=== PATIENT | male | born 1955 | race Caucasian/White ===

== ENCOUNTER 2019-11-26 10:24 | Emergency (ER) | payer MEDICARE, OTHER ==
[2019-11-26 10:35] VITALS: TEMP 97.6
--- NOTE | 2019-11-26 11:05 | ED ---
General Adult HPI - General Chief complaint: Abdominal Pain Stated complaint: abdominal/back pain Time Seen by Provider: 11/26/19 10:41 Source: patient Mode of arrival: wheelchair Limitations: no limitations - History of Present Illness Initial comments: Patient is 64-year-old male presenting to emergency Department with a chief complaint of abdominal pain. Patient states he developed sudden onset of epigastric abdominal pain 2 days ago that is radiating straight to the back. Patient states he has been unable to find a comfortable position. States the pain is constant and cramping nature that also radiates to the suprapubic region. Patient has not seen a physician in many years. Denies history of hypertension or hypercholesterolemia. Does report some shortness of breath but states that is his baseline for the most part because of his smoking. She also reports chronic back pain. Denies any nausea vomiting diarrhea or constipation. Denies hematuria, hematochezia or melena. Denies any urinary symptoms. Denies night sweats or chills. Denies any chest pain, headache, blurry vision, one sided weakness or paresthesias. Denies focal neural deficits. - Related Data Allergies Allergy/AdvReac Type Severity Reaction Status Date / Time No Known Allergies Allergy Verified 11/26/19 10:31 Review of Systems ROS Statement: Those systems with pertinent positive or pertinent negative responses have been documented in the HPI. ROS Other: All systems not noted in ROS Statement are negative. Past Medical History Past Medical History: Hypertension Additional Past Medical History / Comment(s): occasional memory loss History of Any Multi-Drug Resistant Organisms: None Reported Past Surgical History: Heart Catheterization With Stent Past Psychological History: No Psychological Hx Reported Smoking Status: Current every day smoker Past Alcohol Use History: None Reported Past Drug Use History: None Reported General Exam Limitations: no limitations General appearance: alert, in no apparent distress Head exam: Present: atraumatic, normal inspection. Absent: normocephalic Eye exam: Present: normal appearance Pupils: Present: normal accommodation ENT exam: Present: normal exam, normal oropharynx, mucous membranes moist, TM's normal bilaterally, normal external ear exam Neck exam: Present: normal inspection, full ROM Respiratory exam: Present: normal lung sounds bilaterally. Absent: wheezes Cardiovascular Exam: Present: regular rate, normal rhythm, normal heart sounds GI/Abdominal exam: Present: soft, tenderness (Epigastric tenderness). Absent: distended, guarding, rebound, rigid, pulsatile mass (No obvious pulsatile mass appreciated on the abdomen.) Extremities exam: Present: normal inspection, full ROM, normal capillary refill, other (+2 ulnar and radial pulses bilaterally. +2 dorsalis pedis and posterior tibialis bilaterally.) Back exam: Present: normal inspection, full ROM, tenderness, paraspinal tenderness (Tenderness in bilateral lumbosacral region without radiation to the legs.). Absent: CVA tenderness (R), CVA tenderness (L) Neurological exam: Present: alert, oriented X3. Absent: motor sensory deficit Psychiatric exam: Present: normal affect, normal mood Skin exam: Present: warm, dry, intact, normal color Course Vital Signs 11/26/19 10:32 Temperature 97.6 F Pulse Rate 74 Respiratory 18 Rate Blood Pressure 196/96 O2 Sat by Pulse 98 Oximetry EKG Findings - EKG Comments: EKG Findings:: Sinus bradycardia, no ST changes. Ventricular rate 59, ME 1:30, QRS duration 108, QTC 461 Medical Decision Making - Medical Decision Making Patient is 64-year-old male presenting to the emergency department with a chief complaint of abdominal pain radiating to the back. Patient does have history of chronic back pain and emphysema secondary to smoking. On exam patient has had epigastric abdominal pain and bilateral paraspinal vertebral tenderness which is present at baseline. Patient did have severe pain on initial evaluation with an elevated blood pressure. Patient is a smoker. Considering all the symptoms and that he has not seen a physician in many years, possible AAA rupture was considered patient was sent for aortic angiogram Immediately. Results show a dilation of 4 cm and the aortic root. Emphysematous changes noted most likely secondary smoking. Constipation noted. Bilateral gynecomastia and degenerative disc changes. No signs of aortic aneurysm. EKG shows sinus sinus bradycardia. Initial troponin is negative. CBC unremarkable. CMP does show elevated BUN suspected secondary to dehydration. Patient given Bentyl, Toradol, Zofran. Reevaluation patient reports improvement of symptoms. I counseled the patient for smoking cessation for greater than 3 minutes Patient advised to reestablish a relationship with a primary care physician. Patient advised to drink let's of fluids, especially Gatorade and Pedialyte. Patient will be discharged with Bentyl and advised to alternate between Tylenol Motrin for pain control. Strict return parameters were thoroughly discussed with patient was understanding and agreeable. Case discussed with physician. - Lab Data Result diagrams: 11/26/19 11:34 11/26/19 11:34 Lab Results 11/26/19 11/26/19 11/26/19 Range/Units 11:34 11:34 11:34 WBC 6.7 (3.8-10.6) k/uL RBC 5.25 (4.30-5.90) m/uL Hgb 16.6 (13.0-17.5) gm/dL Hct 49.5 (39.0-53.0) % MCV 94.2 (80.0-100.0) fL MCH 31.6 (25.0-35.0) pg MCHC 33.6 (31.0-37.0) g/dL RDW 12.9 (11.5-15.5) % Plt Count 259 (150-450) k/uL Neutrophils % 64 % Lymphocytes % 19 % Monocytes % 8 % Eosinophils % 6 % Basophils % 2 % Neutrophils # 4.3 (1.3-7.7) k/uL Lymphocytes # 1.2 (1.0-4.8) k/uL Monocytes # 0.6 (0-1.0) k/uL Eosinophils # 0.4 (0-0.7) k/uL Basophils # 0.1 (0-0.2) k/uL PT 10.0 (9.0-12.0) sec INR 1.0 (<1.2) APTT 27.0 (22.0-30.0) sec Sodium 134 L (137-145) mmol/L Potassium 4.6 (3.5-5.1) mmol/L Chloride 104 (98-107) mmol/L Carbon Dioxide 24 (22-30) mmol/L Anion Gap 6 mmol/L BUN 24 H (9-20) mg/dL Creatinine 0.68 (0.66-1.25) mg/dL Est GFR (CKD-EPI)AfAm >90 (>60 ml/min/1.73 sqM) Est GFR (CKD-EPI)NonAf >90 (>60 ml/min/1.73 sqM) Glucose 95 (74-99) mg/dL Calcium 9.2 (8.4-10.2) mg/dL Magnesium 2.1 (1.6-2.3) mg/dL Total Bilirubin 0.6 (0.2-1.3) mg/dL AST 26 (17-59) U/L ALT 13 (4-49) U/L Alkaline Phosphatase 141 H (38-126) U/L Troponin I (0.000-0.034) ng/mL Total Protein 6.8 (6.3-8.2) g/dL Albumin 4.1 (3.5-5.0) g/dL Amylase 57 (30-110) U/L Lipase 115 (23-300) U/L 11/26/19 Range/Units 11:34 WBC (3.8-10.6) k/uL RBC (4.30-5.90) m/uL Hgb (13.0-17.5) gm/dL Hct (39.0-53.0) % MCV (80.0-100.0) fL MCH (25.0-35.0) pg MCHC (31.0-37.0) g/dL RDW (11.5-15.5) % Plt Count (150-450) k/uL Neutrophils % % Lymphocytes % % Monocytes % % Eosinophils % % Basophils % % Neutrophils # (1.3-7.7) k/uL Lymphocytes # (1.0-4.8) k/uL Monocytes # (0-1.0) k/uL Eosinophils # (0-0.7) k/uL Basophils # (0-0.2) k/uL PT (9.0-12.0) sec INR (<1.2) APTT (22.0-30.0) sec Sodium (137-145) mmol/L Potassium (3.5-5.1) mmol/L Chloride (98-107) mmol/L Carbon Dioxide (22-30) mmol/L Anion Gap mmol/L BUN (9-20) mg/dL Creatinine (0.66-1.25) mg/dL Est GFR (CKD-EPI)AfAm (>60 ml/min/1.73 sqM) Est GFR (CKD-EPI)NonAf (>60 ml/min/1.73 sqM) Glucose (74-99) mg/dL Calcium (8.4-10.2) mg/dL Magnesium (1.6-2.3) mg/dL Total Bilirubin (0.2-1.3) mg/dL AST (17-59) U/L ALT (4-49) U/L Alkaline Phosphatase (38-126) U/L Troponin I <0.012 (0.000-0.034) ng/mL Total Protein (6.3-8.2) g/dL Albumin (3.5-5.0) g/dL Amylase (30-110) U/L Lipase (23-300) U/L Disposition Clinical Impression: Abdominal cramping, Back pain Disposition: HOME SELF-CARE Condition: Stable Instructions (If sedation given, give patient instructions): Acute Abdominal Pain (ED) Additional Instructions: Follow-up with a primary care doctor. Take prescribed medication as directed. Return to emergency department if symptoms worsen. Is patient prescribed a controlled substance at d/c from ED?: No Referrals: Deonte Devi MD [Primary Care Provider] - 1-2 days Time of Disposition: 13:34
[2019-11-26 12:00] LABS: Basophils # (A) 0.1 k/uL (0-0.2); Basophils % (A) 2 %; Eosinophils # (A) 0.4 k/uL (0-0.7); Eosinophils % (A) 6 %; HCT 49.5 % (39.0-53.0); HGB 16.6 gm/dL (13.0-17.5); Lymphocytes # (A) 1.2 k/uL (1.0-4.8); Lymphocytes % (A) 19 %; MCH 31.6 pg (25.0-35.0); MCHC 33.6 g/dL (31.0-37.0); MCV 94.2 fL (80.0-100.0); Mean Platelet Volume 7.6; Monocytes # (A) 0.6 k/uL (0-1.0); Monocytes % (A) 8 %; Neutrophils # (A) 4.3 k/uL (1.3-7.7); Neutrophils % (A) 64 %; Platelet Count 259 k/uL (150-450); RBC 5.25 m/uL (4.30-5.90); RDW 12.9 % (11.5-15.5); WBC 6.7 k/uL (3.8-10.6)
--- NOTE | 2019-11-26 12:03 | CT ---
EXAMINATION TYPE: CT angio thor/abd pel aorta DATE OF EXAM: 11/26/2019 COMPARISON: None. HISTORY: Abdominal/back pain CT DLP: 1171.2 mGycm. Automated Exposure Control for Dose Reduction was Utilized. CONTRAST: CT scan of the thorax, abdomen and pelvis is performed without and with IV Contrast, patient injected with 100 ml mL of Isovue 370. FINDINGS: There are emphysematous changes throughout the lungs. The lungs are otherwise clear. There is no significant axillary, mediastinal or hilar adenopathy. There is no pleural or pericardial fluid. The heart is not enlarged. There is bilateral gynecomastia. Within the abdomen, the gallbladder is contracted. The liver and spleen appear normal. Both adrenal glands are normal. Both kidneys demonstrate function and appear morphologically normal. The pancreas is unremarkable. There is no significant retroperitoneal, iliac or inguinal adenopathy. The prostate gland is enlarged. The bladder is unremarkable. There is a moderate amount of fecal material within the colon. A well-defined calcification adjacent to the cecum May represent a phlebolith or a fecalith. Small bowel loops are normal. The appendix is not visualized. There is no evidence of pulmonary embolus. The aortic root is dilated measuring 4 cm. The remainder the aorta is normal. There is no evidence of dissection. The SMA, celiac and LANE vessels are patent. Both renal arteries are patent. There is degenerative change within the spine with a loss of disc space height at L5-S1 and a vacuum phenomena at this level. IMPRESSION: 1. MILD DILATATION OF THE AORTIC ROOT. 2. EMPHYSEMATOUS CHANGES THROUGHOUT THE LUNGS. 3. BILATERAL GYNECOMASTIA. 4. CONSTIPATION. 5. DEGENERATIVE CHANGES WITHIN THE SPINE.
[2019-11-26 12:13] LABS: ALT 13 U/L (4-49); AST 26 U/L (17-59); African American GFR (CKD) >90 (>60 ml/min/1.73 sqM); Albumin 4.1 g/dL (3.5-5.0); Alkaline Phosphatase 141 U/L (38-126); Amylase 57 U/L (30-110); Anion Gap 6 mmol/L; Blood Urea Nitrogen 24 mg/dL (9-20); Calcium 9.2 mg/dL (8.4-10.2); Carbon Dioxide 24 mmol/L (22-30); Chloride 104 mmol/L (98-107); Glucose 95 mg/dL (74-99); Magnesium 2.1 mg/dL (1.6-2.3); Non-African American GFR(CKD) >90 (>60 ml/min/1.73 sqM); Potassium 4.6 mmol/L (3.5-5.1); Sodium 134 mmol/L (137-145); Total Bilirubin 0.6 mg/dL (0.2-1.3); Total Protein 6.8 g/dL (6.3-8.2)
[2019-11-26] MEDS ORDERED: KETOROLAC 30 MG/ML 1 ML VIAL IVP STA (12:25)
[2019-11-26] MEDS ORDERED: DICYCLOMINE 10 MG/ML 2 ML AMP IM STA (12:25)
[2019-11-26] MEDS ORDERED: LIDOCAINE 5% PATCH TOPICAL STA (12:26)
[2019-11-26] MEDS ORDERED: ONDANSETRON 4 MG/2 ML VIAL IVP STA (12:26)
[2019-11-26 13:42] VITALS: RESP 20
[2019-11-26 13:45] VITALS: BP 165/75; PULSE 70
== END 2019-11-26 13:52 | disposition home or self-care (01) ==
LOC: EC 10:24
DX: R10.13 Epigastric pain (principal); M54.9 Dorsalgia, unspecified; R06.02 Shortness of breath; K59.00 Constipation, unspecified; N62 Hypertrophy of breast; R00.1 Bradycardia, unspecified; E86.0 Dehydration; I10 Essential (primary) hypertension; F17.200 Nicotine dependence, unspecified, uncomplicated; Z71.6 Tobacco abuse counseling; Z95.5 Presence of coronary angioplasty implant and graft
CPT/HCPCS: 36415; 93005; 80053; 82150; 83690; 83735; 84484; 85025; 85610; 85730; 71275; 74174; 99284; 96372; J0500; Q9967

== ENCOUNTER 2023-02-12 11:13 | Inpatient (IN) | payer MEDICARE, OTHER ==
[2023-02-12] MEDS ORDERED: ASPIRIN 81 MG PO STA (11:43)
[2023-02-12] MEDS ORDERED: NITROGLYCERIN OINT 1 INCH/GM PACKET TOPICAL STA (11:43)
[2023-02-12 12:19] LABS: Basophils # (A) 0.1 k/uL (0-0.2); Basophils % (A) 1 %; Eosinophils # (A) 0.3 k/uL (0-0.7); Eosinophils % (A) 4 %; HCT 50.9 % (39.0-53.0); Lymphocytes # (A) 1.2 k/uL (1.0-4.8); Lymphocytes % (A) 20 %; MCH 32.1 pg (25.0-35.0); MCHC 33.3 g/dL (31.0-37.0); MCV 96.3 fL (80.0-100.0); Mean Platelet Volume 7.1; Monocytes # (A) 0.5 k/uL (0-1.0); Monocytes % (A) 8 %; Neutrophils % (A) 65 %; Platelet Count 287 k/uL (150-450); RBC 5.29 m/uL (4.30-5.90); RDW 12.5 % (11.5-15.5); WBC 6.2 k/uL (3.8-10.6)
[2023-02-12 12:20] LABS: INR 0.9 (<1.2); Partial Thromboplastin Time 22.6 sec (22.0-30.0); Prothrombin Time 10.1 sec (9.0-12.0)
--- NOTE | 2023-02-12 12:20 | XR ---
EXAMINATION TYPE: XR chest 2V DATE OF EXAM: 02/12/2023 COMPARISON: CT 11/26/2019 HISTORY: Intermittent shortness of breath and chest pain TECHNIQUE: Frontal and lateral views of the chest are obtained. FINDINGS: The heart size is normal. The cardiac mediastinal silhouette and pulmonary vasculature are within normal limits. There is no focal consolidation, significant pleural effusion, or pneumothorax . There are increased lung volumes, compatible with emphysema. IMPRESSION: No acute cardiopulmonary process.
--- NOTE | 2023-02-12 12:22 | CT ---
EXAMINATION TYPE: CT brain wo con DATE OF EXAM: 02/12/2023 HISTORY: Acute headache and HTN CT DLP: 1158.9 mGycm. Automated Exposure Control for Dose Reduction was Utilized. TECHNIQUE: CT scan of the head is performed without contrast. COMPARISON: None. FINDINGS: There is no acute intracranial hemorrhage. 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 Asymmetric left ventricular dilatation versus the opposite right side wit h subtle right-sided midline shift. Gong-white matter differentiation is fairly well-preserved. The c alvarium is intact. Globes are intact bilaterally. The paranasal sinuses are clear. IMPRESSION: No acute intracranial hemorrhage. 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 There is asymmetric moderate to severe left ventricular dilatation. Some midline shift is seen. Correlation with old outside CT and/or MRI is advised to determine if left ventricular dilatati on is acute or chronic. Latter is suspected.
[2023-02-12 12:29] LABS: ALT 19 U/L (4-49); AST 24 U/L (17-59); African American GFR (CKD) >90 (>60 ml/min/1.73 sqM); Albumin 4.2 g/dL (3.5-5.0); Alkaline Phosphatase 94 U/L (38-126); Anion Gap 7 mmol/L; Blood Urea Nitrogen 19 mg/dL (9-20); Calcium 9.3 mg/dL (8.4-10.2); Carbon Dioxide 27 mmol/L (22-30); Chloride 103 mmol/L (98-107); Glucose 108 mg/dL (74-99); Magnesium 2.3 mg/dL (1.6-2.3); Non-African American GFR(CKD) >90 (>60 ml/min/1.73 sqM); Potassium 4.4 mmol/L (3.5-5.1); Sodium 137 mmol/L (137-145); Total Bilirubin 0.6 mg/dL (0.2-1.3); Total Protein 6.8 g/dL (6.3-8.2)
--- NOTE | 2023-02-12 13:02 | ED ---
General Adult HPI - General Chief complaint: Chest Pain Stated complaint: Chest Pain,HTN Time Seen by Provider: 02/12/23 11:20 Source: patient, RN notes reviewed, old records reviewed Mode of arrival: wheelchair Limitations: no limitations - History of Present Illness Initial comments: This is a 67-year-old male presents emergency department because his blood pressure was elevated he was having a headache and chest pain. Patient has not seen a physician in many years. Patient states the pain comes in his chest that last between 15 and 20 minutes. Patient states his been ongoing for a week and he also has shortness of breath with the chest pain. Patient states he also has had quite a bit of a headache over the last few weeks and it is been dizzy with that as well. Patient denies any near syncopal episode. Patient denies any numbness or weakness. Patient denies any recent fever chills or cough per patient denies abdominal pain patient denies nausea vomiting diarrhea. Patient saw the primary medical care doctor and they wanted him to come to the hospital he admitted and he also had high blood pressure in the office. - Related Data Home Medications Medication Instructions Recorded Confirmed No Known Home Medications 02/12/23 02/12/23 Allergies Allergy/AdvReac Type Severity Reaction Status Date / Time No Known Allergies Allergy Verified 02/12/23 12:45 Review of Systems ROS Statement: Those systems with pertinent positive or pertinent negative responses have been documented in the HPI. ROS Other: All systems not noted in ROS Statement are negative. Past Medical History Past Medical History: Coronary Artery Disease (CAD), Hypertension Additional Past Medical History / Comment(s): occasional memory loss History of Any Multi-Drug Resistant Organisms: None Reported Past Surgical History: Heart Catheterization With Stent Past Psychological History: No Psychological Hx Reported Smoking Status: Current every day smoker Past Alcohol Use History: None Reported Past Drug Use History: None Reported General Exam - General Exam Comments Initial Comments: GENERAL: Patient is well-developed and well-nourished. Patient is nontoxic and well- hydrated and is in mild distress. ENT: Neck is soft and supple. No significant lymphadenopathy is noted. Oropharynx is clear. Moist mucous membranes. Neck has full range of motion without eliciting any pain. EYES: The sclera were anicteric and conjunctiva were pink and moist. Extraocular movements were intact and pupils were equal round and reactive to light. Eyelids were unremarkable. PULMONARY: Unlabored respirations. Good breath sounds bilaterally. No audible rales rhonchi or wheezing was noted. CARDIOVASCULAR: There is a regular rate and rhythm without any murmurs gallops or rubs. ABDOMEN: Soft and nontender with normal bowel sounds. SKIN: Skin is clear with no lesions or rashes and otherwise unremarkable. NEUROLOGIC: Patient is alert and oriented x3. Cranial nerves II through XII are grossly intact. Motor and sensory are also intact. Normal speech, volume and content. Symmetrical smile. MUSCULOSKELETAL: Normal extremities with adequate strength and full range of motion. LYMPHATICS: No significant lymphadenopathy is noted PSYCHIATRIC: Normal psychiatric evaluation. Limitations: no limitations Course Vital Signs 02/12/23 02/12/23 11:15 11:18 Temperature 97.6 F Pulse Rate 62 78 Respiratory 20 16 Rate Blood Pressure 162/85 146/81 O2 Sat by Pulse 98 98 Oximetry Medical Decision Making - Medical Decision Making EKG is interpreted by myself shows a sinus bradycardia 55 bpm CO interval is on a 27 QRSs 111 QT intervals 474 QTC is 464. Patient's EKG shows no ST segment elevation or depression. Was pt. sent in by a medical professional or institution (, PA, DIRECTOR [employer], urgent care, hospital, or penitentiary...) When possible be specific @ -No Did you speak to anyone other than the patient for history (EMS, parent, family, police, friend...)? What history was obtained from this source @ -Friend that came with the patient gave some of the history Did you review nursing and triage notes (agree or disagree)? Why? @ -I reviewed and agree with nursing and triage notes Were old charts reviewed (outside hosp., previous admission, EMS record, old EKG, old radiological studies, urgent care reports/EKG's, penitentiary records)? Report findings @ -No old charts were reviewed Differential Diagnosis (chest pain, altered mental status, abdominal pain women, abdominal pain men, vaginal bleeding, weakness, fever, dyspnea, syncope, headache, dizziness, GI bleed, back pain, seizure, CVA, palpatations, mental health, musculoskeletal)? @ -Differential Chest Pain: Stable Angina, Unstable Angina, STEMI, NSTEMI Aortic Dissection, Pneumothorax, Musculoskeletal, Esophageal Spasm GERD, Cholecystitis, Pancreatitis, Zoster, this is not meant to be an all-inclusive list. EKG interpreted by me (3pts min.). @ -As above X-rays interpreted by me (1pt min.). @ -Chest x-ray was interpreted by myself. It showed no acute abnormality. CT interpreted by me (1pt min.). @ -CT of the brain was interpreted by myself did show an enlarged ventricle so I looked at the radiological report and he stated that this was there but also thought it was most likely chronic. U/S interpreted by me (1pt. min.). @ -None done What testing was considered but not performed or refused? (CT, X-rays, U/S, labs)? Why? @ -None What meds were considered but not given or refused? Why? @ -None Did you discuss the management of the patient with other professionals (professionals i.e. , PA, [employer], lab, RT, psych nurse, social insurance analyst, drapery sewer hand, teacher, chief diversity officer, immigration case manager)? Give summary @ -I spoke with Dr. smyth he agreed to admit the patient admitted the patient and they will be consulting cardiology for the chest pain and neural for the headaches Was smoking cessation discussed for >3mins.? @ -No Was critical care preformed (if so, how long)? @ -No Were there social determinants of health that impacted care today? How? (Homelessness, low income, unemployed, alcoholism, drug addiction, transportation, low edu. Level, literacy, decrease access to med. care, shelter, rehab)? @ -No Was there de-escalation of care discussed even if they declined (Discuss DNR or withdrawal of care, Hospice)? DNR status @ -No What co-morbidities impacted this encounter? (DM, HTN, Smoking, COPD, CAD, Cancer, CVA, ARF, Chemo, Hep., AIDS, mental health diagnosis, sleep apnea, morbid obesity)? @ -None Was patient admitted / discharged? Hospital course, mention meds given and route, prescriptions, significant lab abnormalities, going to OR and other pertinent info. @ -Patient's blood pressure was mildly elevated I gave the patient a little hydralazine while in the emergency department. Patient's chest pain was minimal and troponin was normal. CAT scan did show probable chronic changes with enlarged ventricle. Cardiology will be consulted for the chest pain and neurology be consulted for the headaches Undiagnosed new problem with uncertain prognosis? @ -No Drug Therapy requiring intensive monitoring for toxicity (Heparin, Nitro, Insulin, Cardizem)? @ -No Were any procedures done? @ -No Diagnosis/symptom? @ -Chest pain Acute, or Chronic, or Acute on Chronic? @ -Acute Uncomplicated (without systemic symptoms) or Complicated (systemic symptoms)? @ -Complicated Side effects of treatment? @ -No Exacerbation, Progression, or Severe Exacerbation? @ -No Poses a threat to life or bodily function? How? (Chest pain, [place], [place], pneumonia, PE, COPD, DKA, ARF, appy, cholecystitis, CVA, Diverticulitis, Homicidal, Suicidal, threat to staff... and all critical care pts) @ -Yes this could lead to end organ dysfunction from poor perfusion Diagnosis/symptom? @ -Hypertension Acute, or Chronic, or Acute on Chronic? @ -Acute Uncomplicated (without systemic symptoms) or Complicated (systemic symptoms)? @ -Complicated Side effects of treatment? @ -none Exacerbation, Progression, or Severe Exacerbation] @ -no Poses a threat to life or bodily function? @ -no Diagnosis/symptom? @ -Headache Acute, or Chronic, or Acute on Chronic? @ -Acute Uncomplicated (without systemic symptoms) or Complicated (systemic symptoms)? @ -Uncomplicated Side effects of treatment? @ -none Exacerbation, Progression, or Severe Exacerbation] @ -no Poses a threat to life or bodily function? @ -no - Lab Data Result diagrams: 02/12/23 11:52 02/12/23 11:52 Lab Results 02/12/23 02/12/23 02/12/23 Range/Units 11:52 11:52 11:52 WBC 6.2 (3.8-10.6) k/uL RBC 5.29 (4.30-5.90) m/uL Hgb 17.0 (13.0-17.5) gm/dL Hct 50.9 (39.0-53.0) % MCV 96.3 (80.0-100.0) fL MCH 32.1 (25.0-35.0) pg MCHC 33.3 (31.0-37.0) g/dL RDW 12.5 (11.5-15.5) % Plt Count 287 (150-450) k/uL MPV 7.1 Neutrophils % 65 % Lymphocytes % 20 % Monocytes % 8 % Eosinophils % 4 % Basophils % 1 % Neutrophils # 4.0 (1.3-7.7) k/uL Lymphocytes # 1.2 (1.0-4.8) k/uL Monocytes # 0.5 (0-1.0) k/uL Eosinophils # 0.3 (0-0.7) k/uL Basophils # 0.1 (0-0.2) k/uL PT 10.1 (9.0-12.0) sec INR 0.9 (<1.2) APTT 22.6 (22.0-30.0) sec Sodium 137 (137-145) mmol/L Potassium 4.4 (3.5-5.1) mmol/L Chloride 103 (98-107) mmol/L Carbon Dioxide 27 (22-30) mmol/L Anion Gap 7 mmol/L BUN 19 (9-20) mg/dL Creatinine 0.68 (0.66-1.25) mg/dL Est GFR (CKD-EPI)AfAm >90 (>60 ml/min/1.73 sqM) Est GFR (CKD-EPI)NonAf >90 (>60 ml/min/1.73 sqM) Glucose 108 H (74-99) mg/dL Calcium 9.3 (8.4-10.2) mg/dL Magnesium 2.3 (1.6-2.3) mg/dL Total Bilirubin 0.6 (0.2-1.3) mg/dL AST 24 (17-59) U/L ALT 19 (4-49) U/L Alkaline Phosphatase 94 (38-126) U/L Troponin I (0.000-0.034) ng/mL Total Protein 6.8 (6.3-8.2) g/dL Albumin 4.2 (3.5-5.0) g/dL 02/12/23 Range/Units 11:52 WBC (3.8-10.6) k/uL RBC (4.30-5.90) m/uL Hgb (13.0-17.5) gm/dL Hct (39.0-53.0) % MCV (80.0-100.0) fL MCH (25.0-35.0) pg MCHC (31.0-37.0) g/dL RDW (11.5-15.5) % Plt Count (150-450) k/uL MPV Neutrophils % % Lymphocytes % % Monocytes % % Eosinophils % % Basophils % % Neutrophils # (1.3-7.7) k/uL Lymphocytes # (1.0-4.8) k/uL Monocytes # (0-1.0) k/uL Eosinophils # (0-0.7) k/uL Basophils # (0-0.2) k/uL PT (9.0-12.0) sec INR (<1.2) APTT (22.0-30.0) sec Sodium (137-145) mmol/L Potassium (3.5-5.1) mmol/L Chloride (98-107) mmol/L Carbon Dioxide (22-30) mmol/L Anion Gap mmol/L BUN (9-20) mg/dL Creatinine (0.66-1.25) mg/dL Est GFR (CKD-EPI)AfAm (>60 ml/min/1.73 sqM) Est GFR (CKD-EPI)NonAf (>60 ml/min/1.73 sqM) Glucose (74-99) mg/dL Calcium (8.4-10.2) mg/dL Magnesium (1.6-2.3) mg/dL Total Bilirubin (0.2-1.3) mg/dL AST (17-59) U/L ALT (4-49) U/L Alkaline Phosphatase (38-126) U/L Troponin I <0.012 (0.000-0.034) ng/mL Total Protein (6.3-8.2) g/dL Albumin (3.5-5.0) g/dL Disposition Clinical Impression: Chest pain, Headache Disposition: ADMITTED IP TO THIS HOSP Referrals: Lillie Richards MD [Primary Care Provider] - 1-2 days Time of Disposition: 13:26
[2023-02-12] MEDS ORDERED: NITROGLYCERIN SL TABS 0.4 MG TAB SUBLINGUAL PRN (13:26)
[2023-02-12] MEDS ORDERED: SODIUM CHLORIDE 0.9% 1,000 ML IV STA (13:55)
[2023-02-12] MEDS ORDERED: NICOTINE 21MG/24HR PATCH TRANSDERM STA (13:57)
[2023-02-12] MEDS ORDERED: IPRATROPIUM-ALBUTEROL 3 ML NEB INHALATION STA (13:59)
[2023-02-12] MEDS ORDERED: IPRATROPIUM-ALBUTEROL 3 ML NEB INHALATION PRN (14:00)
[2023-02-12] MEDS ORDERED: ACETAMINOPHEN TAB 325 MG TAB PO PRN (14:02)
--- NOTE | 2023-02-12 14:03 | P.HPIM ---
History of Present Illness this is a pleasant 67 years old male with remote history of hypertension. Currently he does not follow up with primary care doctor for more than 10-20 years. Patient presents because of chest pain , patient was not sure for how long he has it but he thinks roughly for 2 days, ascending the left upper chest, nonradiating, felt like sharp increase with coughing and deep breathing. Patient has dry cough. Also has been complaining of from exertional dyspnea also he wasn't sure but probably for about a week estimated by the patient. He is a smoker and smokes about 1-1.5 pack per day. No alcohol or illicit drugs. He denies change in his urine or bowel habits or urinary or GI symptoms. Currently he has mild headache however he has chronic episodes of headache that last between 0.5-2 days on the left side radiating to the right side, severe at times felt like migrainous headache. But patient does not follow up for his medical problems Also he is complaining of from low back pain which is chronic as well. Patient vitals are stable and he is saturating 98% on room air. Slightly bradycardic at around 59, blood pressure 166/96. Afebrile Has unremarkable CBC, INR, BMP and liver enzymes. Troponin 1 is negative less than 0.012. EKG showing sinus bradycardia at 55 with incomplete right bundle branch block with no significant ST-T changes. Chest x-ray: No acute process. C2 of the brain: No acute intracranial hemorrhage. 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 There is a symmetrical moderate to severe left ventricular dilatation. Some midline shift. Review of Systems Review of systems CONSTITUTIONAL: No fever, no malaise, no fatigue. HEENT: No recent visual problems or hearing problems. Denied any sore throat. CARDIOVASCULAR: No orthopnea, PND, no palpitations, no syncope. PULMONARY: No chest wall tenderness, no hemoptysis. GASTROINTESTINAL: No diarrhea, no nausea, no vomiting, no abdominal pain. Normoactive bowel sounds. NEUROLOGICAL: No headaches, no weakness, no numbness. HEMATOLOGICAL: Denies any bleeding or petechiae. GENITOURINARY: Denies any burning micturition, frequency, or urgency. MUSCULOSKELETAL/RHEUMATOLOGICAL: Denies any joint pain, swelling, or any muscle pain. ENDOCRINE: Denies any polyuria or polydipsia. Past Medical History Past Medical History: Coronary Artery Disease (CAD), Hypertension Additional Past Medical History / Comment(s): occasional memory loss History of Any Multi-Drug Resistant Organisms: None Reported Past Surgical History: Heart Catheterization With Stent Past Psychological History: No Psychological Hx Reported Smoking Status: Current every day smoker Past Alcohol Use History: None Reported Past Drug Use History: None Reported Medications and Allergies Home Medications Medication Instructions Recorded Confirmed Type No Known Home Medications 02/12/23 02/12/23 History Allergies Allergy/AdvReac Type Severity Reaction Status Date / Time No Known Allergies Allergy Verified 02/12/23 12:45 Physical Exam Vitals: Vital Signs Temp Pulse Pulse Resp BP Pulse Ox 02/12/23 13:18 59 L 16 166/96 99 02/12/23 12:18 57 L 16 142/92 98 02/12/23 12:00 60 02/12/23 11:18 78 16 146/81 98 02/12/23 11:15 97.6 F 62 20 162/85 98 Intake and Output 02/11/23 02/12/23 02/12/23 22:59 06:59 14:59 Other: Weight 65.771 kg GENERAL: The patient is alert and oriented x3, not in any acute distress. Well developed, well nourished. -HEENT: Pupils are round and equally reacting to light. EOMI. No scleral icterus. No conjunctival pallor. Normocephalic, atraumatic. No pharyngeal erythema. No thyromegaly. Skull deformity with more marked on the left side with scoliosis (congenital since per patient) CARDIOVASCULAR: S1 and S2 present. No murmurs, rubs, or gallops. -PULMONARY: Chest is clear to auscultation, no wheezing or crackles. Mild limitation of air entry. No chest wall tenderness. Bilateral chest ABDOMEN: Soft, nontender, nondistended, normoactive bowel sounds. No palpable organomegaly. MUSCULOSKELETAL: No joint swelling or deformity. EXTREMITIES: No cyanosis, clubbing, or pedal edema. NEUROLOGICAL: Gross neurological examination did not reveal any focal deficits. SKIN: No rashes. no petechiae. Results CBC & Chem 7: 02/12/23 11:52 02/12/23 11:52 Labs: Abnormal Lab Results - Last 24 Hours (Table) 02/12/23 Range/Units 11:52 Glucose 108 H (74-99) mg/dL Assessment and Plan Assessment: Chest pain, rule out cardiac causes, Rule out pulmonary causes mild headache withAsymmetric moderate to severe intra-cranial left ventricular dilatation with some midline shift Hypertension possible mild degree of COPD exacerbation, patient will require pulmonary funct ion test as an outpatient Plan: Continue with aspirin Check echocardiogram Continue with nitroglycerin We ordered d-dimer to rule out PE, came back positive for going to check CTA of the chest to rule out PE, risks of the test including ALLERGIC reaction and/or nephrotoxicity which could be permanent damage are explained for the patient in detail and he verbalized understanding and acceptance to do the test revealed going to need it. Cardiology and neurology consult I suspect also mild degree of COPD therefore going to start the patient on a breathing treatment and inhaled steroids Patient is counseled to quit smoking and he agrees. Also agrees to the nicotine patch start Norvasc for blood pressure control Start normal saline 75 mL/h (especially if he is going to get CTA of the chest ) Labs and medication were reviewed.. Continue same treatment. Continue with symptomatic treatment. Resume home medication. Monitor labs and vitals. DVT and GI prophylaxis. Further recommendations as per clinical course of the patient DVT prophylaxis: Subcutaneous heparin GI Prophylaxis: Pepcid Prognosis is guarded
[2023-02-12] MEDS: amLODIPine 5 MG TAB PO SCH (15:01)
--- NOTE | 2023-02-12 15:27 | CT ---
EXAMINATION TYPE: CT chest angio for PE DATE OF EXAM: 02/12/2023 COMPARISON: CTA aorta November 26, 2019 HISTORY: sob and chest pain. elevated d-dimer CT DLP: 245.6 mGycm. Automated Exposure Control for Dose Reduction was Utilized. CONTRAST: CTA scan of the thorax is performed with IV Contrast, patient injected with 67 mL of Isovue 370, pulm onary embolism protocol. MIP Images are created on CT scanner and reviewed. 3D reconstructed images are created on an independent workstation and reviewed. FINDINGS: LUNGS: Fairly moderate underlying emphysematous changes are redemonstrated. Persistent central mild to moderate peribronchial wall thickening. Small area of new focal consolidation in the anterior righ t middle lobe axial image 86 for reference..Mild linear scarring and/or atelectasis in both bases. Th ere is no pleural effusion or pneumothorax seen. The tracheobronchial tree is patent. MEDIASTINUM: There is satisfactory enhancement of the pulmonary artery and its branches, there is no CT evidence for pulmonary embolism. Stable enlarged right hilar lymph node axial image 82 measuring 2 .5 x 1.7 cm. No cardiomegaly or pericardial effusion is seen. Ascending aorta measures up to 3.6 cm unchanged in size from prior study. Aortic root measures 3.8 cm in diameter coronal image 56 OTHER: Asymmetric right greater than left bilateral gynecomastia is redemonstrated. IMPRESSION: No CT evidence for acute pulmonary embolism. Moderate emphysematous change with central p eribronchial wall thickening raising concern for a acute bronchiolitis. Correlate clinically. Small d egree of focal consolidation in the periphery of the right middle lobe noted anteriorly.
[2023-02-12] MEDS: SYMBICORT 160-4.5 MCG INHALER INHALATION SCH ×2 (16:04→18:24)
--- NOTE | 2023-02-12 18:19 | US ---
EXAMINATION TYPE: US venous doppler duplex LE BI DATE OF EXAM: 02/12/2023 4:32 PM COMPARISON: NONE CLINICAL INDICATION: Male, 67 years old with history of leg swelling; leg swelling SIDE PERFORMED: Bilateral TECHNIQUE: The lower extremity deep venous system is examined utilizing real time linear array sonog kevin with graded compression, doppler sonography and color-flow sonography. VESSELS IMAGED: Common Femoral Vein Deep Femoral Vein Greater Saphenous Vein * Femoral Vein Popliteal Vein Small Saphenous Vein * Proximal Calf Veins (* superficial vessels) Right Leg: Negative for DVT Left Leg: Negative for DVT IMPRESSION: No evidence for DVT.
[2023-02-12] MEDS: AZITHROMYCIN 500 MG TAB PO SCH (18:49)
[2023-02-12] MEDS: BUTALB/APAP/CAFF 50-325-40MG TAB PO PRN (18:49)
[2023-02-12] MEDS: NITROGLYCERIN OINT 1 INCH/GM PACKET TOPICAL SCH ×2 (18:49→23:09)
[2023-02-12] MEDS: FAMOTIDINE 20 MG TAB PO SCH (20:08)
[2023-02-12] MEDS: HEPARIN SODIUM,PORCINE/PF 5,000 UNIT/0.5 ML SYRINGE SQ SCH (20:08)
[2023-02-12] MEDS ORDERED: FAMOTIDINE 20 MG/2 ML VIAL IV SCH (21:00)
[2023-02-12] MEDS ORDERED: METOPROLOL TARTRATE 25 MG TAB PO SCH (21:00)
[2023-02-13] MEDS: BUTALB/APAP/CAFF 50-325-40MG TAB PO PRN ×2 (03:07→08:56)
[2023-02-13] MEDS: NITROGLYCERIN OINT 1 INCH/GM PACKET TOPICAL SCH (05:15)
--- NOTE | 2023-02-13 08:32 | P.CNNES ---
History of Present Illness Consult date: 02/12/23 Requesting physician: Edinson Mccormick Reason for Consult: Headache History of Present Illness: Patient is a 67-year-old male came to the hospital today at 11:30 AM for chest pain. Patient has mentioned about headaches, therefore neurology consultation was initiated. Patient states that he has been having headaches that comes and goes, for the last few months. The headaches are occurring about once a week lasting for 1-2 days. It involves back of the head pointing to the left occipital region, rates 4/10, without any nausea, vomiting, light or noise sensitivity. He describes it as a pressure headache with some pounding features. He denies any sinus congestion, although sometimes he has a runny nose once in a while. Patient states that at present his headache is 4/10. Vital signs on arrival blood pressure 162/85, pulse rate 62 temperature 97.6. Blood test shows normal CBC, PT/PTT, normal CMP and troponin. CT head revealed no acute intracranial hemorrhage. 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 There is asymmetric moderate to severe left ventricular dilation. Some midline shift is seen. Correlation with old outside CT and/or MRIs is advised to determine if left-ventricular dilation is acute or chronic. Later he suspected. I personally reviewed CT head and agree with the findings. Visualized paranasal sinuses are clear. Chest x-ray showed no acute cardiac or related process. EKG showed sinus bradycardia. CTA of the chest showed no evidence for acute pulmonary embolism. Moderate emphysematous changes with central peribronchial wall thickening raising concern for acute bronchitis. Correlate clinically. Small degree of focal consolidation in the periphery of the right middle lobe noted anteriorly. Patient does not take any medications at home. Patient states that he lives by himself he has no family although he does have some brother and sisters. Patient has slightly asymmetric skull, with very prominent bulge on the left half of the skull. He states that he was born like this and denies any changes in his head contour. Patient has smoked on the average three-quarter pack per day since age 20.(He used to smoke between 1/2 to 1-1/2 pack per day). Patient states that on the average he drinks 5 cups of coffee per day, although sometimes he may drink up to 10 cups a day. He states caffeine calms him down. Denies any history of head injury. He states that he used to drink, but he has quit long time ago. Denies any alcohol or marijuana use. Patient states that he has been using cane for the last 6 months Review of Systems Constitutional: Denies chills, Denies fever Eyes: denies blurred vision, denies pain Ears: left: decreased hearing, deny: earache Ears, nose, mouth and throat: Reports headache, Denies sore throat Cardiovascular: Reports chest pain, Reports shortness of breath Respiratory: Denies cough, Denies excessive sputum Gastrointestinal: Denies abdominal pain, Denies diarrhea, Denies nausea, Denies vomiting Genitourinary: Reports incontinence Musculoskeletal: Denies frequent falls, Denies low back pain, Denies myalgias, Denies neck pain Integumentary: Denies pruritus, Denies rash Neurological: Reports as per HPI Psychiatric: Denies anxiety, Denies depression Endocrine: Reports fatigue, Denies weight change Hematologic/Lymphatic: Reports easy bleeding (Urinary urgency and difficulty holding urine), Reports easy bruising Past Medical History Past Medical History: Coronary Artery Disease (CAD), Hypertension Additional Past Medical History / Comment(s): occasional memory loss History of Any Multi-Drug Resistant Organisms: None Reported Past Surgical History: Heart Catheterization With Stent, Orthopedic Surgery Additional Past Surgical History / Comment(s): finger surgeries from work related accidents. Past Anesthesia/Blood Transfusion Reactions: No Reported Reaction Date of Last Stent Placement:: unknown Past Psychological History: No Psychological Hx Reported Smoking Status: Current every day smoker Past Alcohol Use History: None Reported Past Drug Use History: None Reported Medications and Allergies Home Medications Medication Instructions Recorded Confirmed Type No Known Home Medications 02/12/23 02/12/23 History Allergies Allergy/AdvReac Type Severity Reaction Status Date / Time No Known Allergies Allergy Verified 02/12/23 12:45 Physical Examination - Vital Signs Vital Signs: Vital Signs Temp Pulse Pulse Pulse Resp BP BP 02/12/23 16:17 57 L 16 02/12/23 15:43 97.7 F 57 L 16 174/87 02/12/23 14:58 65 16 151/81 02/12/23 14:57 65 16 151/61 02/12/23 13:18 59 L 16 166/96 02/12/23 12:18 57 L 16 142/92 02/12/23 12:00 60 04/21/23 11:18 78 16 146/81 02/12/23 11:15 97.6 F 62 20 162/85 Pulse Ox 02/12/23 16:17 02/12/23 15:43 98 02/12/23 14:58 98 02/12/23 14:57 98 02/12/23 13:18 99 02/12/23 12:18 98 02/12/23 12:00 02/12/23 11:18 98 02/12/23 11:15 98 Intake and Output 02/12/23 02/12/23 02/12/23 06:59 14:59 22:59 Other: Voiding Method Toilet Weight 65.771 kg 65.771 kg Patient is an elderly male, in no acute distress. Patient has a asymmetric skull, with prominent bulge involving the left half of the skull, and somewhat flattening of the right half of the skull. Patient states that he was borderline at this and denies any changes in the skull contour. Patient is alert awake oriented to time place and person. He knows it is January 2023 and that he is in [facility] in [facility]. Speech and language functions are normal. Patient can name and repeat very well. No aphasia or dysarthria. Attention, concentration and fund of knowledge is adequate. Detail cognitive function testing deferred. On cranial nerve examination, pupils are equal, round and reacting to light, visual hidal[place] are full on confrontation, with no neglect on double simultaneous stimulation. Extraocular muscles are intact with no nystagmus. Face is symmetric, tongue protrudes to the midline. Palatal elevation and sensation normal, hearing and shoulder shrug normal, facial sensation normal. No percussion tenderness over the occipital notch on the left. On muscle strength testing, there is no pronator drift and the strength is normal in arms and legs distally and proximally. Deep tendon reflexes are symmetric 1 at the biceps, 1 brachioradialis, 2 at the knees, 2 ankles and plantars are probably upgoing bilaterally. Sensory to touch is equal with no neglect on double simultaneous stimulation. Cerebellar function showed mild ataxia for [id number] testing. Questionable slight ataxia for [id number] testing on the right. Tone and bulk of muscles normal. Gait deferred.. On general examination, there is no carotid bruit or murmur, S1-S2 audible. Chest is clear on consultation. Abdomen is soft nontender. No organomegaly, bowel sounds present. Peripheral pulses are present. No edema. Results - Laboratory Findings CBC and BMP: 02/12/23 11:52 02/12/23 11:52 Abnormal Lab Findings: Abnormal Labs 02/12/23 02/12/23 11:52 11:52 D-Dimer 15.06 H Glucose 108 H Assessment and Plan Assessment: * Intermittent headache involving the left occipital region, unclear etiology. Occurring almost weekly, lasting for 1-2 days. Frequency is suggestive of migraine, but he does not have any vascular features. Denies any paresthesias in the occipital region, but occipital neuralgia is a possibility. Patient consumes excessive amount of caffeine, which may be contributing to these headaches. Also patient is having elevated blood pressure, which may be contributing to the occipital headache. * Abnormal CT head and skull contour, with prominence on the left side and flattening on the right side. 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 * Hypertension * Coronary artery disease Plan: * Recommend optimize control of blood pressure. At present is running around 173/85. Consider beta solitario, which may help with the headaches. * Try Fioricet as needed. * Suggest limited amount of caffeine intake. Patient drinks 5-6 cups of coffee daily. * Patient's computed tomography scan abnormality appears chronic in nature. With his headache, we will check MRI of the brain with and without contrast. * Patient may benefit from neurosurgical consultation as an outpatient(does not appear necessary as an inpatient here). * Check ESR, CRP to rule out temporal arteritis. Also check TSH and B12. * Neurology will follow. Thank you for the consult.
[2023-02-13] MEDS: SYMBICORT 160-4.5 MCG INHALER INHALATION SCH ×2 (08:37→20:39)
[2023-02-13] MEDS: AZITHROMYCIN 500 MG TAB PO SCH (08:56)
[2023-02-13] MEDS: HEPARIN SODIUM,PORCINE/PF 5,000 UNIT/0.5 ML SYRINGE SQ SCH ×2 (08:56→19:59)
[2023-02-13] MEDS: amLODIPine 5 MG TAB PO SCH (08:56)
[2023-02-13] MEDS: FAMOTIDINE 20 MG TAB PO SCH ×2 (08:56→19:59)
[2023-02-13] MEDS ORDERED: ASPIRIN 325 MG TAB PO SCH (09:00)
[2023-02-13 09:35] LABS: Basophils # (A) 0.07 X 10*3/uL (0.00-0.10); Eosinophils # (A) 0.33 X 10*3/uL (0.04-0.35); Eosinophils % (A) 4.7 %; HCT 46.4 % (39.6-50.0); HGB 15.1 g/dL (13.0-17.0); Immature Grans, Automated 0.3 %; Lymphocytes # (A) 1.73 X 10*3/uL (0.90-5.00); Lymphocytes % (A) 24.5 %; MCH 31.9 pg (27.0-32.0); MCHC 32.5 g/dL (32.0-37.0); MCV 98.1 fL (80.0-97.0); Mean Platelet Volume 9.4 fL (9.5-12.2); Monocytes # (A) 0.87 X 10*3/uL (0.20-1.00); Monocytes % (A) 12.3 %; NRBC Per 100 WBC 0 /100 WBCS (0.0-0.0); Neutrophils # (A) 4.03 X 10*3/uL (1.80-7.70); Neutrophils % (A) 57.2 %; Platelet Count 270 X 10*3/uL (140-440); RBC 4.73 X 10*6/uL (4.40-5.60); RDW 12.3 % (11.5-14.5); WBC 7.05 X 10*3/uL (4.50-10.00)
[2023-02-13 09:43] LABS: African American GFR (CKD) 108.6 (60.0-200.0); BUN/Creat Ratio 18.38 Ratio (12.00-20.00); Blood Urea Nitrogen 14.7 mg/dL (9.0-27.0); Calcium 9.3 mg/dL (8.7-10.3); Carbon Dioxide 27.7 mmol/L (20.0-27.5); Chloride 106 mmol/L (96-109); Chol/HDL Ratio 2.37 Ratio; Glucose 85 mg/dL (70-110); Non-African American GFR(CKD) 93.7 (60.0-200.0); Potassium 4.9 mmol/L (3.5-5.5); Sodium 142 mmol/L (135-145); VLDL Calculation 14.36 mg/dL (5.00-40.00)
--- NOTE | 2023-02-13 11:12 | MR ---
EXAMINATION TYPE: MR brain wo con DATE OF EXAM: 02/13/2023 10:54 AM COMPARISON: Recent CT brain 02/12/2023 HISTORY: Cephalgia, abnormal CT of head FINDINGS: There is severe enlargement of the lateral ventricles left greater than right with severe dilatation of the left trigone and occipital horns. There is thinning of the corpus callosum particularly at its posterior body could reflect dysgenesis. There is severe dilatation of the third ventricle with the fourth ventricle being of normal caliber. There appears to be narrowing of the aqueduct. No obvious m ass. There is evidence of moderate punctate and confluent periventricular white matter ischemic demyelinat ion. Remote deep white matter insults are also noted. No acute edema is seen on diffusion weighted imaging. There is no evidence for midline shift or mass effect. Acute intracranial hemorrhage or extra-axial collection is not evident. The paranasal sinuses and mastoid air cells are well-aerated. IMPRESSION: 1. Severe enlargement of the lateral ventricles and third ventricle with left greater than right asym metry. The aqueduct appears to be narrowed and the findings could be on the basis of aqueduct stenosi s. There is also thinning of the corpus callosum with the dysgenesis difficult to exclude. 2. Moderate punctate and confluent white matter changes are nonspecific and could reflect remote deep white matter insults. Demyelination not excluded.
--- NOTE | 2023-02-13 12:58 | P.CNPUL ---
History of Present Illness Consult date: 02/13/23 Reason for consult: COPD History of present illness: This is a 67-year-old male patient, who does not seek any form of medical attention an outpatient basis, is a chronic smoker who presented with a few days onset of chest pain which is epigastric and anterior chest in location. The patient is constant with varying severity, not related to breathing. No significant cough or sputum production. He has a chronic exertional dyspnea. He is a chronic cough. He smokes around one pack of cigarettes a daily basis. Is currently on 1 L of oxygen by nasal cannula with a pulse ox of 98%. No hemoptysis. Chest x-ray was essentially nonrevealing. D-dimer was elevated at 15.06. Based on that, Doppler of the lower 70s was done and showed no evidence of any DVT. The patient was also given a CT angiogram of the chest showed bilateral emphysematous changes. No evidence of any pulmonary embolism. There was moderate degree of emphysematous changes throughout the lung hidalgo bilaterally. Some bronchial thickening consistent of an underlying bronchitis. Small area of focal consolidation involving the right middle lobe. The patient's WBC count at 7.05. Hemoglobin is 15 and a platelet count of 270. Electrodes are all within normal limits. The patient's troponins were negative 3. Liver function within normal limits. He was also having some headaches and the patient was seen by neurology and MRI of the brain was done that showed severe enlargement of the lateral ventricles and third ventricle with left more than right. There is also evidence of remote white matter disease consult. Review of Systems CONSTITUTIONAL: No fever, no malaise, no fatigue. HEENT: No recent visual problems or hearing problems. Denied any sore throat. CARDIOVASCULAR: No orthopnea, PND, no palpitations, no syncope. PULMONARY: No chest wall tenderness, no hemoptysis. GASTROINTESTINAL: No diarrhea, no nausea, no vomiting, no abdominal pain. Normoactive bowel sounds. NEUROLOGICAL: No headaches, no weakness, no numbness. HEMATOLOGICAL: Denies any bleeding or petechiae. GENITOURINARY: Denies any burning micturition, frequency, or urgency. MUSCULOSKELETAL/RHEUMATOLOGICAL: Denies any joint pain, swelling, or any muscle pain. ENDOCRINE: Denies any polyuria or polydipsia. Past Medical History Past Medical History: Coronary Artery Disease (CAD), Hypertension Additional Past Medical History / Comment(s): occasional memory loss History of Any Multi-Drug Resistant Organisms: None Reported Past Surgical History: Heart Catheterization With Stent, Orthopedic Surgery Additional Past Surgical History / Comment(s): finger surgeries from work related accidents. Past Anesthesia/Blood Transfusion Reactions: No Reported Reaction Date of Last Stent Placement:: unknown Past Psychological History: No Psychological Hx Reported Smoking Status: Current every day smoker Past Alcohol Use History: None Reported Past Drug Use History: None Reported Medications and Allergies Home Medications Medication Instructions Recorded Confirmed Type No Known Home Medications 02/12/23 02/12/23 History Allergies Allergy/AdvReac Type Severity Reaction Status Date / Time No Known Allergies Allergy Verified 02/12/23 12:45 Physical Exam Vitals: Vital Signs Temp Pulse Pulse Resp BP BP BP 02/13/23 08:38 02/13/23 07:00 97.7 F 46 L 17 177/81 02/13/23 02:20 98.3 F 52 L 17 173/85 02/13/23 01:36 17 02/12/23 20:00 17 02/12/23 19:00 97.9 F 67 17 184/71 02/12/23 16:17 57 L 16 02/12/23 15:43 97.7 F 57 L 16 174/87 02/12/23 14:58 65 16 151/81 02/12/23 14:57 65 16 151/61 02/12/23 13:18 59 L 16 166/96 Pulse Ox 02/13/23 08:38 98 02/13/23 07:00 98 02/13/23 02:20 94 L 02/13/23 01:36 02/12/23 20:00 02/12/23 19:00 99 02/12/23 16:17 02/12/23 15:43 98 02/12/23 14:58 98 02/12/23 14:57 98 02/12/23 13:18 99 Intake and Output 02/12/23 02/13/23 02/13/23 22:59 06:59 14:59 Other: Voiding Method Toilet Toilet # Voids 1 2 Weight 65.771 kg GENERAL: The patient is alert and oriented x3, not in any acute distress. Well developed, well nourished. The patient is currently in 1 L of oxygen by nasal cannula with a pulse ox of 98%. Breathing is nonlabored. Head exam was generally normal. There was no scleral icterus or corneal arcus. Mucous membranes were moist. -HEENT: Pupils are round and equally reacting to light. EOMI. No scleral icterus. No conjunctival pallor. Normocephalic, atraumatic. No pharyngeal erythema. No thyromegaly. Skull deformity with more marked on the left side with scoliosis (congenital since per patient) CARDIOVASCULAR: S1 and S2 present. No murmurs, rubs, or gallops. -PULMONARY: Diminished breath sounds bilaterally and the patient has scattered expiratory wheezes in total the lung hidalgo Mild limitation of air entry. No chest wall tenderness. Bilateral chest ABDOMEN: Soft, nontender, nondistended, normoactive bowel sounds. No palpable organomegaly. MUSCULOSKELETAL: No joint swelling or deformity. EXTREMITIES: No cyanosis, clubbing, or pedal edema. NEUROLOGICAL: Gross neurological examination did not reveal any focal deficits. SKIN: No rashes. no petechiae. Results - Laboratory Findings CBC and BMP: 02/13/23 05:35 02/13/23 05:35 PT/INR, D-dimer PT 10.1 sec (9.0-12.0) 02/12/23 11:52 INR 0.9 (<1.2) 02/12/23 11:52 D-Dimer 15.06 mg/L FEU (<0.60) H 02/12/23 11:52 Abnormal lab findings: Abnormal Labs 02/12/23 02/12/23 02/13/23 11:52 11:52 05:35 MCV 98.1 H MPV 9.4 L D-Dimer 15.06 H Carbon Dioxide Anion Gap Glucose 108 H HDL Cholesterol 02/13/23 05:35 MCV MPV D-Dimer Carbon Dioxide 27.7 H Anion Gap 8.30 L Glucose HDL Cholesterol 61.60 H - Diagnostic Findings Chest x-ray: image reviewed CT scan - chest: image reviewed Assessment and Plan Plan: Chest pain, currently under investigation, not related to the pulmonary etiology. COPD with a component of an exacerbation as the patient is actively bronchospastic and wheezy. Based on pulmonary process is not known. He does have chronic exertional dyspnea. Is a chronic smoker and a CAT scan of the chest showed moderate degree of emphysematous changes bilaterally. Suspected limited right middle lobe pulmonary infiltrate/pneumonia Chronic smoker Coronary artery disease Elevated d-dimer, nonspecific and there is no evidence of any venous thromboembolic disease with a negative Doppler of the lower extremity and nega tive CT angiogram of the chest Hypertension Plan Start the patient on DuoNeb nebulizer treatments 4 times a day Continue Symbicort IV Solu-Medrol We'll need a baseline echocardiogram Cardiology consultation Echocardiogram We'll follow
[2023-02-13] MEDS: methylPREDNISolone SOD SUCCI 125 MG/2 ML VIAL IV SCH ×2 (13:21→18:05)
[2023-02-13] MEDS: hydroCHLOROthiazide 25 MG TAB PO SCH (13:22)
[2023-02-13] MEDS: lisinopriL 5 MG TAB PO SCH (13:22)
--- NOTE | 2023-02-13 14:11 | P.CRDCN ---
History of Present Illness Consult date: 02/13/23 Reason for Consult (text): chest pain, difficulty breathing Chief complaint: chest pain History of present illness: A pleasant 67-year-old gentleman who is a poor historian. He gives a history of poor short-term memory release and he's had "my whole life ". Denies any history of hypertension, hyperlipidemia, diabetes or CAD. States he had testing done at [facility] years ago to rule out heart attack according to the patient was negative. He presented to the emergency department with complaints of chest discomfort that started 2 days ago and has been quite constant as well as low back pain. Also apparently complained of a headache although has no current complaints of headache and currently denies any complaints of headache.. He does have a history of smoking up to 2 packs per day. Blood pressure has been elevated. Chest pain has been constant with no relieving or aggravating factors. EKG shows no signs of ischemia. Cardiac enzymes have been unremarkable. CT of the chest show no evidence of pulmonary embolism with evidence of moderate emphysematous change with central peribronchial wall t hickening raising concern for an acute bronchiolitis and small degree of focal consolidation in the periphery of the right middle lobe anteriorly. Venous duplex was negative for DVT. 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 Neurology has been consulted and MRI of the brain has been ordered. Renal function is normal he's been started on amlodipine 5 mg daily for blood pressure. Blood pressure remains elevated. Upon examination patient is resting comfortably bed. Continues complain of constant chest discomfort for at least 2 days. Complains of some mild dyspnea on exertion at times. Denies any edema, orthopnea or PND. Denies any palpitations, dizziness or lightheadedness. He's had no syncope. Past Medical History Past Medical History: Coronary Artery Disease (CAD), Hypertension Additional Past Medical History / Comment(s): occasional memory loss History of Any Multi-Drug Resistant Organisms: None Reported Past Surgical History: Heart Catheterization With Stent, Orthopedic Surgery Additional Past Surgical History / Comment(s): finger surgeries from work related accidents. Past Anesthesia/Blood Transfusion Reactions: No Reported Reaction Date of Last Stent Placement:: unknown Past Psychological History: No Psychological Hx Reported Smoking Status: Current every day smoker Past Alcohol Use History: None Reported Past Drug Use History: None Reported Medications and Allergies Home Medications Medication Instructions Recorded Confirmed Type No Known Home Medications 02/12/23 02/12/23 History Allergies Allergy/AdvReac Type Severity Reaction Status Date / Time No Known Allergies Allergy Verified 02/12/23 12:45 Physical Exam Vitals: Vital Signs Temp Pulse Pulse Pulse Resp BP BP 02/13/23 08:38 02/13/23 07:00 97.7 F 46 L 17 02/13/23 02:20 98.3 F 52 L 17 173/85 02/13/23 01:36 17 02/12/23 20:00 17 02/12/23 19:00 97.9 F 67 17 184/71 02/12/23 16:17 57 L 16 02/12/23 15:43 97.7 F 57 L 16 174/87 02/12/23 14:58 65 16 151/81 02/12/23 14:57 65 16 151/61 02/12/23 13:18 59 L 16 166/96 02/12/23 12:18 57 L 16 142/92 02/12/23 12:00 60 02/12/23 11:18 78 16 146/81 02/12/23 11:15 97.6 F 62 20 162/85 BP Pulse Ox 02/13/23 08:38 98 02/13/23 07:00 177/81 98 02/13/23 02:20 94 L 02/13/23 01:36 02/12/23 20:00 02/12/23 19:00 99 02/12/23 16:17 02/12/23 15:43 98 02/12/23 14:58 98 02/12/23 14:57 98 02/12/23 13:18 99 02/12/23 12:18 98 02/12/23 12:00 02/12/23 11:18 98 02/12/23 11:15 98 Intake and Output 02/12/23 02/13/23 02/13/23 22:59 06:59 14:59 Other: Voiding Method Toilet Toilet # Voids 1 2 Weight 65.771 kg PHYSICAL EXAMINATION: This is a 67-year-old gentleman in no apparent distress at the time of my examination. HEENT: Head is asymmetric prominent left-sided bulge the skull. Pupils are equal, round. Sclerae anicteric. Conjunctivae are clear. Mucous membranes of the mouth are moist. Neck is supple. There is no elevated jugular venous pressure. No carotid bruit is heard. CHEST EXAMINATION: Lungs reveal diminished air entry bilaterally. No wheezes rales or rhonchi. Respirations even and nonlabored. HEART EXAMINATION: Heart regular, positive S1 and S2. No S3. No S4. No clicks, rubs or murmurs. ABDOMEN: Soft, nontender. Bowel sounds are heard. No organomegaly noted. EXTREMITIES: 2+ peripheral pulses with no evidence of peripheral edema and no calf tenderness noted. NEUROLOGIC EXAMINATION: Patient is awake, alert and oriented x3. Poor short- term memory noted Results 02/13/23 05:35 02/13/23 05:35 Cardiac Enzymes 02/12/23 02/12/23 02/12/23 Range/Units 11:52 11:52 16:24 AST 24 (17-59) U/L Troponin I <0.012 <0.012 (0.000-0.034) ng/mL 02/12/23 Range/Units 19:19 AST (17-59) U/L Troponin I <0.012 (0.000-0.034) ng/mL Coagulation 02/12/23 Range/Units 11:52 PT 10.1 (9.0-12.0) sec APTT 22.6 (22.0-30.0) sec Lipids 02/13/23 Range/Units 05:35 Triglycerides 71.80 (0.00-149.00) mg/dL Cholesterol 146.00 (0.00-200.00) mg/dL HDL Cholesterol 61.60 H (40.00-60.00) mg/dL Cholesterol/HDL Ratio 2.37 Ratio CBC 02/12/23 02/13/23 Range/Units 11:52 05:35 WBC 6.2 7.05 (3.8-10.6) k/uL RBC 5.29 4.73 (4.30-5.90) m/uL Hgb 17.0 15.1 (13.0-17.5) gm/dL Hct 50.9 46.4 (39.0-53.0) % Plt Count 287 270 (150-450) k/uL Comprehensive Metabolic Panel 02/12/23 02/13/23 Range/Units 11:52 05:35 Sodium 137 142 (137-145) mmol/L Potassium 4.4 4.9 (3.5-5.1) mmol/L Chloride 103 106 (98-107) mmol/L Carbon Dioxide 27 27.7 H (22-30) mmol/L BUN 19 14.7 (9-20) mg/dL Creatinine 0.68 0.8 (0.66-1.25) mg/dL Glucose 108 H 85 (74-99) mg/dL Calcium 9.3 9.3 (8.4-10.2) mg/dL AST 24 (17-59) U/L ALT 19 (4-49) U/L Alkaline Phosphatase 94 (38-126) U/L Total Protein 6.8 (6.3-8.2) g/dL Albumin 4.2 (3.5-5.0) g/dL Current Medications Generic Name Dose Route Start Last Admin Trade Name Freq PRN Reason Stop Dose Admin Acetaminophen 325 mg 02/12/23 14:02 Acetaminophen Tab 325 Mg Tab PO Q6HR PRN Pain Acetaminophen/Butalbital/Caffeine 1 each 02/12/23 18:26 02/13/23 08:56 Butalb/Apap/Caff 50-325-40mg Tab PO 1 each Q4HR PRN Administration Headache Albuterol/Ipratropium 3 ml 02/12/23 14:00 Ipratropium-Albuterol 3 Ml Neb INHALATION QID PRN Shortness Of Breath Or Wheezing Amlodipine Besylate 5 mg 02/12/23 14:00 02/13/23 08:56 Amlodipine 5 Mg Tab PO 5 mg DAILY FRANTZ Administration Aspirin 325 mg 02/13/23 09:00 02/13/23 08:56 Aspirin 325 Mg Tab PO 325 mg DAILY FRANTZ Administration Azithromycin 500 mg 02/12/23 16:45 02/13/23 08:56 Azithromycin 500 Mg Tab PO 02/17/23 16:46 500 mg DAILY FRANTZ Administration Protocol Budesonide/Formoterol Fumarate 2 puff 02/12/23 14:00 02/13/23 08:37 Symbicort 160-4.5 Mcg Inhaler INHALATION 2 puff RT-BID FRANTZ Administration Famotidine 20 mg 02/12/23 21:00 02/13/23 08:56 Famotidine 20 Mg Tab PO 20 mg BID FRANTZ Administration Heparin Sodium (Porcine) 5,000 unit 02/12/23 21:00 02/13/23 08:56 Heparin Sodium,Porcine/Pf 5,000 Unit/0.5 Ml Syringe SQ 5,000 unit Q12HR FRANTZ Administration Lisinopril 5 mg 02/13/23 11:15 Lisinopril 5 Mg Tab PO DAILY FRANTZ Nitroglycerin 0.4 mg 02/12/23 13:26 Nitroglycerin Sl Tabs 0.4 Mg Tab SUBLINGUAL Q5M PRN Chest Pain Nitroglycerin 1 inch 02/12/23 18:00 02/13/23 05:15 Nitroglycerin Oint 1 Inch/Gm Packet TOPICAL 1 inch Q6HR FRANTZ Administration Intake and Output 02/12/23 02/13/23 02/13/23 22:59 06:59 14:59 Other: Voiding Method Toilet Toilet # Voids 1 2 Weight 65.771 kg 02/13/23 05:35 02/13/23 05:35 Assessment and Plan Assessment: #1 chest pain, acute coronary event has been ruled out, EKG shows no evidence of ischemia and troponins have been negative 3 #2 hypertension #[address] of the head and skull, being followed by neurology Plan: From cardiology perspective we obtain a 2-D echo with Doppler study to assess cardiac structure and function. We will add DALE inhibitor for blood pressure control. We will continue to follow the patient and further recommendations accordingly. [employer] SAL[employer] ACCOUNT EXECUTIVE note has been reviewed, I agree with a documented findings and plan of care. Patient was seen and examined.
--- NOTE | 2023-02-13 15:49 | CA ---
Transthoracic Echo Report Name: Vignesh Preston Age: 67 Gender: M : 1955 Exam Date: 02/13/2023 07:17 Exam Location: [facility] Ht (in): 65 Wt (lb): 145 Ordering Physician: Zain Callahan MD Attending/Referring Phys: [employer] Middleware Architect Tiffany Trimble RDCS Procedure CPT: Indications: Rule out heart disease Cardiac Hx: Technical Quality: Good Contrast 1: Total Dose (mL): Contrast 2: Total Dose (mL): MEASUREMENTS (Male / Female) Normal Values 2D ECHO LV Diastolic Diameter PLAX 4.5 cm 4.2 - 5.9 / 3.9 - 5.3 cm LV Systolic Diameter PLAX 3.5 cm IVS Diastolic Thickness 1.0 cm 0.6 - 1.0 / 0.6 - 0.9 cm LVPW Diastolic Thickness 1.2 cm 0.6 - 1.0 / 0.6 - 0.9 cm LV Relative Wall Thickness 0.5 RV Internal Dim ED PLAX 2.8 cm LA Systolic Diameter LX 3.0 cm 3.0 - 4.0 / 2.7 - 3.8 cm LA Volume 53.3 cm??? 18 - 58 / 22 - 52 cm??? M-MODE Aortic Root Diameter MM 2.9 cm MV E Point Septal Separation 1.1 cm AV Cusp Separation MM 2.0 cm DOPPLER AV Peak Velocity 122.6 cm/s AV Peak Gradient 6.0 mmHg MV Area PHT 1.3 cm??? Mitral E Point Velocity 50.9 cm/s Mitral A Point Velocity 87.9 cm/s Mitral E to A Ratio 0.6 MV Deceleration Time 584.2 ms MV E' Velocity 3.5 cm/s Mitral E to MV E' Ratio 14.6 FINDINGS Left Ventricle Left ventricular ejection fraction is estimated at 50-55 %. Left ventricular cavity size normal. Mild left ventricular hypertrophy. Borderline global left ventricular systolic function. Right Ventricle Normal right ventricular size and function. No TR unable to estimate the right ventricular systolic pressure. Right Atrium Normal right atrial size. Left Atrium Normal left atrial size. Mitral Valve Mitral valve thickened. No mitral stenosis, or prolapse. Mitral annular calcification.trace to mild mitral regurgitation. Aortic Valve Trileaflet aortic valve. No aortic valve stenosis or regurgitation. Tricuspid Valve Structurally normal tricuspid valve. Mild tricuspid regurgitation. Pulmonic Valve Structurally normal pulmonic valve. No pulmonic regurgitation. Pericardium Normal pericardium. No pericardial effusion. Aorta Normal size aortic root and proximal ascending aorta. CONCLUSIONS 1. Left ventricle systolic function borderline normal 2. Mild tricuspid with trace to mild mitral regurgitation Previewed by: Dr. Zay Roy MD (Electronically Signed) Final Date: 13 February 2023 15:48
--- NOTE | 2023-02-13 20:40 | P.PN ---
Subjective this is a pleasant 67 years old male with remote history of hypertension. Currently he does not follow up with primary care doctor for more than 10-20 years. Patient presents because of chest pain , patient was not sure for how long he has it but he thinks roughly for 2 days, ascending the left upper chest, nonradiating, felt like sharp increase with coughing and deep breathing. Patient has dry cough. Also has been complaining of from exertional dyspnea also he wasn't sure but probably for about a week estimated by the patient. He is a smoker and smokes about 1-1.5 pack per day. No alcohol or illicit drugs. He denies change in his urine or bowel habits or urinary or GI symptoms. Currently he has mild headache however he has chronic episodes of headache that last between 0.5-2 days on the left side radiating to the right side, severe at times felt like migrainous headache. But patient does not follow up for his medical problems Also he is complaining of from low back pain which is chronic as well. Patient vitals are stable and he is saturating 98% on room air. Slightly bradycardic at around 59, blood pressure 166/96. Afebrile Has unremarkable CBC, INR, BMP and liver enzymes. Troponin 1 is negative less than 0.012. EKG showing sinus bradycardia at 55 with incomplete right bundle branch block with no significant ST-T changes. Chest x-ray: No acute process. C2 of the brain: No acute intracranial hemorrhage. 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 There is a symmetrical moderate to sev ere left ventricular dilatation. Some midline shift. 02/13/2023 Patient is doing well no chest pain or dyspnea while sitting of the bed. No headache. No neurological deficit he shows clinical improvement. 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 per staff the neurologist has cleared the patient for discharge with recommendation to follow up with the neurosurgeon as an outpatient Objective - Vital Signs Vital signs: Vital Signs Temp 98.1 F 02/13/23 14:11 Pulse 50 L 02/13/23 14:11 Resp 16 02/13/23 14:11 BP 167/76 02/13/23 14:11 Pulse Ox 97 02/13/23 14:11 FiO2 Intake & Output 02/12/23 02/13/23 02/13/23 18:59 06:59 18:59 Intake Total 118 Balance 118 Weight 65.771 kg Intake: Oral 118 Other: Voiding Method Toilet Toilet # Voids 2 2 - Exam GENERAL: The patient is alert and oriented x3, not in any acute distress. Well developed, well nourished. HEENT: Pupils are round and equally reacting to light. EOMI. No scleral icterus. No conjunctival pallor. Normocephalic, atraumatic. No pharyngeal erythema. No thyromegaly. CARDIOVASCULAR: S1 and S2 present. No murmurs, rubs, or gallops. -PULMONARY: Chest is clear to auscultation, scattered wheezing. no crackles. ABDOMEN: Soft, nontender, nondistended, normoactive bowel sounds. No palpable o rganomegaly. MUSCULOSKELETAL: No joint swelling or deformity. EXTREMITIES: No cyanosis, clubbing, or pedal edema. NEUROLOGICAL: Gross neurological examination did not reveal any focal deficits. SKIN: No rashes. no petechiae. - Labs CBC & Chem 7: 02/13/23 05:35 02/13/23 05:35 Labs: Abnormal Lab Results - Last 24 Hours (Table) 02/12/23 02/13/23 02/13/23 Range/Units 11:52 05:35 05:35 MCV 98.1 H (80.0-97.0) fL MPV 9.4 L (9.5-12.2) fL D-Dimer 15.06 H (<0.60) mg/L FEU Carbon Dioxide 27.7 H (20.0-27.5) mmol/L Anion Gap 8.30 L (10.00-18.00) mmol/L HDL Cholesterol 61.60 H (40.00-60.00) mg/dL Assessment and Plan Assessment: Chest pain, rule out cardiac causes, Rule out pulmonary causes mild headache withAsymmetric moderate to severe intra-cranial left ventricular dilatation with some midline shift Hypertension possible mild degree of COPD exacerbation, patient will require pulmonary function test as an outpatient Plan: Continue with aspirin Unknown dose to 81 mg Continue with hydrochlorothiazide and lisinopril Continue with steroids, IV Solu-Medrol Pulmonary and cardiology consult neurology team after the patient for discharge with recommendation for outpatient follow-up Labs and medication were reviewed.. Continue same treatment. Continue with symptomatic treatment. Resume home medication. Monitor labs and vitals. DVT and GI prophylaxis. Further recommendations as per clinical course of the patient DVT prophylaxis: Subcutaneous heparin GI Prophylaxis: Pepcid Prognosis is guarded Possible discharge in 24-48 hours
[2023-02-14] MEDS: methylPREDNISolone SOD SUCCI 125 MG/2 ML VIAL IV SCH ×4 (00:31→17:56)
[2023-02-14 04:32] LABS: African American GFR (CKD) >90 (>60 ml/min/1.73 sqM); Anion Gap 9 mmol/L; Blood Urea Nitrogen 26 mg/dL (9-20); Calcium 9.6 mg/dL (8.4-10.2); Carbon Dioxide 27 mmol/L (22-30); Chloride 98 mmol/L (98-107); Glucose 158 mg/dL (74-99); Non-African American GFR(CKD) >90 (>60 ml/min/1.73 sqM); Potassium 4.6 mmol/L (3.5-5.1); Sodium 134 mmol/L (137-145)
[2023-02-14] MEDS: AZITHROMYCIN 500 MG TAB PO SCH (08:06)
[2023-02-14] MEDS: amLODIPine 5 MG TAB PO SCH (08:06)
[2023-02-14] MEDS: FAMOTIDINE 20 MG TAB PO SCH ×2 (08:06→19:53)
[2023-02-14] MEDS: lisinopriL 5 MG TAB PO SCH (08:06)
[2023-02-14] MEDS: ASPIRIN 81 MG PO SCH (08:06)
[2023-02-14] MEDS: hydroCHLOROthiazide 25 MG TAB PO SCH (08:06)
[2023-02-14] MEDS: HEPARIN SODIUM,PORCINE/PF 5,000 UNIT/0.5 ML SYRINGE SQ SCH ×2 (08:06→19:53)
[2023-02-14 08:14] VITALS: RESP 16
--- NOTE | 2023-02-14 08:21 | P.PN ---
Subjective Progress Note Date: 02/13/23 This is a telemedicine neurology follow-up performed today on 02/13/2023. Patient was seen for a follow-up. Patient states that he does not have any headache. He is feeling well. Objective - Vital Signs Vital signs: Vital Signs Temp 97.7 F 02/13/23 07:00 Pulse 46 L 02/13/23 07:00 Resp 17 02/13/23 07:00 BP 177/81 02/13/23 07:00 Pulse Ox 98 02/13/23 08:38 FiO2 Intake & Output 02/12/23 02/13/23 02/13/23 18:59 06:59 18:59 Weight 65.771 kg Other: Voiding Method Toilet Toilet # Voids 2 - Exam Examination is unchanged. - Labs CBC & Chem 7: 02/13/23 05:35 02/14/23 03:35 Labs: Abnormal Lab Results - Last 24 Hours (Table) 02/12/23 02/12/23 02/13/23 Range/Units 11:52 11:52 05:35 MCV 98.1 H (80.0-97.0) fL MPV 9.4 L (9.5-12.2) fL D-Dimer 15.06 H (<0.60) mg/L FEU Carbon Dioxide (20.0-27.5) mmol/L Anion Gap (10.00-18.00) mmol/L Glucose 108 H (74-99) mg/dL HDL Cholesterol (40.00-60.00) mg/dL 02/13/23 Range/Units 05:35 MCV (80.0-97.0) fL MPV (9.5-12.2) fL D-Dimer (<0.60) mg/L FEU Carbon Dioxide 27.7 H (20.0-27.5) mmol/L Anion Gap 8.30 L (10.00-18.00) mmol/L Glucose (74-99) mg/dL HDL Cholesterol 61.60 H (40.00-60.00) mg/dL Assessment and Plan Assessment: * Intermittent headache involving the left occipital region, unclear etiology. Occurring almost weekly, lasting for 1-2 days. Frequency is suggestive of migraine, but he does not have any vascular features. Denies any paresthesias in the occipital region, but occipital neuralgia is a possibility. Patient consumes excessive amount of caffeine, which may be contributing to these headaches. Also patient is having elevated blood pressure, which may be contributing to the occipital headache. * Abnormal CT head and skull contour, with prominence on the left side and flattening on the right side. 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 * Hypertension * Coronary artery disease Plan: * Recommend optimize control of blood pressure. Most recent blood pressure 167/76. Consider beta solitario, which may help with the headaches. * Try Fioricet as needed. At present the headache has resolved. * Suggest limited amount of caffeine intake. Patient drinks 5-6 cups of coffee daily. * MRI of the brain with and without contrast revealed severe enlargement of the lateral ventricles and third ventricles with the left greater than right asymmetry. The aqueduct appears to be narrowed and the findings could be on the basis of aqueduct stenosis. There is also thickening of the corpus callosum with the distance is difficult to exclude. Moderate punctate and confluent white matter changes are nonspecific and could reflect remote deep white matter insults. Demyelination not excluded. I personally reviewed MRI, agree with the findings. * Recommend outpatient neurosurgical consultation, as long as patient is neurologically stable. * ESR, CRP to rule out temporal arteritis. Also check TSH and B12. Results still pending. * Neurologically, okay to discharge on prescription of Fioricet as needed. Dr. Jason Delgado will start Neurology service from Wednesday. Addendum 02/17/2023: Patient's blood test results showed ESR 2, CRP <0.30 both normal. B12 is very low <150 TSH 1.88 I spoke to patient's caregiver Nicole Anguloontz [phone]. Discussed with her about above test results. 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 They found the patient 15 years ago and he had no one to take care of him and since then they became involved with his care. They got him the Social Security in place to live. Nicole has been appointed as Social Security payee on his behalf, as he cannot take care of it. Patient depends on her for management of finances. 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 Patient does have a brother and sister, but they do not get involved with his care/concerns, unless they need something from him. Informed Nicole to check with the patient about frequency of headaches. They will be following up with neurologist locally. If neurologist feels, may be referred to neurosurgeon as well. Also informed about results of B12 that it was very low. He should be getting vitamin B12 1000 subcu or IM weekly for a month and then once or twice a month. Nicole will make an appointment with patient's primary physician for B12 injection, also recommended to have folic acid level checked.
[2023-02-14] MEDS: SYMBICORT 160-4.5 MCG INHALER INHALATION SCH ×2 (08:54→19:51)
--- NOTE | 2023-02-14 10:26 | P.PN ---
Subjective Progress Note Date: 02/14/23 This is A pleasant 67-year-old gentleman who is a poor historian. He gives a history of poor short-term memory release and he's had "my whole life ". Denies any history of hypertension, hyperlipidemia, diabetes or CAD. States he had testing done at [facility] years ago to rule out heart attack according to the patient was negative. He presented to the emergency department with complaints of chest discomfort that started 2 days ago and has been quite constant as well as low back pain. Also apparently complained of a headache although has no current complaints of headache and currently denies any complaints of headache.. He does have a history of smoking up to 2 packs per day. Blood pressure has been elevated. Chest pain has been constant with no relieving or aggravating factors. EKG shows no signs of ischemia. Cardiac enzymes have been unremarkable. CT of the chest show no evidence of pulmonary embolism with evidence of moderate emphysematous change with central peribronchial wall thickening raising concern for an acute bronchiolitis and small degree of focal consolidation in the periphery of the right middle lobe anteriorly. Venous duplex was negative for DVT. 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 Neurology has been consulted and MRI of the brain has been ordered. Renal function is normal he's been started on amlodipine 5 mg blair ly for blood pressure. Blood pressure remains elevated. Upon examination patient is resting comfortably bed. Continues complain of constant chest discomfort for at least 2 days. Complains of some mild dyspnea on exertion at times. Denies any edema, orthopnea or PND. Denies any palpitations, dizziness or lightheadedness. He's had no syncope. 02/14/2023 The patient was seen and examined resting comfortably in bed. He is overall feeling better. Denies any current complaints of chest discomfort. He feels his back is better. Continues to complain of mild headache but improved. MRI of the brain was done which showed severe enlargement of the lateral ventricles and third ventricle with left greater than right asymmetry, aqueduct appears to be narrowed and the findings could be on the basis of aqueduct stenosis, there is also thinning of the corpus callosum with dysgenesis difficult to exclude as well as moderate punctate confluent white matter changes that are nonspecific and could reflect remote deep point matter consults but demyelination is not excluded. Neurology is following. Echocardiogram with Doppler study showed an ejection fraction of 50-55% with mild TR and trace to mild MR. Objective - Vital Signs Vital signs: Vital Signs Temp 97.7 F 02/14/23 07:00 Pulse 66 02/14/23 07:00 Resp 16 02/14/23 08:06 BP 183/91 02/14/23 07:00 Pulse Ox 96 02/14/23 02:10 FiO2 Intake & Output 02/13/23 02/14/23 02/14/23 18:59 06:59 18:59 Intake Total 118 236 Balance 118 236 Intake: Oral 118 236 Other: Voiding Method Toilet Toilet # Voids 2 1 - Exam PHYSICAL EXAMINATION: This is a 67-year-old gentleman in no apparent distress at the time of my examination. HEENT: Head is asymmetric prominent left-sided bulge the skull. Pupils are equal, round. Sclerae anicteric. Conjunctivae are clear. Mucous membranes of the mouth are moist. Neck is supple. There is no elevated jugular venous pressure. No carotid bruit is heard. CHEST EXAMINATION: Lungs reveal diminished air entry bilaterally. No wheezes rales or rhonchi. Respirations even and nonlabored. HEART EXAMINATION: Heart regular, positive S1 and S2. No S3. No S4. No clicks, rubs or murmurs. ABDOMEN: Soft, nontender. Bowel sounds are heard. No organomegaly noted. EXTREMITIES: 2+ peripheral pulses with no evidence of peripheral edema and no c tuyet tenderness noted. NEUROLOGIC EXAMINATION: Patient is awake, alert and oriented x3. Poor short- term memory noted - Labs CBC & Chem 7: 02/13/23 05:35 02/14/23 03:35 Labs: Abnormal Lab Results - Last 24 Hours (Table) 02/13/23 02/14/23 Range/Units 05:35 03:35 Sodium 134 L (137-145) mmol/L Carbon Dioxide 27.7 H (20.0-27.5) mmol/L Anion Gap 8.30 L (10.00-18.00) mmol/L BUN 26 H (9-20) mg/dL Glucose 158 H (74-99) mg/dL HDL Cholesterol 61.60 H (40.00-60.00) mg/dL Assessment and Plan Assessment: #1 chest pain, acute coronary event has been ruled out, EKG shows no evidence of ischemia and troponins have been negative 3 #2 hypertension #[address] of the head and skull, being followed by neurology Plan: From cardiology perspective we increase DALE inhibitor for blood pressure control. Once blood pressure is optimized may consider stress testing as an outpatient. OVERNIGHT CASHIER note has been reviewed, I agree with a documented findings and plan of care. Patient was seen and examined.
[2023-02-14] MEDS ORDERED: lisinopriL 5 MG TAB PO ONE (10:30)
--- NOTE | 2023-02-14 13:09 | P.PN ---
Subjective Progress Note Date: 02/14/23 This is a 67-year-old male patient, who does not seek any form of medical attention an outpatient basis, is a chronic smoker who presented with a few days onset of chest pain which is epigastric and anterior chest in location. The patient is constant with varying severity, not related to breathing. No significant cough or sputum production. He has a chronic exertional dyspnea. He is a chronic cough. He smokes around one pack of cigarettes a daily basis. Is currently on 1 L of oxygen by nasal cannula with a pulse ox of 98%. No hemoptysis. Chest x-ray was essentially nonrevealing. D-dimer was elevated at 15.06. Based on that, Doppler of the lower 70s was done and showed no evidence of any DVT. The patient was also given a CT angiogram of the chest showed bilateral emphysematous changes. No evidence of any pulmonary embolism. There was moderate degree of emphysematous changes throughout the lung hidalgo bilaterally. Some bronchial thickening consistent of an underlying bronchitis. Small area of focal consolidation involving the right middle lobe. The patient's WBC count at 7.05. Hemoglobin is 15 and a platelet count of 270. Electrodes are all within normal limits. The patient's troponins were negative 3. Liver function within normal limits. He was also having some headaches and the patient was seen by neurology and MRI of the brain was done that showed severe enlargement of the lateral ventricles and third ventricle with left more than right. There is also evidence of remote white matter disease consult. 02/13/2023, the patient continues to show some signs of improvement while being on bronchodilators and steroids. No further chest pain. His calm and comf ortable at this point in time. Labs are all within normal limits. BUN is 26 with a creatinine of 0.7 and a sodium level is at 134. Remains on DuoNeb neb blotchiness on the clock. He remains on IV Solu-Medrol. Objective - Vital Signs Vital signs: Vital Signs Temp 97.7 F 02/14/23 07:00 Pulse 66 02/14/23 07:00 Resp 16 02/14/23 08:06 BP 183/91 02/14/23 07:00 Pulse Ox 96 02/14/23 02:10 FiO2 Intake & Output 02/13/23 02/14/23 02/14/23 18:59 06:59 18:59 Intake Total 118 236 Balance 118 236 Intake: Oral 118 236 Other: Voiding Method Toilet Toilet # Voids 2 1 - Exam GENERAL: The patient is alert and oriented x3, not in any acute distress. Well developed, well nourished. The patient is currently in 1 L of oxygen by nasal c annula with a pulse ox of 98%. Breathing is nonlabored. Head exam was generally normal. There was no scleral icterus or corneal arcus. Mucous membranes were moist. -HEENT: Pupils are round and equally reacting to light. EOMI. No scleral icterus. No conjunctival pallor. Normocephalic, atraumatic. No pharyngeal erythema. No thyromegaly. Skull deformity with more marked on the left side with scoliosis (congenital since per patient) CARDIOVASCULAR: S1 and S2 present. No murmurs, rubs, or gallops. -PULMONARY: Diminished breath sounds bilaterally and the patient has scattered expiratory wheezes in total the lung hidalgo Mild limitation of air entry. No chest wall tenderness. Bilateral chest ABDOMEN: Soft, nontender, nondistended, normoactive bowel sounds. No palpable organomegaly. MUSCULOSKELETAL: No joint swelling or deformity. EXTREMITIES: No cyanosis, clubbing, or pedal edema. NEUROLOGICAL: Gross neurological examination did not reveal any focal deficits. SKIN: No rashes. no petechiae. - Labs CBC & Chem 7: 02/13/23 05:35 02/14/23 03:35 Labs: Abnormal Lab Results - Last 24 Hours (Table) 02/14/23 Range/Units 03:35 Sodium 134 L (137-145) mmol/L BUN 26 H (9-20) mg/dL Glucose 158 H (74-99) mg/dL Assessment and Plan Plan: Chest pain, currently under investigation, subsided and currently patient's fa bogdan chest pain Acute COPD exacerbation COPD with a component of an exacerbation as the patient is actively bronchospastic and wheezy. Based on pulmonary process is not known. He does have chronic exertional dyspnea. Is a chronic smoker and a CAT scan of the chest showed moderate degree of emphysematous changes bilaterally. Suspected limited right middle lobe pulmonary infiltrate/pneumonia Chronic smoker Coronary artery disease Elevated d-dimer, nonspecific and there is no evidence of any venous thromboembolic disease with a negative Doppler of the lower extremity and negative CT angiogram of the chest Hypertension Plan Chest pain is subsided Continue DuoNeb nebulizer treatments 4 times a day Continue Symbicort IV Solu-Medrol Echo cardiac exam showed a normal LV function no significant abnormalities Cardiology consultation appreciated Echocardiogram noted We'll follow
--- NOTE | 2023-02-14 22:05 | P.PN ---
Subjective this is a pleasant 67 years old male with remote history of hypertension. Currently he does not follow up with primary care doctor for more than 10-20 years. Patient presents because of chest pain , patient was not sure for how long he has it but he thinks roughly for 2 days, ascending the left upper chest, nonradiating, felt like sharp increase with coughing and deep breathing. Patient has dry cough. Also has been complaining of from exertional dyspnea also he wasn't sure but probably for about a week estimated by the patient. He is a smoker and smokes about 1-1.5 pack per day. No alcohol or illicit drugs. He denies change in his urine or bowel habits or urinary or GI symptoms. Currently he has mild headache however he has chronic episodes of headache that last between 0.5-2 days on the left side radiating to the right side, severe at times felt like migrainous headache. But patient does not follow up for his medical problems Also he is complaining of from low back pain which is chronic as well. Patient vitals are stable and he is saturating 98% on room air. Slightly bradycardic at around 59, blood pressure 166/96. Afebrile Has unremarkable CBC, INR, BMP and liver enzymes. Troponin 1 is negative less than 0.012. EKG showing sinus bradycardia at 55 with incomplete right bundle branch block with no significant ST-T changes. Chest x-ray: No acute process. C2 of the brain: No acute intracranial hemorrhage. 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 There is a symmetrical moderate to sev ere left ventricular dilatation. Some midline shift. 02/13/2023 Patient is doing well no chest pain or dyspnea while sitting of the bed. No headache. No neurological deficit he shows clinical improvement. 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 per staff the neurologist has cleared the patient for discharge with recommendation to follow up with the neurosurgeon as an outpatient 02/14/2023 Patient dyspnea is improving slowly and gradually, currently close to normal continued on IV Solu-Medrol Chest pain resolved No more headache or neurological symptoms Echocardiogram showed ejection fraction 50-55% Blood pressure is uncontrolled with systolic 180 this morning, lisinopril dose increased to 10 mg daily, blood pressure improved with systolic 140-150. Filter Press Supervisor recommended outpatient stress test, patient informed and he agrees. Neurologist recommended outpatient follow-up with the neurosurgeon, informed, he says that he will follow-up also with his neurologist Dr. Recinos as an outpatient. Workup ordered by neurologist still pending including ESR, B12, TSH, C-reactive protein. Objective - Vital Signs Vital signs: Vital Signs Temp 97.7 F 02/14/23 07:00 Pulse 66 02/14/23 07:00 Resp 16 02/14/23 08:06 BP 183/91 02/14/23 07:00 Pulse Ox 96 02/14/23 02:10 FiO2 Intake & Output 02/13/23 02/14/23 02/14/23 18:59 06:59 18:59 Intake Total 118 236 Balance 118 236 Intake: Oral 118 236 Other: Voiding Method Toilet Toilet # Voids 2 1 - Exam GENERAL: The patient is alert and oriented x3, not in any acute distress. Well developed, well nourished. HEENT: Pupils are round and equally reacting to light. EOMI. No scleral icterus. No conjunctival pallor. Normocephalic, atraumatic. No pharyngeal erythema. No thyromegaly. CARDIOVASCULAR: S1 and S2 present. No murmurs, rubs, or gallops. -PULMONARY: Chest is clear to auscultation, scattered wheezing. no crackles. ABDOMEN: Soft, nontender, nondistended, normoactive bowel sounds. No palpable o rganomegaly. MUSCULOSKELETAL: No joint swelling or deformity. EXTREMITIES: No cyanosis, clubbing, or pedal edema. NEUROLOGICAL: Gross neurological examination did not reveal any focal deficits. SKIN: No rashes. no petechiae. - Labs CBC & Chem 7: 02/13/23 05:35 02/14/23 03:35 Labs: Abnormal Lab Results - Last 24 Hours (Table) 02/14/23 Range/Units 03:35 Sodium 134 L (137-145) mmol/L BUN 26 H (9-20) mg/dL Glucose 158 H (74-99) mg/dL Assessment and Plan Assessment: Chest pain, rule out cardiac causes, Rule out pulmonary causes mild headache withAsymmetric moderate to severe intra-cranial left ventricular dilatation with some midline shift Hypertension possible mild degree of COPD exacerbation, patient will require pulmonary function test as an outpatient Plan: Continue with aspirin 81 mg Continue with hydrochlorothiazide and lisinopril Continue with steroids, IV Solu-Medrol Pulmonary and cardiology consult neurology team after the patient for discharge with recommendation for outpatient follow-up including neurologist follow-up in the neurosurgery follow- up, patient informed and he agrees Labs and medication were reviewed.. Continue same treatment. Continue with symptomatic treatment. Resume home medication. Monitor labs and vitals. DVT and GI prophylaxis. Further recommendations as per clinical course of the patient DVT prophylaxis: Subcutaneous heparin GI Prophylaxis: Pepcid Prognosis is guarded Possible discharge in 24-48 hours
[2023-02-15] MEDS: methylPREDNISolone SOD SUCCI 125 MG/2 ML VIAL IV SCH ×2 (00:19→06:29)
--- NOTE | 2023-02-15 08:36 | P.PN ---
Subjective Progress Note Date: 02/15/23 HISTORY OF PRESENT ILLNESS: This is A pleasant 67-year-old gentleman who is a poor historian. He gives a history of poor short-term memory release and he's had "my whole life ". Denies any history of hypertension, hyperlipidemia, diabetes or CAD. States he had testing done at [facility] years ago to rule out heart attack according to the patient was negative. He presented to the emergency department with complaints of chest discomfort that started 2 days ago and has been quite constant as well as low back pain. Also apparently complained of a headache although has no current complaints of headache and currently denies any complaints of headache.. He does have a history of smoking up to 2 packs per day. Blood pressure has been elevated. Chest pain has been constant with no relieving or aggravating factors. EKG shows no signs of ischemia. Cardiac enzymes have been unremarkable. CT of the chest show no evidence of pulmonary embolism with evidence of moderate emphysematous change with central peribronchial wall thickening raising concern for an acute bronchiolitis and small degree of focal consolidation in the periphery of the right middle lobe anteriorly. Venous duplex was negative for DVT. 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 Neurology has been consulted and MRI of the brain has been ordered. Renal function is normal he's been started on amlodipine 5 mg daily for blood pressure. Blood pressure remains elevated. Upon examination patient is resting comfortably bed. Continues complain of constant chest discomfort for at least 2 days. Complains of some mild dyspnea on exertion at times. Denies any edema, orthopnea or PND. Denies any palpitations, dizziness or lightheadedness. He's had no syncope. 02/14/2023 The patient was seen and examined resting comfortably in bed. He is overall feeling better. Denies any current complaints of chest discomfort. He feels his back is better. Continues to complain of mild headache but improved. MRI of the brain was done which showed severe enlargement of the lateral ventricles and third ventricle with left greater than right asymmetry, aqueduct appears to be narrowed and the findings could be on the basis of aqueduct stenosis, there is also thinning of the corpus callosum with dysgenesis difficult to exclude as well as moderate punctate confluent white matter changes that are nonspecific and could reflect remote deep point matter consults but demyelination is not excluded. Neurology is following. Echocardiogram with Doppler study showed an ejection fraction of 50-55% with mild TR and trace to mild MR. 02/15/2023 Patient examined this morning at the bedside. Patient denies chest pain or pressure. He denies shortness of breath. He reports weakness and he is up walking to the bathroom. Blood pressure is well controlled this morning. PHYSICAL EXAM: VITAL SIGNS: Reviewed. GENERAL: Well-developed in no acute distress. NECK: Supple. No JVD or thyromegaly LUNGS: Respirations even and unlabored. Lungs essentially clear to auscultation bilaterally. HEART: Regular rate and rhythm. S1 and S2 heard. EXTREMITIES: Normal range of motion. No clubbing or cyanosis. Peripheral pulses intact. No lower extremity edema ASSESSMENT: #1 chest pain, acute coronary event has been ruled out, EKG shows no evidence of ischemia and troponins have been negative 3 #2 hypertension #[address] of the head and skull, being followed by neurology PLAN: Continue current cardiac medications Continue to monitor blood pressure Patient is stable for discharge home today from a cardiac standpoint We will sign off. Please reconsult if needed Patient to follow up post discharge with Dr. Roy Nurse practitioner note has been reviewed by physician. Signing provider agrees with the documented findings, assessment, and plan of care. Objective - Vital Signs Vital signs: Vital Signs Temp 98.1 F 02/15/23 07:25 Pulse 51 L 02/15/23 07:25 Resp 16 02/15/23 07:25 BP 131/77 02/15/23 07:25 Pulse Ox 96 02/15/23 07:25 FiO2 Intake & Output 02/14/23 02/15/23 02/15/23 18:59 06:59 18:59 Intake Total 474 Balance 474 Intake: Oral 474 Other: Voiding Method Toilet Toilet # Voids 2 - Labs CBC & Chem 7: 02/13/23 05:35 02/14/23 03:35
[2023-02-15 08:40] LABS: C Reactive Protein <0.30 mg/dL (0.00-0.80); Vitamin B12 <150.0 pg/mL (200.0-944.0)
[2023-02-15] MEDS: SYMBICORT 160-4.5 MCG INHALER INHALATION SCH (08:41)
[2023-02-15] MEDS ORDERED: lisinopriL 10 MG TAB PO SCH (09:00)
[2023-02-15] MEDS: HEPARIN SODIUM,PORCINE/PF 5,000 UNIT/0.5 ML SYRINGE SQ SCH (09:32)
[2023-02-15] MEDS: FAMOTIDINE 20 MG TAB PO SCH (09:32)
[2023-02-15] MEDS: AZITHROMYCIN 500 MG TAB PO SCH (09:32)
[2023-02-15] MEDS: amLODIPine 5 MG TAB PO SCH (09:32)
[2023-02-15] MEDS: ASPIRIN 81 MG PO SCH (09:32)
[2023-02-15] MEDS: hydroCHLOROthiazide 25 MG TAB PO SCH (09:32)
--- NOTE | 2023-02-15 11:53 | P.PN ---
Subjective Progress Note Date: 02/15/23 The patient is seen today 02/15/2023 in follow-up on the regular medical floor. He is currently sitting up in bed. Awake and alert in no acute distress. He's been afebrile. Hemodynamically stable. He is maintaining O2 saturations in the 90s on room air. He is being treated for COPD exacerbation. Remains on bronchodilators, IV Solu-Medrol, empiric antibiotics. Heparin for DVT prophylaxis. Acute coronary syndrome ruled out. Echocardiogram revealed preserved left ventricular systolic function. No significant valvular heart disease. No new labs today. Objective - Vital Signs Vital signs: Vital Signs Temp 98.1 F 02/15/23 07:25 Pulse 51 L 02/15/23 07:25 Resp 16 02/15/23 07:25 BP 131/77 02/15/23 07:25 Pulse Ox 99 02/15/23 08:42 FiO2 Intake & Output 02/14/23 02/15/23 02/15/23 18:59 06:59 18:59 Intake Total 474 Balance 474 Intake: Oral 474 Other: Voiding Method Toilet Toilet # Voids 2 - Exam GENERAL EXAM: Alert, 67-year-old male patient, on room air, comfortable in no apparent distress. HEAD: Normocephalic. EYES: Normal reaction of pupils, equal size. NOSE: Clear with pink turbinates. THROAT: No erythema or exudates. NECK: No masses, no JVD. CHEST: No chest wall deformity. LUNGS: Equal air entry with faint end expiratory wheeze, diminished. CVS: S1 and S2 normal with no audible murmur, regular rhythm. ABDOMEN: No hepatosplenomegaly, normal bowel sounds, no guarding or rigidity. SPINE: No scoliosis or deformity SKIN: No rashes CENTRAL NERVOUS SYSTEM: No focal deficits, tone is normal in all 4 extremities. EXTREMITIES: There is no peripheral edema. No clubbing, no cyanosis. Peripheral pulses are intact. - Labs CBC & Chem 7: 02/13/23 05:35 02/14/23 03:35 Labs: Abnormal Lab Results - Last 24 Hours (Table) 02/13/23 Range/Units 05:35 Vitamin B12 <150.0 L (200.0-944.0) pg/mL Assessment and Plan Assessment: Chest pain, currently under investigation, acute coronary syndrome ruled out Acute COPD exacerbation COPD with a component of an exacerbation. Baseline pulmonary status is not known. He does have chronic exertional dyspnea. He is a chronic smoker and a CAT scan of the chest showed moderate degree of emphysematous changes bilaterally. Suspected limited right middle lobe pulmonary infiltrate/pneumonia Chronic smoker Coronary artery disease Elevated d-dimer, nonspecific and there is no evidence of any venous thromboembolic disease with a negative Doppler of the lower extremity and negative CT angiogram of the chest Hypertension Plan The patient was seen and evaluated Cleared for discharge from the pulmonary standpoint Educated regarding the importance of complete smoking cessation Continue Symbicort, albuterol HFA Complete a prednisone taper starting at 40 mg daily 4 days Follow-up in our office for full pulmonary function testing and further r ecommendations I have personally seen and examined the patient, performed the documentation and the assessment and plan as written. Number of minutes spent on the visit: 10.
[2023-02-15 15:09] VITALS: BP 132/78; PULSE 58; TEMP 97.9
[2023-02-16] MEDS ORDERED: predniSONE 20 MG TAB PO SCH (09:00)
--- NOTE | 2023-02-17 06:48 | P.DS ---
Providers Date of admission: 02/14/23 06:36 Expected date of discharge: 02/15/23 Attending physician: Zain Callahan MD Consults: 02/12/23 13:26 Consult Physician Urgent Consulting Provider: Keven Ley Consult Reason/Comments: Headache Do you want consulting provider notified?: Yes 02/13/23 06:55 Consult Physician Routine Consulting Provider: Weston Matthews Consult Reason/Comments: copd, right hilar LAP Do you want consulting provider notified?: Yes Primary care physician: Lillie Richards Hospital Course: Final diagnosis Chest pain, ruled out ACS Shortness of breath, acute COPD exacerbation Continued ongoing nicotine abuse Headache History 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 Patient will follow-up with Dr. Milton Plasencia to establish in the outpatient setting upon discharge. Patient is to follow-up with cardiology, pulmonary, neurology outpatient as scheduled. Total time taken is greater than 35 minutes. Hospital course This is a 67-year-old male who was recently admitted with chest pain and shortness of breath and evaluated by cardiology and pulmonary. Patient also with acute COPD exacerbation and continues to smoke. Patient was maintained on IV steroids along with breathing treatments and we'll transition to oral prednisone and inhalers and will require close outpatient follow-up with pulmonary and cardiology with further PFT testing. Patient has been cleared by consultations for discharge. Please refer to other consultation notes for further HPI. Currently no reports of chest pain, shortness of breath, or palpitations. Patient is afebrile. No reports of nausea or vomiting and patient is tolerating diet. Patient will be discharged home today. Guarded prognosis and high risk for readmission this patient has multiple comorbidities and poor compliance to health care followed with the primary care provider in 10-20 years. Physical exam: Gen: This is a 67-year-old male who is awake, alert and oriented 3, thin built, elderly appearing HEENT: Head is atraumatic, normocephalic. Pupils equal, round. Sclerae is anicteric. NECK: Supple. No JVD. No lymphadenopathy. No thyromegaly. LUNGS: Diminished breath sounds bilaterally with some scattered rhonchi noted.. No intercostal retractions. HEART: Regular rate and rhythm. No murmur. ABDOMEN: Soft. Bowel sounds are present. No masses. No tenderness. EXTREMITIES: No pedal edema. No calf tenderness. NEUROLOGICAL: Patient is awake, alert and oriented x3. Cranial nerves 2 through 12 are grossly intact. Please refer to medication reconciliation sheet for a list of medications. The impression and plan of care has been dictated by Laine Daniels, Nurse Practitioner as directed. Dr. Honey MD I have performed a history and examination and MDM of this patient, discussed the same with the dictator, and agree with the dictator's assessment and plan as written ,documented as a scribe. Based on total visit time, I have performed more than 50% of the visit. Patient Condition at Discharge: Fair Plan - Discharge Summary Discharge Rx Participant: No New Discharge Prescriptions: New Nitroglycerin Sl Tabs [Nitrostat] 0.4 mg SUBLINGUAL Q5M PRN #30 tab PRN Reason: Chest Pain predniSONE 10 mg PO DIRECTED #30 tab Budesonide-Formot 160-4.5 Mcg [Symbicort 160-4.5 Mcg Inhaler] 2 puff INHALATION RT-BID 30 Days #1 each Azithromycin [Zithromax] 500 mg PO DAILY #3 tab Aspirin 81 mg PO DAILY #30 tab hydroCHLOROthiazide [Hydrodiuril] 25 mg PO DAILY #30 tab amLODIPine [Norvasc] 5 mg PO DAILY #30 tab Famotidine [Pepcid] 20 mg PO BID #60 tab Acetaminophen Tab [Tylenol] 325 mg PO Q6HR PRN tab PRN Reason: Pain lisinopriL [Zestril] 10 mg PO DAILY #30 tab Discharge Medication List Acetaminophen Tab [Tylenol] 325 mg PO Q6HR PRN tab 02/15/23 [Rx] Aspirin 81 mg PO DAILY #30 tab 02/15/23 [Rx] Azithromycin [Zithromax] 500 mg PO DAILY #3 tab 02/15/23 [Rx] Budesonide-Formot 160-4.5 Mcg [Symbicort 160-4.5 Mcg Inhaler] 2 puff INHALATION RT-BID 30 Days #1 each 02/15/23 [Rx] Famotidine [Pepcid] 20 mg PO BID #60 tab 02/15/23 [Rx] Nitroglycerin Sl Tabs [Nitrostat] 0.4 mg SUBLINGUAL Q5M PRN #30 tab 04/24/23 [Rx] amLODIPine [Norvasc] 5 mg PO DAILY #30 tab 02/15/23 [Rx] hydroCHLOROthiazide [Hydrodiuril] 25 mg PO DAILY #30 tab 02/15/23 [Rx] lisinopriL [Zestril] 10 mg PO DAILY #30 tab 02/15/23 [Rx] predniSONE 10 mg PO DIRECTED #30 tab 02/15/23 [Rx] Follow up Appointment(s)/Referral(s): Zay Roy MD [STAFF PHYSICIAN] - 2 Weeks (We recommend citrus test as an outpatient. Dr. Toro's office stated they will call the patient with time and date for the 2 week follow up appointment) Lillie Richards MD [Primary Care Provider] - 1-2 days Amaris Recinos MD [Medical Doctor] - 2 Weeks Activity/Diet/Wound Care/Special Instructions: Activity Limited until follow-up Follow-up with primary care provider to establish Follow-up with cardiology outpatient Follow up with neurology outpatient Continue taking medications as prescribed Discharge Disposition: HOME SELF-CARE
== END 2023-02-15 16:23 | disposition home or self-care (01) | DRG 313 ==
LOC: EC 11:13 → 6NMEDSUR 13:26 → OBSVTOIN 13:27 → INTOOBSV 13:27 → OBSVTOIN 02-14 06:36
PROVIDERS: ADMIT Internal Medicine; ATTEND Internal Medicine
DX: R07.89 Other chest pain (principal); G93.5 Compression of brain; Q04.0 Congenital malformations of corpus callosum; J44.1 Chronic obstructive pulmonary disease with (acute) exacerbation; K57.92 Diverticulitis of intestine, part unspecified, without perforation or abscess without bleeding; I10 Essential (primary) hypertension; I25.10 Atherosclerotic heart disease of native coronary artery without angina pectoris; R00.1 Bradycardia, unspecified; F17.210 Nicotine dependence, cigarettes, uncomplicated; G89.29 Other chronic pain; R93.0 Abnormal findings on diagnostic imaging of skull and head, not elsewhere classified; I08.1 Rheumatic disorders of both mitral and tricuspid valves; I45.10 Unspecified right bundle-branch block
CPT/HCPCS: 36415; 70450; 70551; 71046; 71275; 80048; 80053; 80061; 82607; 83735; 84443; 84484; 85025; 85379; 85610; 85652; 85730; 86140; 93005; 93306; 93970; 94640; 94760; 96360; 99285

== ENCOUNTER 2023-04-07 09:58 | Inpatient (IN) | payer MEDICARE, OTHER ==
[2023-04-07 11:01] LABS: Basophils % (A) 0 %; Eosinophils # (A) 0.1 k/uL (0-0.7); Eosinophils % (A) 2 %; HCT 43.8 % (39.0-53.0); HGB 14.9 gm/dL (13.0-17.5); Lymphocytes # (A) 1.2 k/uL (1.0-4.8); Lymphocytes % (A) 15 %; MCH 31.9 pg (25.0-35.0); MCHC 34.1 g/dL (31.0-37.0); MCV 93.6 fL (80.0-100.0); Mean Platelet Volume 7.2; Monocytes # (A) 0.5 k/uL (0-1.0); Monocytes % (A) 6 %; Neutrophils # (A) 6.2 k/uL (1.3-7.7); Neutrophils % (A) 75 %; Platelet Count 293 k/uL (150-450); RBC 4.68 m/uL (4.30-5.90); RDW 13.2 % (11.5-15.5); WBC 8.2 k/uL (3.8-10.6)
[2023-04-07 11:21] LABS: African American GFR (CKD) >90 (>60 ml/min/1.73 sqM); Anion Gap 6 mmol/L; Blood Urea Nitrogen 29 mg/dL (9-20); Calcium 9.6 mg/dL (8.4-10.2); Carbon Dioxide 29 mmol/L (22-30); Chloride 99 mmol/L (98-107); Glucose 127 mg/dL (74-99); Non-African American GFR(CKD) >90 (>60 ml/min/1.73 sqM); Potassium 3.6 mmol/L (3.5-5.1); Sodium 134 mmol/L (137-145)
--- NOTE | 2023-04-07 11:41 | ED ---
General Adult HPI - General Chief complaint: Psychiatric Symptoms Stated complaint: Mental Health Suicidal Time Seen by Provider: 04/07/23 10:17 Source: patient, RN notes reviewed, old records reviewed Mode of arrival: ambulatory Limitations: no limitations - History of Present Illness Initial comments: Patient is a 67-year-old male with no significant past medical history per patient presents emergency Department complaining of suicidal ideations. States he was in an argument with his landlord and states that afterwards he is having feelings of wine tenderness life. Has had multiple plans, including overdosing. States he has multiple other options. States he did not attempt. Decided to come here for evaluation. States he is more stressed out now. No history of suicide attempts. Denies any homicidal ideations, attempts, plans. Denies any visual or auditory hallucinations. His no other acute complaints at this time. Presents for further evaluation at this time. - Related Data Previous Rx's Medication Instructions Recorded Acetaminophen Tab [Tylenol] 325 mg PO Q6HR PRN tab 02/15/23 Aspirin 81 mg PO DAILY #30 tab 02/15/23 Budesonide-Formot 160-4.5 Mcg 2 puff INHALATION RT-BID 30 Days 02/15/23 [Symbicort 160-4.5 Mcg Inhaler] #1 each Famotidine [Pepcid] 20 mg PO BID #60 tab 02/15/23 Nitroglycerin Sl Tabs [Nitrostat] 0.4 mg SUBLINGUAL Q5M PRN #30 tab 02/15/23 amLODIPine [Norvasc] 5 mg PO DAILY #30 tab 02/15/23 hydroCHLOROthiazide [Hydrodiuril] 25 mg PO DAILY #30 tab 02/15/23 lisinopriL [Zestril] 10 mg PO DAILY #30 tab 02/15/23 Allergies Allergy/AdvReac Type Severity Reaction Status Date / Time No Known Allergies Allergy Verified 04/07/23 13:09 Review of Systems ROS Statement: Those systems with pertinent positive or pertinent negative responses have been documented in the HPI. ROS Other: All systems not noted in ROS Statement are negative. Past Medical History Past Medical History: Coronary Artery Disease (CAD), Hypertension Additional Past Medical History / Comment(s): occasional memory loss History of Any Multi-Drug Resistant Organisms: None Reported Past Surgical History: Heart Catheterization With Stent, Orthopedic Surgery Additional Past Surgical History / Comment(s): finger surgeries from work related accidents. Past Anesthesia/Blood Transfusion Reactions: No Reported Reaction Date of Last Stent Placement:: unknown Past Psychological History: No Psychological Hx Reported Smoking Status: Current every day smoker Past Alcohol Use History: None Reported Past Drug Use History: None Reported General Exam - General Exam Comments Initial Comments: General: Appears in no acute distress. HEAD: Normal with no signs of head trauma. EYES: EOMI, conjunctiva normal, no discharge. ENT: Hearing grossly intact, normal oropharynx. RESPIRATORY: Clear breath sounds bilaterally. No wheezes, rales, or rhonchi. C/V: Regular rate and rhythm. S1 and S2 auscultated, peripheral pulses 2+ and intact throughout ABD: Abd is soft, nontender, nondistended EXT: Normal range of motion, no obvious deformity SKIN: No rashes or lesions observed on exposed skin. NEURO: Alert and oriented x 4. PSYCH: Denies homicidal ideations/plans/attempts. Denies visual or auditory anand llucinations. He endorses suicidal ideation, plan. Denies attempt. Limitations: no limitations Course Vital Signs 04/07/23 10:10 Temperature 97.7 F Pulse Rate 90 Respiratory 18 Rate Blood Pressure 141/98 O2 Sat by Pulse 95 Oximetry Medical Decision Making - Medical Decision Making Was pt. sent in by a medical professional or institution ([facility], [employer], urgent care, hospital, or shelter...) When possible be specific @ -No Did you speak to anyone other than the patient for history (EMS, parent, family, police, friend...)? What history was obtained from this source @ -No Did you review nursing and triage notes (agree or disagree)? Why? @ -I reviewed and agree with nursing and triage notes Were old charts reviewed (outside hosp., previous admission, EMS record, old EKG, old radiological studies, urgent care reports/EKG's, shelter records)? Report findings @ -No old charts were reviewed Differential Diagnosis (chest pain, altered mental status, abdominal pain women, abdominal pain men, vaginal bleeding, weakness, fever, dyspnea, syncope, headache, dizziness, GI bleed, back pain, seizure, CVA, palpatations, mental health, musculoskeletal)? @ -Differential Mental Health Depression, anxiety, bipolar, psychosis, schizophrenia, borderline personality, situational depression, adjustment disorder, behavioral disorder, brain tumor, malingering, substance abuse, encephalopathy, medication reaction, dementia, hypothyroidism, degenerative neurologic disorder, lupus.... This is not meant to be all-inclusive list EKG interpreted by me (3pts min.). @ -None done X-rays interpreted by me (1pt min.). @ -None done CT interpreted by me (1pt min.). @ -None done U/S interpreted by me (1pt. min.). @ -None done What testing was considered but not performed or refused? (CT, X-rays, U/S, labs)? Why? @ -None What meds were considered but not given or refused? Why? @ -None Did you discuss the management of the patient with other professionals (professionals i.e. , PA, [employer], lab, RT, psych nurse, social media community manager, watch technician, teacher, equal employment opportunity officer, bilingual patient support caseworker)? Give summary @ -EPS notified of the consult for evaluation and patient being medically cleared. They evaluated the patient and requested a troponin, which was obtained and was undetectable. I updated him and they expressed understanding. They informed me that patient will be admitted to inpatient psychiatry. Was smoking cessation discussed for >3mins.? @ -No Was critical care preformed (if so, how long)? @ -No Were there social determinants of health that impacted care today? How? (Homelessness, low income, unemployed, alcoholism, drug addiction, transportation, low edu. Level, literacy, decrease access to med. care, retirement, rehab)? @ -No Was there de-escalation of care discussed even if they declined (Discuss DNR or withdrawal of care, Hospice)? DNR status @ -No What co-morbidities impacted this encounter? (DM, HTN, Smoking, COPD, CAD, C ancer, CVA, ARF, Chemo, Hep., AIDS, mental health diagnosis, sleep apnea, morbid obesity)? @ -None Was patient admitted / discharged? Hospital course, mention meds given and route, prescriptions, significant lab abnormalities, going to OR and other pertinent info. @ -Based on the patient's presentation and physical exam, I'm concerned for p sychiatric evaluation for The patient due to suicidal ideations. BAT is 0. He was placed in green scrubs. Suicide precautions ordered. Sitter ordered. Due to his age, we will obtain basic labs as well as a screening EKG. He was in agreement this plan. Vital signs within acceptable limits. Is in no acute distress at this time. Labs are within acceptable limits. EKG shows no signs of acute ischemia. Patient is medically cleared for evaluation by psychiatry. EPS is notified. Disposition is pending psychiatric evaluation. Patient was evaluated by [facility]. He complained of chest pain to them. When I went back in to evaluate patient, he states he has been having intermittent chest pain for the last few days, and this is somewhat of a chronic issue.. States he currently does not have any when I'm talking with him. We will obtain a troponin in addition to screening EKG which was normal. He was in agreement with this plan. Troponin is undetectable. I updated EPS. They requested Covid swab and then will admit the patient to their services. Patient will be admitted to inpatient psychiatry in stable condition. Undiagnosed new problem with uncertain prognosis? @ -No Drug Therapy requiring intensive monitoring for toxicity (Heparin, Nitro, Insulin, Cardizem)? @ -No Were any procedures done? @ -No Diagnosis/symptom? @ -Encounter for psychiatric evaluation, suicidal ideations Acute, or Chronic, or Acute on Chronic? @ -Acute Uncomplicated (without systemic symptoms) or Complicated (systemic symptoms)? @ -Uncomplicated Side effects of treatment? @ -No Exacerbation, Progression, or Severe Exacerbation? @ -No Poses a threat to life or bodily function? How? (Chest pain, USA, SC, pneumonia, PE, COPD, DKA, ARF, appy, cholecystitis, CVA, Diverticulitis, Homicidal, Suicidal, threat to staff... and all critical care pts) @ -Yes - Lab Data Result diagrams: 04/07/23 10:40 04/07/23 10:40 Lab Results 04/07/23 04/07/23 04/07/23 Range/Units 10:40 10:40 10:40 WBC 8.2 (3.8-10.6) k/uL RBC 4.68 (4.30-5.90) m/uL Hgb 14.9 (13.0-17.5) gm/dL Hct 43.8 (39.0-53.0) % MCV 93.6 (80.0-100.0) fL MCH 31.9 (25.0-35.0) pg MCHC 34.1 (31.0-37.0) g/dL RDW 13.2 (11.5-15.5) % Plt Count 293 (150-450) k/uL MPV 7.2 Neutrophils % 75 % Lymphocytes % 15 % Monocytes % 6 % Eosinophils % 2 % Basophils % 0 % Neutrophils # 6.2 (1.3-7.7) k/uL Lymphocytes # 1.2 (1.0-4.8) k/uL Monocytes # 0.5 (0-1.0) k/uL Eosinophils # 0.1 (0-0.7) k/uL Basophils # 0.0 (0-0.2) k/uL Sodium 134 L (137-145) mmol/L Potassium 3.6 (3.5-5.1) mmol/L Chloride 99 (98-107) mmol/L Carbon Dioxide 29 (22-30) mmol/L Anion Gap 6 mmol/L BUN 29 H (9-20) mg/dL Creatinine 0.76 (0.66-1.25) mg/dL Est GFR (CKD-EPI)AfAm >90 (>60 ml/min/1.73 sqM) Est GFR (CKD-EPI)NonAf >90 (>60 ml/min/1.73 sqM) Glucose 127 H (74-99) mg/dL Calcium 9.6 (8.4-10.2) mg/dL Troponin I <0.012 (0.000-0.034) ng/mL Urine Opiates Screen (NotDetected) Ur Oxycodone Screen (NotDetected) Urine Methadone Screen (NotDetected) Ur Propoxyphene Screen (NotDetected) Ur Barbiturates Screen (NotDetected) U Tricyclic Antidepress (NotDetected) Ur Phencyclidine Scrn (NotDetected) Ur Amphetamines Screen (NotDetected) U Methamphetamines Scrn (NotDetected) U Benzodiazepines Scrn (NotDetected) Urine Cocaine Screen (NotDetected) U Marijuana (THC) Screen (NotDetected) Coronavirus (PCR) (Not Detectd) 04/07/23 04/07/23 Range/Units 12:15 14:10 WBC (3.8-10.6) k/uL RBC (4.30-5.90) m/uL Hgb (13.0-17.5) gm/dL Hct (39.0-53.0) % MCV (80.0-100.0) fL MCH (25.0-35.0) pg MCHC (31.0-37.0) g/dL RDW (11.5-15.5) % Plt Count (150-450) k/uL MPV Neutrophils % % Lymphocytes % % Monocytes % % Eosinophils % % Basophils % % Neutrophils # (1.3-7.7) k/uL Lymphocytes # (1.0-4.8) k/uL Monocytes # (0-1.0) k/uL Eosinophils # (0-0.7) k/uL Basophils # (0-0.2) k/uL Sodium (137-145) mmol/L Potassium (3.5-5.1) mmol/L Chloride (98-107) mmol/L Carbon Dioxide (22-30) mmol/L Anion Gap mmol/L BUN (9-20) mg/dL Creatinine (0.66-1.25) mg/dL Est GFR (CKD-EPI)AfAm (>60 ml/min/1.73 sqM) Est GFR (CKD-EPI)NonAf (>60 ml/min/1.73 sqM) Glucose (74-99) mg/dL Calcium (8.4-10.2) mg/dL Troponin I (0.000-0.034) ng/mL Urine Opiates Screen Not Detected (NotDetected) Ur Oxycodone Screen Not Detected (NotDetected) Urine Methadone Screen Not Detected (NotDetected) Ur Propoxyphene Screen Not Detected (NotDetected) Ur Barbiturates Screen Not Detected (NotDetected) U Tricyclic Antidepress Not Detected (NotDetected) Ur Phencyclidine Scrn Not Detected (NotDetected) Ur Amphetamines Screen Not Detected (NotDetected) U Methamphetamines Scrn Not Detected (NotDetected) U Benzodiazepines Scrn Not Detected (NotDetected) Urine Cocaine Screen Not Detected (NotDetected) U Marijuana (THC) Screen Not Detected (NotDetected) Coronavirus (PCR) Not Detected (Not Detectd) - EKG Data -: EKG Interpreted by Me EKG Comments: 12-lead Electrocardiogram Interpretation Note EKG was reviewed and interpreted by myself. 12-lead ECG performed at 1034 is interpreted by me as revealing normal sinus rhythm with PACs at a rate of 89 beats per minute. [place] is normal. LA interval is 132 ms, QRS duration is 112 ms, QTc is 400 ms.. There were no ST or T wave abnormalities to suggest myocardial ischemia or injury. R wave progression across the precordium was satisfactory. By my interpretation this EKG is non-diagnostic for acute ischemia. Disposition Clinical Impression: Encounter for psychiatric assessment, Suicidal ideation Disposition: ADMITTED IP TO THIS HOSP Condition: Stable Time of Disposition: 13:45
[2023-04-07 12:57] LABS: Amphetamine Screen,Urine Not Detected (NotDetected); Barbiturate Screen,Urine Not Detected (NotDetected); Benzodiazepines Screen,Urine Not Detected (NotDetected); Cocaine Screen,Urine Not Detected (NotDetected); Methadone Screen, Urine Not Detected (NotDetected); Opiate Screen,Urine Not Detected (NotDetected); Oxycodone Screen, Urine Not Detected (NotDetected); Phencyclidine Screen,Urine Not Detected (NotDetected); Tricyclic Antidepressant,Urine Not Detected (NotDetected); Urn Cannabinoid Scrn Not Detected (NotDetected)
[2023-04-07] MEDS ORDERED: traZODone HCL 50 MG TAB PO PRN (15:01)
[2023-04-07] MEDS ORDERED: haloperidoL 5 MG TAB PO PRN (15:01)
[2023-04-07] MEDS ORDERED: HALOPERIDOL LACTATE 5 MG/ML 1 ML VIAL IM PRN (15:01)
[2023-04-07] MEDS ORDERED: LORazepam 1 MG TAB PO PRN (15:01)
[2023-04-07] MEDS ORDERED: MAG HYDROX/AL HYDROX/SIMETH 30 ML CUP PO PRN (15:01)
[2023-04-07] MEDS ORDERED: MAGNESIUM HYDROXIDE 2,400 MG/10 ML CUP PO PRN (15:01)
[2023-04-07] MEDS ORDERED: LORazepam 2 MG/ML INJ IM PRN (15:01)
[2023-04-07] MEDS ORDERED: NITROGLYCERIN SL TABS 0.4 MG TAB SUBLINGUAL PRN (15:04)
[2023-04-07] MEDS ORDERED: SYMBICORT 160-4.5 MCG INHALER INHALATION SCH (20:00)
[2023-04-07] MEDS: FAMOTIDINE 20 MG TAB PO SCH (22:12)
[2023-04-07] MEDS: SYMBICORT 160-4.5 MCG INHALER (MHU) INHALATION SCH (22:25)
[2023-04-08] MEDS: hydroCHLOROthiazide 25 MG TAB PO SCH (09:20)
[2023-04-08] MEDS: lisinopriL 10 MG TAB PO SCH (09:20)
[2023-04-08] MEDS: amLODIPine 5 MG TAB PO SCH (09:20)
[2023-04-08] MEDS: FAMOTIDINE 20 MG TAB PO SCH ×2 (09:20→21:41)
[2023-04-08] MEDS: ATORVASTATIN 20 MG TAB PO SCH (09:20)
[2023-04-08] MEDS: NICOTINE 14MG/24HR PATCH TRANSDERM SCH (09:21)
[2023-04-08] MEDS: SYMBICORT 160-4.5 MCG INHALER (MHU) INHALATION SCH ×2 (09:22→21:40)
[2023-04-08] MEDS: SERTRALINE 25 MG TAB PO SCH (12:44)
[2023-04-08] MEDS ORDERED: hydrOXYzine HCL 50 MG/ML 1 ML VIAL IM PRN (14:13)
[2023-04-08] MEDS ORDERED: hydrOXYzine pamoate 25 MG CAP PO PRN (14:13)
[2023-04-08] MEDS ORDERED: OLANZapine 5 MG TAB PO PRN (14:14)
[2023-04-08] MEDS ORDERED: OLANZapine 10 MG VIAL IM PRN (14:14)
--- NOTE | 2023-04-08 14:15 | P.HP ---
Psychiatric H&P - . H&P Date: 04/08/23 History & Physical: Allergies Allergy/AdvReac Type Severity Reaction Status Date / Time No Known Allergies Allergy Verified 04/07/23 13:09 Vital Signs Temp 98.1 F 04/08/23 06:22 Pulse 73 04/08/23 06:22 Resp 16 04/08/23 06:22 BP 119/64 04/08/23 06:22 Pulse Ox 98 04/07/23 17:10 FiO2 Intake & Output 04/07/23 04/08/23 04/08/23 18:59 06:59 18:59 Weight 57.691 kg Laboratory Last Values WBC 8.2 k/uL (3.8-10.6) 04/07/23 10:40 RBC 4.68 m/uL (4.30-5.90) 04/07/23 10:40 Hgb 14.9 gm/dL (13.0-17.5) 04/07/23 10:40 Hct 43.8 % (39.0-53.0) 04/07/23 10:40 MCV 93.6 fL (80.0-100.0) 04/07/23 10:40 MCH 31.9 pg (25.0-35.0) 04/07/23 10:40 MCHC 34.1 g/dL (31.0-37.0) 04/07/23 10:40 RDW 13.2 % (11.5-15.5) 04/07/23 10:40 Plt Count 293 k/uL (150-450) 04/07/23 10:40 MPV 7.2 04/07/23 10:40 Neutrophils % 75 % 04/07/23 10:40 Lymphocytes % 15 % 04/07/23 10:40 Monocytes % 6 % 04/07/23 10:40 Eosinophils % 2 % 04/07/23 10:40 Basophils % 0 % 04/07/23 10:40 Neutrophils # 6.2 k/uL (1.3-7.7) 04/07/23 10:40 Lymphocytes # 1.2 k/uL (1.0-4.8) 04/07/23 10:40 Monocytes # 0.5 k/uL (0-1.0) 04/07/23 10:40 Eosinophils # 0.1 k/uL (0-0.7) 04/07/23 10:40 Basophils # 0.0 k/uL (0-0.2) 04/07/23 10:40 Sodium 134 mmol/L (137-145) L 04/07/23 10:40 Potassium 3.6 mmol/L (3.5-5.1) 04/07/23 10:40 Chloride 99 mmol/L (98-107) 04/07/23 10:40 Carbon Dioxide 29 mmol/L (22-30) 04/07/23 10:40 Anion Gap 6 mmol/L 04/07/23 10:40 BUN 29 mg/dL (9-20) H 04/07/23 10:40 Creatinine 0.76 mg/dL (0.66-1.25) 04/07/23 10:40 Est GFR (CKD-EPI)AfAm >90 (>60 ml/min/1.73 sqM) 04/07/23 10:40 Est GFR (CKD-EPI)NonAf >90 (>60 ml/min/1.73 sqM) 04/07/23 10:40 Glucose 127 mg/dL (74-99) H 04/07/23 10:[address] Glu mg/dL 131 mg/dL 04/07/23 10:40 Hemoglobin A1c 6.2 % (<=6.0) H 04/07/23 10:40 Calcium 9.6 mg/dL (8.4-10.2) 04/07/23 10:40 Troponin I <0.012 ng/mL (0.000-0.034) 04/07/23 10:40 TSH 1.120 mIU/L (0.465-4.680) 04/07/23 10:40 Urine Opiates Screen Not Detected (NotDetected) 04/07/23 12:15 Ur Oxycodone Screen Not Detected (NotDetected) 04/07/23 12:15 Urine Methadone Screen Not Detected (NotDetected) 04/07/23 12:15 Ur Propoxyphene Screen Not Detected (NotDetected) 04/07/23 12:15 Ur Barbiturates Screen Not Detected (NotDetected) 04/07/23 12:15 U Tricyclic Antidepress Not Detected (NotDetected) 04/07/23 12:15 Ur Phencyclidine Scrn Not Detected (NotDetected) 04/07/23 12:15 Ur Amphetamines Screen Not Detected (NotDetected) 04/07/23 12:15 U Methamphetamines Scrn Not Detected (NotDetected) 04/07/23 12:15 U Benzodiazepines Scrn Not Detected (NotDetected) 04/07/23 12:15 Urine Cocaine Screen Not Detected (NotDetected) 04/07/23 12:15 U Marijuana (THC) Screen Not Detected (NotDetected) 04/07/23 12:15 Coronavirus (PCR) Not Detected (Not Detectd) 04/07/23 14:10 04/08/23 12:09 IDENTIFYING DATA: Patient is a 67-year-old male who currently lives in an apartment alone, he is single, has no kids, collects SSD. HPI: Patient presented to the hospital from the ER yesterday complaining of depression and suicidal ideations. Patient apparently had an argument with his landlord according to her report and was endorsing depression and suicidal thoughts and also having multiple plans to harm himself. Patient's urine drug screen was negative. Patient was seen today taking part in group and group therapy directed in the office today for evaluation. He is voluntary status on the unit. Patient claims that he is feeling "anxious, anger, homeless with "nowhere to go". She states that he was not supposed to be smoking in his apartment and states that his payee which is also his landlord told him that he is to be kicked out of the apartment. She apparently told him that he is not supposed to smoke inside the apartment and that he was dangerous and he was doing it anyways. He claims that he was so upset that he walked to the hospital and was endorsing depression and anxiety. He claims that he had a plan of harming himself either hanging himself or jumping off the bridge into the water. He claims that his sleep and appetite are fair at this time. Patient denies any current suicidal or homicidal ideations intent or plan. At this time patient denies any auditory or visual hallucinations. Patient denies any flight of ideas racing thoughts and increased in goal directed behavior. Patient admits to using no recreational drugs however does smoke cigarettes daily. PAST PSYCHIATRIC HISTORY: Patient states that he has no significant past psychiatric history. Patient denies being on any psychiatric medications. Patient denies any previous psychiatric hospitalizations. Patient denies any psychiatric outpatient follow-up. Patient denies any history of suicide attempts in the past. Past Medical History: Coronary Artery Disease (CAD), Hypertension Additional Past Medical History / Comment(s): occasional memory loss History of Any Multi-Drug Resistant Organisms: None Reported Past Surgical History: Heart Catheterization With Stent, Orthopedic Surgery Additional Past Surgical History / Comment(s): finger surgeries from work related accidents. Past Anesthesia/Blood Transfusion Reactions: No Reported Reaction Date of Last Stent Placement:: unknown Past Psychological History: No Psychological Hx Reported Smoking Status: Current every day smoker Past Alcohol Use History: None Reported Past Drug Use History: None Reported ALLERGIES: as per EMR CHEMICAL DEPENDENCY HISTORY: as per HPI FAMILY PSYCHIATRIC/SUBSTANCE USE HISTORY: denies SOCIAL HISTORY: Patient was born and raised in [facility]. He states that he spent most of his life here. He claims that he completed high school. 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 He states that he lives alone in apartment, he is single, has no kids. MENTAL STATUS EXAM: General Appearance: Patient appears to be fairly thin, wearing glasses, using walker, stated age is alert, directable, and attempts to cooperate. Patient appears to have poor hygiene and grooming. Behavior: Patient is seated without any agitated behavior. Attempts to cooperate. Speech: Patient's speech is fluent and nonpressured. Mood/Affect: Patient reports their mood is depressed and anxious, affect is congruent and constricted. Suicidality/Homicidality: Patient denies having any homicidal ideation intent or plan. Denies any suicidal ideations intent or plan Perceptions: Patient denies any visual hallucinations and denies any auditory hallucinations Though content/process: There is no evidence of any delusional thought content and thought process is linear and goal-directed. Memory and concentration: AOX3, grossly intact for the purposes of this session. Can spell "WORLD" backwards Judgment and insight: poor STRENGTHS/WEAKNESSES: strength is that patient is resilient. Weakness is that patient has poor judgment and is currently homeless INTELLECT: average IMPRESSIONS: Adjustment disorder with depressed and anxious features Nicotine dependence PLAN: -Patient is admitted under voluntary status to MHU for stabilization of psychiatric symptoms and safety. Patient has signed adult voluntary form and medication consent and is placed in patient's chart. -Medications : Will start patient on Zoloft 25 mg daily for mood/anxiety, melatonin 3 mg daily at bedtime for sleep. -vistaril and zyprexa PRN for agitation/aggression -Patient was informed of the risks, benefits and side effects of the medication and patient verbally consented to taking the medications. Patient signed med consent form and was placed in chart. -Internal Medicine consult to perform medical evaluation and physical. -NRT - nicotine patch -SW on board for discharge planning. Encourage patient to participate in groups to work on coping skills. will need to reach out payee/landlord to see if patient is still allowed back upon discharge.
[2023-04-08] MEDS: ACETAMINOPHEN TAB 325 MG TAB PO PRN (14:49)
--- NOTE | 2023-04-08 15:37 | P.MDCNMH ---
History of Present Illness H&P Date: 04/08/23 This is a 67-year-old male who presented to the emergency department with reported suicidal ideations and increased depression. Per emergency room record patient got into an argument with his landlord having increasing thoughts after when he to take his life. Patient was voluntarily admitted to the psych unit for further psychiatric evaluation. On exam patient is walking around in the unit with a walker and reports he uses is chronically and reports he follows with Dr. Devi in the outpatient setting with a past medical history of coronary artery disease, COPD, hypertension, nicotine dependence, denies alcohol use or illicit drug use. Labs reviewed and within normal limits and urine drug screen was negative and covid was negative. Labs reviewed from the emergency room and WBC was 8.2, hemoglobin is 14.9, platelets 293, sodium is 134 with a BUN of 29 and creatinine 0.76, troponin was negative and TSH was 1.120. Review Of Systems: Constitutional: No fever, no chills, no night sweats. No weight change. No weakness, fatigue or lethargy. No daytime sleepiness. EENT: No headache. No blurred vision or double vision, no loss of vision. No loss of Hearing, no ringing in the ears, no dizziness. No nasal drainage or congestion. No epistaxis. No sore throat. Lungs: No shortness of breath, cough, no sputum production. No wheezing. Cardiovascular: No chest pain, no lower extremity edema. No palpitations. No paroxysmal nocturnal dyspnea. No orthopnea. No lightheadedness or dizziness. No syncopal episodes. Abdominal: No abdominal pain. No nausea, vomiting. No diarrhea. No constipation. No bloody or tarry stools.. No loss of appetite. Genitourinary: No dysuria, increased frequency, urgency. No urinary retention. Musculoskeletal: No myalgias. No muscle weakness, no gait dysfunction, no frequent falls. No back pain. No neck pain. Integumentary: No wounds, no lesions. No rash or pruritus. No unusual bruising. No change in hair or nails. Neurologic: No aphasia. No facial droop. No change in mentation. No head injury. No headache. No paralysis. No paresthesia. Psychiatric: Reports increased depression. Reports increased anxiety. Reports having suicidal thoughts and ideation. No mood swings. Endocrine: No abnormal blood sugars. No weight change. No excessive sweating or thirst. No cold intolerance. PHYSICAL EXAMINATION: GENERAL: The patient is alert and oriented x4, thin built, elderly appearing HEENT: Pupils are round and equally reacting to light. EOMI. no scleral icterus. No conjunctival pallor. Normocephalic, atraumatic. No pharyngeal erythema. No thyromegaly. CARDIOVASCULAR: S1 and S2 muffled PULMONARY: diminished breath sounds bilaterally otherwise clear to auscultation with no wheezing or rhonchi noted. ABDOMEN: soft. Nontender on exam. non-distended, normoactive bowel sounds. No palpable organomegaly. MUSCULOSKELETAL: No joint swelling or deformity. EXTREMITIES: No cyanosis, clubbing, or pedal edema. NEUROLOGICAL: Gross neurological examination did not reveal any focal deficits. Chronically uses a walker SKIN: No rashes. Assessment: Depression with suicidal ideation History of anxiety Continued ongoing nicotine dependence History of coronary artery disease History of COPD, not in exacerbation Hypertension history Full code Plan: Recommend to continue with current medications and management per psychiatric services. Patient voluntarily signed into psychiatric unit for increased depression and suicidal ideation. All medications reviewed and resumed as appropriate. Patient does have history of COPD and inhalers have been resumed patient is currently 98% on room air denies any shortness of breath. Encourage the patient to attend group therapy sessions and complaints of medications Thank you kindly for this consultation The impression and plan of care has been dictated by Laine Daniels, nurse practitioner as directed. Dr. Tej MD I have performed a history and examination and MDM of this patient, discussed the same with the dictator, and agree with the dictator's assessment and plan as written ,documented as a scribe. Based on total visit time, I have performed more than 50% of the visit. Any additional findings or plans will be noted. Past Medical History Past Medical History: Coronary Artery Disease (CAD), COPD, Hypertension Additional Past Medical History / Comment(s): occasional memory loss History of Any Multi-Drug Resistant Organisms: None Reported Past Surgical History: Heart Catheterization With Stent, Orthopedic Surgery Additional Past Surgical History / Comment(s): finger surgeries from work related accidents. Past Anesthesia/Blood Transfusion Reactions: No Reported Reaction Date of Last Stent Placement:: unknown Past Psychological History: No Psychological Hx Reported Smoking Status: Current every day smoker Past Alcohol Use History: None Reported Past Drug Use History: None Reported Medications and Allergies Home Medications Medication Instructions Recorded Confirmed Type Acetaminophen Tab [Tylenol] 325 mg PO Q6HR PRN tab 02/15/23 04/07/23 Rx Aspirin 81 mg PO DAILY #30 tab 02/15/23 04/07/23 Rx Budesonide-Formot 160-4.5 Mcg 2 puff INHALATION RT-BID 30 Days 02/15/23 04/07/23 Rx [Symbicort 160-4.5 Mcg Inhaler] #1 each Famotidine [Pepcid] 20 mg PO BID #60 tab 02/15/23 04/07/23 Rx Nitroglycerin Sl Tabs [Nitrostat] 0.4 mg SUBLINGUAL Q5M PRN #30 tab 02/15/23 04/07/23 Rx amLODIPine [Norvasc] 5 mg PO DAILY #30 tab 02/15/23 04/07/23 Rx hydroCHLOROthiazide [Hydrodiuril] 25 mg PO DAILY #30 tab 02/15/23 04/07/23 Rx lisinopriL [Zestril] 10 mg PO DAILY #30 tab 02/15/23 04/07/23 Rx Allergies Allergy/AdvReac Type Severity Reaction Status Date / Time No Known Allergies Allergy Verified 04/07/23 13:09 Physical Exam Vitals: Vital Signs Temp Pulse Resp BP Pulse Ox 04/08/23 06:22 98.1 F 73 16 119/64 04/07/23 17:10 97.8 F 69 18 142/67 98 Intake and Output 04/07/23 04/08/23 04/08/23 22:59 06:59 14:59 Other: Weight 57.691 kg Cranial Nerve Examination - Cranial Nerves Cranial Nerve I- Olfactory: Intact Cranial Nerve II- Optic: Intact Cranial Nerve III- Oculomotor: Intact Cranial Nerve IV- Trochlear: Intact Cranial Nerve V- Trigeminal: Intact Cranial Nerve - Abducens: Intact Cranial Nerve VII- Facial: Intact Cranial Nerve VIII- Auditory: Intact Cranial Nerve IX- Glossopharyngeal: Intact Cranial Nerve X- Vagus: Intact Cranial Nerve XI- Accessory: Intact Cranial Nerve XII- Hypoglossal: Intact Results CBC & Chem 7: 04/07/23 10:40 04/07/23 10:40 Labs: Abnormal Lab Results - Last 24 Hours (Table) 04/07/23 04/07/23 Range/Units 10:40 10:40 Sodium 134 L (137-145) mmol/L BUN 29 H (9-20) mg/dL Glucose 127 H (74-99) mg/dL Hemoglobin A1c 6.2 H (<=6.0) % Assessment and Plan Time with Patient: Less than 30
[2023-04-08] MEDS ORDERED: MELATONIN 3 MG TABLET PO SCH (21:00)
[2023-04-09] MEDS: NICOTINE 14MG/24HR PATCH TRANSDERM SCH (08:25)
[2023-04-09] MEDS: SYMBICORT 160-4.5 MCG INHALER (MHU) INHALATION SCH ×2 (08:25→22:32)
[2023-04-09] MEDS: ATORVASTATIN 20 MG TAB PO SCH (09:14)
[2023-04-09] MEDS: hydroCHLOROthiazide 25 MG TAB PO SCH (09:14)
[2023-04-09] MEDS: SERTRALINE 25 MG TAB PO SCH (09:14)
[2023-04-09] MEDS: lisinopriL 10 MG TAB PO SCH (09:14)
[2023-04-09] MEDS: amLODIPine 5 MG TAB PO SCH (09:14)
[2023-04-09] MEDS: FAMOTIDINE 20 MG TAB PO SCH ×2 (09:14→20:59)
--- NOTE | 2023-04-09 12:19 | P.PN ---
Progress Note - Text Progress Note Date: 04/09/23 Interval history: Patient was seen today for psychiatric follow up and was agreeable to speak to day in the office. Patient claims that he has been trying to go to groups and participate as much as he can. He states that he is doing better today with medications. He claims that he has been losing track of where his room is on the unit and finds the unit to be fairly complex. He claims that he has been eating fairly and interacting with other patients. Claims that he had some difficulty sleeping last night due to other patients on the unit and staff opening his door. He claims that his mood and anxiety have been mildly improving since yesterday. At this time he is denying any SI or HI and denying any AH or Vh. Patient has been compliant with his medications and denying any side effects. Mental status exam: General Appearance: Patient appears to be fairly thin, wearing glasses, using walker, stated age is alert, directable, and attempts to cooperate. Patient appears to have improving hygiene and grooming. Behavior: Patient is seated without any agitated behavior. Attempts to cooperate. Speech: Patient's speech is fluent and nonpressured. Mood/Affect: Patient reports their mood is improving mildly, affect is congruent and improving Suicidality/Homicidality: Patient denies having any homicidal ideation intent or plan. Denies any suicidal ideations intent or plan Perceptions: Patient denies any visual hallucinations and denies any auditory hallucinations Though content/process: There is no evidence of any delusional thought content and thought process is linear and goal-directed. Memory and concentration: AOX3, grossly intact for the purposes of this session Judgment and insight: improving mildly IMPRESSIONS: Adjustment disorder with depressed and anxious features Nicotine dependence PLAN: -Patient is admitted under voluntary status to MHU for stabilization of psychiatric symptoms and safety. Patient has signed adult voluntary form and medication consent and is placed in patient's chart. -Medications : Zoloft 25 mg daily for mood/anxiety, consider increasing over the weekend if tolerated. increase melatonin 6 mg daily at bedtime for sleep. -vistaril and zyprexa PRN for agitation/aggression -NRT - nicotine patch -SW on board for discharge planning. Encourage patient to participate in groups to work on coping skills. will need to reach out payee/landlord to see if patient is still allowed back upon discharge. likely discharge early next week.
[2023-04-09] MEDS ORDERED: MAGNESIUM HYDROXIDE 2,400 MG/30 ML CUP PO PRN (15:52)
[2023-04-09] MEDS: ACETAMINOPHEN TAB 325 MG TAB PO PRN (18:25)
[2023-04-09] MEDS: MELATONIN 5 MG TABLET PO SCH (20:59)
[2023-04-10] MEDS: SERTRALINE 25 MG TAB PO SCH (08:25)
[2023-04-10] MEDS: FAMOTIDINE 20 MG TAB PO SCH ×2 (08:25→21:28)
[2023-04-10] MEDS: lisinopriL 10 MG TAB PO SCH (08:25)
[2023-04-10] MEDS: NICOTINE 14MG/24HR PATCH TRANSDERM SCH (08:25)
[2023-04-10] MEDS: SYMBICORT 160-4.5 MCG INHALER (MHU) INHALATION SCH ×2 (08:25→21:28)
[2023-04-10] MEDS: ATORVASTATIN 20 MG TAB PO SCH (08:25)
[2023-04-10] MEDS: hydroCHLOROthiazide 25 MG TAB PO SCH (08:26)
[2023-04-10] MEDS: amLODIPine 5 MG TAB PO SCH (08:26)
--- NOTE | 2023-04-10 13:27 | P.PN ---
Progress Note - Text Progress Note Date: 04/10/23 Interval history: Patient was seen today for psychiatric follow up and was agreeable to speak to this automobile and property underwriter. He states that he is "really good ". He has been isolative however and describes that this is how he is even at home. He describes enjoying long walks. He states that he has been participating in groups here. He reports no concerns and states that he is doing well on the current medication regimen. However, he says that he has some difficulty remembering certain things which has been ongoing for some time. He states that he slept well last night and that he has been eating well. He reports adequate energy during the daytime. At this time he is denying any SI or HI and denying any auditory or visual hallucinations. Patient has been compliant with his medications and denying any side effects. Mental status exam: General Appearance: Patient appears to be fairly thin, wearing glasses, using walker, stated age is alert, directable, and attempts to cooperate. Patient appears to have improving hygiene and grooming. Behavior: Patient is seated without any agitated behavior. Attempts to cooperate. Speech: Patient's speech is fluent and nonpressured. Mood/Affect: Patient reports their mood is improving mildly, affect is congruent and improving Suicidality/Homicidality: Patient denies having any homicidal ideation intent or plan. Denies any suicidal ideations intent or plan Perceptions: Patient denies any visual hallucinations and denies any auditory hallucinations Though content/process: There is no evidence of any delusional thought content and thought process is linear and goal-directed. Memory and concentration: AOX3, grossly intact for the purposes of this session Judgment and insight: improving mildly IMPRESSIONS: Adjustment disorder with depressed and anxious features Nicotine dependence PLAN: -Patient is admitted under voluntary status to MHU for stabilization of psychiatric symptoms and safety. Patient has signed adult voluntary form and medication consent and is placed in patient's chart. -Medications : Increase Zoloft to 50 mg daily for mood/anxiety. melatonin 6 mg daily at bedtime for sleep. -vistaril and zyprexa PRN for agitation/aggression -NRT - nicotine patch -SW on board for discharge planning. Encourage patient to participate in groups to work on coping skills. will need to reach out payee/landlord to see if patient is still allowed back upon discharge. likely discharge early next week.
[2023-04-10] MEDS: MELATONIN 5 MG TABLET PO SCH (21:28)
[2023-04-11 07:23] VITALS: RESP 16
[2023-04-11] MEDS: ATORVASTATIN 20 MG TAB PO SCH (09:50)
[2023-04-11] MEDS: FAMOTIDINE 20 MG TAB PO SCH ×2 (09:50→21:07)
[2023-04-11] MEDS: lisinopriL 10 MG TAB PO SCH (09:50)
[2023-04-11] MEDS: hydroCHLOROthiazide 25 MG TAB PO SCH (09:51)
[2023-04-11] MEDS: NICOTINE 14MG/24HR PATCH TRANSDERM SCH (09:51)
[2023-04-11] MEDS: SERTRALINE 50 MG TAB PO SCH (09:51)
[2023-04-11] MEDS: amLODIPine 5 MG TAB PO SCH (09:54)
[2023-04-11] MEDS: SYMBICORT 160-4.5 MCG INHALER (MHU) INHALATION SCH ×2 (10:05→21:07)
--- NOTE | 2023-04-11 16:15 | P.PN ---
Progress Note - Text Progress Note Date: 04/11/23 Interval history: Patient was seen today for psychiatric follow up and was agreeable to speak to this health technical writer. He states that he is "really good ". He has been interacting more on the milieu. He states that he has been participating in groups here. He reports no concerns and states that he is doing well on the current medication regimen. However, he says that he has some difficulty remembering certain things which has been ongoing. He states that he slept well last night and that he has been eating well. He reports adequate energy during the daytime. He denies concerns with the increased medication reports doing well. At this time he is denying any SI or HI and denying any auditory or visual hallucinations. Patient has been compliant with his medications and denying any side effects. Mental status exam: General Appearance: Patient appears to be fairly thin, wearing glasses, using walker, stated age is alert, directable, and attempts to cooperate. Patient appears to have improving hygiene and grooming. Behavior: Patient is seated without any agitated behavior. Attempts to cooperate. Speech: Patient's speech is fluent and nonpressured. Mood/Affect: Patient reports their mood is improving mildly, affect is congruent and improving Suicidality/Homicidality: Patient denies having any homicidal ideation intent or plan. Denies any suicidal ideations intent or plan Perceptions: Patient denies any visual hallucinations and denies any auditory hallucinations Though content/process: There is no evidence of any delusional thought content and thought process is linear and goal-directed. Memory and concentration: AOX3, grossly intact for the purposes of this session Judgment and insight: improving mildly IMPRESSIONS: Adjustment disorder with depressed and anxious features Nicotine dependence PLAN: -Patient is admitted under voluntary status to MHU for stabilization of psychiatric symptoms and safety. Patient has signed adult voluntary form and medication consent and is placed in patient's chart. -Medications : Zoloft 50 mg daily for mood/anxiety. melatonin 6 mg daily at bedtime for sleep. -vistaril and zyprexa PRN for agitation/aggression -NRT - nicotine patch -SW on board for discharge planning. Encourage patient to participate in groups to work on coping skills. will need to reach out payee/landlord to see if patient is still allowed back upon discharge. likely discharge early next week.
[2023-04-11] MEDS: MELATONIN 5 MG TABLET PO SCH (21:07)
[2023-04-12] MEDS: NICOTINE 14MG/24HR PATCH TRANSDERM SCH (09:13)
[2023-04-12] MEDS: FAMOTIDINE 20 MG TAB PO SCH ×2 (09:14→20:47)
[2023-04-12] MEDS: lisinopriL 10 MG TAB PO SCH (09:14)
[2023-04-12] MEDS: SERTRALINE 50 MG TAB PO SCH (09:14)
[2023-04-12] MEDS: hydroCHLOROthiazide 25 MG TAB PO SCH (09:14)
[2023-04-12] MEDS: ATORVASTATIN 20 MG TAB PO SCH (09:14)
[2023-04-12] MEDS: amLODIPine 5 MG TAB PO SCH (09:14)
[2023-04-12] MEDS: SYMBICORT 160-4.5 MCG INHALER (MHU) INHALATION SCH ×2 (09:15→20:48)
--- NOTE | 2023-04-12 10:59 | P.PN ---
Progress Note - Text Progress Note Date: 04/12/23 Interval history: Patient was seen today for psychiatric follow up and was agreeable to speak to day in the office. Patient claims that he is doing a bit better today. He claims that he is going to groups. And that he did have a headache earlier and took Tylenol. He states that he is getting used to the medications and finding his mood and anxiety gradually improving. He claims that he has been eating fairly and interacting with other patients. Claims that he had some difficulty sleeping last night. He claims that his mood and anxiety have been mildly improving since yesterday. At this time he is denying any SI or HI and denying any AH or Vh. Patient has been compliant with his medications and denying any side effects. Mental status exam: General Appearance: Patient appears to be fairly thin, wearing glasses, using walker, stated age is alert, directable, and attempts to cooperate. Patient appears to have improving hygiene and grooming. Behavior: Patient is seated without any agitated behavior. Attempts to cooperate. Speech: Patient's speech is fluent and nonpressured. Mood/Affect: Patient reports their mood is improving mildly, affect is congruent and improving Suicidality/Homicidality: Patient denies having any homicidal ideation intent or plan. Denies any suicidal ideations intent or plan Perceptions: Patient denies any visual hallucinations and denies any auditory hallucinations Though content/process: There is no evidence of any delusional thought content and thought process is linear and goal-directed. Memory and concentration: AOX3, grossly intact for the purposes of this session Judgment and insight: improving mildly IMPRESSIONS: Adjustment disorder with depressed and anxious features Nicotine dependence PLAN: -Patient is admitted under voluntary status to [facility] for stabilization of psychiatric symptoms and safety. Patient has signed adult voluntary form and medication consent and is placed in patient's chart. -Medications :continue Zoloft 50 mg daily for mood/anxiety, melatonin 6 mg daily at bedtime for sleep. -vistaril and zyprexa PRN for agitation/aggression -NRT - nicotine patch -SW on board for discharge planning. Encourage patient to participate in groups to work on coping skills. will need to reach out payee/landlord to see if p atient is still allowed back upon discharge. likely discharge tomorrow.
[2023-04-12] MEDS: MELATONIN 5 MG TABLET PO SCH (20:47)
[2023-04-13 07:10] VITALS: BP 134/59; PULSE 58; TEMP 97.9
[2023-04-13] MEDS: amLODIPine 5 MG TAB PO SCH (08:34)
[2023-04-13] MEDS: FAMOTIDINE 20 MG TAB PO SCH (08:34)
[2023-04-13] MEDS: NICOTINE 14MG/24HR PATCH TRANSDERM SCH (08:34)
[2023-04-13] MEDS: hydroCHLOROthiazide 25 MG TAB PO SCH (08:34)
[2023-04-13] MEDS: lisinopriL 10 MG TAB PO SCH (08:34)
[2023-04-13] MEDS: SERTRALINE 50 MG TAB PO SCH (08:34)
[2023-04-13] MEDS: ATORVASTATIN 20 MG TAB PO SCH (08:34)
[2023-04-13] MEDS: SYMBICORT 160-4.5 MCG INHALER (MHU) INHALATION SCH (08:34)
--- NOTE | 2023-04-13 09:32 | P.DS ---
Providers Date of admission: 04/07/23 14:58 Expected date of discharge: 04/13/23 Attending physician: Stefan Amaya MD Consults: 04/07/23 15:01 Consult Physician Routine Consulting Provider: [facility] Consult Reason/Comments: H&P Do you want consulting provider notified?: Yes Primary care physician: Lillie Richards - Discharge Diagnosis(es) (1) Adjustment disorder with mixed anxiety and depressed mood Current Visit: Yes Status: Acute Priority: High (2) Nicotine dependence Current Visit: Yes Status: Acute Priority: Low Hospital Course: Admission HPI: Admission note was completed by chief writer "Patient is a 67-year-old male who currently lives in an apartment alone, he is single, has no kids, collects SSD. Patient presented to the hospital from the ER yesterday complaining of depression and suicidal ideations. Patient apparently had an argument with his landlord according to her report and was endorsing depression and suicidal thoughts and also having multiple plans to harm himself. Patient's urine drug screen was negative. Patient was seen today taking part in group and group therapy directed in the office today for evaluation. He is voluntary status on the unit. Patient claims that he is feeling "anxious, anger, homeless with "nowhere to go". She states that he was not supposed to be smoking in his apartment and states that his payee which is also his landlord told him that he is to be kicked out of the apartment. She apparently told him that he is not supposed to smoke inside the apartment and that he was dangerous and he was doing it anyways. He claims that he was so upset that he walked to the hospital and was endorsing depression and anxiety. He claims that he had a plan of harming himself either hanging himself or jumping off the bridge into the water. He claims that his sleep and appetite are fair at this time. Patient denies any current suicidal or homicidal ideations intent or plan. At this time patient denies any auditory or visual hallucinations. Patient denies any flight of ideas racing thoughts and increased in goal directed behavior. Patient admits to using no recreational drugs however does smoke cigarettes daily." Hospital course: Upon admission to the unit patient was directable and agreeable to commence treatment and signed adult voluntary form. Patient got along well with other patients on the unit and followed unit protocol. Patient was compliant with the medications and denied any side effects throughout hospital course. Patient was started on Zoloft increased to a dose of 50 mg daily for mood/anxiety, melatonin 6 mg daily at bedtime for sleep. Patient spoke of his stressors and engaged in therapy both group and individual. Patient was also seen by medical team for history and physical exam. Throughout the course of the hospitalization patient gradually improved with regards to mood, anxiety, sleep and became more future oriented with improved insight and judgment. On the day of discharge patient denied any suicidal or homicidal ideations intent or plan denied any auditory or visual hallucinations. Patient endorsed wanting to live for his health and futu re. The patient denied any access to guns or weapons. Patient denied any paranoia and did not endorse any delusions. Patient does not have a significant history of substance abuse and was counseled on abstaining from all substances including alcohol and marijuana. Patient was also counseled on the medications and need for regular compliance and was encouraged to follow-up with their outpatient appointment for mental health and also for primary care. maintenance worker municipal to help patient with discharge planning today with outpatient follow-up. Patient will be turning to previous residence today. Mental status exam: General Appearance: Patient appears to be thin, wearing glasses, using a walker, stated age is alert, pleasant, and cooperative. Patient is in no acute distress and has improved hygiene and grooming Behavior: Patient is calmly seated without any agitated behavior. Speech: Patient's speech is fluent and nonpressured. Mood/Affect: Patient reports their mood is "better", affect is congruent and euthymic. Suicidality/Homicidality: Patient denies having any suicidal or homicidal ideation intent or plan. Perceptions: Patient denies any auditory or visual hallucinations. Though content/process: There is no evidence of any delusional thought content and thought process is linear and goal-directed. more future oriented Memory and concentration: AOX3, grossly intact for the purposes of this session. Can spell "WORLD" backwards correctly. Judgment and insight: improved with guarded prognosis Impression: Adjustment disorder with depressed and anxious features Nicotine dependence Plan: -Continue with discharge today as patient has improved and stabilized psychiatrically and is not currently an imminent threat to himself and/or others. -Continue medications: Zoloft 50 mg daily for mood/anxiety, melatonin 6 mg daily at bedtime for sleep. -Patient was counseled on the need for medication compliance and appropriate follow-up at mental health and also primary care for medical issues. Patient verbalized understanding and agreed. -Social work to help arrange patient's disposition today back to previous residence. Social work also to arrange for patients follow up appointments for psychiatric care along with follow up with primary care provider. -Patient counseled on abstaining from recreational drugs and marijuana and alcohol. Was informed/educated on the adverse effects on their physical and mental health. Patient verbally agreed and understood. -Patient was instructed to return to the hospital or seek immediate medical care if their psychiatric or medical symptoms do worsen or reoccur. Allergies Allergy/AdvReac Type Severity Reaction Status Date / Time No Known Allergies Allergy Verified 04/07/23 13:09 Laboratory Results WBC 8.2 k/uL (3.8-10.6) 04/07/23 10:40 RBC 4.68 m/uL (4.30-5.90) 04/07/23 10:40 Hgb 14.9 gm/dL (13.0-17.5) 04/07/23 10:40 Hct 43.8 % (39.0-53.0) 04/07/23 10:40 MCV 93.6 fL (80.0-100.0) 04/07/23 10:40 MCH 31.9 pg (25.0-35.0) 04/07/23 10:40 MCHC 34.1 g/dL (31.0-37.0) 04/07/23 10:40 RDW 13.2 % (11.5-15.5) 04/07/23 10:40 Plt Count 293 k/uL (150-450) 04/07/23 10:40 MPV 7.2 04/07/23 10:40 Neutrophils % 75 % 04/07/23 10:40 Lymphocytes % 15 % 04/07/23 10:40 Monocytes % 6 % 04/07/23 10:40 Eosinophils % 2 % 04/07/23 10:40 Basophils % 0 % 04/07/23 10:40 Neutrophils # 6.2 k/uL (1.3-7.7) 04/07/23 10:40 Lymphocytes # 1.2 k/uL (1.0-4.8) 04/07/23 10:40 Monocytes # 0.5 k/uL (0-1.0) 04/07/23 10:40 Eosinophils # 0.1 k/uL (0-0.7) 04/07/23 10:40 Basophils # 0.0 k/uL (0-0.2) 04/07/23 10:40 Sodium 134 mmol/L (137-145) L 04/07/23 10:40 Potassium 3.6 mmol/L (3.5-5.1) 04/07/23 10:40 Chloride 99 mmol/L (98-107) 04/07/23 10:40 Carbon Dioxide 29 mmol/L (22-30) 04/07/23 10:40 Anion Gap 6 mmol/L 04/07/23 10:40 BUN 29 mg/dL (9-20) H 04/07/23 10:40 Creatinine 0.76 mg/dL (0.66-1.25) 04/07/23 10:40 Est GFR (CKD-EPI)AfAm >90 (>60 ml/min/1.73 sqM) 04/07/23 10:40 Est GFR (CKD-EPI)NonAf >90 (>60 ml/min/1.73 sqM) 04/07/23 10:40 Glucose 127 mg/dL (74-99) H 04/07/23 10:[address] Glu mg/dL 131 mg/dL 04/07/23 10:40 Hemoglobin A1c 6.2 % (<=6.0) H 04/07/23 10:40 Calcium 9.6 mg/dL (8.4-10.2) 04/07/23 10:40 Troponin I <0.012 ng/mL (0.000-0.034) 04/07/23 10:40 TSH 1.120 mIU/L (0.465-4.680) 04/07/23 10:40 Urine Opiates Screen Not Detected (NotDetected) 04/07/23 12:15 Ur Oxycodone Screen Not Detected (NotDetected) 04/07/23 12:15 Urine Methadone Screen Not Detected (NotDetected) 04/07/23 12:15 Ur Propoxyphene Screen Not Detected (NotDetected) 04/07/23 12:15 Ur Barbiturates Screen Not Detected (NotDetected) 04/07/23 12:15 U Tricyclic Antidepress Not Detected (NotDetected) 04/07/23 12:15 Ur Phencyclidine Scrn Not Detected (NotDetected) 04/07/23 12:15 Ur Amphetamines Screen Not Detected (NotDetected) 04/07/23 12:15 U Methamphetamines Scrn Not Detected (NotDetected) 04/07/23 12:15 U Benzodiazepines Scrn Not Detected (NotDetected) 04/07/23 12:15 Urine Cocaine Screen Not Detected (NotDetected) 04/07/23 12:15 U Marijuana (THC) Screen Not Detected (NotDetected) 04/07/23 12:15 Coronavirus (PCR) Not Detected (Not Detectd) 04/07/23 14:10 Vital Signs Temp 97.9 F 04/13/23 06:00 Pulse 58 L 04/13/23 06:00 Resp 16 04/13/23 06:00 BP 134/59 04/13/23 06:00 Pulse Ox 96 04/13/23 06:00 FiO2 Patient Condition at Discharge: Stable Plan - Discharge Summary Discharge Rx Participant: No New Discharge Prescriptions: New Nicotine 14Mg/24Hr Patch [Habitrol] 1 patch TRANSDERM DAILY 14 Days #14 patch Atorvastatin [Lipitor] 20 mg PO DAILY 30 Days #30 tab Melatonin 5 mg PO HS 30 Days #30 tab Sertraline [Zoloft] 50 mg PO DAILY 30 Days #30 tab Continue Nitroglycerin Sl Tabs [Nitrostat] 0.4 mg SUBLINGUAL Q5M PRN #30 tab PRN Reason: Chest Pain amLODIPine [Norvasc] 5 mg PO DAILY 30 Days #30 tab Aspirin 81 mg PO DAILY #30 tab hydroCHLOROthiazide [Hydrodiuril] 25 mg PO DAILY 30 Days #30 tab Famotidine [Pepcid] 20 mg PO BID 30 Days #60 tab Budesonide-Formot 160-4.5 Mcg [Symbicort 160-4.5 Mcg Inhaler] 2 puff INHALATION RT-BID 30 Days #1 each lisinopriL [Zestril] 10 mg PO DAILY 30 Days #30 tab Discontinued Acetaminophen Tab [Tylenol] 325 mg PO Q6HR PRN tab PRN Reason: Pain Discharge Medication List Aspirin 81 mg PO DAILY #30 tab 0424/23 [Rx] Nitroglycerin Sl Tabs [Nitrostat] 0.4 mg SUBLINGUAL Q5M PRN #30 tab 02/15/23 [Rx] Atorvastatin [Lipitor] 20 mg PO DAILY 30 Days #30 tab 04/13/23 [Rx] Budesonide-Formot 160-4.5 Mcg [Symbicort 160-4.5 Mcg Inhaler] 2 puff INHALATION RT-BID 30 Days #1 each 04/13/23 [Rx] Famotidine [Pepcid] 20 mg PO BID 30 Days #60 tab 04/13/23 [Rx] Melatonin 5 mg PO HS 30 Days #30 tab 04/13/23 [Rx] Nicotine 14Mg/24Hr Patch [Habitrol] 1 patch TRANSDERM DAILY 14 Days #14 patch 04/13/23 [Rx] Sertraline [Zoloft] 50 mg PO DAILY 30 Days #30 tab 04/13/23 [Rx] amLODIPine [Norvasc] 5 mg PO DAILY 30 Days #30 tab 04/13/23 [Rx] hydroCHLOROthiazide [Hydrodiuril] 25 mg PO DAILY 30 Days #30 tab 04/13/23 [Rx] lisinopriL [Zestril] 10 mg PO DAILY 30 Days #30 tab 04/13/23 [Rx] Follow up Appointment(s)/Referral(s): Lillie Richards MD [Primary Care Provider] - 1-2 days Patient Instructions/Handouts: Depression (DC) Activity/Diet/Wound Care/Special Instructions: Avoid the use of street drugs and alcohol. Take all medications as prescribed. When you are in need of refills on your medications, please contact your medical provider and/or outpatient psychiatrist to have this done. Please go to scheduled outpatient appointments for aftercare treatment. If symptoms return or become worse, call the crisis line at and/or go to the nearest emergency room for evaluation. Discharge Disposition: HOME SELF-CARE
== END 2023-04-13 14:13 | disposition home or self-care (01) | DRG 882 ==
LOC: EC 09:58 → 3MHU 14:58
PROVIDERS: ADMIT Psychiatry & Neurology Psychiatry; ATTEND Psychiatry & Neurology Psychiatry
DX: F43.23 Adjustment disorder with mixed anxiety and depressed mood (principal); R45.851 Suicidal ideations; I25.10 Atherosclerotic heart disease of native coronary artery without angina pectoris; I10 Essential (primary) hypertension; F17.210 Nicotine dependence, cigarettes, uncomplicated; J44.9 Chronic obstructive pulmonary disease, unspecified; Z20.822 Contact with and (suspected) exposure to COVID-19; Z73.3 Stress, not elsewhere classified; Z79.899 Other long term (current) drug therapy; Z79.82 Long term (current) use of aspirin; Z79.51 Long term (current) use of inhaled steroids; Z95.5 Presence of coronary angioplasty implant and graft
CPT/HCPCS: 36415; 80048; 80306; 82075; 83036; 84443; 84484; 85025; 87635; 93005; 99285

== ENCOUNTER 2023-09-07 09:37 | Day surgery (SDC) | payer MEDICARE, OTHER ==
[2023-09-03 11:16] VITALS: BMI 23.0
[~2023-09-07 09:37] MED LIST: LACTATED RINGERS 1,000 ML IV SCH; LIDOCAINE 1% (10MG/ML) FOR IV START INTRADERMA PRN
[2023-09-07 10:36] VITALS: RESP 16; TEMP 98
[2023-09-07] MEDS ORDERED: PROPOFOL 10 MG/ML 20 ML VIAL IV ONE (11:07)
--- NOTE | 2023-09-07 11:24 | P.PCN ---
Date of Procedure: 09/07/23 Procedure(s) Performed: BRIEF HISTORY: Patient is a 68-year-old pleasant white male scheduled for an elective colonoscopy as a part of screening for colon cancer. PROCEDURE PERFORMED: Colonoscopy snare polypectomy. PREOPERATIVE DIAGNOSIS: Screening for colon cancer. IV sedation per Anesthesia. PROCEDURE: After informed consent was obtained, the patient, was brought into the endoscopy unit. IV sedation was administered by Anesthesia under continuous monitoring. Digital rectal examination was normal. Initially the Olympus CF-160 flexible video colonoscope was then inserted in the rectum, gradually advanced into the cecum without any difficulty. Careful examination was performed as the scope was gradually being withdrawn. Ileocecal valve and the appendiceal orifice were visualized and appeared normal. Prep was poor in the right colon. Mucosa of the cecum, ascending colon, appeared normal but some of the areas could not be adequately visualized because of poor prep in this area. In the transverse colon there was a 1 cm polyp removed by snare polypectomy. Rest of the transverse colon, descending colon, sigmoid colon, and rectum appeared normal. Retroflexion was performed in the rectum and no lesions were seen. The patient tolerated the procedure well. IMPRESSION: 1 cm transverse colon polyp status post polypectomy Poor prep in the right colon RECOMMENDATIONS: Findings of this examination were discussed with the patient as well as his family. He was advised to follow with the biopsy doesn't the biopsy report adenoma he can have a repeat colonoscopy in 3 years.
[2023-09-07 11:54] VITALS: BP 117/71; PULSE 61
== END 2023-09-07 12:23 | disposition home or self-care (01) ==
LOC: ORWHC2ENDO 09:37
PROVIDERS: ATTEND Internal Medicine Gastroenterology
DX: Z12.11 Encounter for screening for malignant neoplasm of colon (principal); D12.3 Benign neoplasm of transverse colon; I25.10 Atherosclerotic heart disease of native coronary artery without angina pectoris; I10 Essential (primary) hypertension; J44.9 Chronic obstructive pulmonary disease, unspecified; Z79.891 Long term (current) use of opiate analgesic; K21.9 Gastro-esophageal reflux disease without esophagitis; Z79.83 Long term (current) use of bisphosphonates; Z79.899 Other long term (current) drug therapy
CPT/HCPCS: 88305; 45385; J2704

== ENCOUNTER → 2023-12-31 | Outpatient (CLI) | payer MEDICARE, OTHER ==
--- NOTE | 2023-12-31 11:38 | FL ---
ESOPHOGRAM. HISTORY: Dysphagia Esophagram was performed per the air contrast technique. The patient swallowed barium and effervesce nt crystals without difficulty or delay. Esophageal peristalsis and motility appear to be within normal limits. There is no evidence for filling defect, mass or diverticulum. No hiatal hernia seen. Subsequently single contrast cervical esophagram was performed which fails demonstrate evidence for a spiration penetration or mass. IMPRESSION: Unremarkable study.
== END | disposition home or self-care (01) ==
LOC: RADUSWWP 09:18
PROVIDERS: ATTEND Family Medicine
DX: R13.13 Dysphagia, pharyngeal phase (principal)
CPT/HCPCS: 74220

== ENCOUNTER → 2024-02-04 | Outpatient (CLI) | payer MEDICARE, OTHER ==
--- NOTE | 2024-02-08 21:08 | PE ---
EXAMINATION TYPE: PET CT fusion skull to thigh DATE OF EXAM: 02/04/2024 COMPARISON: 12/23/2023 Prior PET/CT: None HISTORY: Abnormal CT, solitary pulmonary nodule TECHNIQUE: Following the intravenous administration of 13.83 mCi of F-18 FDG, whole body images are performed from the skull base to the midthigh. Images are reviewed on the computer in the coronal, a xial, and sagittal planes. Reconstructed rotating images are created on independent workstation and reviewed on the computer. A localization and attenuation correction CT is performed in conjunction with the PET scan. DLP: 218.56 mGycm SCAN: Initial Blood glucose: 87 mg/dL Average Mediastinum SUV: 1.87 Average Liver SUV: 2.25 FINDINGS: NECK: No abnormal uptake THORAX: No abnormal uptake. In the posterior lateral right apex at the increasing size nodule, the SUV value measures 0.63. Image 80. ABDOMEN: No abnormal uptake PELVIS: No abnormal uptake OSSEOUS STRUCTURES: No abnormal uptake LOCALIZATION CT: Lung nodule posterior lateral right apex again evident. COMPARISON: Stable IMPRESSION: 1. No suspicious uptake to suggest primary or metastatic neoplasm. 2. Nodule has low intensity likely benign. Follow-up CT in 6 months can monitor for change.
== END | disposition home or self-care (01) ==
LOC: RADPETMAIN 12:18
PROVIDERS: ATTEND Family Medicine
DX: R91.1 Solitary pulmonary nodule (principal); R93.89 Abnormal findings on diagnostic imaging of other specified body structures
CPT/HCPCS: 78815; A9552

== ENCOUNTER 2024-04-10 09:26 | Inpatient (IN) | payer MEDICARE, OTHER ==
[2024-04-10] MEDS ORDERED: NALOXONE 0.4 MG/ML 1 ML VIAL IV PRN (09:29)
[2024-04-10] MEDS ORDERED: ALPRAZolam 0.25 MG TAB PO PRN (09:31)
[2024-04-10] MEDS ORDERED: ALPRAZolam 0.5 MG TAB PO PRN (09:31)
[2024-04-10] MEDS ORDERED: NITROGLYCERIN SL TABS 0.4 MG TAB SUBLINGUAL PRN (09:31)
[2024-04-10] MEDS: ASPIRIN 325 MG TAB PO STA (09:34)
[2024-04-10] MEDS: ATORVASTATIN 80 MG TAB PO STA ×2 (09:34→09:35)
[2024-04-10] MEDS: HEPARIN SODIUM 1,000 UN/ML (10ML VL) IV ONE (09:35)
--- NOTE | 2024-04-10 09:39 | ED ---
General Adult HPI - General Stated complaint: STEMI Time Seen by Provider: 04/10/24 09:28 Source: patient, EMS, RN notes reviewed, old records reviewed Limitations: no limitations - History of Present Illness Initial comments: 68-year-old male presenting with substernal chest pain. Pain began just prior to arrival and patient contacted paramedics. Paramedics had obtained EKG showing ST segment elevation in the precordial leads. Aspirin and nitroglycerin were given to the patient. Patient was transported as priority 1. Upon arrival he has persistent chest pain. The Housekeeping Room Inspector was activated prior to patient arrival. Patient evaluated by cardiology in the emergency department and taken immediately to the Housekeeping Room Inspector. Patient endorses nausea without vomiting. He was diaphoretic by paramedics. He does not report a prior history of [place]. - Related Data Home Medications Medication Instructions Recorded Confirmed Albuterol 83 % Nebulizer 1 dose PO DIRECTED PRN 09/03/23 Albuterol Inhaler [Ventolin Hfa 1 - 2 puff INHALATION Q6H PRN 09/03/23 09/03/23 Inhaler] Cholecalciferol [Vitamin D3 (25 50 mcg PO DAILY 09/03/23 09/03/23 Mcg = 1000 Iu)] Nicotine Patch 1 patch TOPICAL DAILY 09/03/23 Previous Rx's Medication Instructions Recorded Atorvastatin [Lipitor] 20 mg PO DAILY 30 Days #30 tab 04/13/23 Famotidine [Pepcid] 20 mg PO BID 30 Days #60 tab 04/13/23 Melatonin 5 mg PO HS 30 Days #30 tab 04/13/23 amLODIPine [Norvasc] 5 mg PO DAILY 30 Days #30 tab 04/13/23 hydroCHLOROthiazide [Hydrodiuril] 25 mg PO DAILY 30 Days #30 tab 04/13/23 lisinopriL [Zestril] 10 mg PO DAILY 30 Days #30 tab 04/13/23 Allergies Allergy/AdvReac Type Severity Reaction Status Date / Time No Known Allergies Allergy Verified 09/07/23 10:19 Review of Systems ROS Statement: Those systems with pertinent positive or pertinent negative responses have been documented in the HPI. ROS Other: All systems not noted in ROS Statement are negative. 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 , pt thinks he had heart cath with balloon dilation. Past Anesthesia/Blood Transfusion Reactions: No Reported Reaction Date of Last Stent Placement:: unknown Past Psychological History: No Psychological Hx Reported Smoking Status: Former smoker Past Alcohol Use History: None Reported Additional Past Alcohol Use History / Comment(s): quit smoking 2 months ago., hx of 1 1/2 to 2 ppd - cigarettes and cigars. Past Drug Use History: None Reported - Past Family History Mother Family Medical History: Cancer, Diabetes Mellitus Father Family Medical History: Cancer, Diabetes Mellitus General Exam General appearance: alert, in distress Head exam: Present: atraumatic, normocephalic Eye exam: Present: normal appearance, PERRL ENT exam: Present: normal exam Neck exam: Present: normal inspection. Absent: tenderness, meningismus Respiratory exam: Present: normal lung sounds bilaterally. Absent: respiratory distress, wheezes Cardiovascular Exam: Present: regular rate, normal rhythm GI/Abdominal exam: Present: soft. Absent: distended, tenderness, guarding Extremities exam: Present: normal inspection, normal capillary refill, other (B ilateral radial, bilateral pedal pulses are present) Neurological exam: Present: alert, oriented X3, CN II-XII intact, motor sensory deficit Psychiatric exam: Present: anxious Skin exam: Present: warm, intact Medical Decision Making - Medical Decision Making Was pt. sent in by a medical professional or institution (, PA, CLOTHING SORTER, urgent care, hospital, or long-term...) When possible be specific @ -No Did you speak to anyone other than the patient for history (EMS, parent, family, police, friend...)? What history was obtained from this source @ -Paramedics Did you review nursing and triage notes (agree or disagree)? Why? @ -I reviewed and agree with nursing and triage notes Were old charts reviewed (outside hosp., previous admission, EMS record, old EKG, old radiological studies, urgent care reports/EKG's, long-term records)? Report findings @ -No old charts were reviewed Differential Chest Pain: Stable Angina, Unstable Angina, STEMI, NSTEMI Aortic Dissection, Pneumothorax, Musculoskeletal, Esophageal Spasm GERD, Cholecystitis, Pancreatitis, Zoster, this is not meant to be an all-inclusive list. EKG interpreted by me (3pts min.). @ -Prehospital EKG showing ST segment elevation in V2 V3 V4 without reciprocal change. EKG in the emergency department at 0927 showing sinus rhythm, rate of 71, NV interval 181, QRS duration 97, QTc [address] segment elevation in V2 V3 V4 which is improved compared to prehospital EKG. X-rays interpreted by me (1pt min.). @Chest x-ray ordered, images have not been obtained CT interpreted by me (1pt min.). @ -None done U/S interpreted by me (1pt. min.). @ -None done What testing was considered but not performed or refused? (CT, X-rays, U/S, labs)? Why? @ -None What meds were considered but not given or refused? Why? @ -None Did you discuss the management of the patient with other professionals ( professionals i.e. DrTyson, PA, CLOTHING SORTER, lab, RT, psych nurse, clinical social work aide, platinum and palladium kettle tender, teacher, juvenile probation officer, pillowcase maker)? Give summary @ -Dr. Nelson who will admit and Dr. Roy covering for cardiology Was smoking cessation discussed for >3mins.? @ -No Was critical care preformed (if so, how long)? @ -Yes 35 minutes Were there social determinants of health that impacted care today? How? (Homelessness, low income, unemployed, alcoholism, drug addiction, transportation, low edu. Level, literacy, decrease access to med. care, assisted, rehab)? @ -No Was there de-escalation of care discussed even if they declined (Discuss DNR or withdrawal of care, Hospice)? DNR status @ -No What co-morbidities impacted this encounter? (DM, HTN, Smoking, COPD, CAD, Cancer, CVA, ARF, Chemo, Hep., AIDS, mental health diagnosis, sleep apnea, morbid obesity)? @ -None Was patient admitted / discharged? Hospital course, mention meds given and route, prescriptions, significant lab abnormalities, going to OR and other pertinent info. @ -68-year-old male with sudden onset substernal chest pain and EKG showing ST segment elevation. Patient is brought in as a libertarian 1, evaluated in the emergency department and taken immediately to the Housekeeping Room Inspector for intervention. Undiagnosed new problem with uncertain prognosis? @ -No Drug Therapy requiring intensive monitoring for toxicity (Heparin, Nitro, Insulin, Cardizem)? @ -No Were any procedures done? @ -No Diagnosis/symptom? @ -Anterior STEMI Acute, or Chronic, or Acute on Chronic? @ -Acute Uncomplicated (without systemic symptoms) or Complicated (systemic symptoms)? @ -Default Side effects of treatment? @ -No Exacerbation, Progression, or Severe Exacerbation? @ -No Poses a threat to life or bodily function? How? (Chest pain, [place], [place], pneumonia, PE, COPD, DKA, ARF, appy, cholecystitis, CVA, Diverticulitis, Homicidal, Suicidal, threat to staff... and all critical care pts) @Yes, STEMI Critical Care Time Critical Care Time: Yes Total Critical Care Time: 35 Critical Care Time: Prehospital evaluation of EKG, acute management of ST segment elevated [place] in the emergency department and calls to admitting doctor and discussion with cardiology. Disposition Clinical Impression: Acute non-ST elevation myocardial infarction (NSTEMI) Disposition: ADMITTED IP TO THIS HOSP Condition: Serious Is patient prescribed a controlled substance at d/c from ED?: No Referrals: Lillie Richards MD [Primary Care Provider] - 1-2 days Time of Disposition: 09:55
--- NOTE | 2024-04-10 09:42 | XR ---
EXAMINATION TYPE: XR chest 1V portable DATE OF EXAM: 04/10/2024 9:37 AM CLINICAL INDICATION:Male, 68 years old with history of chest pain; COMPARISON: Chest radiographs from 02/12/2023 TECHNIQUE: XR chest 1V portable Frontal view of the chest. FINDINGS: Lungs/Pleura: There is no evidence of pleural effusion, focal consolidation, or pneumothorax. Pulmonary vascularity: Unremarkable. Heart/mediastinum: Cardiomediastinal silhouette is unremarkable. Musculoskeletal: No acute osseous pathology. IMPRESSION: No acute cardiopulmonary disease/process.
[2024-04-10 09:48] LABS: Basophils % (A) 1 %; Eosinophils # (A) 0.3 k/uL (0-0.7); Eosinophils % (A) 6 %; HCT 40.3 % (39.0-53.0); HGB 13.4 gm/dL (13.0-17.5); Lymphocytes # (A) 1.5 k/uL (1.0-4.8); Lymphocytes % (A) 27 %; MCH 31.4 pg (25.0-35.0); MCHC 33.3 g/dL (31.0-37.0); MCV 94.3 fL (80.0-100.0); Mean Platelet Volume 7.6; Monocytes # (A) 0.5 k/uL (0-1.0); Monocytes % (A) 9 %; Neutrophils % (A) 53 %; Platelet Count 342 k/uL (150-450); RBC 4.28 m/uL (4.30-5.90); RDW 13.2 % (11.5-15.5); WBC 5.7 k/uL (3.8-10.6)
[2024-04-10] MEDS: IV FLUID CONTINUATION 1,000 ML IV ONE (09:48)
[2024-04-10] MEDS: fentaNYL (PF) 50 MCG/1 ML VIAL IVP ONE (09:54)
[2024-04-10 09:57] LABS: Partial Thromboplastin Time 29.4 sec (22.0-30.0); Prothrombin Time 11.2 sec (10.0-12.5)
[2024-04-10] MEDS: LIDOCAINE 1% INJ 10MG/ML (20 ML MDV) SQ ONE (09:58)
[2024-04-10] MEDS: VERAPAMIL SYRINGE (5 MG/10 ML) INTRAARTER ONE (09:59)
[2024-04-10 10:00] LABS: ALT 27 U/L (4-49); AST 34 U/L (17-59); African American GFR (CKD) 86 (>60 ml/min/1.73 sqM); Albumin 4.3 g/dL (3.5-5.0); Alkaline Phosphatase 130 U/L (38-126); Anion Gap 7 mmol/L; Blood Urea Nitrogen 35 mg/dL (9-20); Calcium 9.1 mg/dL (8.4-10.2); Carbon Dioxide 24 mmol/L (22-30); Chloride 104 mmol/L (98-107); Glucose 170 mg/dL (74-99); Magnesium 1.8 mg/dL (1.6-2.3); Non-African American GFR(CKD) 74 (>60 ml/min/1.73 sqM); Potassium 3.4 mmol/L (3.5-5.1); Sodium 135 mmol/L (137-145); Total Bilirubin 0.8 mg/dL (0.2-1.3); Total Protein 6.7 g/dL (6.3-8.2)
[2024-04-10] MEDS: HEPARIN SODIUM 1,000 UN/ML (10ML VL) IVP ONE (10:02)
[2024-04-10] MEDS: NITROGLYCERIN 1000MCG/10ML SYRINGE INTRACORON ONE (10:03)
[2024-04-10] MEDS ORDERED: CLOPIDOGREL 75 MG TAB ONE (10:18)
[2024-04-10] MEDS: CLOPIDOGREL 75 MG TAB PO ONE (10:20)
[2024-04-10] MEDS: IOPAMIDOL-370 200ML BTL INJ ONE (10:21)
[2024-04-10] MEDS ORDERED: RX INFO: IV CONTRAST WAS GIVEN 1 EACH MISC MISCELLANE PRN (10:27)
--- NOTE | 2024-04-10 10:39 | P.CARDCATH ---
Date of Procedure: 04/10/24 Description of Procedure: Cardiac Catheterization: The patient is a 68-year-old male with prior history of smoking, hypertension hyperlipidemia who presented with symptoms of severe chest discomfort and borderline ST elevation in the anterior leads. Recommendations were made regarding cardiac catheterization, the risks and the complications were discussed with the patient who is in full understanding and agreement. Procedure Description: Patient was brought to dairy and food laboratory assistant in fasting semi-sedated state after receiving Fentanyl and Benadryl achieiving moderate conscious sedated state. Using Xylocaine Anesthesia and modified Seldinger technique, a 6-Afghan sheath was introduced in the right radial artery . Subsequently, selective coronary angiography was performed using a 5-Afghan 3.5 bend right Theresa catheter and 6 Afghan CLS 3.5 guiding catheter. Multiple views of the coronary artery including hemiaxial views were obtained. Using the CLS 3.5 guiding catheter and after cannulating the left main and Omni Doppler flow wire was positioned in the LAD and IFR was measured between 0.84 and 0.89. Upon repeating imaging the lesion appears to be much better. The 5 Afghan pigtail catheter was used to cross the aortic valve and LVEDP was calculated. A 30 degree ISLAS view of the left ventricle was performed. Following that, catheter and sheath were removed. Hemostasis was obtained with deployment of vascular band . There was no immediate complication. Patient was returned to room in stable condition. Of note, the patient received a total of 5000 units of intravenous heparin as well as intra-arterial verapamil. The patient was pain- free and his EKG was normal. Findings: Left main: This is a short size vessel, bifurcating into LAD and left circumflex, left main has no evidence of obstructive disease LAD: This is a large size vessel, reaching to the apex with a wraparound apex segment giving rise to 2 small diagonal branch. The LAD in the proximal segment has a 20 to 30% prior to the takeoff of the second diagonal branch there was a 50 to 60% eccentric lesion, the rest of the vessel has no high-grade stenosis. After giving intracoronary nitroglycerin repeat imaging of the same segment has a 20 to 30% plaque without any high-grade stenosis Left circumflex: This is a large dominant vessel, giving rise to a very proximal obtuse marginal branch, the second 1 is large in caliber as well. Distally bifurcating to PDA and PLV, the left circumflex and its branches have no obst ructive disease RCA: This is a small nondominant vessel giving rise to an acute marginal branch that has no evidence of high-grade stenosis Left Ventriculogram: Performed in the 30 degree ISLAS view and revealed anteroapical severe hypokinesis to akinesis. Ejection fraction was 40 to 45% Hemodynamics: 8-12, LVEDP was there was no gradient across aortic valve mmHg Conclusion: 1. Borderline lesion in the mid LAD that improved after intracoronary IV nitroglycerin. 2. No obstructive disease in the left circumflex and the right coronary artery 3. Left dominance 4. Moderately impaired left ventricular systolic function with segmental wall motion abnormality Recommendations: The findings could be related to Takotsubo syndrome. I would recommend to treat her medically. His IFR was mildly abnormal but the lesion on repeat angiography did not appear to be significant. The importance of smoking cessation was discussed with the patient, we will attempt to maintain LDL below 70 mg/dL. The findings and the recommendations were discussed with the patient and the family and they were in full understanding and agreement. Duration of sedation is 23 minutes.
[2024-04-10] MEDS: SODIUM CHLORIDE 0.9% 1,000 ML IV SCH (10:49)
--- NOTE | 2024-04-10 13:12 | P.HPIM ---
History of Present Illness H&P Date: 04/10/24 History of present illness; patient 68 years old gentleman past medical history significant for hyperlipidemia, hypertension who presented to the ER because of chest pain. Patient stated that he was all right this morning when he started having chest pain that was central location, was pressure-like, nonradiating, no aggravating or relieving factor associated chest pain. When paramedics arrived at the spot, they did an EKG that showed ST segment elevation in the anterior leads. Patient was given aspirin and nitroglycerin and was brought to the ER Initial lab work done in the ER showed WBC 5.7, hemoglobin 13.4, platelet count 342, sodium 135, potassium 3.4, BUN 35, creatinine 1.05, glucose 170, AST 34, ALT 27, alk phos 130, troponin 0.014 Cardiology eval the patient and Squad Leader was activated and patient was taken for emergent cardiac cath Patient admitted to internal medicine service REVIEW OF SYSTEMS: CONSTITUTIONAL: No fever, no malaise, no fatigue. HEENT: No recent visual problems or hearing problems. Denied any sore throat. CARDIOVASCULAR: Mentioned above PULMONARY: No shortness of breath, no cough, no hemoptysis. GASTROINTESTINAL: No diarrhea, no nausea, no vomiting, no abdominal pain. NEUROLOGICAL: No headaches, no weakness, no numbness. HEMATOLOGICAL: Denies any bleeding or petechiae. GENITOURINARY: Denies any burning micturition, frequency, or urgency. MUSCULOSKELETAL/RHEUMATOLOGICAL: Denies any joint pain, swelling, or any muscle pain. ENDOCRINE: Denies any polyuria or polydipsia. The rest of the 14-point review of systems is negative. PHYSICAL EXAMINATION: GENERAL: The patient is alert and oriented x3, not in any acute distress. Well developed, well nourished. HEENT: Pupils are round and equally reacting to light. EOMI. No scleral icterus. No conjunctival pallor. Normocephalic, atraumatic. No pharyngeal erythema. No thyromegaly. CARDIOVASCULAR: S1 and S2 present. No murmurs, rubs, or gallops. PULMONARY: Chest is clear to auscultation, no wheezing or crackles. ABDOMEN: Soft, nontender, nondistended, normoactive bowel sounds. No palpable organomegaly. MUSCULOSKELETAL: No joint swelling or deformity. EXTREMITIES: No cyanosis, clubbing, or pedal edema. NEUROLOGICAL: Gross neurological examination did not reveal any focal deficits. SKIN: No rashes. Assessment and plan ST elevation [place] Hyponatremia Hypokalemia Hyperlipidemia Hypertension Monitor vital signs Monitor CBC Monitor CMP Continue telemetry monitoring Trend troponins. Continue pharmacy dose heparin Ordered 2D echo Patient taken for emergent cardiac cath Cardiology following Labs and medication were reviewed.. Continue same treatment. Continue with symptomatic treatment. Resume home medication. Monitor labs and vitals. DVT and GI prophylaxis. Further recommendations as per clinical course of the patient Dictation was produced using [employer] dictation software. please excuse any grammatical, word or spelling errors. 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 , pt thinks he had heart cath with balloon dilation. Past Anesthesia/Blood Transfusion Reactions: No Reported Reaction Date of Last Stent Placement:: unknown Past Psychological History: No Psychological Hx Reported Smoking Status: Former smoker Past Alcohol Use History: None Reported Additional Past Alcohol Use History / Comment(s): quit smoking 2 months ago., hx of 1 1/2 to 2 ppd - cigarettes and cigars. Past Drug Use History: None Reported - Past Family History Mother Family Medical History: Cancer, Diabetes Mellitus Father Family Medical History: Cancer, Diabetes Mellitus Medications and Allergies Home Medications Medication Instructions Recorded Confirmed Type Atorvastatin [Lipitor] 20 mg PO DAILY 30 Days #30 tab 04/13/23 09/03/23 Rx Famotidine [Pepcid] 20 mg PO BID 30 Days #60 tab 04/13/23 09/03/23 Rx Melatonin 5 mg PO HS 30 Days #30 tab 04/13/23 09/03/23 Rx amLODIPine [Norvasc] 5 mg PO DAILY 30 Days #30 tab 04/13/23 09/03/23 Rx hydroCHLOROthiazide [Hydrodiuril] 25 mg PO DAILY 30 Days #30 tab 04/13/23 09/03/23 Rx lisinopriL [Zestril] 10 mg PO DAILY 30 Days #30 tab 04/13/23 09/03/23 Rx Albuterol 83 % Nebulizer 1 dose PO DIRECTED PRN 09/03/23 History Albuterol Inhaler [Ventolin Hfa 1 - 2 puff INHALATION Q6H PRN 09/03/23 09/03/23 History Inhaler] Cholecalciferol [Vitamin D3 (25 50 mcg PO DAILY 09/03/23 09/03/23 History Mcg = 1000 Iu)] Nicotine Patch 1 patch TOPICAL DAILY 09/03/23 History Allergies Allergy/AdvReac Type Severity Reaction Status Date / Time No Known Allergies Allergy Verified 04/10/24 09:33 Physical Exam Vitals: Vital Signs Temp Pulse Pulse Resp BP Pulse Ox 04/10/24 09:42 98.0 F 80 20 120/86 98 04/10/24 09:40 78 79 20 99 04/10/24 09:35 71 18 120/79 100 04/10/24 09:27 96.9 F L 71 18 115/80 98 Intake and Output 04/09/24 04/10/24 04/10/24 22:59 06:59 14:59 Intake Total 50 Balance 50 Intake: IV 50 Other: Weight 58.967 kg Results CBC & Chem 7: 04/10/24 09:27 04/10/24 09:27 Labs: Abnormal Lab Results - Last 24 Hours (Table) 04/10/24 04/10/24 Range/Units 09:27 09:27 RBC 4.28 L (4.30-5.90) m/uL Sodium 135 L (137-145) mmol/L Potassium 3.4 L (3.5-5.1) mmol/L BUN 35 H (9-20) mg/dL Glucose 170 H (74-99) mg/dL Alkaline Phosphatase 130 H (38-126) U/L
--- NOTE | 2024-04-10 14:36 | P.CRDCN ---
History of Present Illness Consult date: 04/10/24 Reason for Consult (text): STEMI History of present illness: This is a 68-year-old male with prior history of hypertension, hyperlipidemia, tobacco use and dependence. Patient presented to the emergency center with severe chest discomfort that started this morning around 4:00 when he was getting up to the bathroom. He described it as sharp and hard. He states he usually has shortness of breath. He is a smoker of 1-1/2 packs/day but quit 1 and half months ago. He denies any palpitations. No dizziness. He denies history of diabetes. No cough or fever. No history of stroke or seizure activity. Patient was found to have borderline ST elevation in the anterior leads and was taken urgently to the cardiac catheterization. Review Of Systems: At the time of my exam: CONSTITUTIONAL: Denies fever or chills. HEENT: Denies blurred vision, vision changes, or eye pain. Denies hemoptysis CARDIOVASCULAR: Denies chest pain. Denies orthopnea. Denies PND. Denies palpitations RESPIRATORY: Denies shortness of breath. GASTROINTESTINAL: Denies abdominal pain. Denies nausea or vomiting. HEMATOLOGIC: Denies bleeding disorders. GENITOURINARY: Denies any blood in urine. SKIN: Denies puritis. Denies rash. Physical examination: Gen: This is a 68-year-old male appears to be uncomfortable VS: reviewed HEENT: Head is atraumatic, normocephalic. Pupils equal, round. Sclerae is anicteric. NECK: Supple. No JVD. LUNGS: Clear to auscultation. No wheezes or rhonchi. No intercostal retractions. HEART: Regular rate and rhythm. No murmur. ABDOMEN: Soft No tenderness. EXTREMITIES: No pedal edema. No calf tenderness. NEUROLOGICAL: Patient is awake, alert and oriented x3. Assessment: Acute ST elevated anterior [place] Hypertension Hyperlipidemia Tobacco use and dependence Plan: Patient taken urgently for cardiac catheterization Obtain 2-D echocardiogram and Doppler study to assess cardiac structure and function Further recommendations to follow based upon clinical course Smoking cessation, patient will be given [place] quit line information at discharge Thank you kindly for this consultation. Nurse practitioner note has been reviewed, I agree with documented findings and plan of care. Patient was seen and examined. 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 , pt thinks he had heart cath with balloon dilation. Past Anesthesia/Blood Transfusion Reactions: No Reported Reaction Date of Last Stent Placement:: unknown Past Psychological History: No Psychological Hx Reported Smoking Status: Former smoker Past Alcohol Use History: None Reported Additional Past Alcohol Use History / Comment(s): quit smoking 2 months ago., hx of 1 1/2 to 2 ppd - cigarettes and cigars. Past Drug Use History: None Reported - Past Family History Mother Family Medical History: Cancer, Diabetes Mellitus Father Family Medical History: Cancer, Diabetes Mellitus Medications and Allergies Home Medications Medication Instructions Recorded Confirmed Type Atorvastatin [Lipitor] 20 mg PO DAILY 30 Days #30 tab 04/13/23 09/03/23 Rx Famotidine [Pepcid] 20 mg PO BID 30 Days #60 tab 04/13/23 09/03/23 Rx Melatonin 5 mg PO HS 30 Days #30 tab 04/13/23 09/03/23 Rx amLODIPine [Norvasc] 5 mg PO DAILY 30 Days #30 tab 04/13/23 09/03/23 Rx hydroCHLOROthiazide [Hydrodiuril] 25 mg PO DAILY 30 Days #30 tab 04/13/23 09/03/23 Rx lisinopriL [Zestril] 10 mg PO DAILY 30 Days #30 tab 04/13/23 09/03/23 Rx Albuterol 83 % Nebulizer 1 dose PO DIRECTED PRN 09/03/23 History Albuterol Inhaler [Ventolin Hfa 1 - 2 puff INHALATION Q6H PRN 09/03/23 09/03/23 History Inhaler] Cholecalciferol [Vitamin D3 (25 50 mcg PO DAILY 09/03/23 09/03/23 History Mcg = 1000 Iu)] Nicotine Patch 1 patch TOPICAL DAILY 11/10/23 History Allergies Allergy/AdvReac Type Severity Reaction Status Date / Time No Known Allergies Allergy Verified 04/10/24 09:33 Results 04/10/24 09:27 04/10/24 09:27
[2024-04-10 18:35] LABS: African American GFR (CKD) >90 (>60 ml/min/1.73 sqM); Anion Gap 8 mmol/L; Blood Urea Nitrogen 27 mg/dL (9-20); Calcium 9.1 mg/dL (8.4-10.2); Carbon Dioxide 24 mmol/L (22-30); Chloride 102 mmol/L (98-107); Glucose 155 mg/dL (74-99); Non-African American GFR(CKD) 89 (>60 ml/min/1.73 sqM); Potassium 3.3 mmol/L (3.5-5.1); Sodium 134 mmol/L (137-145)
[2024-04-10] MEDS: POTASSIUM CHLORIDE ER 20 MEQ TAB.ER PO STA (21:04)
[2024-04-10] MEDS: METOPROLOL TARTRATE 25 MG TAB PO SCH (21:04)
[2024-04-11 02:53] LABS: Chol/HDL Ratio 1.83 Ratio; LDL Cholesterol,Calculated 32.7 mg/dL (0.0-131.0); VLDL Calculation 15.36 mg/dL (5.00-40.00)
[2024-04-11] MEDS ORDERED: HEPARIN SODIUM,PORCINE 10,000 UNIT in SODIUM CHLORIDE 0.9% 1,000 ML IRRIGATION PRN (07:00)
[2024-04-11] MEDS ORDERED: HEPARIN SODIUM,PORCINE (1 ML) 2,500 UNIT in SODIUM CHLORIDE 0.9% 250 ML IRRIGATION PRN (07:00)
[2024-04-11] MEDS: ASPIRIN 81 MG PO SCH (09:39)
[2024-04-11] MEDS: CLOPIDOGREL 75 MG TAB PO SCH (09:39)
[2024-04-11] MEDS: lisinopriL 10 MG TAB PO SCH (09:39)
[2024-04-11] MEDS: ATORVASTATIN 40 MG TAB PO SCH (09:39)
[2024-04-11 11:05] LABS: African American GFR (CKD) >90 (>60 ml/min/1.73 sqM); Anion Gap 4 mmol/L; Blood Urea Nitrogen 17 mg/dL (9-20); Calcium 9.5 mg/dL (8.4-10.2); Carbon Dioxide 28 mmol/L (22-30); Chloride 103 mmol/L (98-107); Glucose 98 mg/dL (74-99); Magnesium 1.8 mg/dL (1.6-2.3); Non-African American GFR(CKD) >90 (>60 ml/min/1.73 sqM); Potassium 4.1 mmol/L (3.5-5.1); Sodium 135 mmol/L (137-145)
--- NOTE | 2024-04-11 12:11 | P.PN ---
Subjective Progress Note Date: 04/11/24 Reason for Consult (text): STEMI History of present illness: This is a 68-year-old male with prior history of hypertension, hyperlipidemia, tobacco use and dependence. Patient presented to the emergency center with severe chest discomfort that started this morning around 4:00 when he was getting up to the bathroom. He described it as sharp and hard. He states he usually has shortness of breath. He is a smoker of 1-1/2 packs/day but quit 1 and half months ago. He denies any palpitations. No dizziness. He denies history of diabetes. No cough or fever. No history of stroke or seizure activity. Patient was found to have borderline ST elevation in the anterior leads and was taken urgently to the cardiac catheterization. 04/11 Yesterday, patient underwent cardiac catheterization with Dr. Roy which revealed borderline lesion in the mid LAD that improved after intracoronary IV nitroglycerin. No obstructive disease in the left circumflex and right coronary artery. Left dominance. Moderately impaired left ventricular systolic function with segmental wall motion abnormality. Recommendations to treat medically. Findings could be related to Takotsubo syndrome. Echocardiogram is currently pending. Repeat EKG has been reviewed. Patient does state that he has been under increased stress lately. He states his breathing is currently okay. No sign of hematoma to the right wrist. Anticipate discharge home tomorrow. Physical examination: Gen: This is a 68-year-old male appears to be uncomfortable VS: reviewed HEENT: Head is atraumatic, normocephalic. Pupils equal, round. Sclerae is anicteric. NECK: Supple. No JVD. LUNGS: Clear to auscultation. No wheezes or rhonchi. No intercostal retractions. HEART: Regular rate and rhythm. No murmur. ABDOMEN: Soft No tenderness. EXTREMITIES: No pedal edema. No calf tenderness. NEUROLOGICAL: Patient is awake, alert and oriented x3. Assessment: Acute ST elevated anterior [place] ruled out with cardiac catheterization Suspected Takotsubo Hypertension Hyperlipidemia, goal to maintain LDL below 70 mg/DL Tobacco use and dependence Plan: Continue patient on the following cardiac medications: Aspirin 81 mg daily, atorvastatin 40 mg daily, Plavix 75 mg daily, lisinopril 10 mg daily, Lopressor 25 mg twice daily. Obtain 2-D echocardiogram and Doppler study to assess cardiac structure and function Monitor for another 24 hours and probable discharge home tomorrow Smoking cessation, patient will be given [place] quit line information at discharge Thank you kindly for this consultation. Nurse practitioner note has been reviewed, I agree with documented findings and plan of care. Patient was seen and examined. Objective - Vital Signs Vital signs: Vital Signs Temp 97.5 F L 04/11/24 03:44 Pulse 54 L 04/11/24 03:44 Resp 16 04/11/24 03:44 BP 109/67 04/11/24 03:44 Pulse Ox 99 04/11/24 03:44 FiO2 Intake & Output 04/10/24 04/11/24 04/11/24 18:59 06:59 18:59 Intake Total 640 600 120 Output Total 1050 1125 425 Balance -410 -525 -305 Weight 58.967 kg Intake: IV 400 60 Invasive Line 1 20 Invasive Line 2 20 Invasive Line 3 20 Oral 240 540 120 Output: Urine 1050 1125 425 Other: Voiding Method Urinal # Bowel Movements 0 - Labs CBC & Chem 7: 04/10/24 09:27 04/11/24 10:12 Labs: Abnormal Lab Results - Last 24 Hours (Table) 04/10/24 04/10/24 04/10/24 Range/Units 09:27 09:27 18:07 RBC 4.28 L (4.30-5.90) m/uL Sodium 135 L 134 L (137-145) mmol/L Potassium 3.4 L 3.3 L (3.5-5.1) mmol/L BUN 35 H 27 H (9-20) mg/dL Glucose 170 H 155 H (74-99) mg/dL Alkaline Phosphatase 130 H (38-126) U/L Troponin I (0.000-0.034) ng/mL 04/10/24 04/10/24 Range/Units 18:07 20:52 RBC (4.30-5.90) m/uL Sodium (137-145) mmol/L Potassium (3.5-5.1) mmol/L BUN (9-20) mg/dL Glucose (74-99) mg/dL Alkaline Phosphatase (38-126) U/L Troponin I 2.430 H* 1.990 H* (0.000-0.034) ng/mL
--- NOTE | 2024-04-11 14:39 | P.PN ---
Subjective Progress Note Date: 04/11/24 patient 68 years old gentleman past medical history significant for hyperlipidemia, hypertension who presented to the ER because of chest pain. Patient stated that he was all right this morning when he started having chest pain that was central location, was pressure-like, nonradiating, no aggravating or relieving factor associated chest pain. When paramedics arrived at the spot, they did an EKG that showed ST segment elevation in the anterior leads. Patient was given aspirin and nitroglycerin and was brought to the ER Initial lab work done in the ER showed WBC 5.7, hemoglobin 13.4, platelet count 342, sodium 135, potassium 3.4, BUN 35, creatinine 1.05, glucose 170, AST 34, ALT 27, alk phos 130, troponin 0.014 Cardiology eval the patient and Software Systems Architect was activated and patient was taken for emergent cardiac cath Patient admitted to internal medicine service 04/11. Patient seen and examined. Cardiac cath done showed Borderline lesion in the mid LAD that improved after intracoronary IV nitroglycerin, No obstructive disease in the left circumflex and the right coronary artery, Moderately impaired left ventricular systolic function with segmental wall motion abnormality. Cardiology thinks this is most likely Takotsubo, recommend medical management REVIEW OF SYSTEMS: CONSTITUTIONAL: No fever, no malaise,. CARDIOVASCULAR: No chest pain, no palpitations, no syncope. PULMONARY: No shortness of breath, no cough, GASTROINTESTINAL: No diarrhea, no nausea, no vomiting, no abdominal pain. NEUROLOGICAL: No headaches, no weakness, PHYSICAL EXAMINATION: GENERAL: The patient is alert and oriented x3, not in any acute distress. Well developed, well nourished. HEENT: Pupils are round and equally reacting to light. EOMI. No scleral icterus. No conjunctival pallor. Normocephalic, atraumatic. No pharyngeal erythema. No thyromegaly. CARDIOVASCULAR: S1 and S2 present. No murmurs, rubs, or gallops. PULMONARY: Chest is clear to auscultation, no wheezing or crackles. ABDOMEN: Soft, nontender, nondistended, normoactive bowel sounds. No palpable organomegaly. MUSCULOSKELETAL: No joint swelling or deformity. EXTREMITIES: No cyanosis, clubbing, or pedal edema. NEUROLOGICAL: Gross neurological examination did not reveal any focal deficits. SKIN: No rashes. Assessment and plan Takotsubo cardiomyopathy ST elevation [place] Hyponatremia Hypokalemia Hyperlipidemia Hypertension Monitor vital signs Monitor CBC Monitor CMP Continue telemetry monitoring Trend troponins. Cardiac cath done showed Borderline lesion in the mid LAD that improved after intracoronary IV nitroglycerin, No obstructive disease in the left circumflex and the right coronary artery, Moderately impaired left ventricular systolic function with segmental wall motion abnormality. Continue aspirin, Plavix, Lipitor Continue Lopressor Cardiology following Labs and medication were reviewed.. Continue same treatment. Continue with symptomatic treatment. Resume home medication. Monitor labs and vitals. DVT and GI prophylaxis. Further recommendations as per clinical course of the patient Dictation was produced using [employer] dictation software. please excuse any grammatical, word or spelling errors. Objective - Vital Signs Vital signs: Vital Signs Temp 97.7 F 04/11/24 08:00 Pulse 66 04/11/24 08:00 Resp 16 04/11/24 08:00 BP 115/74 04/11/24 08:00 Pulse Ox 96 04/11/24 08:00 FiO2 Intake & Output 04/10/24 04/11/24 04/11/24 18:59 06:59 18:59 Intake Total 640 600 150 Output Total 1050 1125 425 Balance -410 -525 -275 Weight 58.967 kg Intake: IV 400 60 30 Invasive Line 1 20 10 Invasive Line 2 20 10 Invasive Line 3 20 10 Oral 240 540 120 Output: Urine 1050 1125 425 Other: Voiding Method Urinal Urinal # Bowel Movements 0 - Labs CBC & Chem 7: 04/10/24 09:27 04/11/24 10:12 Labs: Abnormal Lab Results - Last 24 Hours (Table) 04/10/24 04/10/24 04/10/24 Range/Units 18:07 18:07 20:52 Sodium 134 L (137-145) mmol/L Potassium 3.3 L (3.5-5.1) mmol/L BUN 27 H (9-20) mg/dL Glucose 155 H (74-99) mg/dL Troponin I 2.430 H* 1.990 H* (0.000-0.034) ng/mL 04/11/24 Range/Units 10:12 Sodium 135 L (137-145) mmol/L Potassium (3.5-5.1) mmol/L BUN (9-20) mg/dL Glucose (74-99) mg/dL Troponin I (0.000-0.034) ng/mL
--- NOTE | 2024-04-12 07:49 | CA ---
Transthoracic Echo Report Name: Vignesh Preston Age: 68 Gender: M : 1955 Exam Date: 04/11/2024 13:41 Exam Location: [facility] Ht (in): 67 Wt (lb): 130 Ordering Physician: Zay Roy MD ([id number]) Attending/Referring Phys: [employer] Sand[employer] Apprentice Leticia Novak RDCS Procedure CPT: Indications: CAD Cardiac Hx: Technical Quality: Technically difficult study Contrast 1: Definity Total Dose (mL): 2 Contrast 2: Total Dose (mL): MEASUREMENTS (Male / Female) Normal Values 2D ECHO LV Diastolic Diameter PLAX 4.5 cm 4.2 - 5.9 / 3.9 - 5.3 cm LV Systolic Diameter PLAX 3.1 cm IVS Diastolic Thickness 0.7 cm 0.6 - 1.0 / 0.6 - 0.9 cm LVPW Diastolic Thickness 0.9 cm 0.6 - 1.0 / 0.6 - 0.9 cm LV Relative Wall Thickness 0.4 LVOT Diameter 2.1 cm LV Diastolic Volume MOD BP 113.9 cm??? 67 - 155 / 56 - 104 cm??? LV Systolic Volume MOD BP 58.8 cm??? 22 - 58 / 19 - 49 cm??? LV Ejection Fraction MOD BP 48.4 % >= 55 % LV Cardiac Index MOD BP 1852.8 cm???/min???m??? LV Diastolic Volume MOD 4C 117.3 cm??? LV Systolic Volume MOD 4C 66.6 cm??? LV Ejection Fraction MOD 4C 43.2 % LV Cardiac Index MOD 4C 1702.5 cm???/min???m??? LV Diastolic Length 4C 9.0 cm LV Systolic Length 4C 8.4 cm LV Diastolic Volume MOD 2C 96.6 cm??? LV Systolic Volume MOD 2C 45.8 cm??? LV Ejection Fraction MOD 2C 52.6 % LV Cardiac Index MOD 2C 1707.8 cm???/min???m??? LV Diastolic Length 2C 7.8 cm LV Systolic Length 2C 7.4 cm LA Volume 38.9 cm??? 18 - 58 / 22 - 52 cm??? LA Volume Index 23.4 cm???/m??? 16 - 28 cm???/m??? DOPPLER AV Peak Velocity 137.9 cm/s AV Peak Gradient 7.6 mmHg AV Mean Velocity 105.9 cm/s AV Mean Gradient 4.8 mmHg AV Velocity Time Integral 32.5 cm LVOT Peak Velocity 110.1 cm/s LVOT Peak Gradient 4.8 mmHg LVOT Velocity Time Integral 22.0 cm LVOT Stroke Volume 73.5 cm??? LVOT Stroke Volume Index 43.6 ml/m??? LVOT Cardiac Index 2471.1 cm???/min???m??? AV Area Cont Eq vti 2.3 cm??? AV Area Cont Eq pk 2.7 cm??? MV Area PHT 2.9 cm??? Mitral E Point Velocity 52.8 cm/s Mitral A Point Velocity 65.1 cm/s Mitral E to A Ratio 0.8 MV Deceleration Time 257.2 ms TR Peak Velocity 303.0 cm/s TR Peak Gradient 36.7 mmHg Right Atrial Pressure 5.0 mmHg Pulmonary Artery Systolic Pressu 41.7 mmHg Right Ventricular Systolic Press 41.7 mmHg PV Peak Velocity 84.5 cm/s PV Peak Gradient 2.9 mmHg FINDINGS Left Ventricle Left ventricular ejection fraction is estimated at 40 to 45 %. Mildly decreased left ventricular ejection fraction. Left ventricular cavity size normal. Akinetic apex. Right Ventricle Normal right ventricular size and function. Mildly elevated right ventricular systolic pressure. Right Atrium Normal right atrial size. Left Atrium Normal left atrial size. Mitral Valve Structurally normal mitral valve. No evidence for mitral valve prolapse. No mitral stenosis. Trace mitral regurgitation. Aortic Valve Trileaflet aortic valve. No aortic valve stenosis or regurgitation. Tricuspid Valve Structurally normal tricuspid valve. No tricuspid stenosis. Mild tricuspid regurgitation. Pulmonic Valve Pulmonic valve not well visualized. Pericardium No pericardial effusion. Aorta Aortic annulus normal. Ascending aorta not well visualized. CONCLUSIONS Technically difficult study for interpretation Mildly impaired LV function with EF between 40 to 45% with mid ventricle and apical hypokinesia Previewed by: Dr. Doc Gimenez MD (Electronically Signed) Final Date: 12 April 2024 07:48
[2024-04-12 09:44] VITALS: RESP 17; TEMP 98.1
--- NOTE | 2024-04-12 10:40 | P.PN ---
Subjective Progress Note Date: 04/12/24 Reason for Consult (text): STEMI History of present illness: This is a 68-year-old male with prior history of hypertension, hyperlipidemia, tobacco use and dependence. Patient presented to the emergency center with severe chest discomfort that started this morning around 4:00 when he was getting up to the bathroom. He described it as sharp and hard. He states he usually has shortness of breath. He is a smoker of 1-1/2 packs/day but quit 1 and half months ago. He denies any palpitations. No dizziness. He denies history of diabetes. No cough or fever. No history of stroke or seizure activity. Patient was found to have borderline ST elevation in the anterior leads and was taken urgently to the cardiac catheterization. 04/11 Yesterday, patient underwent cardiac catheterization with Dr. Roy which revealed borderline lesion in the mid LAD that improved after intracoronary IV nitroglycerin. No obstructive disease in the left circumflex and right coronary artery. Left dominance. Moderately impaired left ventricular systolic function with segmental wall motion abnormality. Recommendations to treat medically. Findings could be related to Takotsubo syndrome. Echocardiogram is currently pending. Repeat EKG has been reviewed. Patient does state that he has been under increased stress lately. He states his breathing is currently okay. No sign of hematoma to the right wrist. Anticipate discharge home tomorrow. 04/12 Patient denies any problems overnight. No chest pain no shortness of breath. He states he has walked in his room without any symptoms. Heart rate has been in the 40s overnight, asymptomatic. Echocardiogram reveals technically difficult study. EF 40 to 45% with mid ventricle and apical hypokinesia. Blood pressure 123/74, heart rate 58, pulse ox 96% on room air. Physical examination: Gen: This is a 68-year-old male appears to be uncomfortable VS: reviewed HEENT: Head is atraumatic, normocephalic. Pupils equal, round. Sclerae is anicteric. NECK: Supple. No JVD. LUNGS: Clear to auscultation. No wheezes or rhonchi. No intercostal retractions. HEART: Regular rate and rhythm. No murmur. ABDOMEN: Soft No tenderness. EXTREMITIES: No pedal edema. No calf tenderness. NEUROLOGICAL: Patient is awake, alert and oriented x3. Assessment: Acute ST elevated anterior [place] ruled out with cardiac catheterization Abnormal EKG and chest pain due to Takotsubo Hypertension Hyperlipidemia, goal to maintain LDL below 70 mg/DL Tobacco use and dependence Plan: Continue patient on the following cardiac medications: Aspirin 81 mg daily, atorvastatin 40 mg daily, Plavix 75 mg daily, lisinopril 10 mg daily Decrease Lopressor to 12.5 mg twice daily Smoking cessation, patient will be given [place] quit line information at discharge Patient is cleared for discharge from cardiology and may follow-up in the office in 1 week. Nurse practitioner note has been reviewed, I agree with documented findings and plan of care. Patient was seen and examined. Objective - Vital Signs Vital signs: Vital Signs Temp 98.1 F 04/12/24 09:43 Pulse 58 L 04/12/24 09:43 Resp 17 04/12/24 09:43 BP 123/74 04/12/24 09:43 Pulse Ox 96 04/12/24 09:43 FiO2 Intake & Output 04/11/24 04/12/24 04/12/24 18:59 06:59 18:59 Intake Total 960 580 370 Output Total 425 400 Balance 535 180 370 Intake: IV 60 40 10 Invasive Line 1 20 20 10 Invasive Line 2 20 20 Invasive Line 3 20 Oral 900 540 360 Output: Urine 425 400 Other: Voiding Method Urinal Urinal Urinal # Voids 2 - Labs CBC & Chem 7: 04/10/24 09:27 04/11/24 10:12 Labs: Abnormal Lab Results - Last 24 Hours (Table) 04/11/24 Range/Units 10:12 Sodium 135 L (137-145) mmol/L
--- NOTE | 2024-04-12 10:59 | P.DS ---
Providers Date of admission: 04/10/24 09:36 Expected date of discharge: 04/12/24 Attending physician: Koby Plasencia Consults: 04/10/24 09:29 Consult Physician Stat Consulting Provider: Zay Roy Consult Reason/Comments: STEMI Do you want consulting provider notified?: Already Contacted Primary care physician: [place] Hospital Course: Discharge diagnoses; Takotsubo cardiomyopathy ST elevation [place] Hyponatremia Hypokalemia Hyperlipidemia Hypertension Hospital course; patient 68 years old gentleman past medical history significant for hyperlipidemia, hypertension who presented to the ER because of chest pain. Patient stated that he was all right this morning when he started having chest pain that was central location, was pressure-like, nonradiating, no aggravating or relieving factor associated chest pain. When paramedics arrived at the spot, they did an EKG that showed ST segment elevation in the anterior leads. Patient was given aspirin and nitroglycerin and was brought to the ER Initial lab work done in the ER showed WBC 5.7, hemoglobin 13.4, platelet count 342, sodium 135, potassium 3.4, BUN 35, creatinine 1.05, glucose 170, AST 34, ALT 27, alk phos 130, troponin 0.014 Cardiology eval the patient and Service Center Assistant was activated and patient was taken for emergent cardiac cath Patient admitted to internal medicine service 04/11. Patient seen and examined. Cardiac cath done showed Borderline lesion in the mid LAD that improved after intracoronary IV nitroglycerin, No obstructive disease in the left circumflex and the right coronary artery, Moderately impaired left ventricular systolic function with segmental wall motion abnormality .Echocardiogram reveals technically difficult study. EF 40 to 45% with mid ventricle and apical hypokinesia. Cardiology thinks this is most likely Takotsubo, recommend medical management. 04/12. Patient seen and examined. Cardiology cleared the patient for discharge, outpatient follow-up with cardiology and PCP PHYSICAL EXAMINATION: GENERAL: The patient is alert and oriented x3, not in any acute distress. Well developed, well nourished. HEENT: Pupils are round and equally reacting to light. EOMI. No scleral icterus. No conjunctival pallor. Normocephalic, atraumatic. No pharyngeal erythema. No thyromegaly. CARDIOVASCULAR: S1 and S2 present. No murmurs, rubs, or gallops. PULMONARY: Chest is clear to auscultation, no wheezing or crackles. ABDOMEN: Soft, nontender, nondistended, normoactive bowel sounds. No palpable organomegaly. MUSCULOSKELETAL: No joint swelling or deformity. EXTREMITIES: No cyanosis, clubbing, or pedal edema. NEUROLOGICAL: Gross neurological examination did not reveal any focal deficits. SKIN: No rashes. Dictation was produced using [employer] dictation software. please excuse any grammatical, word or spelling errors. Patient Condition at Discharge: Good Plan - Discharge Summary Discharge Rx Participant: No New Discharge Prescriptions: New Metoprolol Tartrate [Lopressor] 12.5 mg PO BID #180 tab Clopidogrel [Plavix] 75 mg PO DAILY #90 tab Aspirin 81 mg PO DAILY tab Atorvastatin [Lipitor] 40 mg PO DAILY #90 tab Nitroglycerin Sl Tabs [Nitrostat] 0.4 mg SUBLINGUAL Q5M PRN 30 Days #30 tab PRN Reason: Chest Pain Continue lisinopriL [Zestril] 10 mg PO DAILY 30 Days #30 tab Nicotine 21Mg/24Hr Patch [Habitrol] 1 patch TRANSDERM DAILY Discontinued amLODIPine [Norvasc] 5 mg PO DAILY 30 Days #30 tab Atorvastatin [Lipitor] 20 mg PO HS hydroCHLOROthiazide [Hydrodiuril] 25 mg PO DAILY 30 Days #30 tab Unknown Sleep Aid Otc 1 tab PO HS Discharge Medication List lisinopriL [Zestril] 10 mg PO DAILY 30 Days #30 tab 04/13/23 [Rx] Nicotine 21Mg/24Hr Patch [Habitrol] 1 patch TRANSDERM DAILY 04/10/24 [History] Aspirin 81 mg PO DAILY tab 04/12/24 [Rx] Atorvastatin [Lipitor] 40 mg PO DAILY #90 tab 04/12/24 [Rx] Clopidogrel [Plavix] 75 mg PO DAILY #90 tab 04/12/24 [Rx] Metoprolol Tartrate [Lopressor] 12.5 mg PO BID #180 tab 04/12/24 [Rx] Nitroglycerin Sl Tabs [Nitrostat] 0.4 mg SUBLINGUAL Q5M PRN 30 Days #30 tab 04/12/24 [Rx] Follow up Appointment(s)/Referral(s): Zay Roy MD [STAFF PHYSICIAN] - 1 Week Lillie Richards MD [Primary Care Provider] - 1-2 days Discharge/Stand Alone Forms: Area PCPs
[2024-04-12 11:25] VITALS: BP 107/63; PULSE 66
[2024-04-12] MEDS ORDERED: METOPROLOL TARTRATE 12.5 MG TAB PO SCH (21:00)
== END 2024-04-12 15:01 | disposition home or self-care (01) | DRG 286 ==
LOC: EC 09:26 → 2SICU 09:36 → 3SCARD 10:26
PROVIDERS: ADMIT Hospitalist; ATTEND Hospitalist
PROC: 4A023N7 Measurement of Cardiac Sampling and Pressure, Left Heart, Percutaneous Approach (ICD-10-PCS; principal; 2024-04-10 17:35)
PROC: B2111ZZ Fluoroscopy of Multiple Coronary Arteries using Low Osmolar Contrast (ICD-10-PCS; 2024-04-10 17:35)
DX: I51.81 Takotsubo syndrome (principal); Q04.0 Congenital malformations of corpus callosum; E87.1 Hypo-osmolality and hyponatremia; J44.9 Chronic obstructive pulmonary disease, unspecified; I10 Essential (primary) hypertension; E87.6 Hypokalemia; E78.5 Hyperlipidemia, unspecified; K21.9 Gastro-esophageal reflux disease without esophagitis; Z87.891 Personal history of nicotine dependence; Z79.899 Other long term (current) drug therapy; I25.119 Atherosclerotic heart disease of native coronary artery with unspecified angina pectoris
CPT/HCPCS: 71045; 80048; 80053; 80061; 83735; 84484; 85025; 85610; 85730; 93005; 93306; 93458; 93799; 96374; 99291

== ENCOUNTER 2024-05-23 17:29 | Observation (INO) | payer MEDICARE, OTHER ==
[2024-05-23 17:52] VITALS: TEMP 97.7
[2024-05-23] MEDS: NITROGLYCERIN SL TABS 0.4 MG TAB SUBLINGUAL STA (18:19)
[2024-05-23] MEDS: ASPIRIN 81 MG PO STA (18:20)
--- NOTE | 2024-05-23 18:23 | ED ---
General Adult HPI - General Chief complaint: Chest Pain Stated complaint: LEONOR, chest pain Time Seen by Provider: 05/23/24 18:03 Source: patient, RN notes reviewed Mode of arrival: ambulatory Limitations: no limitations - History of Present Illness Initial comments: Patient is a 68-year-old male present to the emergency department with concerns with chest discomfort. Onset of symptoms was a couple hours ago while walking around the house. Patient has discomfort rated 8/10. Discomfort feels like tightness. There is some associated dyspnea. No nausea. No diaphoresis. - Related Data Home Medications Medication Instructions Recorded Confirmed Nicotine 21Mg/24Hr Patch [Habitrol] 1 patch TRANSDERM DAILY 04/10/24 04/10/24 Previous Rx's Medication Instructions Recorded lisinopriL [Zestril] 10 mg PO DAILY 30 Days #30 tab 04/13/23 Aspirin 81 mg PO DAILY tab 04/12/24 Atorvastatin [Lipitor] 40 mg PO DAILY #90 tab 04/12/24 Clopidogrel [Plavix] 75 mg PO DAILY #90 tab 04/12/24 Metoprolol Tartrate [Lopressor] 12.5 mg PO BID #180 tab 04/12/24 Nitroglycerin Sl Tabs [Nitrostat] 0.4 mg SUBLINGUAL Q5M PRN 30 Days 04/12/24 #30 tab Allergies Allergy/AdvReac Type Severity Reaction Status Date / Time No Known Allergies Allergy Verified 04/10/24 17:22 Review of Systems ROS Statement: Those systems with pertinent positive or pertinent negative responses have been documented in the HPI. ROS Other: All systems not noted in ROS Statement are negative. Constitutional: Denies: fever Eyes: Denies: eye pain ENT: Denies: ear pain Respiratory: Reports: as per HPI, dyspnea Cardiovascular: Reports: as per HPI, chest pain Endocrine: Denies: fatigue Gastrointestinal: Denies: abdominal pain Musculoskeletal: Denies: back pain Past Medical History Past Medical History: Coronary Artery Disease (CAD), COPD, GERD/Reflux, Hypertension, Myocardial Infarction ([place]), Neurologic Disorder Additional Past Medical History / Comment(s): some memory problems., states urine stream slow and has occasional burning., friend- Nicole Jones states she is his patient advocate and she helps him with medications-putting them in daily pill box.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 , pt thinks he had heart cath with balloon dilation. Past Anesthesia/Blood Transfusion Reactions: No Reported Reaction Date of Last Stent Placement:: unknown Past Psychological History: No Psychological Hx Reported Smoking Status: Former smoker Past Alcohol Use History: None Reported Past Drug Use History: None Reported - Past Family History Mother Family Medical History: Cancer, Diabetes Mellitus Father Family Medical History: Cancer, Diabetes Mellitus General Exam Limitations: no limitations General appearance: alert, in no apparent distress Head exam: Present: other (Macrocephaly) Eye exam: Present: normal appearance Neck exam: Present: normal inspection Respiratory exam: Present: normal lung sounds bilaterally. Absent: chest wall tenderness Cardiovascular Exam: Present: regular rate, normal rhythm Expanded Peripheral pulses: 2+: Radial (R), Radial (L), Dorsalis Pedis (R), Dorsalis Pedis (L) GI/Abdominal exam: Present: soft. Absent: tenderness Extremities exam: Present: normal inspection. Absent: pedal edema, calf tenderness Neurological exam: Present: alert Psychiatric exam: Present: normal affect, normal mood Skin exam: Present: normal color Course Vital Signs 05/23/24 05/23/24 05/23/24 17:50 18:19 19:00 Temperature 97.7 F Pulse Rate 54 L 46 L 50 L Respiratory 16 18 18 Rate Blood Pressure 155/91 150/85 O2 Sat by Pulse 97 97 Oximetry 05/23/24 19:36 Temperature Pulse Rate 45 L Respiratory 18 Rate Blood Pressure 160/80 O2 Sat by Pulse 97 Oximetry EKG Findings - EKG Results: EKG: interpreted by ERMD (Lateral T wave inversion. Biphasic T waves inferior. Previous EKG reviewed without similar change), sinus rhythm, normal axis, normal QRS EKG shows: bradycardia Medical Decision Making - Medical Decision Making MDM back was pt. sent in by a medical professional or institution (, [place], [facility], urgent care, hospital, or penitentiary...) When possible be specific @ -No Did you speak to anyone other than the patient for history (EMS, parent, family, police, friend...)? What history was obtained from this source @ -No Did you review nursing and triage notes (agree or disagree)? Why? @ -I reviewed and agree with nursing and triage notes Were old charts reviewed (outside hosp., previous admission, EMS record, old EKG, old radiological studies, urgent care reports/EKG's, penitentiary records)? Report findings @ -No old charts were reviewed Differential Diagnosis (chest pain, altered mental status, abdominal pain women, abdominal pain men, vaginal bleeding, weakness, fever, dyspnea, syncope, headache, dizziness, GI bleed, back pain, seizure, CVA, palpatations, mental health, musculoskeletal)? @ -Differential Chest Pain: Stable Angina, Unstable Angina, STEMI, NSTEMI Aortic Dissection, Pneumothorax, Musculoskeletal, Esophageal Spasm GERD, Cholecystitis, Pancreatitis, Zoster, this is not meant to be an all-inclusive list. EKG interpreted by me (3pts min.). @ -As above X-rays interpreted by me (1pt min.). @ -Chest x-ray shows no acute process. Radiologist questions if there could be right suprahilar infiltrate CT interpreted by me (1pt min.). @ -None done U/S interpreted by me (1pt. min.). @ -None done What testing was considered but not performed or refused? (CT, X-rays, U/S, labs)? Why? @ -None What meds were considered but not given or refused? Why? @ -None Did you discuss the management of the patient with other professionals (professionals i.e. , PA, [facility] [facility], lab, RT, psych nurse, social service technician, data entry assistant, teacher, protocol officer, rn case management)? Give summary @ -Case was discussed with practitioner Katie Azevedo who will admit covering for Dr. Irizarry Was smoking cessation discussed for >3mins.? @ -No Was critical care preformed (if so, how long)? @ -31 minutes critical care Were there social determinants of health that impacted care today? How? (Homelessness, low income, unemployed, alcoholism, drug addiction, transportation, low edu. Level, literacy, decrease access to med. care, detention, rehab)? @ -No Was there de-escalation of care discussed even if they declined (Discuss DNR or withdrawal of care, Hospice)? DNR status @ -No What co-morbidities impacted this encounter? (DM, HTN, Smoking, COPD, CAD, Cancer, CVA, ARF, Chemo, Hep., AIDS, mental health diagnosis, sleep apnea, morbid obesity)? @ -None Was patient admitted / discharged? Hospital course, mention meds given and route, prescriptions, significant lab abnormalities, going to OR and other pertinent info. @ -Patient presents with chest discomfort. Patient does have some EKG changes, however not STEMI. Symptoms improved with nitroglycerin. First opponent negative. Patient will be admitted with cardiac consult. Admission orders written Undiagnosed new problem with uncertain prognosis? @ -No Drug Therapy requiring intensive monitoring for toxicity (Heparin, Nitro, Insulin, Cardizem)? @ -Patient will be started on heparin drip Were any procedures done? @ -No Diagnosis/symptom? @ -unstable angina Acute, or Chronic, or Acute on Chronic? @ -Acute Uncomplicated (without systemic symptoms) or Complicated (systemic symptoms)? @ -Default Side effects of treatment? @ -No Exacerbation, Progression, or Severe Exacerbation? @ -No Poses a threat to life or bodily function? How? (Chest pain, [place], [place], pneumonia, PE, COPD, DKA, ARF, appy, cholecystitis, CVA, Diverticulitis, Homicidal, Suicidal, threat to staff... and all critical care pts) @ -To cardiac function - Lab Data Result diagrams: 05/23/24 18:41 05/23/24 18:41 Lab Results 05/23/24 05/23/24 05/23/24 Range/Units 18:41 18:41 18:41 WBC 5.8 (3.8-10.6) k/uL RBC 4.03 L (4.30-5.90) m/uL Hgb 12.8 L (13.0-17.5) gm/dL Hct 38.1 L (39.0-53.0) % MCV 94.5 (80.0-100.0) fL MCH 31.7 (25.0-35.0) pg MCHC 33.5 (31.0-37.0) g/dL RDW 14.1 (11.5-15.5) % Plt Count 245 (150-450) k/uL MPV 7.9 Neutrophils % 62 % Lymphocytes % 20 % Monocytes % 9 % Eosinophils % 6 % Basophils % 1 % Neutrophils # 3.6 (1.3-7.7) k/uL Lymphocytes # 1.1 (1.0-4.8) k/uL Monocytes # 0.5 (0-1.0) k/uL Eosinophils # 0.3 (0-0.7) k/uL Basophils # 0.1 (0-0.2) k/uL PT 11.0 (10.0-12.5) sec INR 1.0 (<1.2) APTT 26.6 (22.0-30.0) sec D-Dimer 0.27 (<0.60) mg/L FEU Sodium 137 (137-145) mmol/L Potassium 4.1 (3.5-5.1) mmol/L Chloride 107 (98-107) mmol/L Carbon Dioxide 25 (22-30) mmol/L Anion Gap 5 mmol/L BUN 24 H (9-20) mg/dL Creatinine 1.01 (0.66-1.25) mg/dL Est GFR (CKD-EPI)AfAm 89 (>60 ml/min/1.73 sqM) Est GFR (CKD-EPI)NonAf 77 (>60 ml/min/1.73 sqM) Glucose 94 (74-99) mg/dL Calcium 9.7 (8.4-10.2) mg/dL Magnesium 1.9 (1.6-2.3) mg/dL Total Bilirubin 0.8 (0.2-1.3) mg/dL AST 32 (17-59) U/L ALT 38 (4-49) U/L Alkaline Phosphatase 72 (38-126) U/L Troponin I (0.000-0.034) ng/mL Total Protein 6.2 L (6.3-8.2) g/dL Albumin 4.2 (3.5-5.0) g/dL 05/23/24 Range/Units 18:41 WBC (3.8-10.6) k/uL RBC (4.30-5.90) m/uL Hgb (13.0-17.5) gm/dL Hct (39.0-53.0) % MCV (80.0-100.0) fL MCH (25.0-35.0) pg MCHC (31.0-37.0) g/dL RDW (11.5-15.5) % Plt Count (150-450) k/uL MPV Neutrophils % % Lymphocytes % % Monocytes % % Eosinophils % % Basophils % % Neutrophils # (1.3-7.7) k/uL Lymphocytes # (1.0-4.8) k/uL Monocytes # (0-1.0) k/uL Eosinophils # (0-0.7) k/uL Basophils # (0-0.2) k/uL PT (10.0-12.5) sec INR (<1.2) APTT (22.0-30.0) sec D-Dimer (<0.60) mg/L FEU Sodium (137-145) mmol/L Potassium (3.5-5.1) mmol/L Chloride (98-107) mmol/L Carbon Dioxide (22-30) mmol/L Anion Gap mmol/L BUN (9-20) mg/dL Creatinine (0.66-1.25) mg/dL Est GFR (CKD-EPI)AfAm (>60 ml/min/1.73 sqM) Est GFR (CKD-EPI)NonAf (>60 ml/min/1.73 sqM) Glucose (74-99) mg/dL Calcium (8.4-10.2) mg/dL Magnesium (1.6-2.3) mg/dL Total Bilirubin (0.2-1.3) mg/dL AST (17-59) U/L ALT (4-49) U/L Alkaline Phosphatase (38-126) U/L Troponin I <0.012 (0.000-0.034) ng/mL Total Protein (6.3-8.2) g/dL Albumin (3.5-5.0) g/dL Critical Care Time Critical Care Time: Yes Disposition Clinical Impression: Unstable angina pectoris Disposition: ADMITTED IP TO THIS HOSP Is patient prescribed a controlled substance at d/c from ED?: No Referrals: Lillie Richards MD [Primary Care Provider] - 1-2 days Time of Disposition: 19:48
[2024-05-23 18:53] LABS: Basophils # (A) 0.1 k/uL (0-0.2); Basophils % (A) 1 %; Eosinophils # (A) 0.3 k/uL (0-0.7); Eosinophils % (A) 6 %; HCT 38.1 % (39.0-53.0); HGB 12.8 gm/dL (13.0-17.5); Lymphocytes # (A) 1.1 k/uL (1.0-4.8); Lymphocytes % (A) 20 %; MCH 31.7 pg (25.0-35.0); MCHC 33.5 g/dL (31.0-37.0); MCV 94.5 fL (80.0-100.0); Mean Platelet Volume 7.9; Monocytes # (A) 0.5 k/uL (0-1.0); Monocytes % (A) 9 %; Neutrophils # (A) 3.6 k/uL (1.3-7.7); Neutrophils % (A) 62 %; Platelet Count 245 k/uL (150-450); RBC 4.03 m/uL (4.30-5.90); RDW 14.1 % (11.5-15.5); WBC 5.8 k/uL (3.8-10.6)
[2024-05-23 19:07] LABS: Partial Thromboplastin Time 26.6 sec (22.0-30.0)
[2024-05-23] MEDS: NITROGLYCERIN SL TABS 0.4 MG TAB SUBLINGUAL PRN (19:08)
[2024-05-23 19:09] LABS: ALT 38 U/L (4-49); AST 32 U/L (17-59); African American GFR (CKD) 89 (>60 ml/min/1.73 sqM); Albumin 4.2 g/dL (3.5-5.0); Alkaline Phosphatase 72 U/L (38-126); Anion Gap 5 mmol/L; Blood Urea Nitrogen 24 mg/dL (9-20); Calcium 9.7 mg/dL (8.4-10.2); Carbon Dioxide 25 mmol/L (22-30); Chloride 107 mmol/L (98-107); Glucose 94 mg/dL (74-99); Magnesium 1.9 mg/dL (1.6-2.3); Non-African American GFR(CKD) 77 (>60 ml/min/1.73 sqM); Potassium 4.1 mmol/L (3.5-5.1); Sodium 137 mmol/L (137-145); Total Bilirubin 0.8 mg/dL (0.2-1.3); Total Protein 6.2 g/dL (6.3-8.2)
--- NOTE | 2024-05-23 19:22 | XR ---
EXAMINATION TYPE: XR chest 2V DATE OF EXAM: 05/23/2024 7:06 PM CLINICAL INDICATION:Male, 68 years old with history of Chest Pain; [facility] COMPARISON: Chest radiographs 04/10/2024 TECHNIQUE: XR chest 2V Frontal and lateral views of the chest. FINDINGS: Lungs/Pleura: There is no evidence of pleural effusion, or pneumothorax. Pulmonary vascularity: Unremarkable. Heart/mediastinum: Cardiomediastinal silhouette is unremarkable. Suspicious for right suprahilar con solidation Musculoskeletal: No acute osseous pathology. Other findings: None Lines/Tubes: IMPRESSION: Suspicious for right suprahilar consolidation.
[2024-05-23] MEDS ORDERED: NITROGLYCERIN SL TABS 0.4 MG TAB SUBLINGUAL PRN (19:49)
[2024-05-23] MEDS: HEPARIN SODIUM 1,000 UN/ML (10ML VL) IV ONE (20:05)
[2024-05-23] MEDS: HEPARIN SOD,PORK IN 0.45% NACL 25,000 UNIT in 0.45% NACL 1 250ML.BAG IV SCH (20:06)
[2024-05-24] MEDS: NITROGLYCERIN OINT 1 INCH/GM PACKET TOPICAL SCH (00:08)
[2024-05-24] MEDS: HEPARIN SODIUM 1,000 UN/ML (10ML VL) IV PRN (07:57)
[2024-05-24 08:57] LABS: Chol/HDL Ratio 1.97 Ratio; LDL Cholesterol,Calculated 35.1 mg/dL (0.0-131.0); VLDL Calculation 14.16 mg/dL (5.00-40.00)
[2024-05-24] MEDS: ASPIRIN 325 MG TAB PO SCH (09:17)
--- NOTE | 2024-05-24 09:50 | P.CRDCN ---
History of Present Illness History of present illness: This is Dr. Humphrey dictating a consult on this patient The patient was interviewed and examined IMPRESSION / ASSESSMENT: Chest wall discomfort with tenderness simply pressure from the stethoscope Normal cardiac enzymes History of Takotsubo syndrome recently Nonobstructive coronary artery disease Reduced LV systolic function around 45% PLAN: Heparin Renew all home medications. 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 EXAMINATION: 12 tenderness simply by applying pressure with the stethoscope. This is reproducible and this is his pain this time Different from last time Heart sounds are normal S1-S2 soft Lungs are clear No JVD REVIEW OF LABS, ECG & MEDICAL DATA Normal cardiac enzymes this time EKG abnormalities noted and are similar to the EKGs when he was recently admitted a few weeks back Past Medical History Past Medical History: Coronary Artery Disease (CAD), COPD, GERD/Reflux, Hypertension, Myocardial Infarction ([place]), Neurologic Disorder Additional Past Medical History / Comment(s): some memory problems., states urine stream slow and has occasional burning., friend- Nicole Robert states she is his patient advocate and she helps him with medications-putting them in daily pill box.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 , pt thinks he had heart cath with balloon dilation. Past Anesthesia/Blood Transfusion Reactions: No Reported Reaction Date of Last Stent Placement:: unknown Past Psychological History: No Psychological Hx Reported Smoking Status: Former smoker Past Alcohol Use History: None Reported Past Drug Use History: None Reported - Past Family History Mother Family Medical History: Cancer, Diabetes Mellitus Father Family Medical History: Cancer, Diabetes Mellitus Medications and Allergies Home Medications Medication Instructions Recorded Confirmed Type RX: lisinopriL [Zestril] 10 mg PO DAILY 30 Days #30 tab 04/13/23 04/10/24 Rx RX: Nicotine 21Mg/24Hr Patch 1 patch TRANSDERM DAILY 04/10/24 04/10/24 History [Habitrol] RX: Aspirin 81 mg PO DAILY tab 04/12/24 Rx RX: Atorvastatin [Lipitor] 40 mg PO DAILY #90 tab 04/12/24 Rx RX: Clopidogrel [Plavix] 75 mg PO DAILY #90 tab 04/12/24 Rx RX: Metoprolol Tartrate [Lopressor] 12.5 mg PO BID #180 tab 04/12/24 Rx RX: Nitroglycerin Sl Tabs 0.4 mg SUBLINGUAL Q5M PRN 30 Days 04/12/24 Rx [Nitrostat] #30 tab Allergies Allergy/AdvReac Type Severity Reaction Status Date / Time No Known Allergies Allergy Verified 04/10/24 17:22 Physical Exam Vitals: Vital Signs Temp Pulse Resp BP Pulse Ox 05/24/24 08:00 54 L 18 146/81 96 05/24/24 05:34 45 L 15 109/61 96 05/24/24 04:30 47 L 19 143/89 95 05/24/24 03:15 97.7 F 50 L 18 143/84 96 05/24/24 02:46 45 L 18 158/96 97 05/24/24 01:13 45 L 18 138/70 96 05/24/24 00:10 43 L 18 140/70 97 05/23/24 21:28 40 L 18 161/98 97 05/23/24 20:07 42 L 18 150/80 98 05/23/24 19:36 45 L 18 160/80 97 05/23/24 19:00 50 L 18 150/85 97 05/23/24 18:19 46 L 18 155/91 05/23/24 17:50 97.7 F 54 L 16 97 Intake and Output 05/23/24 05/24/24 05/24/24 22:59 06:59 14:59 Intake Total 18.162 0 32.311 Balance 18.162 0 32.311 Intake: Intake, IV Titration 18.162 0 32.311 Amount Heparin Sod,Pork in 0.45% 18.162 0 32.311 NaCl 25,000 unit In 0.45 % NaCl 1 250ml.bag @ 12 UNITS/KG/HR 7.076 mls/hr IV .Q[facility]H [facility] Rx#: [id number] Other: Weight 58.967 kg Results 05/23/24 18:41 05/23/24 18:41 Cardiac Enzymes 05/23/24 05/23/24 05/23/24 Range/Units 18:41 18:41 20:27 AST 32 (17-59) U/L Troponin I <0.012 <0.012 (0.000-0.034) ng/mL 05/24/24 Range/Units 01:37 AST (17-59) U/L Troponin I <0.012 (0.000-0.034) ng/mL Coagulation 05/23/24 05/23/24 05/24/24 Range/Units 18:41 20:27 01:37 PT 11.0 (10.0-12.5) sec APTT 26.6 >200.0 H* 29.1 (22.0-30.0) sec 05/24/24 Range/Units 06:45 PT (10.0-12.5) sec APTT 32.1 H (22.0-30.0) sec Lipids 05/24/24 Range/Units 01:15 Triglycerides 70.80 (0.00-149.00) mg/dL Cholesterol 100.00 (0.00-200.00) mg/dL HDL Cholesterol 50.70 (40.00-60.00) mg/dL Cholesterol/HDL Ratio 1.97 Ratio CBC 05/23/24 Range/Units 18:41 WBC 5.8 (3.8-10.6) k/uL RBC 4.03 L (4.30-5.90) m/uL Hgb 12.8 L (13.0-17.5) gm/dL Hct 38.1 L (39.0-53.0) % Plt Count 245 (150-450) k/uL Comprehensive Metabolic Panel 05/23/24 Range/Units 18:41 Sodium 137 (137-145) mmol/L Potassium 4.1 (3.5-5.1) mmol/L Chloride 107 (98-107) mmol/L Carbon Dioxide 25 (22-30) mmol/L BUN 24 H (9-20) mg/dL Creatinine 1.01 (0.66-1.25) mg/dL Glucose 94 (74-99) mg/dL Calcium 9.7 (8.4-10.2) mg/dL AST 32 (17-59) U/L ALT 38 (4-49) U/L Alkaline Phosphatase 72 (38-126) U/L Total Protein 6.2 L (6.3-8.2) g/dL Albumin 4.2 (3.5-5.0) g/dL Current Medications Generic Name Dose Route Start Last Admin Trade Name Freq PRN Reason Stop Dose Admin Aspirin 325 mg 05/24/24 09:00 05/24/24 09:17 Aspirin 325 Mg Tab PO 325 mg DAILY [facility] Administration Nitroglycerin 0.4 mg 05/23/24 18:16 05/23/24 19:09 Nitroglycerin Sl Tabs 0.4 Mg Tab SUBLINGUAL 0.4 mg Q5M PRN Administration Chest Pain Nitroglycerin 0.4 mg 05/23/24 19:49 Nitroglycerin Sl Tabs 0.4 Mg Tab SUBLINGUAL Q5M PRN Chest Pain Nitroglycerin 1 inch 05/24/24 00:00 05/24/24 05:37 Nitroglycerin Oint 1 Inch/Gm Packet TOPICAL 1 inch Q6HR [facility] Administration Sodium Chloride 10 ml 05/23/24 21:00 05/24/24 09:15 Sodium Chloride 0.9% Flush 10 Ml Syringe IV Not Given BID [facility] Intake and Output 05/23/24 05/24/24 05/24/24 22:59 06:59 14:59 Intake Total 18.162 0 32.311 Balance 18.162 0 32.311 Intake: Intake, IV Titration 18.162 0 32.311 Amount Heparin Sod,Pork in 0.45% 18.162 0 32.311 NaCl 25,000 unit In 0.45 % NaCl 1 250ml.bag @ 12 UNITS/KG/HR 7.076 mls/hr IV .Q24H [facility] Rx#: [id number] Other: Weight 58.967 kg 05/23/24 18:41 05/23/24 18:41
[2024-05-24 10:34] LABS: Platelet Count 213 X 10*3/uL (140-440)
[2024-05-24] MEDS: METOPROLOL TARTRATE 12.5 MG TAB PO SCH (10:53)
[2024-05-24] MEDS: KETOROLAC 15 MG/ML 1 ML VIAL IVP STA (12:48)
[2024-05-24] MEDS: lisinopriL 10 MG TAB PO SCH (12:51)
[2024-05-24] MEDS: CLOPIDOGREL 75 MG TAB PO SCH (12:51)
[2024-05-24] MEDS: ATORVASTATIN 40 MG TAB PO SCH (12:51)
[2024-05-24 14:59] VITALS: RESP 18
[2024-05-24 17:33] VITALS: BP 163/95; PULSE 59
--- NOTE | 2024-05-29 00:50 | P.HPIM ---
History of Present Illness H&P Date: 05/24/24 Chief Complaint: Chest pain Patient is a 68-year-old male with a past medical history of hypertension, GERD, COPD, history of [place], history of Takotsubo syndrome recently and CHF with mildly reduced EF 45%, and prior history of cardiac catheterization and smoking presents to ER with complaints of chest discomfort. Patient started having symptoms 3 hours prior to coming to ER while walking around his house. Patient states that he he had of fall few days ago. Chest discomfort was 8 out of 10 in severity. [place] like tightness in the chest. Has exertional shortness of br eath. No nausea vomiting or diaphoresis. No leg swelling. Denies any dizziness or lightheadedness. Chest x-ray showed suspicious for right suprahilar consolidation. EKG showed sinus rhythm. Laboratory data showed WBC 5.8 hemoglobin 12.8 and platelets 14.1, D-dimer 0.27 Sodium 137 potassium 4.1 chloride 107 bicarbonate 25 BUN 24 and creatinine 1.01 and blood sugar 89 liver Meghann not elevated. Troponin x 3 negative and albumin 4.2 and LDL 35.1. Review of Systems Constitutional: Patient denies any fever or chills . No generalized weakness or weight loss. Abdomen: Patient denied nausea vomiting and diarrhea and abdominal pain. Cardiovascular: Patient does complain of chest pain. No associated short of breath no palpitations. No leg swelling Respiratory: patient denied any cough or sputum production. No shortness of breath Neurologic: Patient denied any numbness or tingling. no headache. Musculoskeletal: Patient denies any complaints of joint swelling or deformity. Skin: Negative Psychiatric: Negative Endocrine: No heat or cold intolerance. No recent weight gain. Genitourinary: No dysuria or hematuria. 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 , pt thinks he had heart cath with balloon dilation. Past Anesthesia/Blood Transfusion Reactions: No Reported Reaction Date of Last Stent Placement:: unknown Past Psychological History: No Psychological Hx Reported Smoking Status: Former smoker Past Alcohol Use History: None Reported Past Drug Use History: None Reported - Past Family History Mother Family Medical History: Cancer, Diabetes Mellitus Father Family Medical History: Cancer, Diabetes Mellitus Medications and Allergies Home Medications Medication Instructions Recorded Confirmed Type lisinopriL [Zestril] 10 mg PO DAILY 30 Days #30 tab 04/13/23 05/24/24 Rx Nicotine 21Mg/24Hr Patch [Habitrol] 1 patch TRANSDERM DAILY 04/10/24 05/24/24 History Aspirin 81 mg PO DAILY tab 04/12/24 05/24/24 Rx Atorvastatin [Lipitor] 40 mg PO DAILY #90 tab 04/12/24 05/24/24 Rx Clopidogrel [Plavix] 75 mg PO DAILY #90 tab 04/12/24 05/24/24 Rx Metoprolol Tartrate [Lopressor] 12.5 mg PO BID 05/24/24 05/24/24 History Nitroglycerin Sl Tabs [Nitrostat] 0.4 mg SL Q5M PRN 05/24/24 05/24/24 History Allergies Allergy/AdvReac Type Severity Reaction Status Date / Time No Known Allergies Allergy Verified 05/24/24 10:21 Physical Exam Vitals: Vital Signs Temp Pulse Resp BP Pulse Ox 05/24/24 08:00 54 L 18 146/81 96 05/24/24 05:34 45 L 15 109/61 96 05/24/24 04:30 47 L 19 143/89 95 05/24/24 03:15 97.7 F 50 L 18 143/84 96 05/24/24 02:46 45 L 18 158/96 97 05/24/24 01:13 45 L 18 138/70 96 05/24/24 00:10 43 L 18 140/70 97 05/23/24 21:28 40 L 18 161/98 97 05/23/24 20:07 42 L 18 150/80 98 05/23/24 19:36 45 L 18 160/80 97 05/23/24 19:00 50 L 18 150/85 97 05/23/24 18:19 46 L 18 155/91 05/23/24 17:50 97.7 F 54 L 16 97 Intake and Output 05/23/24 05/24/24 05/24/24 22:59 06:59 14:59 Intake Total 18.162 0 32.311 Balance 18.162 0 32.311 Intake: Intake, IV Titration 18.162 0 32.311 Amount Heparin Sod,Pork in 0.45% 18.162 0 32.311 NaCl 25,000 unit In 0.45 % NaCl 1 250ml.bag @ 12 UNITS/KG/HR 7.076 mls/hr IV .Q24H [facility] Rx#: [id number] Other: Weight 58.967 kg PHYSICAL EXAMINATION: Patient is lying in the bed comfortably, no acute distress, awake alert and oriented.. HEENT: Normocephalic. Neck is supple. Pupils reactive. Nostrils clear. Oral cavity is moist. Neck reveals no JVD, carotid bruits, or thyromegaly. CHEST EXAMINATION: Trachea is central. Symmetrical expansion. Chest wall tenderness with deep palpation. Lung [place] clear to auscultation and percussion. CARDIAC: Normal S1, S2 with no gallops. No murmurs ABDOMEN: Soft. Bowel sounds normal. No organomegaly. No abdominal bruits. Extremities: reveal no edema. No clubbing or cyanosis Neurologically awake, alert, oriented x3 with well-coordinated movements. No focal deficits noted Skin: No rash or skin lesions. Psychiatric: Coperative. Nonsuicidal Musculoskeletal: No joint swelling or deformity. Normal range of motion. Results CBC & Chem 7: 05/24/24 06:45 05/23/24 18:41 Labs: Abnormal Lab Results - Last 24 Hours (Table) 05/23/24 05/23/24 05/23/24 Range/Units 18:41 18:41 20:27 RBC 4.03 L (4.30-5.90) m/uL Hgb 12.8 L (13.0-17.5) gm/dL Hct 38.1 L (39.0-53.0) % APTT >200.0 H* (22.0-30.0) sec BUN 24 H (9-20) mg/dL Total Protein 6.2 L (6.3-8.2) g/dL 05/24/24 Range/Units 06:45 RBC (4.30-5.90) m/uL Hgb (13.0-17.5) gm/dL Hct (39.0-53.0) % APTT 32.1 H (22.0-30.0) sec BUN (9-20) mg/dL Total Protein (6.3-8.2) g/dL Thrombosis Risk Factor Assmnt - DVT/VTE Prophylaxis DVT/VTE Prophylaxis: Pharmacologic Prophylaxis ordered Assessment and Plan Assessment: Chest pain/chest pressure. Ruled out ACS. Chest pain is likely musculoskeletal which is reproducible with deep palpation. History of Takotsubo syndrome Nonobstructive coronary disease Chronic CHF with systolic dysfunction EF 45% GERD History of [place] Prior history of smoking DVT prophylaxis with heparin subcu Plan: Patient will be continued on telemonitoring. Serial EKG and troponin x 3 ne gative. D-dimer is not elevated. Chest pain is reproducible. Patient will be given a dose of Toradol and continue to monitor. Patient was started back on home medications. 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 Anticipate discharge once pain is improved. Time with Patient: Greater than 30
--- NOTE | 2024-05-29 00:52 | P.DS ---
Providers Date of admission: 05/23/24 19:50 Expected date of discharge: 05/24/24 Attending physician: Kayden Méndez Consults: 05/23/24 19:49 Consult Physician Urgent Consulting Provider: Doc Gimenez Consult Reason/Comments: ua Do you want consulting provider notified?: Yes Primary care physician: [facility] Course: Discharge diagnosis Chest pain/chest pressure. Ruled out ACS. Chest pain is likely musculoskeletal which is reproducible with deep palpation. History of Takotsubo syndrome Nonobstructive coronary disease Chronic CHF with systolic dysfunction EF 45% GERD History of [place] Prior history of smoking DVT prophylaxis with heparin subcu Hospital course Patient is a 68-year-old male with a past medical history of hypertension, GERD, COPD, history of [place], history of Takotsubo syndrome recently and CHF with mildly reduced EF 45%, and prior history of cardiac catheterization and smoking presents to ER with complaints of chest discomfort. Patient started having symptoms 3 hours prior to coming to ER while walking around his house. Patient states that he he had of fall few days ago. Chest discomfort was 8 out of 10 in severity. [place] like tightness in the chest. Has exertional shortness of breath. No nausea vomiting or diaphoresis. No leg swelling. Denies any dizziness or lightheadedness. Chest x-ray showed suspicious for right suprahilar consolidation. EKG showed sinus rhythm. Laboratory data showed WBC 5.8 hemoglobin 12.8 and platelets 14.1, D-dimer 0.27 Sodium 137 potassium 4.1 chloride 107 bicarbonate 25 BUN 24 and creatinine 1.01 and blood sugar 89 liver Meghann not elevated. Troponin x 3 negative and albumin 4.2 and LDL 35.1. Patient was continued on telemonitoring. Serial EKG and troponin x 3 negative. D-dimer is not elevated. Chest pain is reproducible. Patient was given a dose of Toradol and continue to monitor. Patient was started back on home medications. Patient was started back on home medications including aspirin, Plavix, statins and lisinopril and metoprolol. 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 Patient did improve symptomatically and currently denies any active chest pain or shortness of breath. Patient is being discharged home. Discharge physical examination was done and vitals reviewed. Patient Condition at Discharge: Stable Plan - Discharge Summary New Discharge Prescriptions: Continue Clopidogrel [Plavix] 75 mg PO DAILY #90 tab lisinopriL [Zestril] 10 mg PO DAILY 30 Days #30 tab Nicotine 21Mg/24Hr Patch [Habitrol] 1 patch TRANSDERM DAILY Aspirin 81 mg PO DAILY tab Atorvastatin [Lipitor] 40 mg PO DAILY #90 tab Metoprolol Tartrate [Lopressor] 12.5 mg PO BID Nitroglycerin Sl Tabs [Nitrostat] 0.4 mg SL Q5M PRN PRN Reason: Chest Pain Discharge Medication List lisinopriL [Zestril] 10 mg PO DAILY 30 Days #30 tab 04/13/23 [Rx] Nicotine 21Mg/24Hr Patch [Habitrol] 1 patch TRANSDERM DAILY 04/10/24 [History] Aspirin 81 mg PO DAILY tab 04/12/24 [Rx] Atorvastatin [Lipitor] 40 mg PO DAILY #90 tab 04/12/24 [Rx] Clopidogrel [Plavix] 75 mg PO DAILY #90 tab 04/12/24 [Rx] Metoprolol Tartrate [Lopressor] 12.5 mg PO BID 05/24/24 [History] Nitroglycerin Sl Tabs [Nitrostat] 0.4 mg SL Q5M PRN 05/24/24 [History] Follow up Appointment(s)/Referral(s): Lillie Richards MD [Primary Care Provider] - 1-2 days Discharge Disposition: HOME SELF-CARE
== END 2024-05-24 17:30 | disposition home or self-care (01) ==
LOC: EC 17:29 → 6NMEDSUR 19:50
PROVIDERS: ADMIT Internal Medicine; ATTEND Internal Medicine
DX: R07.89 Other chest pain (principal); I25.10 Atherosclerotic heart disease of native coronary artery without angina pectoris; R94.31 Abnormal electrocardiogram [ECG] [EKG]; R00.1 Bradycardia, unspecified; I11.0 Hypertensive heart disease with heart failure; I50.22 Chronic systolic (congestive) heart failure; K21.9 Gastro-esophageal reflux disease without esophagitis; I25.2 Old myocardial infarction; Z79.82 Long term (current) use of aspirin; Z79.02 Long term (current) use of antithrombotics/antiplatelets; Z79.899 Other long term (current) drug therapy; Z87.891 Personal history of nicotine dependence; Z86.79 Personal history of other diseases of the circulatory system
CPT/HCPCS: 96376 ×2; 96365; 96366 ×2; 99291; 36415; 93005 ×2; 85379; 80061; 80053; 83735; 84484 ×2; 85025; 85049; 85610; 85730 ×2; 71046; G0378 ×2; J1644 ×3

== ENCOUNTER → 2024-07-17 | Outpatient (CLI) | payer MEDICARE, OTHER ==
[2024-07-17 09:27] LABS: African American GFR (CKD) 82 (>60 ml/min/1.73 sqM); Blood Urea Nitrogen 25 mg/dL (9-20); Non-African American GFR(CKD) 71 (>60 ml/min/1.73 sqM)
--- NOTE | 2024-07-17 11:19 | CT ---
EXAMINATION TYPE: CT chest w con DATE OF EXAM: 07/17/2024 COMPARISON: 02/04/2024 HISTORY: pulmonary nodule CT DLP: 374 mGycm, Automated exposure control for dose reduction was used. CONTRAST: Performed injected with 100 mL of Isovue 300. TECHNIQUE: Axial images were obtained at 5 mm thick sections. Reconstructed images are reviewed on [facility] computer in the coronal plane. FINDINGS: Portion of the thyroid visualized is normal. Some vague infiltrate is in the periphery of the right lower lung field, example on series 4 image 56 , this is new from comparison. Previous posterior lateral right apical nodule is less distinct on the current examination. Right hilar node may be somewhat prominent measuring 1.2 cm. This may have been present previously. T ascending aorta diameter at the level of the main pulmonary artery is 3.7 cm. The main pulmonary artery diameter at the bifurcation is 2.[address] sections are obtained through the upper abdomen. Abdomen is essentially unremarkable. IMPRESSION: 1. No suspicious nodules CT chest. Previous nodules less distinct on the current examination. 2. There is a new infiltrate lateral right lung base. Continued follow-up CT chest 6 months recommend ed. [facility], , 07/17/2024 11:17 AM
== END | disposition home or self-care (01) ==
LOC: RADCTMAIN 08:27
PROVIDERS: ATTEND Internal Medicine Critical Care Medicine
DX: R91.8 Other nonspecific abnormal finding of lung field (principal)
CPT/HCPCS: 36415; 71260; 82565; 84520

== ENCOUNTER 2024-08-16 13:35 | Inpatient (IN) | payer MEDICARE, OTHER ==
[2024-08-16 14:19] LABS: Basophils # (A) 0.1 k/uL (0-0.2); Basophils % (A) 1 %; Eosinophils # (A) 0.3 k/uL (0-0.7); Eosinophils % (A) 6 %; HCT 44.3 % (39.0-53.0); HGB 14.7 gm/dL (13.0-17.5); Lymphocytes # (A) 1.4 k/uL (1.0-4.8); Lymphocytes % (A) 23 %; MCH 30.7 pg (25.0-35.0); MCHC 33.3 g/dL (31.0-37.0); MCV 92.1 fL (80.0-100.0); Mean Platelet Volume 7.6; Monocytes # (A) 0.6 k/uL (0-1.0); Monocytes % (A) 10 %; Neutrophils # (A) 3.4 k/uL (1.3-7.7); Neutrophils % (A) 57 %; Platelet Count 258 k/uL (150-450); RBC 4.81 m/uL (4.30-5.90); RDW 13.4 % (11.5-15.5); WBC 5.9 k/uL (3.8-10.6)
[2024-08-16 14:33] LABS: INR 0.9 (<1.2); Partial Thromboplastin Time 26.7 sec (22.0-30.0); Prothrombin Time 10.5 sec (10.0-12.5)
[2024-08-16 14:35] LABS: ALT 28 U/L (4-49); AST 29 U/L (17-59); African American GFR (CKD) 86 (>60 ml/min/1.73 sqM); Albumin 4.6 g/dL (3.5-5.0); Alkaline Phosphatase 162 U/L (38-126); Anion Gap 8 mmol/L; Blood Urea Nitrogen 27 mg/dL (9-20); Calcium 9.8 mg/dL (8.4-10.2); Carbon Dioxide 27 mmol/L (22-30); Chloride 103 mmol/L (98-107); Glucose 149 mg/dL (74-99); Lipase 145 U/L (23-300); Non-African American GFR(CKD) 74 (>60 ml/min/1.73 sqM); Potassium 4.5 mmol/L (3.5-5.1); Sodium 138 mmol/L (137-145); Total Bilirubin 0.7 mg/dL (0.2-1.3); Total Protein 6.9 g/dL (6.3-8.2)
[2024-08-16 14:43] LABS: NT-Pro-B-Type Natriuretic Pept 91 pg/mL
--- NOTE | 2024-08-16 14:45 | XR ---
EXAMINATION TYPE: XR chest 2V DATE OF EXAM: 08/16/2024 2:30 PM CLINICAL INDICATION: Male, 69 years old with history of Chest Pain; H COMPARISON: Chest radiographs from 05/23/2024 TECHNIQUE: XR chest 2V Frontal view of the chest. FINDINGS: Lungs/Pleura: There is flattening of the diaphragm with increased lucency of the lungs. No evidence o f pneumothorax, pleural effusion or focal consolidation. Pulmonary vascularity: Unremarkable. Heart/mediastinum: Cardiomediastinal silhouette is unremarkable. Musculoskeletal: No acute osseous pathology. IMPRESSION: 1. No acute cardiopulmonary disease process. 2. COPD changes. [facility], , 08/16/2024 2:43 PM
[2024-08-16] MEDS: MORPHINE SULFATE 4 MG/ML SYRINGE IVP STA (15:00)
--- NOTE | 2024-08-16 16:23 | ED ---
General Adult HPI - General Chief complaint: Chest Pain Stated complaint: chest pain Time Seen by Provider: 08/16/24 13:40 Source: EMS Mode of arrival: EMS Limitations: no limitations - History of Present Illness Initial comments: 69-year-old male with past medical history of coronary artery disease who presents to the emergency department with chest pain. States it started just prior to hospital arrival. Describes it as a sharp pressure over the left side of his chest. Admits to associated shortness of breath. Pain is 10 out of 10. No ripping or tearing sensation to his back. He admits nausea without vomiting. Admits diaphoresis. States he started taking one of his breathing treatments at home and then immediately called EMS. Patient is a poor historian. No family at bedside available to assist with history - Related Data Home Medications Medication Instructions Recorded Confirmed Nicotine 21Mg/24Hr Patch [Habitrol] 1 patch TRANSDERM DAILY 04/10/24 08/16/24 Metoprolol Tartrate [Lopressor] 12.5 mg PO DAILY 05/24/24 08/16/24 Nitroglycerin Sl Tabs [Nitrostat] 0.4 mg SL Q5M PRN 05/24/24 08/16/24 Tamsulosin [Flomax] 0.4 mg PO DAILY 08/16/24 08/16/24 Vitamin D3(Unknown Dose) 1 tab PO DAILY 08/16/24 08/16/24 Previous Rx's Medication Instructions Recorded lisinopriL [Zestril] 10 mg PO DAILY 30 Days #30 tab 04/13/23 Aspirin 81 mg PO DAILY tab 04/12/24 Atorvastatin [Lipitor] 40 mg PO DAILY #90 tab 04/12/24 Clopidogrel [Plavix] 75 mg PO DAILY #90 tab 04/12/24 Allergies Allergy/AdvReac Type Severity Reaction Status Date / Time No Known Allergies Allergy Verified 08/16/24 17:52 Review of Systems ROS Statement: Those systems with pertinent positive or pertinent negative responses have been documented in the HPI. ROS Other: All systems not noted in ROS Statement are negative. 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 , pt thinks he had heart cath with balloon dilation. Past Anesthesia/Blood Transfusion Reactions: No Reported Reaction Date of Last Stent Placement:: unknown Past Psychological History: No Psychological Hx Reported Smoking Status: Former smoker Past Alcohol Use History: None Reported Past Drug Use History: None Reported - Past Family History Mother Family Medical History: Cancer, Diabetes Mellitus Father Family Medical History: Cancer, Diabetes Mellitus General Exam Limitations: no limitations General appearance: alert, in no apparent distress Head exam: Present: atraumatic, normocephalic, normal inspection Eye exam: Present: normal appearance, PERRL, EOMI. Absent: scleral icterus, conjunctival injection, periorbital swelling ENT exam: Present: normal exam, mucous membranes moist Neck exam: Present: normal inspection. Absent: tenderness, meningismus, lymphadenopathy Respiratory exam: Present: normal lung sounds bilaterally. Absent: respiratory distress, wheezes, rales, rhonchi, stridor Cardiovascular Exam: Present: regular rate, normal rhythm, normal heart sounds. Absent: systolic murmur, diastolic murmur, rubs, gallop, clicks GI/Abdominal exam: Present: soft, normal bowel sounds. Absent: distended, tenderness, guarding, rebound, rigid Extremities exam: Present: normal inspection, full ROM, normal capillary refill. Absent: tenderness, pedal edema, joint swelling, calf tenderness Back exam: Present: normal inspection Neurological exam: Present: alert, oriented X3, CN II-XII intact Psychiatric exam: Present: normal affect, normal mood Skin exam: Present: warm, dry, intact, normal color. Absent: rash Course Vital Signs 08/16/24 08/16/24 08/16/24 13:36 13:42 14:58 Temperature 98.4 F 97.6 F Pulse Rate 58 L 60 Pulse Rate [ 56 L Pulse Oximetery ] Respiratory 18 18 Rate Blood Pressure 103/68 138/78 O2 Sat by Pulse 99 96 Oximetry 08/16/24 08/16/24 08/16/24 18:04 19:39 20:09 Temperature 97.7 F 98.5 F Pulse Rate 56 L 58 L 55 L Pulse Rate [ Pulse Oximetery ] Respiratory 18 18 18 Rate Blood Pressure 160/71 167/85 O2 Sat by Pulse 99 97 96 Oximetry Medical Decision Making - Medical Decision Making Was pt. sent in by a medical professional or institution (, [place], ELECTRONIC DEVELOPMENT TECHNICIAN, urgent care, hospital, or detention...) When possible be specific @ -No Did you speak to anyone other than the patient for history (EMS, parent, family, police, friend...)? What history was obtained from this source @ -Spoke with EMS for history Did you review nursing and triage notes (agree or disagree)? Why? @ -I reviewed and agree with nursing and triage notes Were old charts reviewed (outside hosp., previous admission, EMS record, old EKG, old radiological studies, urgent care reports/EKG's, detention records)? Report findings @ -No old charts were reviewed Differential Diagnosis (chest pain, altered mental status, abdominal pain women, abdominal pain men, vaginal bleeding, weakness, fever, dyspnea, syncope, headache, dizziness, GI bleed, back pain, seizure, CVA, palpatations, mental health, musculoskeletal)? @ -Differential Chest Pain: Stable Angina, Unstable Angina, STEMI, NSTEMI Aortic Dissection, Pneumothorax, Musculoskeletal, Esophageal Spasm GERD, Cholecystitis, Pancreatitis, Zoster, this is not meant to be an all-inclusive list. EKG interpreted by me (3pts min.). @ -Yes and demonstrates sinus bradycardia with a rate of 56. IL interval 154. QRS 102. QTc of 424. Peaked T waves the 3V4. No acute ST segment elevation X-rays interpreted by me (1pt min.). @ -Yes and demonstrates no acute process CT interpreted by me (1pt min.). @ -None done U/S interpreted by me (1pt. min.). @ -None done What testing was considered but not performed or refused? (CT, X-rays, U/S, labs)? Why? @ -None What meds were considered but not given or refused? Why? @ -None Did you discuss the management of the patient with other professionals (professionals i.e. , [place], ELECTRONIC DEVELOPMENT TECHNICIAN, lab, RT, psych nurse, social insurance specialist, hardware press operator, teacher, facilities officer, spring encaser)? Give summary @ -Discussed the case with Dr. Devi who agreed to admit the patient Was smoking cessation discussed for >3mins.? @ -No Was critical care preformed (if so, how long)? @ -No Were there social determinants of health that impacted care today? How? (Homelessness, low income, unemployed, alcoholism, drug addiction, transportation, low edu. Level, literacy, decrease access to med. care, care home, rehab)? @ -No Was there de-escalation of care discussed even if they declined (Discuss DNR or withdrawal of care, Hospice)? DNR status @ -No What co-morbidities impacted this encounter? (DM, HTN, Smoking, COPD, CAD, Cancer, CVA, ARF, Chemo, Hep., AIDS, mental health diagnosis, sleep apnea, morbid obesity)? @ -Coronary artery disease Was patient admitted / discharged? Hospital course, mention meds given and route, prescriptions, significant lab abnormalities, going to OR and other per tinent info. @ -Upon arrival patient seen and evaluated in [place] [facility]. Thorough history and physical exam was performed. Twelve-lead EKG is obtained. Laboratory studies are conducted. Chest x-ray was performed. I did recommend admission as patient does have a history of coronary disease. Spoke with Dr. Devi for the admission Undiagnosed new problem with uncertain prognosis? @ -No Drug Therapy requiring intensive monitoring for toxicity (Heparin, Nitro, Insulin, Cardizem)? @ -No Were any procedures done? @ -No Diagnosis/symptom? @ -Acute chest pain, possible ACS Acute, or Chronic, or Acute on Chronic? @ -Acute Uncomplicated (without systemic symptoms) or Complicated (systemic symptoms)? @ -Complicated Side effects of treatment? @ -No Exacerbation, Progression, or Severe Exacerbation? @ -No Poses a threat to life or bodily function? How? (Chest pain, [place], NH, pneumonia, PE, COPD, DKA, ARF, appy, cholecystitis, CVA, Diverticulitis, Homicidal, Suicidal, threat to staff... and all critical care pts) @ -No - Lab Data Result diagrams: 08/18/24 05:21 08/17/24 13:16 Lab Results 08/16/24 08/16/24 08/16/24 Range/Units 14:05 14:05 14:05 WBC 5.9 (3.8-10.6) k/uL RBC 4.81 (4.30-5.90) m/uL Hgb 14.7 (13.0-17.5) gm/dL Hct 44.3 (39.0-53.0) % MCV 92.1 (80.0-100.0) fL MCH 30.7 (25.0-35.0) pg MCHC 33.3 (31.0-37.0) g/dL RDW 13.4 (11.5-15.5) % Plt Count 258 (150-450) k/uL MPV 7.6 Immature Gran % (Auto) % Absolute Nucleated RBC % Neutrophils % 57 % Lymphocytes % 23 % Monocytes % 10 % Eosinophils % 6 % Basophils % 1 % Immature Gran # (0.00-0.04) X 10*3/uL Neutrophils # 3.4 (1.3-7.7) k/uL Lymphocytes # 1.4 (1.0-4.8) k/uL Monocytes # 0.6 (0-1.0) k/uL Eosinophils # 0.3 (0-0.7) k/uL Basophils # 0.1 (0-0.2) k/uL NRBC/100 WBC Diff (0.00-0.01) X 10*3/uL PT 10.5 (10.0-12.5) sec INR 0.9 (<1.2) APTT 26.7 (22.0-30.0) sec D-Dimer (<0.60) mg/L FEU Sodium 138 (137-145) mmol/L Potassium 4.5 (3.5-5.1) mmol/L Chloride 103 (98-107) mmol/L Carbon Dioxide 27 (22-30) mmol/L Anion Gap 8 mmol/L BUN 27 H (9-20) mg/dL Creatinine 1.04 (0.66-1.25) mg/dL Est GFR (CKD-EPI) (>=60) Est GFR (CKD-EPI)AfAm 86 (>60 ml/min/1.73 sqM) Est GFR (CKD-EPI)NonAf 74 (>60 ml/min/1.73 sqM) BUN/Creatinine Ratio (12.00-20.00) Ratio Glucose 149 H (74-99) mg/dL Calcium 9.8 (8.4-10.2) mg/dL Magnesium 2.0 (1.6-2.3) mg/dL Total Bilirubin 0.7 (0.2-1.3) mg/dL AST 29 (17-59) U/L ALT 28 (4-49) U/L Alkaline Phosphatase 162 H (38-126) U/L Troponin I (0.000-0.034) ng/mL NT-Pro-B Natriuret Pep 91 pg/mL Total Protein 6.9 (6.3-8.2) g/dL Albumin 4.6 (3.5-5.0) g/dL Lipase 145 (23-300) U/L 08/16/24 08/16/24 08/16/24 Range/Units 14:05 14:39 20:01 WBC (3.8-10.6) k/uL RBC (4.30-5.90) m/uL Hgb (13.0-17.5) gm/dL Hct (39.0-53.0) % MCV (80.0-100.0) fL MCH (25.0-35.0) pg MCHC (31.0-37.0) g/dL RDW (11.5-15.5) % Plt Count (150-450) k/uL MPV Immature Gran % (Auto) % Absolute Nucleated RBC % Neutrophils % % Lymphocytes % % Monocytes % % Eosinophils % % Basophils % % Immature Gran # (0.00-0.04) X 10*3/uL Neutrophils # (1.3-7.7) k/uL Lymphocytes # (1.0-4.8) k/uL Monocytes # (0-1.0) k/uL Eosinophils # (0-0.7) k/uL Basophils # (0-0.2) k/uL NRBC/100 WBC Diff (0.00-0.01) X 10*3/uL PT (10.0-12.5) sec INR (<1.2) APTT (22.0-30.0) sec D-Dimer 0.33 (<0.60) mg/L FEU Sodium (137-145) mmol/L Potassium (3.5-5.1) mmol/L Chloride (98-107) mmol/L Carbon Dioxide (22-30) mmol/L Anion Gap mmol/L BUN (9-20) mg/dL Creatinine (0.66-1.25) mg/dL Est GFR (CKD-EPI) (>=60) Est GFR (CKD-EPI)AfAm (>60 ml/min/1.73 sqM) Est GFR (CKD-EPI)NonAf (>60 ml/min/1.73 sqM) BUN/Creatinine Ratio (12.00-20.00) Ratio Glucose (74-99) mg/dL Calcium (8.4-10.2) mg/dL Magnesium (1.6-2.3) mg/dL Total Bilirubin (0.2-1.3) mg/dL AST (17-59) U/L ALT (4-49) U/L Alkaline Phosphatase (38-126) U/L Troponin I <0.012 1.050 H* (0.000-0.034) ng/mL NT-Pro-B Natriuret Pep pg/mL Total Protein (6.3-8.2) g/dL Albumin (3.5-5.0) g/dL Lipase (23-300) U/L 08/17/24 08/17/24 08/17/24 Range/Units 00:03 04:15 04:15 WBC 5.55 (3.8-10.6) k/uL RBC 4.35 L (4.30-5.90) m/uL Hgb 13.4 (13.0-17.5) gm/dL Hct 41.0 (39.0-53.0) % MCV 94.3 (80.0-100.0) fL MCH 30.8 (25.0-35.0) pg MCHC 32.7 (31.0-37.0) g/dL RDW 12.7 (11.5-15.5) % Plt Count 231 (150-450) k/uL MPV 9.8 Immature Gran % (Auto) 0.40 % Absolute Nucleated RBC 0 % Neutrophils % 50.0 % Lymphocytes % 31.0 % Monocytes % 11.0 % Eosinophils % 6.7 % Basophils % 0.9 % Immature Gran # 0.02 (0.00-0.04) X 10*3/uL Neutrophils # 2.78 (1.3-7.7) k/uL Lymphocytes # 1.72 (1.0-4.8) k/uL Monocytes # 0.61 (0-1.0) k/uL Eosinophils # 0.37 H (0-0.7) k/uL Basophils # 0.05 (0-0.2) k/uL NRBC/100 WBC Diff 0 (0.00-0.01) X 10*3/uL PT (10.0-12.5) sec INR (<1.2) APTT (22.0-30.0) sec D-Dimer (<0.60) mg/L FEU Sodium 139 (137-145) mmol/L Potassium 4.2 (3.5-5.1) mmol/L Chloride 103 (98-107) mmol/L Carbon Dioxide 26.5 (22-30) mmol/L Anion Gap 9.50 mmol/L BUN 18.4 (9-20) mg/dL Creatinine 1.0 (0.66-1.25) mg/dL Est GFR (CKD-EPI) 82 (>=60) Est GFR (CKD-EPI)AfAm (>60 ml/min/1.73 sqM) Est GFR (CKD-EPI)NonAf (>60 ml/min/1.73 sqM) BUN/Creatinine Ratio 18.40 (12.00-20.00) Ratio Glucose 100 (74-99) mg/dL Calcium 9.4 (8.4-10.2) mg/dL Magnesium (1.6-2.3) mg/dL Total Bilirubin (0.2-1.3) mg/dL AST (17-59) U/L ALT (4-49) U/L Alkaline Phosphatase (38-126) U/L Troponin I 1.040 H* (0.000-0.034) ng/mL NT-Pro-B Natriuret Pep pg/mL Total Protein (6.3-8.2) g/dL Albumin (3.5-5.0) g/dL Lipase (23-300) U/L 08/17/24 Range/Units 04:15 WBC (3.8-10.6) k/uL RBC (4.30-5.90) m/uL Hgb (13.0-17.5) gm/dL Hct (39.0-53.0) % MCV (80.0-100.0) fL MCH (25.0-35.0) pg MCHC (31.0-37.0) g/dL RDW (11.5-15.5) % Plt Count (150-450) k/uL MPV Immature Gran % (Auto) % Absolute Nucleated RBC % Neutrophils % % Lymphocytes % % Monocytes % % Eosinophils % % Basophils % % Immature Gran # (0.00-0.04) X 10*3/uL Neutrophils # (1.3-7.7) k/uL Lymphocytes # (1.0-4.8) k/uL Monocytes # (0-1.0) k/uL Eosinophils # (0-0.7) k/uL Basophils # (0-0.2) k/uL NRBC/100 WBC Diff (0.00-0.01) X 10*3/uL PT (10.0-12.5) sec INR (<1.2) APTT 53.6 H (22.0-30.0) sec D-Dimer (<0.60) mg/L FEU Sodium (137-145) mmol/L Potassium (3.5-5.1) mmol/L Chloride (98-107) mmol/L Carbon Dioxide (22-30) mmol/L Anion Gap mmol/L BUN (9-20) mg/dL Creatinine (0.66-1.25) mg/dL Est GFR (CKD-EPI) (>=60) Est GFR (CKD-EPI)AfAm (>60 ml/min/1.73 sqM) Est GFR (CKD-EPI)NonAf (>60 ml/min/1.73 sqM) BUN/Creatinine Ratio (12.00-20.00) Ratio Glucose (74-99) mg/dL Calcium (8.4-10.2) mg/dL Magnesium (1.6-2.3) mg/dL Total Bilirubin (0.2-1.3) mg/dL AST (17-59) U/L ALT (4-49) U/L Alkaline Phosphatase (38-126) U/L Troponin I (0.000-0.034) ng/mL NT-Pro-B Natriuret Pep pg/mL Total Protein (6.3-8.2) g/dL Albumin (3.5-5.0) g/dL Lipase (23-300) U/L Disposition Clinical Impression: Chest pain Disposition: ADMITTED IP TO THIS HOSP Condition: Stable Is patient prescribed a controlled substance at d/c from ED?: No Time of Disposition: 19:11 Decision to Admit Reason: Admit from EC Decision Date: 08/16/24 Decision Time: 19:11
[2024-08-16] MEDS ORDERED: NALOXONE 0.4 MG/ML 1 ML VIAL IV PRN (19:12)
[2024-08-16] MEDS: ASPIRIN 81 MG PO STA (19:45)
[2024-08-16] MEDS ORDERED: HEPARIN SODIUM 1,000 UN/ML (10ML VL) IV PRN (21:26)
[2024-08-16] MEDS: HEPARIN SOD,PORK IN 0.45% NACL 25,000 UNIT in 0.45% NACL 1 250ML.BAG IV SCH (21:50)
[2024-08-16] MEDS: HEPARIN SODIUM 1,000 UN/ML (10ML VL) IV ONE (21:50)
[2024-08-16] MEDS: NITROGLYCERIN-D5W PMX 50 MG in DEXTROSE/WATER 1 250ML.BAG IV SCH (22:55)
[2024-08-17] MEDS: MORPHINE SULFATE 4 MG/ML SYRINGE IVP STA (08:08)
[2024-08-17 08:26] LABS: Basophils # (A) 0.05 X 10*3/uL (0.00-0.10); Basophils % (A) 0.9 %; Eosinophils # (A) 0.37 X 10*3/uL (0.04-0.35); Eosinophils % (A) 6.7 %; HGB 13.4 g/dL (13.0-17.0); Lymphocytes # (A) 1.72 X 10*3/uL (0.90-5.00); MCH 30.8 pg (27.0-32.0); MCHC 32.7 g/dL (32.0-37.0); MCV 94.3 FL (80.0-97.0); Mean Platelet Volume 9.8 FL (9.5-12.2); Monocytes # (A) 0.61 X 10*3/uL (0.20-1.00); NRBC Per 100 WBC 0 X 10*3/uL (0.00-0.01); Neutrophils # (A) 2.78 X 10*3/uL (1.80-7.70); Platelet Count 231 X 10*3/uL (140-440); RBC 4.35 X 10*6/uL (4.40-5.60); RDW 12.7 % (11.5-14.5); WBC 5.55 X 10*3/uL (4.50-10.00)
[2024-08-17] MEDS: CLOPIDOGREL 75 MG TAB PO SCH (08:34)
[2024-08-17] MEDS: METOPROLOL TARTRATE 12.5 MG TAB PO SCH (08:34)
[2024-08-17] MEDS: NICOTINE 21MG/24HR PATCH TRANSDERM SCH (08:34)
[2024-08-17] MEDS: lisinopriL 10 MG TAB PO SCH (08:34)
[2024-08-17] MEDS: ATORVASTATIN 40 MG TAB PO SCH (08:34)
[2024-08-17] MEDS: ASPIRIN 81 MG PO SCH (08:34)
[2024-08-17 09:04] LABS: Blood Urea Nitrogen 18.4 mg/dL (9.0-27.0); Calcium 9.4 mg/dL (8.7-10.3); Carbon Dioxide 26.5 mmol/L (21.6-31.8); Chloride 103 mmol/L (96-109); Glucose 100 mg/dL (70-110); Potassium 4.2 mmol/L (3.5-5.5); Sodium 139 mmol/L (135-145)
[2024-08-17] MEDS ORDERED: ALPRAZolam 0.5 MG TAB PO PRN (09:07)
[2024-08-17] MEDS ORDERED: ALPRAZolam 0.25 MG TAB PO PRN (09:07)
[2024-08-17] MEDS ORDERED: NITROGLYCERIN SL TABS 0.4 MG TAB SUBLINGUAL PRN (09:07)
[2024-08-17] MEDS: ASPIRIN 325 MG TAB PO STA (09:55)
[2024-08-17] MEDS: SODIUM CHLORIDE 0.9% 1,000 ML IV SCH ×2 (10:34→14:14)
[2024-08-17] MEDS: ATORVASTATIN 40 MG TAB PO STA (10:39)
[2024-08-17] MEDS: ATORVASTATIN 80 MG TAB PO STA (11:49)
[2024-08-17 11:54] LABS: Glucose,Whole Blood 92 mg/dL (70-110)
[2024-08-17] MEDS: HEPARIN SODIUM,PORCINE (1 ML) 2,500 UNIT in SODIUM CHLORIDE 0.9% 250 ML IRRIGATION PRN (12:23)
[2024-08-17] MEDS: HEPARIN SODIUM,PORCINE 10,000 UNIT in SODIUM CHLORIDE 0.9% 1,000 ML IRRIGATION PRN (12:23)
[2024-08-17] MEDS: fentaNYL (PF) 50 MCG/1 ML VIAL IVP ONE (12:45)
[2024-08-17] MEDS: LIDOCAINE 1% INJ 10MG/ML (20 ML MDV) SQ ONE ×2 (12:47→12:48)
[2024-08-17] MEDS: VERAPAMIL SYRINGE (5 MG/10 ML) INTRAARTER ONE (12:48)
[2024-08-17] MEDS: MIDAZOLAM 2 MG/2 ML VIAL IVP ONE (12:48)
[2024-08-17] MEDS: HEPARIN SODIUM 1,000 UN/ML (10ML VL) IVP ONE (12:54)
[2024-08-17] MEDS: NITROGLYCERIN 1000MCG/10ML SYRINGE INTRAARTER ONE (12:54)
[2024-08-17] MEDS: IOPAMIDOL-370 100ML BTL INJ ONE (13:00)
[2024-08-17] MEDS ORDERED: RX INFO: IV CONTRAST WAS GIVEN 1 EACH MISC MISCELLANE PRN (13:10)
[2024-08-17] MEDS ORDERED: HEPARIN SODIUM 1,000 UN/ML (10ML VL) IV PRN (13:13)
--- NOTE | 2024-08-17 13:22 | P.CARDCATH ---
Date of Procedure: 08/17/24 Description of Procedure: Cardiac Catheterization: The patient is a 69-year-old male with known history of hyperlipidemia, hypertension who presented with symptoms of chest comfort, T wave inversion anteriorly with mild troponin elevation. He had similar presentation in March 2024 and at that time had no evidence of high-grade stenosis. He was evaluated today by Dr. Humphrey. Recommendations were made regarding cardiac catheterization, the risks and the complications were discussed with the patient who is in full understanding and agreement. Procedure Description: Patient was brought to [facility] house [facility] in fasting semi-sedated state after receiving Fentanyl and Benadryl achieiving moderate conscious sedated state. Using Xylocaine Anesthesia and modified Seldinger technique, a 6-[place] sheath was introduced in the right radial artery . Subsequently, selective coronary angiography was performed using a 6-[place] 3.5 CLS guiding catheter and 5 [place] 3.5 bend right Theresa catheter. Multiple views of the coronary artery including hemiaxial views were obtained. The right Theresa catheter was used to cross the aortic valve and LVEDP was calculated. Following that, catheter and sheath were removed. Hemostasis was obtained with deployment of vascular band . There was no immediate complication. Patient was returned to room in stable condition. Of note, the patient received a total of 5000 units of intravenous heparin as well as intra-arterial verapamil. Findings: Left main: This is a large size vessel, short, bifurcating into LAD and left circumflex, left main has no obstructive disease LAD: This is a large size vessel, reaching to the apex, giving rise to 3 diagonal branch. The proximal LAD has 20 to 30% plaque there is another 20 -30% plaque after the takeoff of the third diagonal branch the rest of the vessel has no high-grade stenosis. The first diagonal branch is a large branch and very proximal. Left circumflex: This is a large dominant vessel, bifurcating distally to PDA and PLV, giving rise to a large obtuse marginal branch proximally, the left circumflex and its branches have no obstructive disease RCA: This is a small nondominant vessel that has no evidence of high-grade stenosis Left Ventriculogram: Not performed Hemodynamics: There was no gradient across aortic valve, LVEDP was 10-14 mmHg Conclusion: 1. Mild disease in the LAD proximally and mid 2. No obstructive disease in the left circumflex and RCA 3. Left dominance 4. Normal LVEDP Recommendations: I have reviewed the findings with the patient. His presentation is similar to March 2024 and is highly suggestive of vasospastic disease. I will maximize his medical therapy with the addition of nitrate and calcium channel solitario. He will continue on aspirin and clopidogrel for now. I discussed with him the importance of smoking cessation and he will be referred to [place] quit line. He will continue aggressive coronary risks modification. The findings and the recommendations were discussed with the patient and the family and they were in full understanding and agreement. Duration of sedation is 12 minutes.
[2024-08-17 13:36] LABS: Basophils # (A) 0.1 k/uL (0-0.2); Basophils % (A) 1 %; Eosinophils # (A) 0.4 k/uL (0-0.7); Eosinophils % (A) 6 %; HCT 39.9 % (39.0-53.0); Lymphocytes # (A) 1.3 k/uL (1.0-4.8); Lymphocytes % (A) 22 %; MCH 30.7 pg (25.0-35.0); MCHC 32.7 g/dL (31.0-37.0); MCV 94.1 fL (80.0-100.0); Mean Platelet Volume 7.2; Monocytes # (A) 0.4 k/uL (0-1.0); Monocytes % (A) 7 %; Neutrophils # (A) 3.7 k/uL (1.3-7.7); Neutrophils % (A) 62 %; Platelet Count 232 k/uL (150-450); RBC 4.24 m/uL (4.30-5.90); RDW 13.4 % (11.5-15.5); WBC 5.9 k/uL (3.8-10.6)
--- NOTE | 2024-08-17 13:54 | P.CRDCN ---
History of Present Illness Consult date: 08/17/24 History of present illness: This is a 69-year-old male patient of Dr. Roy with past medical history of Takotsubo syndrome in March 2024, mild coronary artery disease in the LAD 30%, hypertension, hyperlipidemia, tobacco use and dependence, recently quit and on nicotine patch. We have been asked to evaluate the patient for chest pain. Patient gives history that he was out for dinner for his birthday came back home and was relaxing developed a headache and then developed chest pain and shortness of breath and called 911. He states the pain comes and goes and it hurts when he walks and when he takes a deep breath. He complains of cough and chills. Patient has been started on a heparin drip and nitroglycerin drip. Blood pressure 159/67, heart rate 66, pulse ox 98% on room air. Discussed with patient the recommendations for cardiac catheterization and he is in agreement to move forward. EKG: Sinus rhythm, T wave inversions Chest x-ray: No acute process. COPD changes. Laboratory studies: WBC 5.9, hemoglobin 13. Troponins 0.012, 1.05, 1.04. proBNP 91. Magnesium 2.0. Home cardiac medications: Aspirin 81 mg daily, atorvastatin 40 mg daily, Plavix 75 mg daily, lisinopril 10 mg daily, metoprolol tartrate 12.5 mg daily, also on nicotine patch. Echocardiogram performed 04/10/2024 revealed EF of 40 to 45% with mid ventricle and apical hypokinesia. Technically difficult study. Cardiac catheterization performed 04/10/2024 revealed borderline lesion in the mid LAD that improved after intracoronary IV nitroglycerin. No obstructive disease in the left circumflex and the right coronary artery. Left dominance. Moderately impaired left ventricular systolic function with segmental wall motion abnormality. The findings could be Takotsubo syndrome. Review Of Systems: At the time of my exam: CONSTITUTIONAL: Denies fever or chills. HEENT: Denies blurred vision, vision changes, or eye pain. Denies hemoptysis CARDIOVASCULAR: Denies chest pain. Denies orthopnea. Denies PND. Denies palpitations RESPIRATORY: Denies shortness of breath. GASTROINTESTINAL: Denies abdominal pain. Denies nausea or vomiting. HEMATOLOGIC: Denies bleeding disorders. GENITOURINARY: Denies any blood in urine. SKIN: Denies puritis. Denies rash. Physical examination: Gen: This is a 69-year-old male in no acute distress VS: reviewed HEENT: Head is atraumatic, normocephalic. Pupils equal, round. Sclerae is anicteric. NECK: Supple. No JVD. LUNGS: Clear to auscultation. No wheezes or rhonchi. No intercostal retractions. HEART: Regular rate and rhythm. ABDOMEN: Soft No tenderness. EXTREMITIES: No pedal edema. No calf tenderness. NEUROLOGICAL: Patient is awake, alert and oriented x3. Assessment: NSTEMI History of nonobstructive coronary artery disease Hypertension Hyperlipidemia Tobacco use and dependence Plan: Resume patient's home cardiac medications Schedule patient for cardiac catheterization today with Dr. Roy Continue patient on nitroglycerin drip and heparin drip Obtain 2-D echocardiogram and Doppler study to assess cardiac structure and f unction Smoking cessation. Patient will be provided the [employer] quit line information at discharge. Further recommendations to follow based upon clinical course Thank you kindly for this consultation. Nurse practitioner note has been reviewed, I agree with documented findings and plan of care. Patient was seen and examined. 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 , pt thinks he had heart cath with balloon dilation. Past Anesthesia/Blood Transfusion Reactions: No Reported Reaction Date of Last Stent Placement:: unknown Past Psychological History: No Psychological Hx Reported Smoking Status: Former smoker Past Alcohol Use History: None Reported Past Drug Use History: None Reported - Past Family History Mother Family Medical History: Cancer, Diabetes Mellitus Father Family Medical History: Cancer, Diabetes Mellitus Medications and Allergies Home Medications Medication Instructions Recorded Confirmed Type lisinopriL [Zestril] 10 mg PO DAILY 30 Days #30 tab 04/13/23 08/16/24 Rx Nicotine 21Mg/24Hr Patch [Habitrol] 1 patch TRANSDERM DAILY 04/10/24 08/16/24 History Aspirin 81 mg PO DAILY tab 04/12/24 08/16/24 Rx Atorvastatin [Lipitor] 40 mg PO DAILY #90 tab 04/12/24 08/16/24 Rx Clopidogrel [Plavix] 75 mg PO DAILY #90 tab 04/12/24 08/16/24 Rx Metoprolol Tartrate [Lopressor] 12.5 mg PO DAILY 05/24/24 08/16/24 History Nitroglycerin Sl Tabs [Nitrostat] 0.4 mg SL Q5M PRN 05/24/24 08/16/24 History Tamsulosin [Flomax] 0.4 mg PO DAILY 08/16/24 08/16/24 History Vitamin D3(Unknown Dose) 1 tab PO DAILY 08/16/24 08/16/24 History Allergies Allergy/AdvReac Type Severity Reaction Status Date / Time No Known Allergies Allergy Verified 08/16/24 17:52 Physical Exam Vitals: Vital Signs Temp Pulse Pulse Resp BP BP Pulse Ox 08/17/24 04:00 54 L 16 146/81 98 08/16/24 23:16 98.1 F 61 16 146/79 96 08/16/24 21:26 97.9 F 57 L 17 169/99 98 08/16/24 20:09 55 L 18 96 08/16/24 19:39 98.5 F 58 L 18 167/85 97 08/16/24 18:04 97.7 F 56 L 18 160/71 99 08/16/24 14:58 97.6 F 60 18 138/78 96 08/16/24 13:42 56 L 08/16/24 13:36 98.4 F 58 L 18 103/68 99 Intake and Output 08/16/24 08/17/24 08/17/24 22:59 06:59 14:59 Intake Total 51.301 Output Total 650 Balance -598.699 Intake: Intake, IV Titration 51.301 Amount Heparin Sod,Pork in 0.45% 51.301 NaCl 25,000 unit In 0.45 % NaCl 1 250ml.bag @ 12 UNITS/KG/HR 7.076 mls/hr IV .Q24H [facility] Rx#: [id number] Output: Urine 650 Other: Voiding Method Toilet Toilet Urinal # Voids 0 Weight 58.967 kg 64.5 kg Results 08/17/24 13:16 08/17/24 04:15 Cardiac Enzymes 08/16/24 08/16/24 08/16/24 Range/Units 14:05 14:05 20:01 AST 29 (17-59) U/L Troponin I <0.012 1.050 H* (0.000-0.034) ng/mL 08/17/24 Range/Units 00:03 AST (17-59) U/L Troponin I 1.040 H* (0.000-0.034) ng/mL Coagulation 08/16/24 08/17/24 Range/Units 14:05 04:15 PT 10.5 (10.0-12.5) sec APTT 26.7 53.6 H (22.0-30.0) sec CBC 08/16/24 Range/Units 14:05 WBC 5.9 (3.8-10.6) k/uL RBC 4.81 (4.30-5.90) m/uL Hgb 14.7 (13.0-17.5) gm/dL Hct 44.3 (39.0-53.0) % Plt Count 258 (150-450) k/uL Comprehensive Metabolic Panel 08/16/24 Range/Units 14:05 Sodium 138 (137-145) mmol/L Potassium 4.5 (3.5-5.1) mmol/L Chloride 103 (98-107) mmol/L Carbon Dioxide 27 (22-30) mmol/L BUN 27 H (9-20) mg/dL Creatinine 1.04 (0.66-1.25) mg/dL Glucose 149 H (74-99) mg/dL Calcium 9.8 (8.4-10.2) mg/dL AST 29 (17-59) U/L ALT 28 (4-49) U/L Alkaline Phosphatase 162 H (38-126) U/L Total Protein 6.9 (6.3-8.2) g/dL Albumin 4.6 (3.5-5.0) g/dL Current Medications Generic Name Dose Route Start Last Admin Trade Name Freq PRN Reason Stop Dose Admin Heparin Sodium (Porcine) 0 unit 08/16/24 21:26 Heparin Sodium 1,000 Un/Ml (10ml Vl) IV PER PROTOCOL PRN Low PTT Protocol Heparin Sodium/Sodium Chloride 250 mls @ 7.076 mls/hr 08/16/24 21:30 08/17/24 05:05 25,000 unit/ Sodium Chloride IV 12 units/kg/hr .Q24H [facility] 7.076 mls/hr Titration Protocol 12 UNITS/KG/HR Nitroglycerin/Dextrose 50 mg/ 250 mls @ 3 mls/hr 08/16/24 21:30 08/16/24 22:55 IV Solution IV 10 mcg/min .Q24H [facility] 3 mls/hr Administration Protocol 10 MCG/MIN Naloxone HCl 0.2 mg 08/16/24 19:12 Naloxone 0.4 Mg/Ml 1 Ml Vial IV Q2M PRN Opioid Reversal Intake and Output 08/16/24 08/17/24 08/17/24 22:59 06:59 14:59 Intake Total 51.301 Output Total 650 Balance -598.699 Intake: Intake, IV Titration 51.301 Amount Heparin Sod,Pork in 0.45% 51.301 NaCl 25,000 unit In 0.45 % NaCl 1 250ml.bag @ 12 UNITS/KG/HR 7.076 mls/hr IV .Q24H [facility] Rx#: [id number] Output: Urine 650 Other: Voiding Method Toilet Toilet Urinal # Voids 0 Weight 58.967 kg 64.5 kg 08/16/24 14:05 08/16/24 14:05
[2024-08-17 14:12] LABS: INR 1.1 (<1.2); Prothrombin Time 11.5 sec (10.0-12.5)
[2024-08-17 14:13] LABS: African American GFR (CKD) >90 (>60 ml/min/1.73 sqM); Anion Gap 3 mmol/L; Blood Urea Nitrogen 16 mg/dL (9-20); Calcium 8.8 mg/dL (8.4-10.2); Carbon Dioxide 26 mmol/L (22-30); Chloride 106 mmol/L (98-107); Glucose 99 mg/dL (74-99); Non-African American GFR(CKD) 87 (>60 ml/min/1.73 sqM); Potassium 4.1 mmol/L (3.5-5.1); Sodium 135 mmol/L (137-145)
[2024-08-17] MEDS: ISOSORBIDE MONONITRATE ER 30 MG TAB.ER.24H PO SCH (14:13)
[2024-08-17 14:15] LABS: Partial Thromboplastin Time >200.0 sec (22.0-30.0)
[2024-08-17] MEDS: HEPARIN SOD,PORK IN 0.45% NACL 25,000 UNIT in 0.45% NACL 1 250ML.BAG IV SCH (17:00)
[2024-08-18] MEDS: ACETAMINOPHEN TAB 325 MG TAB PO PRN (01:57)
[2024-08-18 05:45] LABS: Basophils # (A) 0.1 k/uL (0-0.2); Basophils % (A) 1 %; Eosinophils # (A) 0.5 k/uL (0-0.7); Eosinophils % (A) 8 %; HCT 42.5 % (39.0-53.0); HGB 13.7 gm/dL (13.0-17.5); Lymphocytes # (A) 1.5 k/uL (1.0-4.8); Lymphocytes % (A) 24 %; MCH 30.4 pg (25.0-35.0); MCHC 32.3 g/dL (31.0-37.0); MCV 94.3 fL (80.0-100.0); Mean Platelet Volume 7.4; Monocytes # (A) 0.6 k/uL (0-1.0); Monocytes % (A) 9 %; Neutrophils # (A) 3.5 k/uL (1.3-7.7); Neutrophils % (A) 55 %; Platelet Count 229 k/uL (150-450); RBC 4.51 m/uL (4.30-5.90); RDW 13.1 % (11.5-15.5); WBC 6.3 k/uL (3.8-10.6)
[2024-08-18 06:00] LABS: Partial Thromboplastin Time 46.3 sec (22.0-30.0); Prothrombin Time 10.6 sec (10.0-12.5)
[2024-08-18] MEDS: TAMSULOSIN 0.4 MG CAP.ER.24H PO SCH (08:26)
[2024-08-18] MEDS: amLODIPine 5 MG TAB PO SCH (08:26)
--- NOTE | 2024-08-18 09:10 | HP ---
HISTORY AND PHYSICAL CHIEF COMPLAINT: Chest pain. HISTORY OF PRESENT ILLNESS: This 69-year-old male presented to the emergency room with chest pain. He has a history of coronary artery disease. The pain was in the anterior chest, but it was not associated with any diaphoresis or shortness of breath. Enzymes initially were normal, but then the second set august. REVIEW OF SYSTEMS: He denies any fever, chills, cough, hemoptysis, etc. Past medical history, family history, personal and social histories are unremarkable. He is not allergic to any medication. He is a smoker. PHYSICAL EXAMINATION: VITAL SIGNS: Normal. HEENT: Head, ears, eyes, nose, mouth and throat are normal. Neck veins not distended. Thyroid is not enlarged. CHEST: Clear. CARDIAC: Demonstrates normal sinus rhythm and no murmurs or extra sounds. ABDOMEN: Soft and nontender without any visceromegaly or masses. Bowel sounds present. EXTREMITIES: Normal. NEUROLOGICAL: Intact. He is admitted to the hospital with diagnoses of: 1. Chest pain. 2. History of coronary artery disease. PLAN: 1. Bedrest. 2. IV fluids. 3. Serial EKGs and enzymes. 4. Cardiology consult. MMODL / IJN: [id number] /
--- NOTE | 2024-08-18 09:50 | CA ---
Transthoracic Echo Report Name: Vignesh Preston Age: 69 Gender: M : 1955 Exam Date: 08/17/2024 15:04 Exam Location: [place] [facility] Ht (in): 67 Wt (lb): 142 Ordering Physician: Zay Roy MD ([id number]) Attending/Referring Phys: Vice President Of Software Engineering Leticia Novak RDCS Procedure CPT: Indications: ND Cardiac Hx: Technical Quality: Fair Contrast 1: Total Dose (mL): Contrast 2: Total Dose (mL): MEASUREMENTS (Male / Female) Normal Values 2D ECHO LV Diastolic Diameter PLAX 5.2 cm 4.2 - 5.9 / 3.9 - 5.3 cm LV Systolic Diameter PLAX 3.5 cm IVS Diastolic Thickness 0.6 cm 0.6 - 1.0 / 0.6 - 0.9 cm LVPW Diastolic Thickness 0.8 cm 0.6 - 1.0 / 0.6 - 0.9 cm LV Relative Wall Thickness 0.3 LV Diastolic Volume MOD 4C 96.0 cm??? LV Systolic Volume MOD 4C 34.2 cm??? LV Ejection Fraction MOD 4C 64.4 % LV Cardiac Index MOD 4C 2370.3 cm???/min???m??? LV Diastolic Length 4C 8.0 cm LV Systolic Length 4C 6.2 cm LV Diastolic Volume MOD 2C 46.2 cm??? LV Diastolic Length 2C 6.6 cm DOPPLER PV Peak Velocity 84.9 cm/s PV Peak Gradient 2.9 mmHg FINDINGS Left Ventricle Left ventricular ejection fraction is estimated at 55-60 %. Left ventricular cavity size normal. Left ventricular wall thickness normal. No obvious regional wall motion abnormalities. Right Ventricle Normal right ventricular size with mildly reduced function. Unable to estimate the right ventricular systolic pressure. Right Atrium Right atrium not assesesed. Left Atrium Left atrium not assessed. Mitral Valve Structurally normal mitral valve. Trace mitral regurgitation. Aortic Valve Trileaflet aortic valve. No aortic valve stenosis or regurgitation. Tricuspid Valve Structurally normal tricuspid valve. No tricuspid regurgitation. Pulmonic Valve Pulmonic valve not well visualized. No pulmonic regurgitation. Pericardium No pericardial effusion. Aorta CONCLUSIONS Normal LV size and systolic function. Mild mitral and tricuspid regurgitation. Right-sided pressures are not well quantified. No pericardial effusion Previewed by: Dr. Marie Rain MD (Electronically Signed) Final Date: 18 August 2024 09:49
--- NOTE | 2024-08-18 11:13 | PN ---
PROGRESS NOTE DATE OF SERVICE: 08/17/2024 CHIEF COMPLAINT: Chest pain with history of coronary artery disease. HISTORY OF PRESENT ILLNESS: This gentleman is doing well. He has had no fever, or chills, and he has had no diaphoresis. He has not had any further pain. He is being seen and evaluated by Cardiology. PHYSICAL EXAMINATION: CHEST: Clear. CARDIAC: Normal. ABDOMEN: Soft and nontender. IMPRESSION: 1. Chest pain. 2. History of coronary artery disease. PLAN: Await further recommendations from Cardiology before discharge. MMODL / IJN: [id number] /
[2024-08-18] MEDS: ISOSORBIDE MONONITRATE ER 30 MG TAB.ER.24H PO STA (11:24)
--- NOTE | 2024-08-18 11:24 | P.PN ---
Subjective Progress Note Date: 08/18/24 History of present illness: This is a 69-year-old male patient of Dr. Roy with past medical history of Takotsubo syndrome in March 2024, mild coronary artery disease in the LAD 30%, hypertension, hyperlipidemia, tobacco use and dependence, recently quit and on nicotine patch. We have been asked to evaluate the patient for chest pain. Patient gives history that he was out for dinner for his birthday came back home and was relaxing developed a headache and then developed chest pain and shortness of breath and called 911. He states the pain comes and goes and it hurts when he walks and when he takes a deep breath. He complains of cough and chills. Patient has been started on a heparin drip and nitroglycerin drip. Blood pressure 159/67, heart rate 66, pulse ox 98% on room air. Discussed with patient the recommendations for cardiac catheterization and he is in agreement to move forward. EKG: Sinus rhythm, T wave inversions Chest x-ray: No acute process. COPD changes. Laboratory studies: WBC 5.9, hemoglobin 13. Troponins 0.012, 1.05, 1.04. proBNP 91. Magnesium 2.0. Home cardiac medications: Aspirin 81 mg daily, atorvastatin 40 mg daily, Plavix 75 mg daily, lisinopril 10 mg daily, metoprolol tartrate 12.5 mg daily, also on nicotine patch. Echocardiogram performed 04/10/2024 revealed EF of 40 to 45% with mid ventricle and apical hypokinesia. Technically difficult study. Cardiac catheterization performed 04/10/2024 revealed borderline lesion in the mid LAD that improved after intracoronary IV nitroglycerin. No obstructive disease in the left circumflex and the right coronary artery. Left dominance. Moderately impaired left ventricular systolic function with segmental wall motion abnormality. The findings could be Takotsubo syndrome. 08/18 Yesterday, patient underwent cardiac catheterization with Dr. Roy which revealed mild disease in the LAD proximally and mid. No obstructive disease of the left circumflex and RCA. Left dominance. Normal LVEDP. He has been continued on heparin drip and started on amlodipine and Imdur and atorvastatin was increased to 80 mg daily. Patient had an uneventful night. He denies having any chest pain. Blood pressure 136/75, heart rate 64, pulse ox 97% on room air. Echocardiogram Limited study revealed normal LV size and systolic function. Mild mitral and tricuspid regurgitation. Right sided pressures are not well quantified. No pericardial effusion. Physical examination: Gen: This is a 69-year-old male in no acute distress VS: reviewed HEENT: Head is atraumatic, normocephalic. Pupils equal, round. Sclerae is anicteric. NECK: Supple. No JVD. LUNGS: Clear to auscultation. No wheezes or rhonchi. No intercostal retractions. HEART: Regular rate and rhythm. ABDOMEN: Soft No tenderness. EXTREMITIES: No pedal edema. No calf tenderness. NEUROLOGICAL: Patient is awake, alert and oriented x3. Assessment: NSTEMI secondary to vasospasm History of Takotsubo History of nonobstructive coronary artery disease Hypertension Hyperlipidemia Tobacco use and dependence Plan: Continue the following cardiac medications: Aspirin 81 mg daily, atorvastatin 80 mg daily, Plavix 75 mg daily, lisinopril 10 mg daily, metoprolol tartrate 12.5 mg daily Continue patient on heparin drip for up to another 48 to 72 hours Increase Imdur to 60 mg daily Start patient on amlodipine 5 mg daily Discontinue IV fluids Smoking cessation. Continue nicotine patch. Patient will be provided the [employer] quit line information at discharge. Further recommendations to follow based upon clinical course Nurse practitioner note has been reviewed, I agree with documented findings and plan of care. Patient was seen and examined. Objective - Vital Signs Vital signs: Vital Signs Temp 97.8 F 08/18/24 07:22 Pulse 65 08/18/24 08:14 Resp 16 08/18/24 08:14 BP 148/75 08/18/24 07:22 Pulse Ox 98 08/18/24 07:22 FiO2 Intake & Output 08/17/24 08/18/24 08/18/24 18:59 06:59 18:59 Intake Total 310 291.213 75.1 Output Total 620 475 Balance -310 -183.787 75.1 Weight 68.5 kg Intake: IV 130 Intake, IV Titration 51.213 75.1 Amount Heparin Sod,Pork in 0.45% 51.213 75.1 NaCl 25,000 unit In 0.45 % NaCl 1 250ml.bag @ 12 UNITS/KG/HR 7.74 mls/hr IV .Q24H [facility] Rx#: [id number] Oral 180 240 Output: Urine 620 475 Other: Voiding Method Urinal Urinal # Voids 1 - Labs CBC & Chem 7: 08/18/24 05:21 08/17/24 13:16 Labs: Abnormal Lab Results - Last 24 Hours (Table) 08/17/24 08/17/24 08/17/24 Range/Units 13:16 13:16 13:16 RBC 4.24 L (4.30-5.90) m/uL APTT >200.0 H* (22.0-30.0) sec Sodium 135 L (137-145) mmol/L 08/17/24 08/18/24 Range/Units 22:32 05:21 RBC (4.30-5.90) m/uL APTT 43.1 H 46.3 H (22.0-30.0) sec Sodium (137-145) mmol/L
--- NOTE | 2024-08-18 20:40 | PN ---
PROGRESS NOTE DATE OF SERVICE: 08/18/2024 CHIEF COMPLAINT: Chest pain. HISTORY OF PRESENT ILLNESS: This gentleman is doing well. He had a cardiac cath today, which failed to demonstrate any critical coronary artery occlusions or disease. He is doing well. PHYSICAL EXAMINATION: CHEST: Clear. CARDIAC: Normal. ABDOMEN: Soft, nontender. IMPRESSION: 1. Chest pain. 2. History of coronary artery disease. PLAN: Probably home in the next day or 2 if he remains stable. MMODL / IJN: [id number] /
[2024-08-18] MEDS: ISOSORBIDE MONONITRATE ER 60 MG TAB.ER.24H PO SCH (23:18)
[2024-08-19] MEDS: ATORVASTATIN 80 MG TAB PO SCH (08:03)
--- NOTE | 2024-08-19 11:02 | P.PN ---
Subjective Progress Note Date: 08/19/24 This is Bam Vinson NP, I'm dictating on behalf of Dr. Humphrey's H&P and A&P. Patient was interviewed and examined. Patient is a pleasant 69-year-old male who presented to the hospital with acute chest pain. Patient underwent cardiac catheterization that showed very mild disease with no obvious occlusions. Patient had observed deep T wave inversions during an episode of chest pain just prior to catheterization. Etiology of the chest pain is likely vasospasm. He was started on amlodipine and Imdur. Patient reports that he is feeling okay today. He has had no chest pain since yesterday. Patient's blood pressure is good. His heart rate is also noted to be within normal limits. GENERAL: Well-appearing, well-nourished and in no acute distress. NECK: Supple without JVD or thyromegaly. LUNGS: Breath sounds clear to auscultation bilaterally. Respiration equal and unlabored. No wheezes, rales or rhonchi. HEART: Regular rate and rhythm without murmurs, rubs or gallops. S1 and S2 heard. EXTREMITIES: Normal range of motion, no edema. No clubbing or cyanosis. Peripheral pulses intact and strong. VITALS: Temp 97.9, pulse 62, respirations 18, blood pressure 114/63, O2 saturation 97% on room air TELEMETRY: Sinus mechanism LABS: White count 6.3, hemoglobin 13.7, sodium 135, potassium 4.1, BUN 16, creatinine 0.91 IMPRESSION: 1. NSTEMI secondary to vasospasm 2. History of nonobstructive coronary artery disease 3. Hypertension 4. Hyperlipidemia 5. Tobacco use and dependence 6. History of Takotsubo PLAN: Discontinue heparin drip. Continue to watch the patient for 24 hours. Etiology of chest pain and deep T wave inversions is likely vasospasm. If patient does well overnight possible discharge tomorrow. Further recommendations based on patient's clinical course. Objective - Vital Signs Vital signs: Vital Signs Temp 97.9 F 08/19/24 08:00 Pulse 62 08/19/24 09:42 Resp 18 08/19/24 09:42 BP 114/63 08/19/24 08:00 Pulse Ox 97 08/19/24 08:00 FiO2 Intake & Output 1008/19/24 08/19/24 18:59 06:59 18:59 Intake Total 1609.614 120 Output Total 280 850 Balance 1329.614 -850 120 Weight 68.5 kg Intake: Intake, IV Titration 169.614 Amount Heparin Sod,Pork in 0.45% 169.614 NaCl 25,000 unit In 0.45 % NaCl 1 250ml.bag @ 12 UNITS/KG/HR 7.74 mls/hr IV .Q24H [facility] Rx#: [id number] Oral 1440 120 Output: Urine 280 850 Other: Voiding Method Toilet Toilet # Voids 1 # Bowel Movements 1 - Labs CBC & Chem 7: 08/18/24 05:21 08/17/24 13:16 Labs: Abnormal Lab Results - Last 24 Hours (Table) 08/19/24 Range/Units 06:07 APTT 55.6 H (22.0-30.0) sec
--- NOTE | 2024-08-19 22:11 | PN ---
PROGRESS NOTE DATE OF SERVICE: 08/19/2024 CHIEF COMPLAINT: NSTEMI. HISTORY OF PRESENT ILLNESS: This gentleman doing well. He apparently will not go home until Wednesday or Wednesday. PHYSICAL EXAMINATION: CHEST: Clear. CARDIAC: Normal. ABDOMEN: Soft, nontender. IMPRESSION: 1. NSTEMI. 2. Coronary artery disease. PLAN: No change in program. He is stable. MMODL / IJN: [id number] /
--- NOTE | 2024-08-20 12:22 | P.PN ---
Subjective Progress Note Date: 08/20/24 Patient is 69-year-old male who is currently admitted with chest discomfort. He was ruled in for non-ST elevated myocardial infarction and underwent coronary angiogram, which revealed mild disease. He was noted to have severe vasospasm and has subsequently been treated with oral nitrates and calcium channel blockers. Patient states he did well overnight. He has not been up moving around too much, but denies any chest pain or chest pressure. No difficulty breathing. GENERAL: Well-appearing, well-nourished and in no acute distress. NECK: Supple without JVD or thyromegaly. LUNGS: Breath sounds coarse to auscultation bilaterally. Respiration equal and unlabored. Inspiratory wheezes. HEART: Regular rate and rhythm without murmurs, rubs or gallops. S1 and S2 heard. EXTREMITIES: Normal range of motion, no edema. No clubbing or cyanosis. Peripheral pulses intact and strong. TELEMETRY: Sinus rhythm overnight IMPRESSION: NSTEMI, secondary to vasospasm History of nonobstructive coronary artery disease Hypertension Hyperlipidemia Tobacco use and dependence PLAN: Continue current medication regimen Patient may be discharged for outpatient follow-up I am dictating on behalf of Dr Antoine Humphrey's history/physical and assessment/plan. Objective - Vital Signs Vital signs: Vital Signs Temp 97.9 F 08/20/24 07:48 Pulse 53 L 08/20/24 11:55 Resp 18 08/20/24 11:55 BP 100/62 08/20/24 11:55 Pulse Ox 97 08/20/24 11:55 FiO2 Intake & Output 08/19/24 08/20/24 08/20/24 18:59 06:59 18:59 Intake Total 240 Output Total 1450 Balance 240 -1450 Weight 65.1 kg Intake: Oral 240 Output: Urine 1450 Other: Voiding Method Toilet Toilet Toilet - Labs CBC & Chem 7: 08/18/24 05:21 08/17/24 13:16
--- NOTE | 2024-08-21 02:21 | PN ---
PROGRESS NOTE DATE OF SERVICE: 08/20/2024 CHIEF COMPLAINT: NSTEMI. HISTORY OF PRESENT ILLNESS: This gentleman is doing well. There has been no interval change. Vital signs are normal. He has had no pain. PHYSICAL EXAMINATION: CHEST: Clear. CARDIAC: Normal. ABDOMEN: Soft, nontender. IMPRESSION: Status post llo-BV-syysskdmh myocardial infarction. PLAN: Probably home tomorrow. MMODL / IJN: [id number] /
--- NOTE | 2024-08-21 12:13 | P.PN ---
Subjective HISTORY OF PRESENT ILLNESS: This is a 69-year-old male patient of Dr. Roy with past medical history of Takotsubo syndrome in March 2024, mild coronary artery disease in the LAD 30%, hypertension, hyperlipidemia, tobacco use and dependence, recently quit and on nicotine patch. We have been asked to evaluate the patient for chest pain. Patient gives history that he was out for dinner for his birthday came back home and was relaxing developed a headache and then developed chest pain and shortness of breath and called 911. He states the pain comes and goes and it hurts when he walks and when he takes a deep breath. He complains of cough and chills. Patient has been started on a heparin drip and nitroglycerin drip. Blood pressure 159/67, heart rate 66, pulse ox 98% on room air. Discussed with patient the recommendations for cardiac catheterization and he is in agreement to move forward. EKG: Sinus rhythm, T wave inversions Chest x-ray: No acute process. COPD changes. Laboratory studies: WBC 5.9, hemoglobin 13. Troponins 0.012, 1.05, 1.04. proBNP 91. Magnesium 2.0. Home cardiac medications: Aspirin 81 mg daily, atorvastatin 40 mg daily, Plavix 75 mg daily, lisinopril 10 mg daily, metoprolol tartrate 12.5 mg daily, also on nicotine patch. Echocardiogram performed 04/10/2024 revealed EF of 40 to 45% with mid ventricle and apical hypokinesia. Technically difficult study. Cardiac catheterization performed 04/10/2024 revealed borderline lesion in the mid LAD that improved after intracoronary IV nitroglycerin. No obstructive disease in the left circumflex and the right coronary artery. Left dominance. Moderately impaired left ventricular systolic function with segmental wall motion abnormality. The findings could be Takotsubo syndrome. 08/18 Yesterday, patient underwent cardiac catheterization with Dr. Roy which revealed mild disease in the LAD proximally and mid. No obstructive disease of the left circumflex and RCA. Left dominance. Normal LVEDP. He has been continued on heparin drip and started on amlodipine and Imdur and atorvastatin was increased to 80 mg daily. Patient had an uneventful night. He denies having any chest pain. Blood pressure 136/75, heart rate 64, pulse ox 97% on room air. Echocardiogram Limited study revealed normal LV size and systolic function. Mild mitral and tricuspid regurgitation. Right sided pressures are not well quantified. No pericardial effusion. 08/21/2024 Patient examined this morning at the bedside. Patient currently denies any chest pain or pressure. He reports mild shortness of breath. Patient states he has not been out of bed yet this morning. Vital signs are stable. He is on room air with oxygen saturations greater than 92%. Telemetry reveals sinus mechanism. PHYSICAL EXAM: VITAL SIGNS: Reviewed. GENERAL: Well-developed in no acute distress. NECK: Supple. No JVD or thyromegaly LUNGS: Respirations even and unlabored. Lungs with mild expiratory wheezing noted. HEART: Regular rate and rhythm. S1 and S2 heard. EXTREMITIES: Normal range of motion. No clubbing or cyanosis. Peripheral pulses intact. No lower extremity edema ASSESSMENT: NSTEMI secondary to vasospasm History of Takotsubo History of nonobstructive coronary artery disease Hypertension Hyperlipidemia Nicotine dependence PLAN: Continue dual antiplatelet therapy with aspirin and Plavix Continue high intensity statin Continue additional cardiac medications Smoking cessation recommended. Patient to be referred to [place] quit line upon discharge Patient may be discharged home today from a cardiac standpoint He is to follow up in the office with Dr. Roy postdischarge Nurse practitioner note has been reviewed by physician. Signing provider agrees with the documented findings, assessment, and plan of care documented by CULL GRADER as a scribe. Objective - Vital Signs Vital signs: Vital Signs Temp 97.8 F 08/21/24 08:40 Pulse 68 08/21/24 08:40 Resp 18 08/21/24 08:40 BP 147/80 08/21/24 08:40 Pulse Ox 96 08/21/24 08:40 FiO2 Intake & Output 08/20/24 08/21/24 08/21/24 18:59 06:59 18:59 Intake Total 120 480 Output Total 525 Balance 120 -525 480 Weight 65.1 kg Intake: Oral 120 480 Output: Urine 525 Other: Voiding Method Toilet Toilet Toilet - Labs CBC & Chem 7: 08/18/24 05:21 08/17/24 13:16
[2024-08-22 08:10] VITALS: BP 127/69; PULSE 61; RESP 18; TEMP 98
--- NOTE | 2024-08-22 12:14 | P.PN ---
Subjective HISTORY OF PRESENT ILLNESS: This is a 69-year-old male patient of Dr. Roy with past medical history of Takotsubo syndrome in March 2024, mild coronary artery disease in the LAD 30%, hypertension, hyperlipidemia, tobacco use and dependence, recently quit and on nicotine patch. We have been asked to evaluate the patient for chest pain. Patient gives history that he was out for dinner for his birthday came back home and was relaxing developed a headache and then developed chest pain and shortness of breath and called 911. He states the pain comes and goes and it hurts when he walks and when he takes a deep breath. He complains of cough and chills. Patient has been started on a heparin drip and nitroglycerin drip. Blood pressure 159/67, heart rate 66, pulse ox 98% on room air. Discussed with patient the recommendations for cardiac catheterization and he is in agreement to move forward. EKG: Sinus rhythm, T wave inversions Chest x-ray: No acute process. COPD changes. Laboratory studies: WBC 5.9, hemoglobin 13. Troponins 0.012, 1.05, 1.04. proBNP 91. Magnesium 2.0. Home cardiac medications: Aspirin 81 mg daily, atorvastatin 40 mg daily, Plavix 75 mg daily, lisinopril 10 mg daily, metoprolol tartrate 12.5 mg daily, also on nicotine patch. Echocardiogram performed 04/10/2024 revealed EF of 40 to 45% with mid ventricle and apical hypokinesia. Technically difficult study. Cardiac catheterization performed 04/10/2024 revealed borderline lesion in the mid LAD that improved after intracoronary IV nitroglycerin. No obstructive disease in the left circumflex and the right coronary artery. Left dominance. Moderately impaired left ventricular systolic function with segmental wall motion abnormality. The findings could be Takotsubo syndrome. 08/18 Yesterday, patient underwent cardiac catheterization with Dr. Roy which revealed mild disease in the LAD proximally and mid. No obstructive disease of the left circumflex and RCA. Left dominance. Normal LVEDP. He has been continued on heparin drip and started on amlodipine and Imdur and atorvastatin was increased to 80 mg daily. Patient had an uneventful night. He denies having any chest pain. Blood pressure 136/75, heart rate 64, pulse ox 97% on room air. Echocardiogram Limited study revealed normal LV size and systolic function. Mild mitral and tricuspid regurgitation. Right sided pressures are not well quantified. No pericardial effusion. 08/21/2024 Patient examined this morning at the bedside. Patient currently denies any chest pain or pressure. He reports mild shortness of breath. Patient states he has not been out of bed yet this morning. Vital signs are stable. He is on room air with oxygen saturations greater than 92%. Telemetry reveals sinus mechanism. 08/22/2024 Patient examined this morning the bedside. Patient currently denies chest pain or pressure. He denies shortness of breath. Patient has been up ambulating this morning and took a shower. Vital signs are stable. He is hoping to be discharged home today. PHYSICAL EXAM: VITAL SIGNS: Reviewed. GENERAL: Well-developed in no acute distress. NECK: Supple. No JVD or thyromegaly LUNGS: Respirations even and unlabored. Lungs with mild expiratory wheezing noted. HEART: Regular rate and rhythm. S1 and S2 heard. EXTREMITIES: Normal range of motion. No clubbing or cyanosis. Peripheral pulses intact. No lower extremity edema ASSESSMENT: NSTEMI secondary to vasospasm History of Takotsubo History of nonobstructive coronary artery disease Hypertension Hyperlipidemia Nicotine dependence PLAN: Continue dual antiplatelet therapy with aspirin and Plavix Continue high intensity statin Continue additional cardiac medications Smoking cessation recommended. Patient to be referred to [place] quit line upon discharge Patient may be discharged home today from a cardiac standpoint He is to follow up in the office with Dr. Roy postdischarge Nurse practitioner note has been reviewed by physician. Signing provider agrees with the documented findings, assessment, and plan of care documented by CARBON BRUSHER ASSEMBLER as a scribe. Objective - Vital Signs Vital signs: Vital Signs Temp 98.0 F 08/22/24 08:09 Pulse 61 08/22/24 08:09 Resp 18 08/22/24 08:09 BP 127/69 08/22/24 08:09 Pulse Ox 97 08/22/24 08:09 FiO2 Intake & Output 08/21/24 08/22/24 08/22/24 18:59 06:59 18:59 Intake Total 1440 540 118 Output Total 775 Balance 1440 -235 118 Weight 66.4 kg Intake: Oral 1440 540 118 Output: Urine 775 Other: Voiding Method Toilet Toilet Toilet Urinal Urinal # Voids 3 - Labs CBC & Chem 7: 10/25/24 05:21 08/17/24 13:16
--- NOTE | 2024-08-23 00:01 | PN ---
PROGRESS NOTE DATE OF SERVICE: 08/21/2024 CHIEF COMPLAINT: Status post NSTEMI. HISTORY OF PRESENT ILLNESS: This gentleman is doing well and has been stable. He is still in the hospital and we will have to be cleared by Cardiology. PHYSICAL EXAMINATION: CHEST: Clear. CARDIAC: Normal. ABDOMEN: Soft, nontender. VITAL SIGNS: Normal. IMPRESSION: Status post non ST elevation myocardial infarction. PLAN: Home when cleared by Cardiology. MMODL / IJN: [id number] /
--- NOTE | 2024-08-23 06:15 | DS ---
DISCHARGE SUMMARY CHIEF COMPLAINT: Chest pain. HISTORY OF PRESENT ILLNESS AND PHYSICAL EXAM: Details of this man's history and physical can be found in the initial workup. LABORATORY STUDIES: While he was in the hospital, he had laboratory studies, details of which can be found in the laboratory section of his chart. COURSE IN THE HOSPITAL: After admission, he was placed on bedrest, started on intravenous fluids and taken to the labor contract analyst. No critical artery stenoses were identified. It was felt that he may have had a vasospastic event or Takotsubo event. Postoperatively, he did well and he had no problems. He was stable and it was felt that he could go home on the . He will go home on his usual activity, diet, medication. He will be seen in the office in several days. FINAL DIAGNOSES: 1. Non ST elevation myocardial infarction. 2. Chest pain. OPERATIONS: Cardiac cath. CONSULTATIONS: Cardiology. He is improved. MMKATHIE / DEEPTHIN: [id number] /
== END 2024-08-22 13:03 | disposition home or self-care (01) | DRG 280 ==
LOC: EC 13:35 → 6NMEDSUR 19:14 → 3SCARD 22:31 → OBSVTOIN 08-17 09:39
PROVIDERS: ADMIT Family Medicine; ATTEND Family Medicine
PROC: B2111ZZ Fluoroscopy of Multiple Coronary Arteries using Low Osmolar Contrast (ICD-10-PCS; 2024-08-17)
PROC: 4A023N7 Measurement of Cardiac Sampling and Pressure, Left Heart, Percutaneous Approach (ICD-10-PCS; principal; 2024-08-17 10:00)
DX: I21.4 Non-ST elevation (NSTEMI) myocardial infarction (principal); Q04.0 Congenital malformations of corpus callosum; I25.119 Atherosclerotic heart disease of native coronary artery with unspecified angina pectoris; E78.5 Hyperlipidemia, unspecified; F17.210 Nicotine dependence, cigarettes, uncomplicated; I08.1 Rheumatic disorders of both mitral and tricuspid valves; I10 Essential (primary) hypertension; F17.200 Nicotine dependence, unspecified, uncomplicated; I25.2 Old myocardial infarction; J44.9 Chronic obstructive pulmonary disease, unspecified; Z79.02 Long term (current) use of antithrombotics/antiplatelets; Z79.82 Long term (current) use of aspirin; Z79.899 Other long term (current) drug therapy; Z71.6 Tobacco abuse counseling
CPT/HCPCS: 36415; 71046; 80048; 80053; 83690; 83735; 83880; 84484; 85025; 85379; 85610; 85730; 93005; 93308; 93458; 96374; 99285

== ENCOUNTER 2024-08-24 08:48 | Inpatient (IN) | payer MEDICARE, OTHER ==
--- NOTE | 2024-08-24 08:54 | ED ---
General Adult HPI - General Chief complaint: Chest Pain Stated complaint: Chest pain Time Seen by Provider: 08/24/24 08:53 Source: patient, EMS, RN notes reviewed, old records reviewed Mode of arrival: EMS Limitations: no limitations - History of Present Illness Initial comments: Patient is a 69-year-old male presenting to the emergency department with concerns of cardiac arrest. Patient called EMS for chest pain. EMS arrived and patient went into pulseless V. tach. Patient had 30 seconds of CPR and defibrillated once with return of circulation. Patient continues to have significant chest discomfort. Patient states he was in the hospital recently however not quite clear why. - Related Data Home Medications Medication Instructions Recorded Confirmed Nicotine 21Mg/24Hr Patch [Habitrol] 1 patch TRANSDERM DAILY 04/10/24 08/16/24 Metoprolol Tartrate [Lopressor] 12.5 mg PO DAILY 05/24/24 08/16/24 Nitroglycerin Sl Tabs [Nitrostat] 0.4 mg SL Q5M PRN 05/24/24 08/16/24 Tamsulosin [Flomax] 0.4 mg PO DAILY 08/16/24 08/16/24 Vitamin D3(Unknown Dose) 1 tab PO DAILY 08/16/24 08/16/24 Previous Rx's Medication Instructions Recorded lisinopriL [Zestril] 10 mg PO DAILY 30 Days #30 tab 04/13/23 Aspirin 81 mg PO DAILY tab 04/12/24 Atorvastatin [Lipitor] 40 mg PO DAILY #90 tab 04/12/24 Clopidogrel [Plavix] 75 mg PO DAILY #90 tab 04/12/24 Isosorbide Mononitrate ER [Imdur] 60 mg PO DAILY #30 tab 08/22/24 amLODIPine [Norvasc] 5 mg PO DAILY #30 tab 08/22/24 Allergies Allergy/AdvReac Type Severity Reaction Status Date / Time No Known Allergies Allergy Verified 08/24/24 08:55 Review of Systems ROS Statement: Those systems with pertinent positive or pertinent negative responses have been documented in the HPI. ROS Other: All systems not noted in ROS Statement are negative. Constitutional: Denies: fever Eyes: Denies: eye pain ENT: Denies: ear pain Respiratory: Denies: cough Cardiovascular: Reports: as per HPI, chest pain Endocrine: Denies: fatigue Gastrointestinal: Denies: abdominal pain Past Medical History Past Medical History: Coronary Artery Disease (CAD), COPD, GERD/Reflux, Hypertension, Myocardial Infarction ([place]), Neurologic Disorder Additional Past Medical History / Comment(s): some memory problems., states urine stream slow and has occasional burning., friend- Nicole Jones states she is his patient advocate and she helps him with medications-putting them in daily pill box.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 , pt thinks he had heart cath with balloon dilation. Past Anesthesia/Blood Transfusion Reactions: No Reported Reaction Date of Last Stent Placement:: unknown Past Psychological History: No Psychological Hx Reported Smoking Status: Former smoker Past Alcohol Use History: None Reported Past Drug Use History: None Reported - Past Family History Mother Family Medical History: Cancer, Diabetes Mellitus Father Family Medical History: Cancer, Diabetes Mellitus General Exam Limitations: no limitations General appearance: alert Head exam: Present: other (Irregular head shape which patient states is chronic from ) Eye exam: Present: normal appearance Neck exam: Present: normal inspection Respiratory exam: Present: normal lung sounds bilaterally Cardiovascular Exam: Present: regular rate, normal rhythm, normal heart sounds Expanded Peripheral pulses: 2+: Radial (R), Radial (L), Femoral (R), Femoral (L) GI/Abdominal exam: Present: soft. Absent: tenderness Extremities exam: Present: normal inspection Neurological exam: Present: alert Psychiatric exam: Present: normal affect, normal mood Skin exam: Present: normal color Course Vital Signs 08/24/24 08/24/24 08/24/24 08:49 08:56 09:11 Temperature 96.9 F L Pulse Rate 68 65 62 Pulse Rate [ Corrective Therapist ] Respiratory 18 18 18 Rate Blood Pressure 112/85 131/87 O2 Sat by Pulse 87 L 97 Oximetry 08/24/24 08/24/24 08/24/24 09:14 09:28 09:50 Temperature Pulse Rate 55 L Pulse Rate [ 65 Corrective Therapist ] Respiratory 18 16 Rate Blood Pressure 133/73 O2 Sat by Pulse 98 Oximetry 08/24/24 10:06 Temperature Pulse Rate 53 L Pulse Rate [ Corrective Therapist ] Respiratory 15 Rate Blood Pressure 120/76 O2 Sat by Pulse 95 Oximetry - Reevaluation(s) Reevaluation #1: 08/24/24 09:01 Dr. Terry was notified when the patient was coming in EKG Findings - EKG Results: EKG: interpreted by MANINDERD (Right axis. Borderline right ventricular conduction delay.), sinus rhythm, normal ST/T Medical Decision Making - Medical Decision Making Was pt. sent in by a medical professional or institution (, PA, EARTHMOVING LABOURER, urgent care, hospital, or fpc...) When possible be specific @ -No Did you speak to anyone other than the patient for history (EMS, parent, family, police, friend...)? What history was obtained from this source @ -EMS helps provide history including pulseless V. tach and defibrillation x 1 with return of circulation Did you review nursing and triage notes (agree or disagree)? Why? @ -I reviewed and agree with nursing and triage notes Were old charts reviewed (outside hosp., previous admission, EMS record, old EKG, old radiological studies, urgent care reports/EKG's, fpc records)? Report findings @ -Previous admission and heart catheterization reviewed. Heart catheterization did not reveal acute coronary disease Differential Diagnosis (chest pain, altered mental status, abdominal pain women, abdominal pain men, vaginal bleeding, weakness, fever, dyspnea, syncope, headache, dizziness, GI bleed, back pain, seizure, CVA, palpatations, mental health, musculoskeletal)? @ -Differential Chest Pain: Stable Angina, Unstable Angina, STEMI, NSTEMI Aortic Dissection, Pneumothorax, Musculoskeletal, Esophageal Spasm GERD, Cholecystitis, Pancreatitis, Zoster, th is is not meant to be an all-inclusive list. EKG interpreted by me (3pts min.). @ -As above X-rays interpreted by me (1pt min.). @ -Chest x-ray shows some hyperinflation otherwise no acute process CT interpreted by me (1pt min.). @ -None done U/S interpreted by me (1pt. min.). @ -None done What testing was considered but not performed or refused? (CT, X-rays, U/S, labs)? Why? @ -None What meds were considered but not given or refused? Why? @ -Considered heparin. Discussion had with Dr. Terry and this will be held at this time Did you discuss the management of the patient with other professionals (professionals i.e. DrTyson, PA, EARTHMOVING LABOURER, lab, RT, psych nurse, dialysis social worker, napkin machine operator, teacher, chief school finance officer, outpatient case manager)? Give summary @ -Discussed with Dr. Terry, see above. He did see patient very shortly after arrival. He will continue to consult. Patient will not need immediate heart catheterization secondary to recent 1 without acute coronary disease. Case also discussed with Dr. Devi who will admit his patient Was smoking cessation discussed for >3mins.? @ -No Was critical care preformed (if so, how long)? @ -31 minutes critical care time Were there social determinants of health that impacted care today? How? (Homelessness, low income, unemployed, alcoholism, drug addiction, transportation, low edu. Level, literacy, decrease access to med. care, assisted, rehab)? @ -No Was there de-escalation of care discussed even if they declined (Discuss DNR or withdrawal of care, Hospice)? DNR status @ -No What co-morbidities impacted this encounter? (DM, HTN, Smoking, COPD, CAD, Cancer, CVA, ARF, Chemo, Hep., AIDS, mental health diagnosis, sleep apnea, morbid obesity)? @ -None Was patient admitted / discharged? Hospital course, mention meds given and route, prescriptions, significant lab abnormalities, going to OR and other pertinent info. @ -Patient presents with V. tach, pulseless arrest. Patient had chest discomfort on arrival. Symptoms have improved on reevaluation. Patient updated. Patient will be admitted with cardiac consult. Undiagnosed new problem with uncertain prognosis? @ -No Drug Therapy requiring intensive monitoring for toxicity (Heparin, Nitro, Insulin, Cardizem)? @ -Amiodarone drip Were any procedures done? @ -No Diagnosis/symptom? @ -Pulseless V. tach Acute, or Chronic, or Acute on Chronic? @ -Acute Uncomplicated (without systemic symptoms) or Complicated (systemic symptoms)? @ -Complicated with arrest needing CPR and defibrillation Side effects of treatment? @ -No Exacerbation, Progression, or Severe Exacerbation? @ -No Poses a threat to life or bodily function? How? (Chest pain, [place], [place], pneumonia, PE, COPD, DKA, ARF, appy, cholecystitis, CVA, Diverticulitis, Homicidal, Suicidal, threat to staff... and all critical care pts) @ -Threat to cardiac function - Lab Data Result diagrams: 08/24/24 09:10 08/24/24 09:10 Lab Results 08/24/24 08/24/24 08/24/24 Range/Units 09:10 09:10 09:10 WBC 6.1 (3.8-10.6) k/uL RBC 4.82 (4.30-5.90) m/uL Hgb 14.4 (13.0-17.5) gm/dL Hct 44.5 (39.0-53.0) % MCV 92.4 (80.0-100.0) fL MCH 29.8 (25.0-35.0) pg MCHC 32.2 (31.0-37.0) g/dL RDW 13.6 (11.5-15.5) % Plt Count 274 (150-450) k/uL MPV 7.8 Neutrophils % 60 % Lymphocytes % 22 % Monocytes % 8 % Eosinophils % 7 % Basophils % 1 % Neutrophils # 3.7 (1.3-7.7) k/uL Lymphocytes # 1.4 (1.0-4.8) k/uL Monocytes # 0.5 (0-1.0) k/uL Eosinophils # 0.4 (0-0.7) k/uL Basophils # 0.1 (0-0.2) k/uL PT 10.8 (10.0-12.5) sec INR 1.0 (<1.2) APTT 24.6 (22.0-30.0) sec Sodium 136 L (137-145) mmol/L Potassium 4.4 (3.5-5.1) mmol/L Chloride 105 (98-107) mmol/L Carbon Dioxide 26 (22-30) mmol/L Anion Gap 5 mmol/L BUN 24 H (9-20) mg/dL Creatinine 1.06 (0.66-1.25) mg/dL Est GFR (CKD-EPI)AfAm 84 (>60 ml/min/1.73 sqM) Est GFR (CKD-EPI)NonAf 73 (>60 ml/min/1.73 sqM) Glucose 146 H (74-99) mg/dL Calcium 9.7 (8.4-10.2) mg/dL Magnesium 2.1 (1.6-2.3) mg/dL Total Bilirubin 0.9 (0.2-1.3) mg/dL AST 58 (17-59) U/L ALT 106 H (4-49) U/L Alkaline Phosphatase 105 (38-126) U/L Troponin I (0.000-0.034) ng/mL Total Protein 6.8 (6.3-8.2) g/dL Albumin 4.2 (3.5-5.0) g/dL 08/24/24 Range/Units 09:10 WBC (3.8-10.6) k/uL RBC (4.30-5.90) m/uL Hgb (13.0-17.5) gm/dL Hct (39.0-53.0) % MCV (80.0-100.0) fL MCH (25.0-35.0) pg MCHC (31.0-37.0) g/dL RDW (11.5-15.5) % Plt Count (150-450) k/uL MPV Neutrophils % % Lymphocytes % % Monocytes % % Eosinophils % % Basophils % % Neutrophils # (1.3-7.7) k/uL Lymphocytes # (1.0-4.8) k/uL Monocytes # (0-1.0) k/uL Eosinophils # (0-0.7) k/uL Basophils # (0-0.2) k/uL PT (10.0-12.5) sec INR (<1.2) APTT (22.0-30.0) sec Sodium (137-145) mmol/L Potassium (3.5-5.1) mmol/L Chloride (98-107) mmol/L Carbon Dioxide (22-30) mmol/L Anion Gap mmol/L BUN (9-20) mg/dL Creatinine (0.66-1.25) mg/dL Est GFR (CKD-EPI)AfAm (>60 ml/min/1.73 sqM) Est GFR (CKD-EPI)NonAf (>60 ml/min/1.73 sqM) Glucose (74-99) mg/dL Calcium (8.4-10.2) mg/dL Magnesium (1.6-2.3) mg/dL Total Bilirubin (0.2-1.3) mg/dL AST (17-59) U/L ALT (4-49) U/L Alkaline Phosphatase (38-126) U/L Troponin I <0.012 (0.000-0.034) ng/mL Total Protein (6.3-8.2) g/dL Albumin (3.5-5.0) g/dL Critical Care Time Critical Care Time: Yes Total Critical Care Time: 31 Disposition Clinical Impression: Pulseless ventricular tachycardia Disposition: ADMITTED IP TO THIS [facility] Condition: Serious Is patient prescribed a controlled substance at d/c from ED?: No Referrals: Deonte Devi MD [Primary Care Provider] - 1-2 days Time of Disposition: 10:28
[2024-08-24] MEDS: ASPIRIN 81 MG PO STA (08:59)
[2024-08-24] MEDS: NITROGLYCERIN OINT 1 INCH/GM PACKET TOPICAL STA (09:05)
[2024-08-24] MEDS: NITROGLYCERIN SL TABS 0.4 MG TAB SUBLINGUAL STA ×3 (09:08→10:10)
[2024-08-24] MEDS: DEXTROSE 5% IN WATER 100 ML with AMIODARONE 150 MG IV ONE (09:15)
[2024-08-24 09:17] LABS: Basophils # (A) 0.1 k/uL (0-0.2); Basophils % (A) 1 %; Eosinophils # (A) 0.4 k/uL (0-0.7); Eosinophils % (A) 7 %; HCT 44.5 % (39.0-53.0); HGB 14.4 gm/dL (13.0-17.5); Lymphocytes # (A) 1.4 k/uL (1.0-4.8); Lymphocytes % (A) 22 %; MCH 29.8 pg (25.0-35.0); MCHC 32.2 g/dL (31.0-37.0); MCV 92.4 fL (80.0-100.0); Mean Platelet Volume 7.8; Monocytes # (A) 0.5 k/uL (0-1.0); Monocytes % (A) 8 %; Neutrophils # (A) 3.7 k/uL (1.3-7.7); Neutrophils % (A) 60 %; Platelet Count 274 k/uL (150-450); RBC 4.82 m/uL (4.30-5.90); RDW 13.6 % (11.5-15.5); WBC 6.1 k/uL (3.8-10.6)
--- NOTE | 2024-08-24 09:22 | XR ---
EXAMINATION TYPE: XR chest 1V portable DATE OF EXAM: 08/24/2024 9:15 AM COMPARISON: Chest radiographs from 08/16/2024 CLINICAL INDICATION: Male, 69 years old with history of c arrest; TECHNIQUE: XR chest 1V portable Frontal view of the chest. FINDINGS: Lungs/Pleura: There is no evidence of pleural effusion, focal consolidation, or pneumothorax. Pulmonary vascularity: Unremarkable. Heart/mediastinum: Cardiomediastinal silhouette is unremarkable. Musculoskeletal: No acute osseous pathology. IMPRESSION: No acute cardiopulmonary disease/process. [facility], , 08/24/2024 9:20 AM
[2024-08-24 09:25] LABS: Partial Thromboplastin Time 24.6 sec (22.0-30.0); Prothrombin Time 10.8 sec (10.0-12.5)
[2024-08-24 09:27] LABS: ALT 106 U/L (4-49); AST 58 U/L (17-59); African American GFR (CKD) 84 (>60 ml/min/1.73 sqM); Albumin 4.2 g/dL (3.5-5.0); Alkaline Phosphatase 105 U/L (38-126); Anion Gap 5 mmol/L; Blood Urea Nitrogen 24 mg/dL (9-20); Calcium 9.7 mg/dL (8.4-10.2); Carbon Dioxide 26 mmol/L (22-30); Chloride 105 mmol/L (98-107); Glucose 146 mg/dL (74-99); Magnesium 2.1 mg/dL (1.6-2.3); Non-African American GFR(CKD) 73 (>60 ml/min/1.73 sqM); Potassium 4.4 mmol/L (3.5-5.1); Sodium 136 mmol/L (137-145); Total Bilirubin 0.9 mg/dL (0.2-1.3); Total Protein 6.8 g/dL (6.3-8.2)
[2024-08-24] MEDS: AMIODARONE 360 MG in DEXTROSE 5% IN WATER 200 ML IV ONE (09:29)
[2024-08-24] MEDS: MORPHINE SULFATE 4 MG/ML SYRINGE IVP STA (10:10)
[2024-08-24] MEDS ORDERED: NITROGLYCERIN SL TABS 0.4 MG TAB SUBLINGUAL PRN (10:29)
[2024-08-24] MEDS: MORPHINE SULFATE 4 MG/ML SYRINGE IV PRN (11:34)
--- NOTE | 2024-08-24 15:30 | P.CNPUL ---
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 He was here last week for chest pain and cardiac catheterization revealed mild disease in the LAD proximally and mid. No obstructive disease in left circumflex and RCA. Normal LVEDP. Failed preserved left ventricular systolic function with ejection fr action of 55 to 60%. No significant valvular disease. Discharged home on 08/22/2024. He came back to the emergency room early this morning after waking up and walking a few steps down the hallway where he got dizzy and was having chest pain and called 911 prior to passing out. When EMS arrived he was in pulseless ventricular tachycardia and had 30 seconds of CPR was defibrillated once with return of spontaneous circulation. Chest x-ray reveals no acute cardiopulmonary process. White count 6.1. Hemoglobin 14.4. Platelets 274. D- dimer 5.38. Sodium 136. Potassium 4.4. Bicarb 26. BUN 24. Creatinine 1.06. Glucose 146. Troponin 0.012, 0.051. Currently at 1 mg/min. He is currently in sinus bradycardia with heart rate in the 40s. Seen and evaluated in the emergency department. He is awake and alert in no acute distress. He is maintaining O2 saturations in the 90s on 2 L/min per nasal cannula. He denies any chest pain currently. No dizziness or lightheadedness. Review of Systems REVIEW OF SYSTEMS: CONSTITUTIONAL: Denies any recent significant weight loss or weight gain. EYES: Denies change in vision. EARS, NOSE, MOUTH, THROAT: Denies headaches, denies sore throat. CARDIOVASCULAR: Positive for chest pain, dizziness, lightheadedness and syncopal episode. RESPIRATORY: Denies shortness of breath, cough, congestion or hemoptysis. GASTROINTESTINAL: Denies change in appetite, denies abdominal pain GENITOURINARY: Denies hematuria, denies infections. MUSKULOSKELETAL: Denies pain, denies swelling. INTEGUMENTARY: Denies rash, denies eczema. NEUROLOGICAL: Denies recent memory loss, no recent seizure activity. PSYCHIATRIC: Denies anxiety, denies depression. HEMATOLOGIC/LYMPHATIC: Denies anemia, denies enlarged lymph nodes. Past Medical History Past Medical History: Coronary Artery Disease (CAD), COPD, GERD/Reflux, Hypertension, Myocardial Infarction ([place]), Neurologic Disorder Additional Past Medical History / Comment(s): some memory problems., states urine stream slow and has occasional burning., friend- Nicole Jones states she is his patient advocate and she helps him with medications-putting them in daily pill box.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 , pt thinks he had heart cath with balloon dilation. Past Anesthesia/Blood Transfusion Reactions: No Reported Reaction Date of Last Stent Placement:: unknown Past Psychological History: No Psychological Hx Reported Smoking Status: Former smoker Past Alcohol Use History: None Reported Past Drug Use History: None Reported - Past Family History Mother Family Medical History: Cancer, Diabetes Mellitus Father Family Medical History: Cancer, Diabetes Mellitus Medications and Allergies Home Medications Medication Instructions Recorded Confirmed Type lisinopriL [Zestril] 10 mg PO DAILY 30 Days #30 tab 04/13/23 08/24/24 Rx Nicotine 21Mg/24Hr Patch [Habitrol] 1 patch TRANSDERM DAILY 04/10/24 08/24/24 History Aspirin 81 mg PO DAILY tab 04/12/24 08/24/24 Rx Atorvastatin [Lipitor] 40 mg PO DAILY #90 tab 04/12/24 08/24/24 Rx Clopidogrel [Plavix] 75 mg PO DAILY #90 tab 04/12/24 08/24/24 Rx Metoprolol Tartrate [Lopressor] 12.5 mg PO DAILY 05/24/24 08/24/24 History Nitroglycerin Sl Tabs [Nitrostat] 0.4 mg SL Q5M PRN 05/24/24 08/24/24 History Tamsulosin [Flomax] 0.4 mg PO DAILY 08/16/24 08/24/24 History Vitamin D3(Unknown Dose) 1 tab PO DAILY 08/16/24 08/24/24 History Isosorbide Mononitrate ER [Imdur] 60 mg PO DAILY #30 tab 08/22/24 08/24/24 Rx amLODIPine [Norvasc] 5 mg PO DAILY #30 tab 08/22/24 08/24/24 Rx Allergies Allergy/AdvReac Type Severity Reaction Status Date / Time No Known Allergies Allergy Verified 08/24/24 10:45 Physical Exam Vitals: Vital Signs Temp Pulse Pulse Resp BP Pulse Ox 08/24/24 13:30 44 L 15 125/76 98 08/24/24 12:39 45 L 18 132/77 97 08/24/24 11:32 48 L 17 129/84 97 08/24/24 10:28 53 L 18 122/67 96 08/24/24 10:06 53 L 15 120/76 95 08/24/24 09:50 55 L 16 133/73 98 08/24/24 09:28 18 08/24/24 09:14 65 08/24/24 09:11 62 18 131/87 97 08/24/24 08:56 65 18 08/24/24 08:49 96.9 F L 68 18 112/85 87 L Intake and Output 08/24/24 08/24/24 08/24/24 06:59 14:59 22:59 Other: Weight 47.627 kg GENERAL EXAM: Alert, 69-year-old male, on 2 L nasal cannula, fairly comfortable in no apparent distress. HEAD: Left-sided skull deformity. EYES: Normal reaction of pupils, equal size. NOSE: Clear with pink turbinates. THROAT: No erythema or exudates. NECK: No masses, no JVD. CHEST: No chest wall deformity. LUNGS: Equal air entry with no crackles, wheeze, rhonchi or dullness. CVS: S1 and S2 normal with no audible murmur, regular rhythm. ABDOMEN: No hepatosplenomegaly, normal bowel sounds, no guarding or rigidity. SPINE: No scoliosis or deformity SKIN: No rashes CENTRAL NERVOUS SYSTEM: No focal deficits, tone is normal in all 4 extremities. EXTREMITIES: There is no peripheral edema. No clubbing, no cyanosis. Perip heral pulses are intact. Results - Laboratory Findings CBC and BMP: 08/24/24 09:10 08/24/24 09:10 PT/INR, D-dimer PT 10.8 sec (10.0-12.5) 08/24/24 09:10 INR 1.0 (<1.2) 08/24/24 09:10 D-Dimer 5.38 mg/L FEU (<0.60) H 08/24/24 09:10 Abnormal lab findings: Abnormal Labs 08/24/24 08/24/24 08/24/24 09:10 09:10 11:41 D-Dimer 5.38 H Sodium 136 L BUN 24 H Glucose 146 H ALT 106 H Troponin I 0.051 H* - Diagnostic Findings Chest x-ray: image reviewed Assessment and Plan Assessment: Cardiac arrest secondary to pulseless ventricular tachycardia requiring 30 seconds of CPR and defibrillation x 1 with return of spontaneous circulation Recent discharge 08/22/2024 for chest pain found to have mild obstructive coronary disease involving the LAD proximally and mid. 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 Number of minutes spent on the visit: 20 Dictation was produced using [employer] dictation software. Please excuse any grammatical, word or spelling errors.
[2024-08-24] MEDS: NITROGLYCERIN OINT 1 INCH/GM PACKET TOPICAL SCH (15:33)
[2024-08-24] MEDS: AMIODARONE 450 MG in DEXTROSE 5% IN WATER 250 ML IV SCH (15:47)
--- NOTE | 2024-08-24 20:55 | P.CRDCN ---
History of Present Illness Consult date: 08/24/24 History of present illness: This is a 69-year-old gentleman who is known to our service from before with known mild nonobstructive CAD based on recent heart catheterization as well as hypertension and dyslipidemia and smoking was brought to the hospital for "cardiac arrest". The patient was in his usual state of health till earlier today when he was sitting at home and started experiencing discomfort in the chest started suddenly. He called ambulance and upon arrived the patient did have an episode of wide-complex tachycardia concerning for pulseless ventricular tachycardia and subsequently he received CPR for 30 seconds and then he received a shock and brought back to normal sinus mechanism. No documentation from the ambulance about any wide-complex tachycardia or ventricular tachycardia. The patient was seen and evaluated in the emergency department where he was experiencing discomfort in the chest mainly once he take a deep breath likely secondary to CPR. He underwent an EKG in the emergency department which I reviewed and that showed sinus mechanism with ST changes in the anteroseptal leads. Please note that the patient was seen by our service recently after he was admitted with a chest discomfort and mildly abnormal cardiac enzymes as well as mild EKG changes and he was diagnosed with non-STEMI and underwent an echo which revealed normal biventricular systolic function with no significant valvular abnormalities and also a heart catheterization which revealed no evidence of high-grade stenosis with normal left-sided filling pressure and there was a concern about possible coronary vasospasm and the patient was treated medically and he was discharged in stable medical condition. Examination is remarkable for regular rhythm with a systolic murmur at the right and left upper sternal border with clear breathing sounds bilaterally and no edema was noted Assessment Cardiac arrest secondary to ventricular tachycardia by history. No documentation of ventricular tachycardia has been seen Mild CAD based on recent heart catheterization Chest discomfort appears to be musculoskeletal secondary to CPR Multiple comorbid conditions Plan Agree to keep the patient on amiodarone IV at this point Continue amlodipine for possible coronary vasospasm Continue oral nitrate also for possible coronary vasospasm Continue aspirin and statin Obtain an echo to rule out any pericardial effusion Follow-up with the patient Past Medical History Past Medical History: Coronary Artery Disease (CAD), COPD, GERD/Reflux, Hypertension, Myocardial Infarction ([place]), Neurologic Disorder Additional Past Medical History / Comment(s): some memory problems., states urine stream slow and has occasional burning., friend- Nicole Jones states she is his patient advocate and she helps him with medications-putting them in daily pill box.Pt with left sided craniofacial deformity to left skull with past CT showing absent corpus callosum Last Myocardial Infarction Date:: unknown History of Any Multi-Drug Resistant Organisms: None Reported Past Surgical History: Heart Catheterization, Orthopedic Surgery, Pacemaker Additional Past Surgical History / Comment(s): finger surgeries from work re lated accidents. , pt thinks he had heart cath with balloon dilation. Past Anesthesia/Blood Transfusion Reactions: No Reported Reaction Date of Last Stent Placement:: unknown Past Psychological History: No Psychological Hx Reported Smoking Status: Former smoker Past Alcohol Use History: None Reported Past Drug Use History: None Reported - Past Family History Mother Family Medical History: Cancer, Diabetes Mellitus Father Family Medical History: Cancer, Diabetes Mellitus Medications and Allergies Home Medications Medication Instructions Recorded Confirmed Type lisinopriL [Zestril] 10 mg PO DAILY 30 Days #30 tab 04/13/23 08/24/24 Rx Nicotine 21Mg/24Hr Patch [Habitrol] 1 patch TRANSDERM DAILY 04/10/24 08/24/24 History Aspirin 81 mg PO DAILY tab 04/12/24 08/24/24 Rx Atorvastatin [Lipitor] 40 mg PO DAILY #90 tab 04/12/24 08/24/24 Rx Clopidogrel [Plavix] 75 mg PO DAILY #90 tab 04/12/24 08/24/24 Rx Metoprolol Tartrate [Lopressor] 12.5 mg PO DAILY 05/24/24 08/24/24 History Nitroglycerin Sl Tabs [Nitrostat] 0.4 mg SL Q5M PRN 05/24/24 08/24/24 History Tamsulosin [Flomax] 0.4 mg PO DAILY 08/16/24 08/24/24 History Vitamin D3(Unknown Dose) 1 tab PO DAILY 08/16/24 08/24/24 History Isosorbide Mononitrate ER [Imdur] 60 mg PO DAILY #30 tab 08/22/24 08/24/24 Rx amLODIPine [Norvasc] 5 mg PO DAILY #30 tab 08/22/24 08/24/24 Rx Allergies Allergy/AdvReac Type Severity Reaction Status Date / Time No Known Allergies Allergy Verified 08/24/24 10:45 Physical Exam Vitals: Vital Signs Temp Pulse Pulse Resp BP Pulse Ox 08/24/24 20:37 44 L 18 167/83 98 08/24/24 18:13 98.3 F 47 L 17 150/96 99 08/24/24 16:30 43 L 18 181/87 95 08/24/24 15:26 51 L 15 144/80 97 08/24/24 13:30 44 L 15 125/76 98 08/24/24 12:39 45 L 18 132/77 97 08/24/24 11:32 48 L 17 129/84 97 08/24/24 10:28 53 L 18 122/67 96 08/24/24 10:06 53 L 15 120/76 95 08/24/24 09:50 55 L 16 133/73 98 08/24/24 09:28 18 08/24/24 09:14 65 08/24/24 09:11 62 18 131/87 97 08/24/24 08:56 65 18 08/24/24 08:49 96.9 F L 68 18 112/85 87 L Intake and Output 08/24/24 08/24/24 08/24/24 06:59 14:59 22:59 Other: Weight 47.627 kg Results 08/24/24 09:10 08/24/24 09:10 Cardiac Enzymes 08/24/24 08/24/24 08/24/24 Range/Units 09:10 09:10 11:41 AST 58 (17-59) U/L Troponin I <0.012 0.051 H* (0.000-0.034) ng/mL 08/24/24 Range/Units 16:20 AST (17-59) U/L Troponin I 0.090 H* (0.000-0.034) ng/mL Coagulation 08/24/24 Range/Units 09:10 PT 10.8 (10.0-12.5) sec APTT 24.6 (22.0-30.0) sec CBC 08/24/24 Range/Units 09:10 WBC 6.1 (3.8-10.6) k/uL RBC 4.82 (4.30-5.90) m/uL Hgb 14.4 (13.0-17.5) gm/dL Hct 44.5 (39.0-53.0) % Plt Count 274 (150-450) k/uL Comprehensive Metabolic Panel 08/24/24 Range/Units 09:10 Sodium 136 L (137-145) mmol/L Potassium 4.4 (3.5-5.1) mmol/L Chloride 105 (98-107) mmol/L Carbon Dioxide 26 (22-30) mmol/L BUN 24 H (9-20) mg/dL Creatinine 1.06 (0.66-1.25) mg/dL Glucose 146 H (74-99) mg/dL Calcium 9.7 (8.4-10.2) mg/dL AST 58 (17-59) U/L ALT 106 H (4-49) U/L Alkaline Phosphatase 105 (38-126) U/L Total Protein 6.8 (6.3-8.2) g/dL Albumin 4.2 (3.5-5.0) g/dL Current Medications Generic Name Dose Route Start Last Admin Trade Name Freq PRN Reason Stop Dose Admin Amlodipine Besylate 5 mg 08/25/24 09:00 Amlodipine 5 Mg Tab PO DAILY [facility] Aspirin 81 mg 08/25/24 09:00 Aspirin 81 Mg PO DAILY [facility] Atorvastatin Calcium 40 mg 08/25/24 09:00 Atorvastatin 40 Mg Tab PO DAILY [facility] Cholecalciferol 25 mcg 08/25/24 09:00 Cholecalciferol 25 Mcg (1000 Iu) Tablet PO DAILY [facility] Clopidogrel Bisulfate 75 mg 08/25/24 09:00 Clopidogrel 75 Mg Tab PO DAILY [facility] Amiodarone HCl 450 mg/ 250 mls @ 16.667 mls/hr 08/24/24 15:30 08/24/24 15:47 Dextrose/Water IV 08/25/24 09:29 0.5 mg/min .Q15H FRANTZ 16.667 mls/hr Administration Protocol 0.5 MG/MIN Isosorbide Mononitrate 60 mg 08/25/24 09:00 Isosorbide Mononitrate Er 60 Mg Tab.Er.24h PO DAILY [facility] Lisinopril 10 mg 08/25/24 09:00 Lisinopril 10 Mg Tab PO DAILY [facility] Morphine Sulfate 4 mg 08/24/24 10:29 08/24/24 11:34 Morphine Sulfate 4 Mg/Ml Syringe IV 4 mg Q5M PRN Administration Chest Pain Nicotine 1 patch 08/25/24 09:00 Nicotine 21mg/24hr Patch TRANSDERM DAILY [facility] Nitroglycerin 0.4 mg 08/24/24 10:29 Nitroglycerin Sl Tabs 0.4 Mg Tab SUBLINGUAL Q5M PRN Chest Pain Nitroglycerin 1 inch 08/24/24 12:00 08/24/24 15:33 Nitroglycerin Oint 1 Inch/Gm Packet TOPICAL 1 inch Q6HR FRANTZ Administration Tamsulosin HCl 0.4 mg 08/25/24 09:00 Tamsulosin 0.4 Mg Cap.Er.24h PO DAILY FRANTZ Intake and Output 08/24/24 08/24/24 08/24/24 06:59 14:59 22:59 Other: Weight 47.627 kg Patient Weight 08/25/24 06:59 Weight 47.627 kg 08/24/24 09:10 08/24/24 09:10
[2024-08-24 22:11] LABS: Glucose,Whole Blood 100 mg/dL (70-110)
[2024-08-24] MEDS ORDERED: NALOXONE 0.4 MG/ML 1 ML VIAL IV PRN (22:20)
[2024-08-25 03:41] LABS: HCT 41.8 % (39.0-53.0); HGB 13.5 gm/dL (13.0-17.5); MCHC 32.2 g/dL (31.0-37.0); MCV 93.1 fL (80.0-100.0); Mean Platelet Volume 7.5; Platelet Count 232 k/uL (150-450); RBC 4.49 m/uL (4.30-5.90); RDW 13.3 % (11.5-15.5)
[2024-08-25 03:57] LABS: African American GFR (CKD) >90 (>60 ml/min/1.73 sqM); Anion Gap 5 mmol/L; Blood Urea Nitrogen 18 mg/dL (9-20); Calcium 9.2 mg/dL (8.4-10.2); Carbon Dioxide 30 mmol/L (22-30); Chloride 102 mmol/L (98-107); Glucose 93 mg/dL (74-99); Non-African American GFR(CKD) 90 (>60 ml/min/1.73 sqM); Potassium 4.1 mmol/L (3.5-5.1); Sodium 137 mmol/L (137-145)
[2024-08-25 04:57] LABS: Glucose,Whole Blood 101 mg/dL (70-110)
--- NOTE | 2024-08-25 07:38 | P.PN ---
Subjective Progress Note Date: 08/25/24 This is a 69-year-old gentleman who is known to our service from before with known mild nonobstructive CAD based on recent heart catheterization as well as hypertension and dyslipidemia and smoking was brought to the hospital for "cardiac arrest". The patient was in his usual state of health till earlier today when he was sitting at home and started experiencing discomfort in the chest started suddenly. He called ambulance and upon arrived the patient did have an episode of wide-complex tachycardia concerning for pulseless ventricular tachycardia and subsequently he received CPR for 30 seconds and then he received a shock and brought back to normal sinus mechanism. No documentation from the ambulance about any wide-complex tachycardia or ventricular tachycardia. The patient was seen and evaluated in the emergency department where he was experiencing discomfort in the chest mainly once he take a deep breath likely secondary to CPR. He underwent an EKG in the emergency department which I reviewed and that showed sinus mechanism with ST changes in the anteroseptal leads. Please note that the patient was seen by our service recently after he was admitted with a chest discomfort and mildly abnormal cardiac enzymes as well as mild EKG changes and he was diagnosed with non-STEMI and underwent an echo which revealed normal biventricular systolic function with no significant valvular abnormalities and also a heart catheterization which revealed no evidence of high-grade stenosis with normal left-sided filling pressure and there was a concern about possible coronary vasospasm and the patient was treated medically and he was discharged in stable medical condition. Examination is remarkable for regular rhythm with a systolic murmur at the right and left upper sternal border with clear breathing sounds bilaterally and no edema was noted August 25, 2024 The patient was seen and evaluated this morning. He is asymptomatic. The chest discomfort has almost resolved. No shortness of breath. He is hemodynamically stable. He is bradycardic with heart rate in the 50s. Beside that he is on amiodarone IV which I am going to discontinue and start him on amiodarone orally. Continue the current medical regimen including antiplatelet and antihypertension agents. The examination is remarkable for regular rhythm with a distant heart sounds and bilateral expiratory wheezing noted. I am going to obtain a chest x-ray. Otherwise the patient can be transferred to the floor. A lso we will follow-up on the echocardiogram which was ordered. Also DC amiodarone IV and start the patient on oral amiodarone Assessment Cardiac arrest secondary to ventricular tachycardia by history. No documentation of ventricular tachycardia has been seen Mild CAD based on recent heart catheterization Chest discomfort appears to be musculoskeletal secondary to CPR Multiple comorbid conditions Plan Continue the current medical regimen DC amiodarone IV and start the patient on amiodarone orally Obtain a chest x-ray The patient can be transferred out of the ICU Follow-up on the echocardiogram Objective - Vital Signs Vital signs: Vital Signs Temp 98.1 F 08/25/24 00:00 Pulse 53 L 08/25/24 07:00 Resp 26 H 08/25/24 07:00 BP 122/67 08/25/24 07:00 Pulse Ox 94 L 08/25/24 07:00 FiO2 Intake & Output 08/24/24 08/25/24 08/25/24 18:59 06:59 18:59 Intake Total 250 Output Total 600 0 Balance -350 0 Weight 47.627 kg 65.2 kg Intake: Intake, IV Titration 250 Amount Amiodarone 450 mg In 250 Dextrose 5% in Water 250 ml @ 0.5 MG/MIN 16.667 mls/hr IV .Q15H FRANTZ Rx#: [id number] Output: Urine 600 0 Other: Voiding Method Urinal # Voids 1 - Labs CBC & Chem 7: 08/25/24 03:06 08/25/24 03:06 Labs: Abnormal Lab Results - Last 24 Hours (Table) 08/24/24 08/24/24 08/24/24 Range/Units 09:10 09:10 11:41 D-Dimer 5.38 H (<0.60) mg/L FEU Sodium 136 L (137-145) mmol/L BUN 24 H (9-20) mg/dL Glucose 146 H (74-99) mg/dL ALT 106 H (4-49) U/L Troponin I 0.051 H* (0.000-0.034) ng/mL 08/24/24 Range/Units 16:20 D-Dimer (<0.60) mg/L FEU Sodium (137-145) mmol/L BUN (9-20) mg/dL Glucose (74-99) mg/dL ALT (4-49) U/L Troponin I 0.090 H* (0.000-0.034) ng/mL
[2024-08-25] MEDS: ATORVASTATIN 40 MG TAB PO SCH (08:38)
[2024-08-25] MEDS: ISOSORBIDE MONONITRATE ER 60 MG TAB.ER.24H PO SCH (08:38)
[2024-08-25] MEDS: AMIODARONE 200 MG TAB PO SCH (08:38)
[2024-08-25] MEDS: lisinopriL 10 MG TAB PO SCH (08:38)
[2024-08-25] MEDS: ASPIRIN 81 MG PO SCH (08:38)
[2024-08-25] MEDS: NICOTINE 21MG/24HR PATCH TRANSDERM SCH (08:38)
[2024-08-25] MEDS: CHOLECALCIFEROL 25 MCG (1000 IU) TABLET PO SCH (08:38)
[2024-08-25] MEDS: TAMSULOSIN 0.4 MG CAP.ER.24H PO SCH (08:38)
[2024-08-25] MEDS: CLOPIDOGREL 75 MG TAB PO SCH (08:38)
[2024-08-25 08:41] LABS: Chol/HDL Ratio 1.92 Ratio; LDL Cholesterol,Calculated 40.8 mg/dL (0.0-131.0); VLDL Calculation 15.64 mg/dL (5.00-40.00)
[2024-08-25] MEDS ORDERED: ASPIRIN 325 MG TAB PO SCH (09:00)
--- NOTE | 2024-08-25 09:24 | XR ---
EXAMINATION TYPE: XR chest 1V portable DATE OF EXAM: 08/25/2024 8:45 AM COMPARISON: 08/24/2024 CLINICAL INDICATION: Male, 69 years old with history of shortness of breath, , FINDINGS: Heart normal size. Aorta and pulmonary vasculature within normal limits. Patient rotated towards the right altering the normal cardiomediastinal contours. Relative upper lung lucencies with hyperinflati on. External artifact projected over the right midlung. Subtle nodularity periphery of the left mid l delroy compatible with nipple shadow. No epi consolidation or pleural effusion. Colonic interposition below the right hemidiaphragm. IMPRESSION: COPD. No definite acute process. [facility], , 08/25/2024 9:22 AM
--- NOTE | 2024-08-25 11:23 | CA ---
Transthoracic Echo Report Name: Vignesh Preston Age: 69 Gender: M : 1955 Exam Date: 08/24/2024 14:05 Exam Location: [facility] Ht (in): 67 Wt (lb): 105 Ordering Physician: Magi Nuñez Attending/Referring Phys: [id number], [place] [employer] Yaquelin Hawley RDCS Procedure CPT: Indications: LVF, cardiac arrest, r/o effusion Cardiac Hx: Technical Quality: Fair Contrast 1: Total Dose (mL): Contrast 2: Total Dose (mL): MEASUREMENTS (Male / Female) Normal Values 2D ECHO LV Diastolic Diameter PLAX 4.4 cm 4.2 - 5.9 / 3.9 - 5.3 cm LV Systolic Diameter PLAX 2.2 cm IVS Diastolic Thickness 1.2 cm 0.6 - 1.0 / 0.6 - 0.9 cm LVPW Diastolic Thickness 1.0 cm 0.6 - 1.0 / 0.6 - 0.9 cm LV Relative Wall Thickness 0.5 FINDINGS Left Ventricle Mildly increased left ventricular wall thickness. Normal LV function Right Ventricle Right Atrium Left Atrium Mitral Valve Aortic Valve Tricuspid Valve Pulmonic Valve Pericardium No pericardial effusion. Aorta CONCLUSIONS No pericardial effusion Normal left ventricular systolic function No obvious wall motion abnormalities Previewed by: Dr. Dallas Coulter MD (Electronically Signed) Final Date: 25 August 2024 11:22
--- NOTE | 2024-08-25 11:46 | P.PN ---
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 He was here last week for chest pain and cardiac catheterization revealed mild disease in the LAD proximally and mid. No obstructive disease in left circumflex and RCA. Normal LVEDP. Failed preserved left ventricular systolic function with ejection fraction of 55 to 60%. No significant valvular disease. Discharged home on 08/22/2024. He came back to the emergency room early this morning after waking up and walking a few steps down the hallway where he got dizzy and was having chest pain and called 911 prior to passing out. When EMS arrived he was in pulseless ventricular tachycardia and had 30 seconds of CPR was defibrillated once with return of spontaneous circulation. Chest x-ray reveals no acute cardiopulmonary process. White count 6.1. Hemoglobin 14.4. Platelets 274. D- dimer 5.38. Sodium 136. Potassium 4.4. Bicarb 26. BUN 24. Creatinine 1.06. Glucose 146. Troponin 0.012, 0.051. Currently at 1 mg/min. He is currently in sinus bradycardia with heart rate in the 40s. Seen and evaluated in the emergency department. He is awake and alert in no acute distress. He is maintaining O2 saturations in the 90s on 2 L/min per nasal cannula. He denies any chest pain currently. No dizziness or lightheadedness. This is patient is seen today August 25, 2024 in follow-up in the intensive care unit. He is currently sitting up at the bedside. Awake and alert in no acute distress. He is maintaining good O2 saturations in the 90s on room air. He has not had any further ventricular arrhythmias. He has been bradycardic in the 40s and 50s throughout the night. He has been transitioned to oral amiodarone. Glucose 232. Sodium 137. Potassium 4.1. Bicarb 30. BUN 18. Creatinine 0.86. Glucose 93. NicoDerm patch in place. Objective - Vital Signs Vital signs: Vital Signs Temp 98.7 F 08/25/24 08:00 Pulse 63 08/25/24 10:00 Resp 21 08/25/24 10:00 BP 95/67 08/25/24 10:00 Pulse Ox 93 L 08/25/24 10:00 FiO2 Intake & Output 08/24/24 08/25/24 08/25/24 18:59 06:59 18:59 Intake Total 250 Output Total 600 150 Balance -350 -150 Weight 47.627 kg 65.2 kg Intake: Intake, IV Titration 250 Amount Amiodarone 450 mg In 250 Dextrose 5% in Water 250 ml @ 0.5 MG/MIN 16.667 mls/hr IV .Q15H [facility] Rx#: [id number] Output: Urine 600 150 Other: Voiding Method Urinal Urinal # Voids 1 - Exam GENERAL EXAM: Alert, pleasant 69-year-old male, on room air, comfortable in no a pparent distress. HEAD: Left-sided skull deformity. EYES: Normal reaction of pupils, equal size. NOSE: Clear with pink turbinates. THROAT: No erythema or exudates. NECK: No masses, no JVD. CHEST: No chest wall deformity. LUNGS: Equal air entry with no crackles, wheeze, rhonchi or dullness. CVS: S1 and S2 normal with no audible murmur, regular rhythm. ABDOMEN: No hepatosplenomegaly, normal bowel sounds, no guarding or rigidity. SPINE: No scoliosis or deformity SKIN: No rashes CENTRAL NERVOUS SYSTEM: No focal deficits, tone is normal in all 4 extremities. EXTREMITIES: There is no peripheral edema. No clubbing, no cyanosis. Peripheral pulses are intact. - Labs CBC & Chem 7: 08/25/24 03:06 08/25/24 03:06 Labs: Abnormal Lab Results - Last 24 Hours (Table) 08/24/24 08/24/24 08/25/24 Range/Units 11:41 16:20 03:06 Troponin I 0.051 H* 0.090 H* (0.000-0.034) ng/mL HDL Cholesterol 61.60 H (40.00-60.00) mg/dL Assessment and Plan Assessment: Cardiac arrest secondary to pulseless ventricular tachycardia requiring 30 seconds of CPR and defibrillation x 1 with return of spontaneous circulation Recent discharge 08/22/2024 for chest pain found to have mild obstructive coronary disease involving the LAD proximally and mid. 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 Home once cleared by cardiology I have personally seen and examined the patient, performed the documentation and the assessment and plan as written. Number of minutes spent on the visit: 10 Dictation was produced using [employer] dictation software. Please excuse any grammatical, word or spelling errors.
[2024-08-25] MEDS: amLODIPine 5 MG TAB PO SCH (12:11)
--- NOTE | 2024-08-26 06:24 | P.PN ---
Subjective Progress Note Date: 08/26/24 This is a 69-year-old gentleman who is known to our service from before with known mild nonobstructive CAD based on recent heart catheterization as well as hypertension and dyslipidemia and smoking was brought to the hospital for "cardiac arrest". The patient was in his usual state of health till earlier today when he was sitting at home and started experiencing discomfort in the chest started suddenly. He called ambulance and upon arrived the patient did have an episode of wide-complex tachycardia concerning for pulseless ventricular tachycardia and subsequently he received CPR for 30 seconds and then he received a shock and brought back to normal sinus mechanism. No documentation from the ambulance about any wide-complex tachycardia or ventricular tachycardia. The patient was seen and evaluated in the emergency department where he was experiencing discomfort in the chest mainly once he take a deep breath likely secondary to CPR. He underwent an EKG in the emergency department which I reviewed and that showed sinus mechanism with ST changes in the anteroseptal leads. Please note that the patient was seen by our service recently after he was admitted with a chest discomfort and mildly abnormal cardiac enzymes as well as mild EKG changes and he was diagnosed with non-STEMI and underwent an echo which revealed normal biventricular systolic function with no significant valvular abnormalities and also a heart catheterization which revealed no evidence of high-grade stenosis with normal left-sided filling pressure and there was a concern about possible coronary vasospasm and the patient was treated medically and he was discharged in stable medical condition. Examination is remarkable for regular rhythm with a systolic murmur at the right and left upper sternal border with clear breathing sounds bilaterally and no edema was noted August 25, 2024 The patient was seen and evaluated this morning. He is asymptomatic. The chest discomfort has almost resolved. No shortness of breath. He is hemodynamically stable. He is bradycardic with heart rate in the 50s. Beside that he is on amiodarone IV which I am going to discontinue and start him on amiodarone orally. Continue the current medical regimen including antiplatelet and antihypertension agents. The examination is remarkable for regular rhythm with a distant heart sounds and bilateral expiratory wheezing noted. I am going to obtain a chest x-ray. Otherwise the patient can be transferred to the floor. A lso we will follow-up on the echocardiogram which was ordered. Also DC amiodarone IV and start the patient on oral amiodarone August 26, 2024 The patient was seen and evaluated this morning with he was transferred from the intensive care unit to the third floor. He is feeling better. The chest discomfort has almost resolved. No shortness of repeat he is hemodynamically stable with normal blood pressure and heart rate. An echo was ordered and still pending. He is on dual antiplatelet therapy along with amlodipine for coronary vasospasm. Examination is remarkable for regular rhythm with a soft systolic murmur and clear breathing sounds bilaterally and no edema was noted. Beside that he is on amiodarone orally. Assessment Cardiac arrest secondary to ventricular tachycardia by history. No documentation of ventricular tachycardia has been seen Mild CAD based on recent heart catheterization Chest discomfort appears to be musculoskeletal secondary to CPR Multiple comorbid conditions Plan Continue the current medical regimen Follow-up on the echocardiogram Follow-up with the patient Objective - Vital Signs Vital signs: Vital Signs Temp 97.6 F 08/26/24 03:00 Pulse 63 08/26/24 05:00 Resp 20 08/26/24 05:00 BP 116/56 08/26/24 05:00 Pulse Ox 98 08/26/24 05:00 FiO2 Intake & Output 08/25/24 08/25/24 08/26/24 06:59 18:59 06:59 Intake Total 250 260 Output Total 600 275 200 Balance -350 -275 60 Weight 65.2 kg 67 kg Intake: IV 20 Invasive Line 2 10 Invasive Line 3 10 Intake, IV Titration 250 Amount Amiodarone 450 mg In 250 Dextrose 5% in Water 250 ml @ 0.5 MG/MIN 16.667 mls/hr IV .Q15H [facility] Rx#: [id number] Oral 240 Output: Urine 600 275 200 Other: Voiding Method Urinal Urinal # Voids 1 1 - Labs CBC & Chem 7: 08/25/24 03:06 08/25/24 03:06 Labs: Abnormal Lab Results - Last 24 Hours (Table) 08/25/24 Range/Units 03:06 HDL Cholesterol 61.60 H (40.00-60.00) mg/dL
--- NOTE | 2024-08-26 12:42 | P.PN ---
Subjective Progress Note Date: 08/26/24 Principal diagnosis: Ventricular tachycardia arrest. 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 He was here last week for chest pain and cardiac catheterization revealed mild disease in the LAD proximally and mid. No obstructive disease in left circumflex and RCA. Normal LVEDP. Failed preserved left ventricular systolic function with ejection fraction of 55 to 60%. No significant valvular disease. Discharged home on 08/22/2024. He came back to the emergency room early this morning after waking up and walking a few steps down the hallway where he got dizzy and was having chest pain and called 911 prior to passing out. When EMS arrived he was in pulseless ventricular tachycardia and had 30 seconds of CPR was defibrillated once with return of spontaneous circulation. Chest x-ray reveals no acute cardiopulmonary process. White count 6.1. Hemoglobin 14.4. Platelets 274. D- dimer 5.38. Sodium 136. Potassium 4.4. Bicarb 26. BUN 24. Creatinine 1.06. Glucose 146. Troponin 0.012, 0.051. Currently at 1 mg/min. He is currently in sinus bradycardia with heart rate in the 40s. Seen and evaluated in the emergency department. He is awake and alert in no acute distress. He is maintaining O2 saturations in the 90s on 2 L/min per nasal cannula. He denies any chest pain currently. No dizziness or lightheadedness. This is patient is seen today August 25, 2024 in follow-up in the intensive care unit. He is currently sitting up at the bedside. Awake and alert in no acute distress. He is maintaining good O2 saturations in the 90s on room air. He has not had any further ventricular arrhythmias. He has been bradycardic in the 40s and 50s throughout the night. He has been transitioned to oral amiodarone. Glucose 232. Sodium 137. Potassium 4.1. Bicarb 30. BUN 18. Creatinine 0.86. Glucose 93. NicoDerm patch in place. Progress note dated August 26, 2024. The patient is seen today in room 365. The patient was admitted with a diagnosis of [id number] cardiopulmonary arrest, secondary to ventricular tachycardia. The patient is doing reasonably well. The patient recently had a heart catheterization, which showed only mild CAD. Currently, he is on room air. No IV fluids. Labs, x-rays, and all medications are reviewed. Sodium 137, potassium 4.1, BUN 18, creatinine 0.86. Objective - Vital Signs Vital signs: Vital Signs Temp 98.1 F 08/26/24 08:00 Pulse 65 08/26/24 08:00 Resp 18 08/26/24 08:00 BP 110/58 08/26/24 08:00 Pulse Ox 94 L 08/26/24 08:00 FiO2 Intake & Output 08/25/24 08/26/24 08/26/24 18:59 06:59 18:59 Intake Total 260 200 Output Total 275 200 Balance -275 60 200 Weight 67 kg Intake: IV 20 Invasive Line 2 10 Invasive Line 3 10 Oral 240 200 Output: Urine 275 200 Other: Voiding Method Urinal # Voids 1 - Exam No acute distress, oriented 3. Currently on room air. HEENT examination is grossly unremarkable. Mucous membranes are moist. No oral lesions. Neck supple. Full range of motion. No adenopathy thyromegaly or neck vein distention. Cardiovascular examination reveals regular rhythm rate. S1-S2 normal. No S3 or S4. No discernible murmur noted. Lungs reveal clear breath sounds. Breath sounds are equal bilaterally. No adventitious lung sounds including wheezes rhonchi or crackles. Abdomen soft bowel sounds are heard. No masses or tenderness. Extremities are intact. No cyanosis clubbing or edema. Skin is without rash or lesion. Neurologic examination is brief but nonfocal. - Labs CBC & Chem 7: 08/25/24 03:06 08/25/24 03:06 Assessment and Plan Assessment: Cardiac arrest secondary to pulseless ventricular tachycardia requiring 30 seconds of CPR and defibrillation x 1 with return of spontaneous circulation. Recent discharge 08/22/2024 for chest pain found to have mild obstructive coronary disease involving the LAD proximally and mid. Preserved left ventricular systolic function. Prior history of coronary artery disease, S/P PTBA. Hypertension. Memory disorder. 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 Chronic and ongoing tobacco dependence. Plan: Plan dated August 26, 2024. The patient is seen today in room 365. The patient is on room air. No IV fluids. The patient is hoping to be discharged sometime later today. Labs, x- rays, and all medications are reviewed. Prognosis is guarded. The patient did have a recent cardiac catheterization, which revealed only mild CAD. Time with Patient: Less than 30
[2024-08-26] MEDS: FUROSEMIDE 10 MG/ML 4 ML VIAL IV STA (20:29)
[2024-08-26] MEDS: ALBUTEROL NEBULIZED 2.5 MG/3 ML INHALATION PRN (20:50)
--- NOTE | 2024-08-26 20:54 | XR ---
EXAMINATION TYPE: XR chest 1V DATE OF EXAM: 08/26/2024 8:34 PM COMPARISON: Chest radiographs from 08/25/2024 CLINICAL INDICATION: Male, 69 years old with history of chest congestion; [facility] TECHNIQUE: XR chest 1V Frontal view of the chest. FINDINGS: Lungs/Pleura: There is no evidence of pleural effusion, focal consolidation, or pneumothorax. Pulmonary vascularity: Unremarkable. Heart/mediastinum: Cardiomediastinal silhouette is unremarkable. Musculoskeletal: No acute osseous pathology. Other findings: None IMPRESSION: No acute cardiopulmonary disease/process. [facility], , 08/26/2024 8:52 PM
--- NOTE | 2024-08-26 23:50 | PN ---
PROGRESS NOTE DATE OF SERVICE: 08/25/2024 CHIEF COMPLAINT: Status post cardiac arrest with ventricular tachycardia. HISTORY OF PRESENT ILLNESS: This gentleman is still having chest pain. He is being evaluated by Cardiology. PHYSICAL EXAMINATION: CHEST: Clear. CARDIAC: Normal and he is in sinus rhythm. ABDOMEN: Soft, nontender. IMPRESSION: 1. Status post cardiac arrest with ventricular tachycardia. 2. Vasospastic angina. PLAN: Continue with telemetry and wait for any further recommendations from Cardiology. MMODL / IJN: [id number] /
--- NOTE | 2024-08-26 23:50 | HP ---
HISTORY AND PHYSICAL CHIEF COMPLAINT: Cardiac arrest. HISTORY OF PRESENT ILLNESS: This is another recent admission for this 69-year-old male. He was in the hospital just a week or so ago with chest pain and underwent a cardiac cath which demonstrated no significant obstructive lesions even though he had elevated troponins. It was felt that he either had a Takotsubo event or coronary artery vasospasm. He was discharged and went home and then suddenly developed chest pain, called an ambulance, and had a cardiac arrest with ventricular tachycardia and was defibrillated by EMS. Enzymes are up slightly at this time. REVIEW OF SYSTEMS: He denies any neurologic problems, hemoptysis, cough, pleuritic pain, etc. He does say that he continues to have anterior chest pain aggravated by exertion. He has had no abdominal pain, nausea, vomiting, melena, hematochezia, etc. Past medical history, family history, and personal and social histories are all otherwise unremarkable, or unchanged. Review of systems is unchanged. PHYSICAL EXAMINATION: VITAL SIGNS: Normal. HEAD, EARS, EYES, NOSE, MOUTH, AND THROAT: Normal. CHEST: Clear. CARDIAC: Exam is normal sinus rhythm and no murmurs or extra sounds. ABDOMEN: Soft and nontender. EXTREMITIES: Normal. NEUROLOGIC: Intact. He is admitted to the hospital. DIAGNOSES: 1. Cardiorespiratory arrest. 2. Ventricular tachycardia. 3. Unstable angina pectoris. PLAN: 1. Bedrest. 2. IV fluids. 3. Repeat serial EKGs and enzymes. 4. Cardiology consult. MMJUANIL / DEEPTHIN: [id number] /
--- NOTE | 2024-08-27 06:33 | P.PN ---
Subjective Progress Note Date: 08/27/24 This is a 69-year-old gentleman who is known to our service from before with known mild nonobstructive CAD based on recent heart catheterization as well as hypertension and dyslipidemia and smoking was brought to the hospital for "cardiac arrest". The patient was in his usual state of health till earlier today when he was sitting at home and started experiencing discomfort in the chest started suddenly. He called ambulance and upon arrived the patient did have an episode of wide-complex tachycardia concerning for pulseless ventricular tachycardia and subsequently he received CPR for 30 seconds and then he received a shock and brought back to normal sinus mechanism. No documentation from the ambulance about any wide-complex tachycardia or ventricular tachycardia. The patient was seen and evaluated in the emergency department where he was experiencing discomfort in the chest mainly once he take a deep breath likely secondary to CPR. He underwent an EKG in the emergency department which I reviewed and that showed sinus mechanism with ST changes in the anteroseptal leads. Please note that the patient was seen by our service recently after he was admitted with a chest discomfort and mildly abnormal cardiac enzymes as well as mild EKG changes and he was diagnosed with non-STEMI and underwent an echo which revealed normal biventricular systolic function with no significant valvular abnormalities and also a heart catheterization which revealed no evidence of high-grade stenosis with normal left-sided filling pressure and there was a concern about possible coronary vasospasm and the patient was treated medically and he was discharged in stable medical condition. Examination is remarkable for regular rhythm with a systolic murmur at the right and left upper sternal border with clear breathing sounds bilaterally and no edema was noted August 25, 2024 The patient was seen and evaluated this morning. He is asymptomatic. The chest discomfort has almost resolved. No shortness of breath. He is hemodynamically stable. He is bradycardic with heart rate in the 50s. Beside that he is on amiodarone IV which I am going to discontinue and start him on amiodarone orally. Continue the current medical regimen including antiplatelet and antihypertension agents. The examination is remarkable for regular rhythm with a distant heart sounds and bilateral expiratory wheezing noted. I am going to obtain a chest x-ray. Otherwise the patient can be transferred to the floor. A lso we will follow-up on the echocardiogram which was ordered. Also DC amiodarone IV and start the patient on oral amiodarone August 26, 2024 The patient was seen and evaluated this morning with he was transferred from the intensive care unit to the third floor. He is feeling better. The chest discomfort has almost resolved. No shortness of repeat he is hemodynamically stable with normal blood pressure and heart rate. An echo was ordered and still pending. He is on dual antiplatelet therapy along with amlodipine for coronary vasospasm. Examination is remarkable for regular rhythm with a soft systolic murmur and clear breathing sounds bilaterally and no edema was noted. Beside that he is on amiodarone orally. 2023 The patient was seen and evaluated this morning. He underwent an echo yesterday and that showed normal LV systolic function with no evidence of pericardial effusion. No more episode/symptoms of chest pain or chest discomfort. He is somewhat congested. Chest x-ray was performed last night came in to be unremarkable and NT proBNP came in to be unremarkable but on examination he does have bilateral rhonchi which could be secondary to pneumonia to be addressed by the primary care team. He is short of breath laying flat in bed. Examination is remarkable for regular rhythm with a systolic murmur and bilateral rhonchi was heard at the bases. Assessment Cardiac arrest secondary to ventricular tachycardia by history. No documentation of ventricular tachycardia has been seen Mild CAD based on recent heart catheterization Chest discomfort appears to be musculoskeletal secondary to CPR Multiple comorbid conditions Plan Continue the current medical regimen Give the patient a dose of Lasix IV Rule out pneumonia to be addressed by the Medicare team Continue the current medical regimen Objective - Vital Signs Vital signs: Vital Signs Temp 98.0 F 08/26/24 23:22 Pulse 59 L 08/27/24 04:45 Resp 20 08/27/24 04:45 BP 116/72 08/27/24 04:45 Pulse Ox 98 08/27/24 04:45 FiO2 Intake & Output 08/26/24 08/26/24 08/27/24 06:59 18:59 05:59 Intake Total 260 686 Output Total 200 1725 Balance 60 686 -1725 Weight 67 kg 67.9 kg Intake: IV 20 Invasive Line 2 10 Invasive Line 3 10 Oral 240 686 Output: Urine 200 1725 Other: # Voids 1 1 - Labs CBC & Chem 7: 08/25/24 03:06 08/25/24 03:06 Labs: Abnormal Lab Results - Last 24 Hours (Table) 08/26/24 Range/Units 16:09 D-Dimer 2.18 H (<0.60) mg/L FEU
[2024-08-27] MEDS: FUROSEMIDE 10 MG/ML 2 ML VIAL IV STA (07:00)
--- NOTE | 2024-08-27 12:15 | P.PN ---
Subjective Progress Note Date: 08/27/24 Principal diagnosis: Ventricular tachycardia arrest. 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 He was here last week for chest pain and cardiac catheterization revealed mild disease in the LAD proximally and mid. No obstructive disease in left circumflex and RCA. Normal LVEDP. Failed preserved left ventricular systolic function with ejection fraction of 55 to 60%. No significant valvular disease. Discharged home on 08/22/2024. He came back to the emergency room early this morning after waking up and walking a few steps down the hallway where he got dizzy and was having chest pain and called 911 prior to passing out. When EMS arrived he was in pulseless ventricular tachycardia and had 30 seconds of CPR was defibrillated once with return of spontaneous circulation. Chest x-ray reveals no acute cardiopulmonary process. White count 6.1. Hemoglobin 14.4. Platelets 274. D- dimer 5.38. Sodium 136. Potassium 4.4. Bicarb 26. BUN 24. Creatinine 1.06. Glucose 146. Troponin 0.012, 0.051. Currently at 1 mg/min. He is currently in sinus bradycardia with heart rate in the 40s. Seen and evaluated in the emergency department. He is awake and alert in no acute distress. He is maintaining O2 saturations in the 90s on 2 L/min per nasal cannula. He denies any chest pain currently. No dizziness or lightheadedness. This is patient is seen today August 25, 2024 in follow-up in the intensive care unit. He is currently sitting up at the bedside. Awake and alert in no acute distress. He is maintaining good O2 saturations in the 90s on room air. He has not had any further ventricular arrhythmias. He has been bradycardic in the 40s and 50s throughout the night. He has been transitioned to oral amiodarone. Glucose 232. Sodium 137. Potassium 4.1. Bicarb 30. BUN 18. Creatinine 0.86. Glucose 93. NicoDerm patch in place. Progress note dated August 26, 2024. The patient is seen today in room 365. The patient was admitted with a diagnosis of [id number] cardiopulmonary arrest, secondary to ventricular tachycardia. The patient is doing reasonably well. The patient recently had a heart catheterization, which showed only mild CAD. Currently, he is on room air. No IV fluids. Labs, x-rays, and all medications are reviewed. Sodium 137, potassium 4.1, BUN 18, creatinine 0.86. Progress note dated September 23, 2024. The patient is seen today in room 365. The patient apparently was complaining of chest pain. He was evaluated by cardiology, and they thought his chest pain was musculoskeletal, from previous CPR, on admission. He is on 2 L, saturations are 97%. The patient's chest x-ray, is unremarkable. No new labs today. Objective - Vital Signs Vital signs: Vital Signs Temp 97.7 F 08/27/24 08:00 Pulse 68 08/27/24 08:20 Resp 18 08/27/24 08:00 BP 103/59 08/27/24 08:00 Pulse Ox 97 08/27/24 08:00 FiO2 Intake & Output 08/26/24 08/27/24 08/27/24 19:59 06:59 18:59 Intake Total 118 Output Total 450 Balance -332 Weight Intake: Oral 118 Output: Urine 450 Other: # Voids - Exam No acute distress, oriented 3. Currently on 2 L. HEENT examination is grossly unremarkable. Mucous membranes are moist. No oral lesions. Neck supple. Full range of motion. No adenopathy thyromegaly or neck vein distention. Cardiovascular examination reveals regular rhythm rate. S1-S2 normal. No S3 or S4. No discernible murmur noted. Lungs reveal clear breath sounds. Breath sounds are equal bilaterally. No adventitious lung sounds including wheezes rhonchi or crackles. Abdomen soft bowel sounds are heard. No masses or tenderness. Extremities are intact. No cyanosis clubbing or edema. Skin is without rash or lesion. Neurologic examination is brief but nonfocal. - Labs CBC & Chem 7: 08/25/24 03:06 08/25/24 03:06 Labs: Abnormal Lab Results - Last 24 Hours (Table) 08/26/24 08/26/24 Range/Units 16:04 16:09 D-Dimer 2.18 H (<0.60) mg/L FEU C-Reactive Protein 1.10 H (0.00-0.80) mg/dL Assessment and Plan Assessment: Cardiac arrest secondary to pulseless ventricular tachycardia requiring 30 seconds of CPR and defibrillation x 1 with return of spontaneous circulation. Recent discharge 08/22/2024 for chest pain found to have mild obstructive coronary disease involving the LAD proximally and mid. Preserved left ventricular systolic function. Prior history of coronary artery disease, S/P PTBA. Hypertension. Memory disorder. 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 Chronic and ongoing tobacco dependence. Plan: Plan dated August 26, 2024. The patient is seen today in room 365. The patient is on room air. No IV fluids. The patient is hoping to be discharged sometime later today. Labs, x- rays, and all medications are reviewed. Prognosis is guarded. The patient did have a recent cardiac catheterization, which revealed only mild CAD. Plan dated August 27, 2024. The patient apparently was going to be discharged yesterday, but developed some chest pain. Cardiology evaluated the patient, . Chest pain was likely musculoskeletal, from his CPR, when the patient was admitted. Currently, he is on 2 L of oxygen. Saturations are 97%. Chest x-ray dated August 26, shows no acute disease. Labs, x-rays, medications are reviewed. The patient did have a recent cardiac catheterization, which did revealed only mild CAD. Prognosis is guarded. Time with Patient: Less than 30
--- NOTE | 2024-08-28 03:39 | PN ---
PROGRESS NOTE DATE OF SERVICE: 08/27/2024 CHIEF COMPLAINT: Chest pain and ventricular tachycardia. HISTORY OF PRESENT ILLNESS: This gentleman has been stable and there has been no interval change. He still has a chest pain. It is thought that this might be related to resuscitative attempts by EMS when he was in ventricular tachycardia. PHYSICAL EXAMINATION: CHEST: Clear. CARDIAC: Normal. ABDOMEN: Soft, nontender. IMPRESSION: 1. Ventricular tachycardia. 2. History of NSTEMI. PLAN: Await further recommendations from Cardiology specifically regarding his arrhythmia. MMODL / IJN: [id number] /
--- NOTE | 2024-08-28 10:07 | CA ---
Transthoracic Echo Report Name: Vignesh Preston Age: 69 Gender: M : 1955 Exam Date: 08/28/2024 09:10 Exam Location: [facility] Ht (in): 67 Wt (lb): 147 Ordering Physician: Doc Gimenez MD ([id number]) Attending/Referring Phys: Heat Treating Furnace Tender Ania Meza RDCS Procedure CPT: Indications: r/o pericardial effusion Cardiac Hx: Technical Quality: Fair Contrast 1: Total Dose (mL): Contrast 2: Total Dose (mL): MEASUREMENTS (Male / Female) Normal Values 2D ECHO LV Diastolic Diameter PLAX 4.2 cm 4.2 - 5.9 / 3.9 - 5.3 cm LV Systolic Diameter PLAX 3.0 cm IVS Diastolic Thickness 0.8 cm 0.6 - 1.0 / 0.6 - 0.9 cm LVPW Diastolic Thickness 1.0 cm 0.6 - 1.0 / 0.6 - 0.9 cm LV Relative Wall Thickness 0.4 RV Internal Dim ED PLAX 1.6 cm LA Systolic Diameter LX 3.2 cm 3.0 - 4.0 / 2.7 - 3.8 cm LV Diastolic Volume MOD 4C 60.2 cm??? LV Systolic Volume MOD 4C 11.0 cm??? LV Ejection Fraction MOD 4C 81.8 % LV Cardiac Index MOD 4C 1686.4 cm???/min???m??? LV Diastolic Length 4C 6.5 cm LV Systolic Length 4C 5.2 cm M-MODE Aortic Root Diameter MM 2.4 cm LA Systolic Diameter MM 3.4 cm LA Ao Ratio MM 1.4 AV Cusp Separation MM 1.7 cm FINDINGS Left Ventricle Left ventricular ejection fraction is estimated at 50-55 %. Left ventricular wall thickness normal. Left ventricular cavity size normal. No obvious regional wall motion abnormalities. Mildly reduced global left ventricular systolic function. Right Ventricle Normal right ventricular size and function. Right Atrium Left Atrium Mitral Valve Aortic Valve Tricuspid Valve Pulmonic Valve Pericardium No pericardial or pleural effusion. Aorta Normal size aortic root and proximal ascending aorta. CONCLUSIONS Normal LV function No pericardial effusion Previewed by: Dr. Dallas Coulter MD (Electronically Signed) Final Date: 28 August 2024 10:06
--- NOTE | 2024-08-28 10:50 | PN ---
PROGRESS NOTE DATE OF SERVICE: 08/26/2024 CHIEF COMPLAINT: Chest pain. HISTORY OF PRESENT ILLNESS: This gentleman is still complaining of a lot of anterior chest pain. He states it is worse when he takes deep breath or tries to move about. His studies have been unremarkable so far. PHYSICAL EXAMINATION: CHEST: He professes to be tender throughout the anterior chest wall. Chest is clear. CARDIAC: Normal. IMPRESSION: 1. Status post cardiac arrest with ventricular tachycardia. 2. Anterior chest pain. 3. Chest wall pain. PLAN: CRP and DEVYN as well as D-dimer. MMODL / IJN: [id number] /
[2024-08-28] MEDS: LIDOCAINE 4% PATCH TOPICAL ONE (11:26)
--- NOTE | 2024-08-28 13:19 | P.PN ---
Subjective Progress Note Date: 08/28/24 This is a 69-year-old gentleman who is known to our service from before with known mild nonobstructive CAD based on recent heart catheterization as well as hypertension and dyslipidemia and smoking was brought to the hospital for "cardiac arrest". The patient was in his usual state of health till earlier today when he was sitting at home and started experiencing discomfort in the chest started suddenly. He called ambulance and upon arrived the patient did have an episode of wide-complex tachycardia concerning for pulseless ventricular tachycardia and subsequently he received CPR for 30 seconds and then he received a shock and brought back to normal sinus mechanism. No documentation from the ambulance about any wide-complex tachycardia or ventricular tachycardia. The patient was seen and evaluated in the emergency department where he was experiencing discomfort in the chest mainly once he take a deep breath likely secondary to CPR. He underwent an EKG in the emergency department which I reviewed and that showed sinus mechanism with ST changes in the anteroseptal leads. Please note that the patient was seen by our service recently after he was admitted with a chest discomfort and mildly abnormal cardiac enzymes as well as mild EKG changes and he was diagnosed with non-STEMI and underwent an echo which revealed normal biventricular systolic function with no significant valvular abnormalities and also a heart catheterization which revealed no evidence of high-grade stenosis with normal left-sided filling pressure and there was a concern about possible coronary vasospasm and the patient was treated medically and he was discharged in stable medical condition. Examination is remarkable for regular rhythm with a systolic murmur at the right and left upper sternal border with clear breathing sounds bilaterally and no edema was noted August 25, 2024 The patient was seen and evaluated this morning. He is asymptomatic. The chest discomfort has almost resolved. No shortness of breath. He is hemodynamically stable. He is bradycardic with heart rate in the 50s. Beside that he is on amiodarone IV which I am going to discontinue and start him on amiodarone orally. Continue the current medical regimen including antiplatelet and antihypertension agents. The examination is remarkable for regular rhythm with a distant heart sounds and bilateral expiratory wheezing noted. I am going to obtain a chest x-ray. Otherwise the patient can be transferred to the floor. Also we will follow-up on the echocardiogram which was ordered. Also DC amiodarone IV and start the patient on oral amiodarone August 26, 2024 The patient was seen and evaluated this morning with he was transferred from the intensive care unit to the third floor. He is feeling better. The chest d iscomfort has almost resolved. No shortness of repeat he is hemodynamically stable with normal blood pressure and heart rate. An echo was ordered and still pending. He is on dual antiplatelet therapy along with amlodipine for coronary vasospasm. Examination is remarkable for regular rhythm with a soft systolic murmur and clear breathing sounds bilaterally and no edema was noted. Beside that he is on amiodarone orally. August 27, 2024 The patient was seen and evaluated this morning. He underwent an echo yesterday and that showed normal LV systolic function with no evidence of pericardial effusion. No more episode/symptoms of chest pain or chest discomfort. He is somewhat congested. Chest x-ray was performed last night came in to be unremarkable and NT proBNP came in to be unremarkable but on examination he does have bilateral rhonchi which could be secondary to pneumonia to be addressed by the primary care team. He is short of breath laying flat in bed. Examination is remarkable for regular rhythm with a systolic murmur and bilateral rhonchi was heard at the bases. August 28, 2024 Patient states that he is still having a little chest pain. Yesterday, he was started on amiodarone oral and is also 1 dose of IV Lasix. Patient denies having any lightheadedness or dizziness. Telemetry reviewed with no episodes of ventricular tachycardia. Echocardiogram reveals EF 50 to 55%, no pericardial effusion. Examination is remarkable for regular rhythm with a systolic murmur and bilateral rhonchi was heard at the bases. Assessment Cardiac arrest secondary to ventricular tachycardia by history. No documentation of ventricular tachycardia has been seen Mild CAD based on recent heart catheterization Chest discomfort appears to be musculoskeletal secondary to CPR Multiple comorbid conditions Plan Continue patient on the following medications: Amlodipine 5 mg daily, aspirin 81 mg daily, atorvastatin 40 mg daily, Plavix 75 mg daily, Imdur 60 mg daily, lisinopril 10 mg daily Continue patient on nicotine patch, smoking cessation. Patient will be provided [email or web address] quit line information at discharge. Continue amiodarone 200 mg twice daily for 2 weeks and then 200 mg daily, prescription has been sent to his pharmacy Add a lidocaine patch for chest pain Arrangements will be made for a 14-day event monitor from the office. Patient will need to have this picked up prior to discharge Patient is cleared for discharge and may follow-up in the office in [address] Roy. Cardiology will sign off this case and follow on an as-needed basis. Please reconsult for any new concerns. Patient may follow-up in the office in one to 2 weeks. Nurse practitioner note has been reviewed, I agree with documented findings and plan of care. Patient was seen and examined. Objective - Vital Signs Vital signs: Vital Signs Temp 97.5 F L 08/28/24 08:34 Pulse 60 08/28/24 08:34 Resp 18 08/28/24 08:34 BP 126/69 08/28/24 08:34 Pulse Ox 96 08/28/24 08:34 FiO2 Intake & Output 08/27/24 08/28/24 08/28/24 18:59 06:59 18:59 Intake Total 448 Output Total 1150 800 Balance -702 -800 Weight 60 kg Intake: Oral 448 Output: Urine 1150 800 Other: # Voids 2 - Labs CBC & Chem 7: 08/25/24 03:06 08/25/24 03:06
--- NOTE | 2024-08-28 14:58 | P.PN ---
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 He was here last week for chest pain and cardiac catheterization revealed mild disease in the LAD proximally and mid. No obstructive disease in left circumflex and RCA. Normal LVEDP. Failed preserved left ventricular systolic function with ejection fraction of 55 to 60%. No significant valvular disease. Discharged home on 08/22/2024. He came back to the emergency room early this morning after waking up and walking a few steps down the hallway where he got dizzy and was having chest pain and called 911 prior to passing out. When EMS arrived he was in pulseless ventricular tachycardia and had 30 seconds of CPR was defibrillated once with return of spontaneous circulation. Chest x-ray reveals no acute cardiopulmonary process. White count 6.1. Hemoglobin 14.4. Platelets 274. D- dimer 5.38. Sodium 136. Potassium 4.4. Bicarb 26. BUN 24. Creatinine 1.06. Glucose 146. Troponin 0.012, 0.051. Currently at 1 mg/min. He is currently in sinus bradycardia with heart rate in the 40s. Seen and evaluated in the emergency department. He is awake and alert in no acute distress. He is maintaining O2 saturations in the 90s on 2 L/min per nasal cannula. He denies any chest pain currently. No dizziness or lightheadedness. This is patient is seen today August 25, 2024 in follow-up in the intensive care unit. He is currently sitting up at the bedside. Awake and alert in no acute distress. He is maintaining good O2 saturations in the 90s on room air. He has not had any further ventricular arrhythmias. He has been bradycardic in the 40s and 50s throughout the night. He has been transitioned to oral amiodarone. Glucose 232. Sodium 137. Potassium 4.1. Bicarb 30. BUN 18. Creatinine 0.86. Glucose 93. NicoDerm patch in place. Progress note dated August 26, 2024. The patient is seen today in room 365. The patient was admitted with a diagnosis of [id number] cardiopulmonary arrest, secondary to ventricular tachycardia. The patient is doing reasonably well. The patient recently had a heart catheterization, which showed only mild CAD. Currently, he is on room air. No IV fluids. Labs, x-rays, and all medications are reviewed. Sodium 137, potassium 4.1, BUN 18, creatinine 0.86. Progress note dated September 23, 2024. The patient is seen today in room 365. The patient apparently was complaining of chest pain. He was evaluated by cardiology, and they thought his chest pain was musculoskeletal, from previous CPR, on admission. He is on 2 L, saturations are 97%. The patient's chest x-ray, is unremarkable. No new labs today. On 08/28/2024, the patient is being seen for a follow-up. This patient is known to have coronary artery disease, COPD, hypertension and the patient has a pacemaker in place. He is a chronic smoker. His previous LV function has been essentially within normal limits. The patient was admitted to the ICU following a cardiac arrest, received CPR and he ultimately had return of spontaneous circulation. He was taken off the mechanical ventilator. He is currently on a medical floor and he is on 2 L of oxygen by nasal cannula. He remains on aspirin 81 mg p.o. daily, amiodarone 200 mg p.o. twice a day, Imdur 60 mg p.o. daily, Zestril 10 mg p.o. daily, and Plavix 75 mg p.o. daily. Limited echocardiogram was done today and it showed a normal LV function. X-ray of the chest that was done on 08/26/2024 showed no acute cardiopulmonary abnormalities. Cardiology still on the case. The patient is having some skeletal chest wall pa in related to CPR. No episodes of ventricular tachycardia. His cardiac rhythm is sinus. Noted there is no documentation of ventricular tachycardia per cardiology and his most recent cardiac catheterization showed mild nonocclusive coronary artery disease. The plan is to have a 14-day event monitor and outpatient basis. Will be kept on amiodarone for now. His blood work showed a BUN of 18 with a creatinine of 0.8. Hemoglobin was stable at 13.5. Objective - Vital Signs Vital signs: Vital Signs Temp 97.5 F L 08/28/24 08:34 Pulse 60 08/28/24 08:34 Resp 18 08/28/24 08:34 BP 126/69 11/04/24 08:34 Pulse Ox 96 08/28/24 08:34 FiO2 Intake & Output 08/27/24 08/28/24 08/28/24 18:59 06:59 18:59 Intake Total 448 380 Output Total 1150 800 Balance -702 -800 380 Weight 60 kg Intake: IV 20 Invasive Line 2 10 Invasive Line 3 10 Oral 448 360 Output: Urine 1150 800 Other: Voiding Method Urinal # Voids 2 1 - Exam No acute distress, oriented 3. Currently on room air oxygen HEENT examination is grossly unremarkable. Mucous membranes are moist. No oral lesions. Neck supple. Full range of motion. No adenopathy thyromegaly or neck vein distention. Cardiovascular examination reveals regular rhythm rate. S1-S2 normal. No S3 or S4. No discernible murmur noted. Lungs reveal clear breath sounds. Breath sounds are equal bilaterally. No adventitious lung sounds including wheezes rhonchi or crackles. Abdomen soft bowel sounds are heard. No masses or tenderness. Extremities are intact. No cyanosis clubbing or edema. Skin is without rash or lesion. Neurologic examination is brief but nonfocal. - Labs CBC & Chem 7: 08/25/24 03:06 08/25/24 03:06 Assessment and Plan Plan: Cardiac arrest secondary to pulseless ventricular tachycardia requiring 30 seconds of CPR and defibrillation x 1 with return of spontaneous circulation. Coronary artery disease. The patient had recent hospitalization the patient was discharged on 08/22/2024 for chest pain found to have mild obstructive coronary disease involving the LAD proximally and mid. Preserved left ventricular systolic function. Repeat echocardiogram showed a preserved LV function. Prior history of coronary artery disease, S/P PTBA. Hypertension. Memory disorder. 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 Chronic and ongoing tobacco dependence. Plan: Continue aspirin and Plavix Continue amiodarone Echocardiogram shows a preserved LV function Merchandise Flow Manager on the case Patient is extubated on room air oxygen and the chest x-ray is essentially within normal limits Further recommendations per cardiology regarding his cardiac arrest and the p otential for cardiac arrhythmia. Noted no ventricular tachycardia was documented
--- NOTE | 2024-08-29 07:39 | PN ---
PROGRESS NOTE DATE OF SERVICE: 08/28/2024 CHIEF COMPLAINT: Chest pain and ventricular tachycardia. HISTORY OF PRESENT ILLNESS: This gentleman is stable. He had an echocardiogram. We are waiting for Cardiology to agree to discharging him. PHYSICAL EXAMINATION: GENERAL: He is awake and alert. CHEST: Clear. CARDIAC: Normal. IMPRESSION: 1. Ventricular tachycardia. 2. Non ST segment elevation myocardial infarction. PLAN: Gradually increase activity and wait for any further guidance from Cardiology. MMODL / IJN: [id number] /
[2024-08-29 07:54] VITALS: RESP 18
[2024-08-29 10:36] VITALS: BP 143/68; PULSE 62; TEMP 97.5
--- NOTE | 2024-08-29 12:59 | P.PN ---
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 He was here last week for chest pain and cardiac catheterization revealed mild disease in the LAD proximally and mid. No obstructive disease in left circumflex and RCA. Normal LVEDP. Failed preserved left ventricular systolic function with ejection fraction of 55 to 60%. No significant valvular disease. Discharged home on 08/22/2024. He came back to the emergency room early this morning after waking up and walking a few steps down the hallway where he got dizzy and was having chest pain and called 911 prior to passing out. When EMS arrived he was in pulseless ventricular tachycardia and had 30 seconds of CPR was defibrillated once with return of spontaneous circulation. Chest x-ray reveals no acute cardiopulmonary process. White count 6.1. Hemoglobin 14.4. Platelets 274. D- dimer 5.38. Sodium 136. Potassium 4.4. Bicarb 26. BUN 24. Creatinine 1.06. Glucose 146. Troponin 0.012, 0.051. Currently at 1 mg/min. He is currently in sinus bradycardia with heart rate in the 40s. Seen and evaluated in the emergency department. He is awake and alert in no acute distress. He is maintaining O2 saturations in the 90s on 2 L/min per nasal cannula. He denies any chest pain currently. No dizziness or lightheadedness. This is patient is seen today August 25, 2024 in follow-up in the intensive care unit. He is currently sitting up at the bedside. Awake and alert in no acute distress. He is maintaining good O2 saturations in the 90s on room air. He has not had any further ventricular arrhythmias. He has been bradycardic in the 40s and 50s throughout the night. He has been transitioned to oral amiodarone. Glucose 232. Sodium 137. Potassium 4.1. Bicarb 30. BUN 18. Creatinine 0.86. Glucose 93. NicoDerm patch in place. Progress note dated August 26, 2024. The patient is seen today in room 365. The patient was admitted with a diagnosis of [id number] cardiopulmonary arrest, secondary to ventricular tachycardia. The patient is doing reasonably well. The patient recently had a heart catheterization, which showed only mild CAD. Currently, he is on room air. No IV fluids. Labs, x-rays, and all medications are reviewed. Sodium 137, potassium 4.1, BUN 18, creatinine 0.86. Progress note dated September 23, 2024. The patient is seen today in room 365. The patient apparently was complaining of chest pain. He was evaluated by cardiology, and they thought his chest pain was musculoskeletal, from previous CPR, on admission. He is on 2 L, saturations are 97%. The patient's chest x-ray, is unremarkable. No new labs today. On 08/28/2024, the patient is being seen for a follow-up. This patient is known to have coronary artery disease, COPD, hypertension and the patient has a pacemaker in place. He is a chronic smoker. His previous LV function has been essentially within normal limits. The patient was admitted to the ICU following a cardiac arrest, received CPR and he ultimately had return of spontaneous circulation. He was taken off the mechanical ventilator. He is currently on a medical floor and he is on 2 L of oxygen by nasal cannula. He remains on aspirin 81 mg p.o. daily, amiodarone 200 mg p.o. twice a day, Imdur 60 mg p.o. daily, Zestril 10 mg p.o. daily, and Plavix 75 mg p.o. daily. Limited echocardiogram was done today and it showed a normal LV function. X-ray of the chest that was done on 08/26/2024 showed no acute cardiopulmonary abnormalities. Cardiology still on the case. The patient is having some skeletal chest wall pa in related to CPR. No episodes of ventricular tachycardia. His cardiac rhythm is sinus. Noted there is no documentation of ventricular tachycardia per cardiology and his most recent cardiac catheterization showed mild nonocclusive coronary artery disease. The plan is to have a 14-day event monitor and outpatient basis. Will be kept on amiodarone for now. His blood work showed a BUN of 18 with a creatinine of 0.8. Hemoglobin was stable at 13.5. On 08/29/2024, the patient is being seen for a follow-up. Awake and alert and the patient is currently on room air oxygen. Denies having any new complaints. Soreness of his chest is still present related to a previous CPR and the patient received the patient remains hemodynamically stable. No other new complaints otherwise for now. No respiratory difficulties. The patient has no new labs from today. He will need cardiology follow-up on outpatient basis. He will be discharged on amiodarone 200 mg p.o. twice a day, aspirin and Plavix, metoprolol 12.5 mg p.o. daily XL and Norvasc 5 mg p.o. daily Zestril 10 mg p.o. daily. He is also on Flomax for symptoms of BPH. Objective - Vital Signs Vital signs: Vital Signs Temp 97.5 F L 08/29/24 10:34 Pulse 62 08/29/24 10:34 Resp 18 08/29/24 10:34 BP 143/68 08/29/24 10:34 Pulse Ox 96 08/29/24 10:34 FiO2 Intake & Output 08/28/24 08/29/24 08/29/24 18:59 06:59 18:59 Intake Total 1170 260 250 Balance 1170 260 250 Weight 60.2 kg Intake: IV 30 20 10 Invasive Line 2 20 20 10 Invasive Line 3 10 Oral 1140 240 240 Other: Voiding Method Urinal Urinal Urinal # Voids 2 2 # Bowel Movements 2 - Exam No acute distress, oriented 3. Currently on room air oxygen HEENT examination is grossly unremarkable. Mucous membranes are moist. No oral lesions. Neck supple. Full range of motion. No adenopathy thyromegaly or neck vein distention. Cardiovascular examination reveals regular rhythm rate. S1-S2 normal. No S3 or S4. No discernible murmur noted. Lungs reveal clear breath sounds. Breath sounds are equal bilaterally. No adventitious lung sounds including wheezes rhonchi or crackles. Abdomen soft bowel sounds are heard. No masses or tenderness. Extremities are intact. No cyanosis clubbing or edema. Skin is without rash or lesion. Neurologic examination is brief but nonfocal. - Labs CBC & Chem 7: 08/25/24 03:06 08/25/24 03:06 Assessment and Plan Plan: Cardiac arrest secondary to pulseless ventricular tachycardia requiring 30 seconds of CPR and defibrillation x 1 with return of spontaneous circulation. Coronary artery disease. The patient had recent hospitalization the patient was discharged on 08/22/2024 for chest pain found to have mild obstructive coronary disease involving the LAD proximally and mid. Preserved left ventricular systolic function. Repeat echocardiogram showed a preserved LV function. Prior history of coronary artery disease, S/P PTBA. Hypertension. Memory disorder. 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 Chronic and ongoing tobacco dependence. Plan: Continue aspirin and Plavix Continue amiodarone Continues Toprol Continue Norvasc Echocardiogram shows a preserved LV function Esl Teacher on the case Patient is extubated on room air oxygen and the chest x-ray is essentially within normal limits Further recommendations per cardiology regarding his cardiac arrest and the potential for cardiac arrhythmia. Noted no ventricular tachycardia was documented The patient will likely be discharged today to be followed up on outpatient basis By cardiology.
--- NOTE | 2024-09-04 08:27 | DS ---
DISCHARGE SUMMARY CHIEF COMPLAINT: Chest pain and syncope. HISTORY OF PRESENT ILLNESS: History of present illness and physical exam details of this man's history and physical can be found in the initial workup. LABORATORY STUDIES: While he was in the hospital he had laboratory studies, details of which can be found in the laboratory section of his chart. COURSE IN THE HOSPITAL: After admission, he was placed on bedrest and started on intravenous fluids and telemetry. He was seen and followed by Cardiology. It was reported that when the ambulance picked him up at home that he was in ventricular tachycardia and he received resuscitation. There was no documentation of this arrhythmia. He had no difficulty in the hospital including significant chest pain, arrhythmias, etc. He was doing well and it was decided that he could be discharged on the and he will be followed up in the office. He will go home on his usual medications in addition to amiodarone. FINAL DIAGNOSES: 1. Ventricular tachycardia. 2. Vasospastic coronary artery disease. OPERATIONS: None. CONSULTATION: Cardiology. CONDITION: Improved. MMKATHIE / DEEPTHIN: [id number] /
== END 2024-08-29 11:20 | disposition home or self-care (01) | DRG 308 ==
LOC: EC 08:48 → 2SICU 10:30 → 3SCARD 08-25 22:11
PROVIDERS: ADMIT Family Medicine; ATTEND Family Medicine
DX: I47.20 Ventricular tachycardia, unspecified (principal); Q04.0 Congenital malformations of corpus callosum; E78.5 Hyperlipidemia, unspecified; I46.2 Cardiac arrest due to underlying cardiac condition; F17.200 Nicotine dependence, unspecified, uncomplicated; I10 Essential (primary) hypertension; I25.10 Atherosclerotic heart disease of native coronary artery without angina pectoris; I25.2 Old myocardial infarction; J44.9 Chronic obstructive pulmonary disease, unspecified; Z79.02 Long term (current) use of antithrombotics/antiplatelets; Z79.82 Long term (current) use of aspirin; Z79.899 Other long term (current) drug therapy; Z95.0 Presence of cardiac pacemaker; K21.9 Gastro-esophageal reflux disease without esophagitis; R00.1 Bradycardia, unspecified
CPT/HCPCS: 36415; 71045; 80048; 80053; 80061; 83735; 83880; 84484; 85025; 85027; 85379; 85610; 85730; 86038; 86140; 93005; 93308; 94640; 96365; 96366; 96368; 96375; 99291

== ENCOUNTER 2024-08-30 20:53 | Observation (INO) | payer MEDICARE, OTHER ==
--- NOTE | 2024-08-30 21:35 | ED ---
Chest Pain HPI - General Chief Complaint: Chest Pain Stated Complaint: Chest Pain Time Seen by Provider: 08/30/24 20:58 Source: patient, EMS Mode of arrival: EMS Limitations: no limitations - History of Present Illness Initial Comments: This is a 69-year-old gentleman with a past medical history of COPD, recent [id number] cardiac arrest discharged yesterday presenting today for chest pain. Patient states that he was walking through his home when he began experiencing sharp chest pain that radiated across the lower aspect of his chest, he then became lightheaded and dizzy and fell forward onto his hands and knees. He denies hitting his head. States he then crawled over to his recliner and called 911 to come and get him. Endorses associated productive cough and shortness of breath. Does not believe he is on blood thinners. Denies fevers endorses chills. Denies new numbness, focal weakness or acute changes in vision. Not radiate to his back, jaw or down his left arm. No diaphoresis. No lower extremity swelling. And denies nausea, vomiting or abdominal pain. Endorses 3 days of loose stools. Not blood or black or bloody. Also notes dysuria but denies hematuria - Related Data Home Medications Medication Instructions Recorded Confirmed Nicotine 21Mg/24Hr Patch [Habitrol] 1 patch TRANSDERM DAILY 04/10/24 08/31/24 Metoprolol Tartrate [Lopressor] 12.5 mg PO DAILY 05/24/24 08/31/24 Nitroglycerin Sl Tabs [Nitrostat] 0.4 mg SL Q5M PRN 05/24/24 08/31/24 Tamsulosin [Flomax] 0.4 mg PO DAILY 08/16/24 08/31/24 Vitamin D3(Unknown Dose) 1 tab PO DAILY 08/16/24 08/31/24 Amiodarone [Cordarone] See Taper PO DAILY 08/31/24 08/31/24 Previous Rx's Medication Instructions Recorded Aspirin 81 mg PO DAILY tab 04/12/24 Atorvastatin [Lipitor] 40 mg PO DAILY #90 tab 04/12/24 Clopidogrel [Plavix] 75 mg PO DAILY #90 tab 04/12/24 Isosorbide Mononitrate ER [Imdur] 60 mg PO DAILY #30 tab 08/22/24 amLODIPine [Norvasc] 5 mg PO DAILY #30 tab 08/22/24 Lidocaine 4% Patch 1 patch TOPICAL DAILY #10 patch 09/04/24 Pantoprazole [Protonix] 40 mg PO BID #60 tab 09/04/24 lisinopriL [Zestril] 40 mg PO DAILY #30 tab 09/04/24 traMADol HCl [Ultram] 50 mg PO Q6H PRN #30 tab 09/04/24 Allergies Allergy/AdvReac Type Severity Reaction Status Date / Time No Known Allergies Allergy Verified 08/31/24 09:05 Review of Systems ROS Statement: Those systems with pertinent positive or pertinent negative responses have been documented in the HPI. ROS Other: All systems not noted in ROS Statement are negative. EKG Findings - EKG Comments: EKG Findings:: Sinus rhythm, rate 65 bpm, [place] interval 152 ms, QRS duration 125 ms, QT/QTc 390/402 ms, normal axis, no ST elevations or depressions, there is artifact present throughout,. EKG performed on 08/25/2024, no significant changes from prior Past Medical History Past Medical History: Coronary Artery Disease (CAD), COPD, GERD/Reflux, Hypertension, Myocardial Infarction ([place]), Neurologic Disorder Additional Past Medical History / Comment(s): some memory problems., states uri ne stream slow and has occasional burning., friend- Nicole Jones states she is his patient advocate and she helps him with medications-putting them in daily pill box.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 , pt thinks he had heart cath with balloon dilation. Past Anesthesia/Blood Transfusion Reactions: No Reported Reaction Date of Last Stent Placement:: unknown Type of Cardiac Device: Unknown Device Placement Date:: not sure Past Psychological History: No Psychological Hx Reported Smoking Status: Former smoker Past Alcohol Use History: None Reported Past Drug Use History: None Reported - Past Family History Mother Family Medical History: Cancer, Diabetes Mellitus Father Family Medical History: Cancer, Diabetes Mellitus General Exam - General Exam Comments Initial Comments: PE: CONSTITUTIONAL: No apparent distress, chronically ill-appearing SKIN: Warm, dry, no jaundice, hives or petechiae EYES: Pupils are equally round, extraocular movements intact without nystagmus, clear conjunctiva, non-icteric sclera HENT: Normocephalic, atraumatic, moist mucus membranes, oropharynx clear without exudates NECK: , Full range of motion, normal appearance PULMONARY: Clear to auscultation without wheezes, rhonchi, or rales, normal excursion, no accessory muscle use and no stridor CARDIOVASCULAR: Regular rate, rhythm, normal S1 and S2. No appreciated murmurs, rubs or gallops. Strong radial pulses with intact distal perfusion. No lower extremity edema, reproducible TTP left chest wall GASTROINTESTINAL: Soft, active bowel sounds throughout, non-tender, non- distended, no palpable masses, no rebound or guarding. No hepatosplenomegaly GENITOURINARY: MUSCULOSKELETAL: Extremities have no gross deformity, no edema, redness, or swelling. No calf swelling NEUROLOGIC:_a/o x 3, GCS 15, normal mentation and speech. Moves all extremities x 4 without motor or sensory deficit PSYCHIATRIC:_normal mood and affect, thought process is clear and linear Limitations: no limitations Course Vital Signs 08/30/24 08/30/24 08/30/24 20:55 23:06 23:35 Temperature 97.8 F Pulse Rate 70 91 64 Respiratory 18 18 18 Rate Blood Pressure 144/87 133/66 133/66 O2 Sat by Pulse 98 97 98 Oximetry 08/31/24 08/31/24 08/31/24 00:55 03:32 06:05 Temperature Pulse Rate 59 L 58 L 56 L Respiratory 18 18 18 Rate Blood Pressure 117/61 130/81 123/78 O2 Sat by Pulse 95 92 L 97 Oximetry Chest Pain MDM - MDM Was pt. sent in by a medical professional or institution (, PA, MANAGER HOSPICE, urgent care, hospital, or prison...) When possible be specific @ -No Did you speak to anyone other than the patient for history (EMS, parent, family, police, friend...)? What history was obtained from this source @ -No Did you review nursing and triage notes (agree or disagree)? Why? @ -I reviewed and agree with nursing and triage notes Were old charts reviewed (outside hosp., previous admission, EMS record, old EKG, old radiological studies, urgent care reports/EKG's, prison records)? Report findings @ -Medical records reviewed, reviewed discharge summary from 08/29/2024 where patient had originally been admitted for [id number] V-fib cardiac arrest, recently had a heart cath done that showed A week ago the patient had a cardiac cath that revealed mild disease in the left anterior descending proximally and mid but no obstructive disease in the left circumflex and RCA with normal left ventricular and distal pressures Differential Diagnosis (chest pain, altered mental status, abdominal pain women, abdominal pain men, vaginal bleeding, weakness, fever, dyspnea, syncope, headache, dizziness, GI bleed, back pain, seizure, CVA, palpatations, mental h ealth, musculoskeletal)? @ -Differential Chest Pain: Stable Angina, Unstable Angina, STEMI, NSTEMI Aortic Dissection, pericarditis, pleurisy, chostochondirits, Pneumothorax, Musculoskeletal, Esophageal Spasm GERD, Cholecystitis, Pancreatitis, Zoster, this is not meant to be an all- inclusive list. EKG interpreted by me (3pts min.). @ -As above X-rays interpreted by me (1pt min.). @ -None done CT interpreted by me (1pt min.). @ -No large/massive/submassive or saddle PE U/S interpreted by me (1pt. min.). @ -None done What testing was considered but not performed or refused? (CT, X-rays, U/S, labs)? Why? @ -None What meds were considered but not given or refused? Why? @ -None Did you discuss the management of the patient with other professionals (professionals i.e. , PA, MANAGER HOSPICE, lab, RT, psych nurse, social media project manager, veneer taper, teacher, property disposal officer, pillowcase sewer)? Give summary @ -No Was smoking cessation discussed for >3mins.? @ -No Was critical care preformed (if so, how long)? @ Yes 35 minutes Were there social determinants of health that impacted care today? How? (Homelessness, low income, unemployed, alcoholism, drug addiction, transportation, low edu. Level, literacy, decrease access to med. care, care home, rehab)? @ -No Was there de-escalation of care discussed even if they declined (Discuss DNR or withdrawal of care, Hospice)? @ -No What co-morbidities impacted this encounter? (DM, HTN, Smoking, COPD, CAD, Cancer, CVA, ARF, Chemo, Hep., AIDS, mental health diagnosis, sleep apnea, morbid obesity)? @ -COPD, V-fib arrest, CAD, HTN Was patient admitted / discharged? Hospital course, mention meds given and route, prescriptions, significant lab abnormalities, going to OR and other pertinent info. @ admission for observation 69-year gentleman past medical history COPD, recent admission for V-fib arrest, CAD presenting today for lightheadedness and chest pain. Patient chronically ill-appearing on my assessment. States that he is afraid he would fall if he went home again. Lightheadedness has resolved though does still feel weak. Discussed with him plan for chest pain workup and ultimately anticipated admission since he feels too weak to go home. Patient received 324 mg aspirin prior to arrival in the ER. Will give nitro and morphine for pain. Labs and imaging reviewed. Grossly within normal limits. Abnormal values not concerning for acute pathology related to presenting complaint. Patient troponin 0.019, decreased from his recent admission when it was 0.090. CT PE study shows small pericardial effusion otherwise no dissection or PE, notes moderate emphysematous changes. On reassessment patient sleeping comfortably however when asked, remains painful. Received morphine about 30 minutes ago. Will give additional dose of morphine plan for admission. Pt agreeable with plan. Discussed case [facility] Dr. Devi, kindly accepts for admission. Undiagnosed new problem with uncertain prognosis? @ -No Drug Therapy requiring intensive monitoring for toxicity (Heparin, Nitro, Insulin, Cardizem)? @ -No Were any procedures done? @ -No Diagnosis/symptom? @ -Default Acute, or Chronic, or Acute on Chronic? Lightheadedness, chest pain, generalzed weakness Uncomplicated (without systemic symptoms) or Complicated (systemic symptoms)? @Complicated Side effects of treatment? @ -No Exacerbation, Progression, or Severe Exacerbation? @ -No Poses a threat to life or bodily function? How? (Chest pain, [place], [place], pneumonia, PE, COPD, DKA, ARF, appy, cholecystitis, CVA, Diverticulitis, Homicidal, Suicidal, threat to staff... and all critical care pts) @ -Yes potentially Disposition Clinical Impression: Chest pain, Lightheadedness, Weakness Disposition: ADMITTED IP TO THIS HOSP Condition: Good
[2024-08-30] MEDS: ASPIRIN 81 MG PO STA (21:38)
[2024-08-30 21:42] LABS: Basophils # (A) 0.1 k/uL (0-0.2); Basophils % (A) 1 %; Eosinophils # (A) 0.3 k/uL (0-0.7); Eosinophils % (A) 4 %; HCT 45.4 % (39.0-53.0); HGB 14.6 gm/dL (13.0-17.5); Lymphocytes # (A) 1.2 k/uL (1.0-4.8); Lymphocytes % (A) 15 %; MCH 29.9 pg (25.0-35.0); MCHC 32.1 g/dL (31.0-37.0); Mean Platelet Volume 7.4; Monocytes # (A) 0.5 k/uL (0-1.0); Monocytes % (A) 7 %; Neutrophils # (A) 5.6 k/uL (1.3-7.7); Neutrophils % (A) 71 %; Platelet Count 285 k/uL (150-450); RBC 4.88 m/uL (4.30-5.90); RDW 13.5 % (11.5-15.5); WBC 7.8 k/uL (3.8-10.6)
[2024-08-30] MEDS: ONDANSETRON 4 MG/2 ML VIAL IVP STA (21:44)
[2024-08-30] MEDS: NITROGLYCERIN SL TABS 0.4 MG TAB SUBLINGUAL STA (21:44)
[2024-08-30 21:53] LABS: INR 0.9 (<1.2); Partial Thromboplastin Time 24.8 sec (22.0-30.0); Prothrombin Time 10.2 sec (10.0-12.5)
[2024-08-30 21:54] LABS: ALT 42 U/L (4-49); African American GFR (CKD) 73 (>60 ml/min/1.73 sqM); Amylase 82 U/L (30-110); Anion Gap 13 mmol/L; Blood Urea Nitrogen 30 mg/dL (9-20); Calcium 10.1 mg/dL (8.4-10.2); Carbon Dioxide 26 mmol/L (22-30); Chloride 97 mmol/L (98-107); Glucose 88 mg/dL (74-99); Lipase 91 U/L (23-300); Non-African American GFR(CKD) 64 (>60 ml/min/1.73 sqM); Sodium 136 mmol/L (137-145); Total Bilirubin 1.1 mg/dL (0.2-1.3)
[2024-08-30 22:02] LABS: NT-Pro-B-Type Natriuretic Pept 69 pg/mL
[2024-08-30 22:15] LABS: AST 37 U/L (17-59); Albumin 5.3 g/dL (3.5-5.0); Alkaline Phosphatase 93 U/L (38-126); Magnesium 2.2 mg/dL (1.6-2.3); Potassium 5.1 mmol/L (3.5-5.1); Total Protein 8.5 g/dL (6.3-8.2)
[2024-08-30 22:49] LABS: Appearance,Urine Clear (Clear); Bilirubin,Urine Negative (Negative); Blood,Urine Negative (Negative); Color,Urine Colorless; Glucose,Urine (UA) Negative (Negative); Ketones,Urine Negative (Negative); Leukocyte Esterase,Urine Negative (Negative); Nitrite,Urine Negative (Negative); PH, Urine 5.5 (5.0-8.0); Protein,Urine Negative (Negative); Specific Gravity,Urine 1.016 (1.001-1.035); Urobilinogen,Urine <2.0 mg/dL (<2.0)
[2024-08-30] MEDS: MORPHINE SULFATE 4 MG/ML SYRINGE IV STA (23:03)
[2024-08-30] MEDS: SODIUM CHLORIDE 0.9% 1,000 ML IV ONE (23:03)
--- NOTE | 2024-08-30 23:08 | CT ---
EXAMINATION TYPE: CT chest angio for PE DATE OF EXAM: 08/30/2024 COMPARISON: Prior CT July 17, 2024 HISTORY: Pt arrives to ER via EMS with complaints of pleuritic CP. Denies SOB, N/V. Pt was seen here 2 days ago for same thing. Pt has personnel monitor but was taken off to charge. CT DLP: 277.9 mGycm. Automated Exposure Control for Dose Reduction was Utilized. CONTRAST: CTA scan of the thorax is performed with IV Contrast, patient injected with 100 mL of Isovue 370, pul monary embolism protocol. MIP Images are created on CT scanner and reviewed. FINDINGS: LUNGS: At least Moderate underlying emphysematous change bilaterally is redemonstrated. No suspicious focal consolidation. No pleural effusion or pneumothorax is seen bilaterally. MEDIASTINUM: There is satisfactory enhancement of the pulmonary artery and its branches, there is no CT evidence for pulmonary embolism. Some enhancement of the descending aorta which is 3.[address] Tiny pericardial effusion is seen. No cardiomegaly. Slightly enlarged right hilar lymph node axi al image 79 is stable from prior. OTHER: No additional significant abnormality is seen. IMPRESSION: 1. No CT evidence for acute pulmonary embolism. 2. Moderate emphysematous change without acute pulmonary process. [facility], , 08/30/2024 11:05 PM
[2024-08-30] MEDS ORDERED: HYDROmorphone 1 MG/ML 1 ML SYRINGE IVP PRN (23:50)
[2024-08-30] MEDS ORDERED: NALOXONE 0.4 MG/ML 1 ML VIAL IV PRN (23:50)
[2024-08-30] MEDS ORDERED: ACETAMINOPHEN TAB 325 MG TAB PO PRN (23:50)
[2024-08-30] MEDS ORDERED: NITROGLYCERIN SL TABS 0.4 MG TAB SUBLINGUAL PRN (23:53)
[2024-08-31] MEDS: MORPHINE SULFATE 2 MG/ML SYRINGE IVP STA (00:57)
[2024-08-31] MEDS: FAMOTIDINE 20 MG/2 ML VIAL IV STA (02:15)
[2024-08-31] MEDS ORDERED: HYDROmorphone 2 MG/ML 1 ML SYRINGE IVP PRN (08:01)
[2024-08-31] MEDS: ASPIRIN 81 MG PO SCH (08:16)
[2024-08-31] MEDS: amLODIPine 5 MG TAB PO SCH (08:16)
[2024-08-31] MEDS: ATORVASTATIN 40 MG TAB PO SCH (08:16)
[2024-08-31] MEDS: CHOLECALCIFEROL 25 MCG (1000 IU) TABLET PO SCH (08:16)
[2024-08-31] MEDS: CLOPIDOGREL 75 MG TAB PO SCH (08:16)
[2024-08-31] MEDS: lisinopriL 10 MG TAB PO SCH (08:17)
[2024-08-31] MEDS: traMADol 50 MG TAB PO PRN (08:17)
[2024-08-31] MEDS: TAMSULOSIN 0.4 MG CAP.ER.24H PO SCH (08:17)
[2024-08-31] MEDS: NICOTINE 21MG/24HR PATCH TRANSDERM SCH (08:17)
[2024-08-31] MEDS: METOPROLOL TARTRATE 25 MG TAB PO SCH (08:17)
[2024-08-31] MEDS ORDERED: CHOLECALCIFEROL 125 MCG (5000 IU) TABLET PO SCH (09:00)
[2024-08-31] MEDS: AMIODARONE 200 MG TAB PO SCH (09:18)
[2024-08-31] MEDS: ISOSORBIDE MONONITRATE ER 60 MG TAB.ER.24H PO SCH (09:18)
--- NOTE | 2024-08-31 10:36 | P.CRDCN ---
History of Present Illness History of present illness: HISTORY OF PRESENT ILLNESS: This is a 69-year-old male with a past medical history significant for hypertension, hyperlipidemia, mild nonobstructive CAD, and recent admission for cardiac arrest due to reported ventricular tachycardia without telemetry tracings. Patient follows in the office with Dr. Roy. We have been asked to see the patient in consultation for chest pain. Patient examined at the bedside. Patient was admitted to the hospital earlier this month for a cardiac arrest. According to EMS the patient was in ventricular tachycardia and did receive CPR and shock x 1. There was no telemetry tracings available from EMS for review. The patient was started on amiodarone. Patient was discharged home with an event monitor. Patient reports back to the hospital with complaints of chest discomfort. He states that he had pain across his entire chest. He denied any radiation of the pain. Denied any shortness of breath. Patient reports the chest pain is worse with coughing, deep inspiration, and chest wall palpation. Patient also reports having an episode of syncope yesterday. Patient is somewhat of a poor historian in regards to his syncopal episode. The patient does have an event monitor from his recent hospitalization. DIAGNOSTICS: - EKG reveals sinus mechanism with no signs of acute ischemia - Chest CTA: No evidence for acute pulmonary embolism. Moderate emphysematous changes without acute pulmonary process - Laboratory data: WBC 7.8. Hemoglobin 14.6. Platelet count 285. Sodium 136. Potassium 5.1. BUN 30. Creatinine 1.18. Magnesium 2.2. Troponin negative x 2. proBNP 69. - Current home cardiac medications include aspirin 81 mg daily, atorvastatin 40 mg daily, Plavix 75 mg daily, Imdur 60 mg daily, metoprolol tartrate 12.5 mg daily, amlodipine 5 mg daily, lisinopril 10 mg daily, amiodarone per taper - Most recent echocardiogram obtained on 08/28/2024 revealed ejection fraction 50 to 55% with no pericardial or pleural effusion - Cardiac catheterization history: 08/17/2024 revealing mild disease in the LAD proximally and mid, no obstructive disease in circumflex or RCA, left dominant system, normal LVEDP. REVIEW OF SYSTEMS: At the time of my exam: CONSTITUTIONAL: Denies fever or chills. HEENT: Denies blurred vision, vision changes, or eye pain. Denies hemoptysis CARDIOVASCULAR: Denies chest pain. Denies orthopnea. Denies PND. Denies palpitations RESPIRATORY: Denies shortness of breath. GASTROINTESTINAL: Denies abdominal pain. Denies nausea or vomiting. HEMATOLOGIC: Denies bleeding disorders. GENITOURINARY: Denies any blood in urine. SKIN: Denies pruitis. Denies rash. PHYSICAL EXAM: VITAL SIGNS: Reviewed. GENERAL: Well-developed in no acute distress. HEENT: Head is normocephalic. Pupils are equal, round. Sclerae anicteric. Mucous membranes of the mouth are moist. Neck supple. No JVD or thyromegaly LUNGS: Respirations even and unlabored. Lungs essentially clear to auscultation bilaterally. HEART: Regular rate and rhythm. S1 and S2 heard. ABDOMEN: Soft. Nondistended. Nontender. EXTREMITIES: Normal range of motion. No clubbing or cyanosis. Peripheral pulses intact. No lower extremity edema NEUROLOGIC: Awake and alert. Oriented x 3. ASSESSMENT: Chest pain, Atypical, troponin negative x 2 Syncope, etiology unclear Recent hospitalization for cardiac arrest due to ventricular tachycardia per EMS, however without any telemetry tracings Mild nonobstructive CAD Hypertension Hyperlipidemia PLAN: An acute coronary event has been ruled out No need to repeat echocardiogram as this was performed earlier this month Obtain telemetry tracings from event monitor from cardiology office Continue telemetry monitoring during hospitalization Further recommendations pending patient course Nurse practitioner note has been reviewed by physician. Signing provider agrees with the documented findings, assessment, and plan of care documented by OSTEOPATHIC PHYSICIAN as a scribe. 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 , pt thinks he had heart cath with balloon dilation. Past Anesthesia/Blood Transfusion Reactions: No Reported Reaction Date of Last Stent Placement:: unknown Type of Cardiac Device: Unknown Device Placement Date:: not sure Past Psychological History: No Psychological Hx Reported Smoking Status: Former smoker Past Alcohol Use History: None Reported Past Drug Use History: None Reported - Past Family History Mother Family Medical History: Cancer, Diabetes Mellitus Father Family Medical History: Cancer, Diabetes Mellitus Medications and Allergies Home Medications Medication Instructions Recorded Confirmed Type lisinopriL [Zestril] 10 mg PO DAILY 30 Days #30 tab 04/13/23 08/31/24 Rx Nicotine 21Mg/24Hr Patch [Habitrol] 1 patch TRANSDERM DAILY 04/10/24 08/31/24 History Aspirin 81 mg PO DAILY tab 04/12/24 08/31/24 Rx Atorvastatin [Lipitor] 40 mg PO DAILY #90 tab 04/12/24 08/31/24 Rx Clopidogrel [Plavix] 75 mg PO DAILY #90 tab 04/12/24 08/31/24 Rx Metoprolol Tartrate [Lopressor] 12.5 mg PO DAILY 05/24/24 08/31/24 History Nitroglycerin Sl Tabs [Nitrostat] 0.4 mg SL Q5M PRN 05/24/24 08/31/24 History Tamsulosin [Flomax] 0.4 mg PO DAILY 08/16/24 08/31/24 History Vitamin D3(Unknown Dose) 1 tab PO DAILY 08/16/24 08/31/24 History Isosorbide Mononitrate ER [Imdur] 60 mg PO DAILY #30 tab 08/22/24 08/31/24 Rx amLODIPine [Norvasc] 5 mg PO DAILY #30 tab 08/22/24 08/31/24 Rx Amiodarone [Cordarone] See Taper PO DAILY 08/31/24 08/31/24 History Allergies Allergy/AdvReac Type Severity Reaction Status Date / Time No Known Allergies Allergy Verified 08/31/24 09:05 Physical Exam Vitals: Vital Signs Temp Pulse Pulse Resp BP BP Pulse Ox 08/31/24 07:50 57 L 18 158/94 95 08/31/24 06:05 56 L 18 123/78 97 08/31/24 03:32 58 L 18 130/81 92 L 08/31/24 00:55 59 L 18 117/61 95 08/30/24 23:35 64 18 133/66 98 08/30/24 23:06 91 18 133/66 97 08/30/24 20:55 97.8 F 70 18 144/87 98 Intake and Output 08/30/24 08/31/24 08/31/24 22:59 06:59 14:59 Intake Total 118 Balance 118 Intake: Oral 118 Other: Weight 53.524 kg Results 08/30/24 21:26 08/30/24 21:26 Cardiac Enzymes 08/30/24 08/30/24 08/31/24 Range/Units 21:26 21:26 00:30 AST 37 (17-59) U/L Troponin I 0.019 <0.012 (0.000-0.034) ng/mL Coagulation 08/30/24 Range/Units 21:26 PT 10.2 (10.0-12.5) sec APTT 24.8 (22.0-30.0) sec CBC 08/30/24 Range/Units 21:26 WBC 7.8 (3.8-10.6) k/uL RBC 4.88 (4.30-5.90) m/uL Hgb 14.6 (13.0-17.5) gm/dL Hct 45.4 (39.0-53.0) % Plt Count 285 (150-450) k/uL Comprehensive Metabolic Panel 08/30/24 Range/Units 21:26 Sodium 136 L (137-145) mmol/L Potassium 5.1 (3.5-5.1) mmol/L Chloride 97 L (98-107) mmol/L Carbon Dioxide 26 (22-30) mmol/L BUN 30 H (9-20) mg/dL Creatinine 1.18 (0.66-1.25) mg/dL Glucose 88 (74-99) mg/dL Calcium 10.1 (8.4-10.2) mg/dL AST 37 (17-59) U/L ALT 42 (4-49) U/L Alkaline Phosphatase 93 (38-126) U/L Total Protein 8.5 H (6.3-8.2) g/dL Albumin 5.3 H (3.5-5.0) g/dL Current Medications Generic Name Dose Route Start Last Admin Trade Name Freq PRN Reason Stop Dose Admin Acetaminophen 650 mg 08/30/24 23:50 Acetaminophen Tab 325 Mg Tab PO Q6HR PRN Mild Pain or Fever > 100.5 Amiodarone HCl 200 mg 08/31/24 09:00 08/31/24 09:18 Amiodarone 200 Mg Tab PO 200 mg BID FRANTZ Administration Amlodipine Besylate 5 mg 08/31/24 09:00 08/31/24 08:16 Amlodipine 5 Mg Tab PO 5 mg DAILY FRANTZ Administration Aspirin 81 mg 08/31/24 09:00 08/31/24 08:16 Aspirin 81 Mg PO 81 mg DAILY FRANTZ Administration Atorvastatin Calcium 40 mg 08/31/24 09:00 08/31/24 08:16 Atorvastatin 40 Mg Tab PO 40 mg DAILY [facility] Administration Cholecalciferol 25 mcg 08/31/24 09:00 08/31/24 08:16 Cholecalciferol 25 Mcg (1000 Iu) Tablet PO 25 mcg DAILY [facility] Administration Clopidogrel Bisulfate 75 mg 08/31/24 09:00 08/31/24 08:16 Clopidogrel 75 Mg Tab PO 75 mg DAILY [facility] Administration Hydromorphone HCl 1 mg 08/31/24 08:01 Hydromorphone 2 Mg/Ml 1 Ml Syringe IVP Q3HR PRN Severe Pain (Scale 7 to 10) Isosorbide Mononitrate 60 mg 08/31/24 09:00 08/31/24 09:18 Isosorbide Mononitrate Er 60 Mg Tab.Er.24h PO 60 mg DAILY [facility] Administration Lisinopril 10 mg 08/31/24 09:00 08/31/24 08:17 Lisinopril 10 Mg Tab PO 10 mg DAILY [facility] Administration Metoprolol Tartrate 12.5 mg 08/31/24 09:00 08/31/24 08:17 Metoprolol Tartrate 25 Mg Tab PO 12.5 mg DAILY [facility] Administration Naloxone HCl 0.2 mg 08/30/24 23:50 Naloxone 0.4 Mg/Ml 1 Ml Vial IV Q2M PRN Opioid Reversal Nicotine 1 patch 08/31/24 09:00 08/31/24 08:17 Nicotine 21mg/24hr Patch TRANSDERM 1 patch DAILY [facility] Administration Nitroglycerin 0.4 mg 08/30/24 23:53 Nitroglycerin Sl Tabs 0.4 Mg Tab SUBLINGUAL Q5M PRN Chest Pain Tamsulosin HCl 0.4 mg 08/31/24 09:00 08/31/24 08:17 Tamsulosin 0.4 Mg Cap.Er.24h PO 0.4 mg DAILY [facility] Administration Tramadol HCl 50 mg 08/30/24 23:50 08/31/24 08:17 Tramadol 50 Mg Tab PO 50 mg Q6H PRN Administration Moderate Pain (Scale 4 to 6) Intake and Output 08/30/24 08/31/24 08/31/24 22:59 06:59 14:59 Intake Total 118 Balance 118 Intake: Oral 118 Other: Weight 53.524 kg 08/30/24 21:26 08/30/24 21:26
[2024-08-31] MEDS ORDERED: AMIODARONE 200 MG TAB PO SCH (11:30)
[2024-08-31 17:41] VITALS: BMI 18.4
[2024-09-01] MEDS: ISOSORBIDE MONONITRATE ER 30 MG TAB.ER.24H PO SCH (10:45)
[2024-09-01] MEDS: lisinopriL 5 MG TAB PO SCH (10:45)
[2024-09-01] MEDS: lisinopriL 20 MG TAB PO SCH (15:47)
[2024-09-01] MEDS: predniSONE 20 MG TAB PO SCH (15:52)
[2024-09-01] MEDS ORDERED: DEXTROSE 5%-0.45% NACL 500 ML IV ONE (16:15)
--- NOTE | 2024-09-01 16:30 | XR ---
EXAMINATION TYPE: XR chest 1V portable DATE OF EXAM: 09/01/2024 4:23 PM COMPARISON: Chest radiographs from CLINICAL INDICATION: Male, 69 years old with history of chest pain SOB; [facility] TECHNIQUE: XR chest 1V portable Frontal view of the chest. FINDINGS: Lungs/Pleura: There is no evidence of pleural effusion, focal consolidation, or pneumothorax. Pulmonary vascularity: Unremarkable. Heart/mediastinum: Cardiomediastinal silhouette is unremarkable. Musculoskeletal: No acute osseous pathology. Other findings: None IMPRESSION: No acute cardiopulmonary disease/process. [facility], , 09/01/2024 4:28 PM
[2024-09-01] MEDS: DEXTROSE 5%-0.45% NACL 500 ML IV ONE (18:01)
[2024-09-01] MEDS: DEXTROSE 5%-0.45% NACL 1,000 ML IV SCH (18:59)
--- NOTE | 2024-09-01 19:44 | PN ---
PROGRESS NOTE SUBJECTIVE: Vignesh is a 69-year-old gentleman with history of hypertension, dyslipidemia, mild nonobstructive CAD, who presents to hospital with chest pain that is atypical and musculoskeletal. The patient during his previous admission had suspected ventricular tachycardia and underwent CPR and was shocked. He continues to have chest discomfort that is primarily musculoskeletal. He had a cardiac catheterization at last admission that did not reveal significant CAD. He is on amiodarone because of the suspected BT. Yesterday, his predominant problem had been in the form of pain and vasovagal episodes that seem to drop his blood pressure and heart rate. I am going to stop the beta solitario that he was on and I am cutting back on the dose of Norvasc to 5 mg and Imdur to 30 mg. OBJECTIVE: GENERAL: Comfortable at rest. VITAL SIGNS: Stable. CHEST: Reveals good air entry bilaterally. HEART: Reveals first and second heart sounds. No gallop. No murmur. ABDOMEN: Soft. EXTREMITIES: Did not reveal any edema. Peripheral pulses are felt. ASSESSMENT AND PLAN: 1. Recent cardiac arrest, thought to be secondary to ventricular tachycardia. The patient is on amiodarone. 2. Bradycardia and hypotension, probably vasovagal, could be due to the beta blockers. I am going to change his medications. 3. Chest pain, mostly musculoskeletal. The CT chest did not reveal any rib fractures. MMODL / IJN: [id number] /
[2024-09-02] MEDS: METOPROLOL SUCCINATE (ER) 50 MG TAB.ER.24H PO SCH (13:39)
[2024-09-02] MEDS: PANTOPRAZOLE 40 MG TABLET PO SCH (20:46)
[2024-09-02] MEDS: LIDOCAINE 4% PATCH TOPICAL SCH (20:46)
[2024-09-02] MEDS: MAG HYDROX/AL HYDROX/SIMETH 30 ML CUP PO SCH (20:46)
--- NOTE | 2024-09-03 04:53 | HP ---
HISTORY AND PHYSICAL CHIEF COMPLAINT: Chest pain. HISTORY OF PRESENT ILLNESS: This is another admission for this 69-year-old white male. He has been in and out of the hospital lately with angina and normal coronary arteries. He did have a cardiac arrest at home before his last admission and it was reported this was due to ventricular tachycardia, although this has not been documented. He came back in again with chest pain and all of his studies are negative including his enzymes, EKG and chest x-ray. REVIEW OF SYSTEMS: Otherwise normal. He has had no fever, no chills, cough, hemoptysis, etc. Past medical history, family history and personal and social histories are all unchanged from his last admission. PHYSICAL EXAMINATION: VITAL SIGNS: Normal. His blood pressure is slightly high systolically at 156. HEAD, EARS, EYES, NOSE, MOUTH, AND THROAT: Unremarkable and unchanged. He has no neck vein distention. CHEST: Clear. CARDIAC: Normal. ABDOMEN: Soft and nontender. IMPRESSION: 1. Chest pain. 2. Chest wall pain. 3. Possible vasospastic angina. PLAN: 1. Bed rest. 2. IV fluids. 3. Serial EKGs and enzymes. 4. Cardiology consult. MMODL / IJN: [id number] /
--- NOTE | 2024-09-03 07:39 | P.PN ---
Subjective Progress Note Date: 09/02/24 HISTORY OF PRESENT ILLNESS: This is a 69-year-old male with a past medical history significant for hype rtension, hyperlipidemia, mild nonobstructive CAD, and recent admission for cardiac arrest due to reported ventricular tachycardia without telemetry tracings. Patient follows in the office with Dr. Roy. We have been asked to see the patient in consultation for chest pain. Patient examined at the bedside. Patient was admitted to the hospital earlier this month for a cardiac arrest. According to EMS the patient was in ventricular tachycardia and did receive CPR and shock x 1. There was no telemetry tracings available from EMS for review. The patient was started on amiodarone. Patient was discharged home with an event monitor. Patient reports back to the hospital with complaints of chest discomfort. He states that he had pain across his entire chest. He denied any radiation of the pain. Denied any shortness of breath. Patient reports the chest pain is worse with coughing, deep inspiration, and chest wall palpation. Patient also reports having an episode of syncope yesterday. Patient is somewhat of a poor historian in regards to his syncopal episode. The patient does have an event monitor from his recent hospitalization. DIAGNOSTICS: - EKG reveals sinus mechanism with no signs of acute ischemia - Chest CTA: No evidence for acute pulmonary embolism. Moderate emphysematous changes without acute pulmonary process - Laboratory data: WBC 7.8. Hemoglobin 14.6. Platelet count 285. Sodium 136. Potassium 5.1. BUN 30. Creatinine 1.18. Magnesium 2.2. Troponin negative x 2. proBNP 69. - Current home cardiac medications include aspirin 81 mg daily, atorvastatin 40 mg daily, Plavix 75 mg daily, Imdur 60 mg daily, metoprolol tartrate 12.5 mg daily, amlodipine 5 mg daily, lisinopril 10 mg daily, amiodarone per taper - Most recent echocardiogram obtained on 08/28/2024 revealed ejection fraction 50 to 55% with no pericardial or pleural effusion - Cardiac catheterization history: 08/17/2024 revealing mild disease in the LAD proximally and mid, no obstructive disease in circumflex or RCA, left dominant system, normal LVEDP. September 02, 2024 Seen and examined at bedside. Patient reports significant substernal and epigastric pain mostly when he is taking a deep breath. It is reproducible on palpation. This pain is related to his recent chest compressions he had. His telemetry does not show any arrhythmias. Blood pressure is slightly above the normal limit. Heart rate is tending to run low in mid 50s while the patient is resting. PHYSICAL EXAM: VITAL SIGNS: Reviewed. GENERAL: Well-developed in no acute distress. HEENT: Head is normocephalic. Pupils are equal, round. Sclerae anicteric. Mucous membranes of the mouth are moist. Neck supple. No JVD or thyromegaly LUNGS: Respirations even and unlabored. Lungs essentially clear to auscultation bilaterally. HEART: Regular rate and rhythm. S1 and S2 heard. ABDOMEN: Soft. Nondistended. Nontender. EXTREMITIES: Normal range of motion. No clubbing or cyanosis. Peripheral pulses intact. No lower extremity edema NEUROLOGIC: Awake and alert. Oriented x 3. ASSESSMENT: Chest pain musculoskeletal due to chest compressions recently. Syncope, etiology unclear. Likely vasovagal related to musculoskeletal chest pain after chest compressions. He does reports exacerbation of his pain with deep breathing. Bradycardia Recent hospitalization for cardiac arrest due to ventricular tachycardia per [facility], however without any telemetry tracings Mild nonobstructive CAD Hypertension Hyperlipidemia PLAN: An acute coronary event has been ruled out. Give lidocaine patch for the chest pains. Discharge him on some lidocaine patches. No need to repeat echocardiogram as this was performed earlier this month Telemetry does not show any pauses or any high-grade AV blocks. His resting heart rate is around 50s. He was on metoprolol previously. He is also on amiodarone 200 mg twice daily. I will reduce his amiodarone to 200 mg daily and reduce his beta-solitario from metoprolol 50 to metoprolol succinate 25 daily. Continue telemetry monitoring during hospitalization Objective - Vital Signs Vital signs: Vital Signs Temp 97.8 F 09/03/24 01:13 Pulse 61 09/03/24 01:13 Resp 17 09/03/24 01:13 BP 150/75 09/03/24 01:13 Pulse Ox 96 09/03/24 01:13 FiO2 Intake & Output 09/02/24 09/03/24 09/03/24 18:59 06:59 18:59 Intake Total 354 Output Total 900 650 Balance -546 -650 Intake: Oral 354 Output: Urine 900 650 Other: Voiding Method Toilet Toilet Urinal Urinal # Voids 2 1 - Labs CBC & Chem 7: 08/30/24 21:26 08/30/24 21:26
--- NOTE | 2024-09-03 07:41 | P.PN ---
Subjective Progress Note Date: 09/03/24 HISTORY OF PRESENT ILLNESS: This is a 69-year-old male with a past medical history significant for hype rtension, hyperlipidemia, mild nonobstructive CAD, and recent admission for cardiac arrest due to reported ventricular tachycardia without telemetry tracings. Patient follows in the office with Dr. Roy. We have been asked to see the patient in consultation for chest pain. Patient examined at the bedside. Patient was admitted to the hospital earlier this month for a cardiac arrest. According to EMS the patient was in ventricular tachycardia and did receive CPR and shock x 1. There was no telemetry tracings available from EMS for review. The patient was started on amiodarone. Patient was discharged home with an event monitor. Patient reports back to the hospital with complaints of chest discomfort. He states that he had pain across his entire chest. He denied any radiation of the pain. Denied any shortness of breath. Patient reports the chest pain is worse with coughing, deep inspiration, and chest wall palpation. Patient also reports having an episode of syncope yesterday. Patient is somewhat of a poor historian in regards to his syncopal episode. The patient does have an event monitor from his recent hospitalization. DIAGNOSTICS: - EKG reveals sinus mechanism with no signs of acute ischemia - Chest CTA: No evidence for acute pulmonary embolism. Moderate emphysematous changes without acute pulmonary process - Laboratory data: WBC 7.8. Hemoglobin 14.6. Platelet count 285. Sodium 136. Potassium 5.1. BUN 30. Creatinine 1.18. Magnesium 2.2. Troponin negative x 2. proBNP 69. - Current home cardiac medications include aspirin 81 mg daily, atorvastatin 40 mg daily, Plavix 75 mg daily, Imdur 60 mg daily, metoprolol tartrate 12.5 mg daily, amlodipine 5 mg daily, lisinopril 10 mg daily, amiodarone per taper - Most recent echocardiogram obtained on 08/28/2024 revealed ejection fraction 50 to 55% with no pericardial or pleural effusion - Cardiac catheterization history: 08/17/2024 revealing mild disease in the LAD proximally and mid, no obstructive disease in circumflex or RCA, left dominant system, normal LVEDP. September 02, 2024 Seen and examined at bedside. Patient reports significant substernal and epigastric pain mostly when he is taking a deep breath. It is reproducible on palpation. This pain is related to his recent chest compressions he had. His telemetry does not show any arrhythmias. Blood pressure is slightly above the normal limit. Heart rate is tending to run low in mid 50s while the patient is resting. September 03, 2024 Blood pressure slightly above normal, systolic around 150s. Heart rate in mid 50s while patient is resting. No blocks or pauses. Patient denies any further dizziness lightheadedness. He reports symptomatic relief with the lidocaine patch PHYSICAL EXAM: VITAL SIGNS: Reviewed. GENERAL: Well-developed in no acute distress. HEENT: Head is normocephalic. Pupils are equal, round. Sclerae anicteric. Mucous membranes of the mouth are moist. Neck supple. No JVD or thyromegaly LUNGS: Respirations even and unlabored. Lungs essentially clear to auscultation bilaterally. HEART: Regular rate and rhythm. S1 and S2 heard. ABDOMEN: Soft. Nondistended. Nontender. EXTREMITIES: Normal range of motion. No clubbing or cyanosis. Peripheral pulses intact. No lower extremity edema NEUROLOGIC: Awake and alert. Oriented x 3. ASSESSMENT: Chest pain musculoskeletal due to chest compressions recently. Syncope, etiology unclear. Likely vasovagal related to musculoskeletal chest pain after chest compressions. He does reports exacerbation of his pain with deep breathing. Bradycardia Recent hospitalization for cardiac arrest due to ventricular tachycardia per EMS, however without any telemetry tracings Mild nonobstructive CAD Hypertension Hyperlipidemia PLAN: An acute coronary event has been ruled out. Give lidocaine patch for the chest pains. Discharge him on some lidocaine patches. Telemetry does not show any pauses or any high-grade AV blocks. His resting heart rate is around 50s. He was on metoprolol previously. For blood pressure patient is on lisinopril 40 mg. I am adding amlodipine 2.5 mg as blood pressure is above the normal limit. Discharge him on lisinopril 40, amlodipine 2.5 mg Reduce his amiodarone to 200 mg daily. Discharge him on this dose. Reduce metoprolol succinate to 12.5 mg daily. Discharge him on this dose I recommend social work consult so that patient has a good plan about discharge disposition. Patient is clear from cardiovascular standpoint. He is recommended to follow-up on outpatient basis and discuss his event monitor results which she is wearing. Objective - Vital Signs Vital signs: Vital Signs Temp 97.8 F 09/03/24 01:13 Pulse 61 09/03/24 01:13 Resp 17 09/03/24 01:13 BP 150/75 09/03/24 01:13 Pulse Ox 96 09/03/24 01:13 FiO2 Intake & Output 09/02/24 09/03/24 09/03/24 18:59 06:59 18:59 Intake Total 354 Output Total 900 650 Balance -546 -650 Intake: Oral 354 Output: Urine 900 650 Other: Voiding Method Toilet Toilet Urinal Urinal # Voids 2 1 - Labs CBC & Chem 7: 08/30/24 21:26 08/30/24 21:26
[2024-09-03] MEDS: AMIODARONE 200 MG TAB PO SCH (08:06)
[2024-09-03] MEDS: METOPROLOL SUCCINATE (ER) 25 MG TAB.ER.24H PO SCH (08:11)
[2024-09-03] MEDS: amLODIPine 2.5 MG TAB PO SCH (08:35)
[2024-09-03] MEDS ORDERED: METOPROLOL SUCCINATE (ER) 25 MG TAB.ER.24H PO SCH (09:00)
[2024-09-03] MEDS: HYDROmorphone 1 MG/ML 1 ML SYRINGE IVP PRN (18:35)
--- NOTE | 2024-09-04 05:06 | PN ---
PROGRESS NOTE CHIEF COMPLAINT: Chest pain. HISTORY OF PRESENT ILLNESS: This gentleman continues to complain of chest pain. Studies have been negative. He is on steroids, which do not seem to be helping. PHYSICAL EXAMINATION: CHEST: Clear. CARDIAC: Normal. ABDOMEN: Soft, nontender. IMPRESSION: 1. Unexplained chest pain. 2. Vasospastic coronary artery disease. 3. History of ventricular tachycardia. PLAN: If nothing changes, we may wind up discharging him soon to outpatient followup. MMODL / IJN: [id number] /
--- NOTE | 2024-09-04 06:06 | PN ---
PROGRESS NOTE DATE OF SERVICE: 09/02/2024 CHIEF COMPLAINT: Persistent chest pain. HISTORY OF PRESENT ILLNESS: This gentleman is fairly stable, but still complaining of chest pain. The etiology cannot be found. PHYSICAL EXAM: VITAL SIGNS: Normal. CHEST: Clear. CARDIAC: Normal. ABDOMEN: Soft, nontender. IMPRESSION: 1. Persistent complaints of chest pain, etiology unknown. 2. Continue with the oral prednisone. 3. Consider discharge planning soon. MMODL / IJN: [id number] /
[2024-09-04 07:30] VITALS: BP 157/81; PULSE 52; RESP 17; TEMP 97.7
--- NOTE | 2024-09-04 07:57 | PN ---
PROGRESS NOTE DATE OF SERVICE: 09/01/2024 CHIEF COMPLAINT: Persistent episodes of chest pain. HISTORY OF PRESENT ILLNESS: This gentleman is doing well, but he complains of a very severe chest pain. It seems it is aggravated by very minimal activity such as walking a few steps in the walker. He is being followed by Cardiology. His blood pressure is slightly elevated. PHYSICAL EXAMINATION: CHEST: Clear. CARDIAC: Normal. ABDOMEN: Soft and nontender. IMPRESSION: 1. Chest pain with exertion. 2. Hypertension. PLAN: 1. Increase lisinopril from 5 mg to 40 mg once a day. 2. Start prednisone by mouth. MMODL / IJN: [id number] /
--- NOTE | 2024-09-08 07:53 | DS ---
DISCHARGE SUMMARY CHIEF COMPLAINT: Chest pain. HISTORY OF PRESENT ILLNESS AND PHYSICAL EXAM: Details of this man's history and physical can be found in the initial workup. LABORATORY STUDIES: While he was in the hospital, he had laboratory studies, details of which can be found in the laboratory section of his chart. COURSE IN THE HOSPITAL: After admission, he was placed on bedrest, started on intravenous fluids and once again, efforts were made to determine the cause of his chest pain. He was seen by Cardiology and cleared. His enzymes are normal. EKGs did not change. D-dimer was unremarkable. He was started on steroids to see if it was chest wall pain and nothing seem to work. Finally, he was told that there was nothing further we could do in the hospital and he will go home on his usual activity and usual cardiac medications and follow up in the office. FINAL DIAGNOSES: 1. Chest pain, undiagnosed. 2. Vasospastic coronary artery disease. 3. Chest wall pain secondary to cardiorespiratory resuscitation. OPERATIONS: None. CONSULTATIONS: Cardiology. He is improved. MMODL / IJN: [id number] /
== END 2024-09-04 15:03 | disposition home or self-care (01) ==
LOC: EC 20:53 → 6NMEDSUR 23:50
PROVIDERS: ADMIT Family Medicine; ATTEND Family Medicine
DX: R07.89 Other chest pain (principal); I25.10 Atherosclerotic heart disease of native coronary artery without angina pectoris; I47.20 Ventricular tachycardia, unspecified; I49.01 Ventricular fibrillation; I95.9 Hypotension, unspecified; R00.1 Bradycardia, unspecified; R30.0 Dysuria; R53.1 Weakness; J44.9 Chronic obstructive pulmonary disease, unspecified; E78.5 Hyperlipidemia, unspecified; I10 Essential (primary) hypertension; W19.XXXA Unspecified fall, initial encounter; Z79.82 Long term (current) use of aspirin; Z79.02 Long term (current) use of antithrombotics/antiplatelets; Z79.899 Other long term (current) drug therapy; Z86.74 Personal history of sudden cardiac arrest; Z87.891 Personal history of nicotine dependence
CPT/HCPCS: 96361 ×3; 96375 ×3; 96376; 96374; 99291; 36415; 93005 ×2; 85379; 83880; 80053; 82150; 83690; 83735; 84484 ×2; 85025; 85610; 85730; 81003; 71045; 71275; G0378 ×6; S4990 ×4; J2270 ×2; J2405; J3490; J1171; J7512 ×4; Q9967

== ENCOUNTER 2024-09-13 16:00 | Inpatient (IN) | payer MEDICARE, OTHER ==
[2024-09-13 16:40] LABS: HCT 39.2 % (39.0-53.0); HGB 12.7 gm/dL (13.0-17.5); RBC 4.26 m/uL (4.30-5.90); WBC 7.9 k/uL (3.8-10.6)
[2024-09-13 16:41] LABS: Basophils % (A) 1 %; Eosinophils # (A) 0.2 k/uL (0-0.7); Eosinophils % (A) 3 %; Lymphocytes % (A) 13 %; MCH 29.9 pg (25.0-35.0); MCHC 32.4 g/dL (31.0-37.0); Mean Platelet Volume 7.1; Monocytes # (A) 0.6 k/uL (0-1.0); Monocytes % (A) 7 %; Neutrophils # (A) 5.9 k/uL (1.3-7.7); Neutrophils % (A) 75 %; Platelet Count 304 k/uL (150-450); RDW 13.9 % (11.5-15.5)
--- NOTE | 2024-09-13 16:49 | XR ---
EXAMINATION TYPE: XR chest 2V DATE OF EXAM: 09/13/2024 4:35 PM COMPARISON: Chest radiographs from 09/01/2024 CLINICAL INDICATION: Male, 69 years old with history of Chest Pain; [facility] TECHNIQUE: XR chest 2V Frontal and lateral views of the chest. FINDINGS: Lungs/Pleura: There is no evidence of pleural effusion, focal consolidation, or pneumothorax. Pulmonary vascularity: Unremarkable. Heart/mediastinum: Cardiomediastinal silhouette is unremarkable. Musculoskeletal: No acute osseous pathology. IMPRESSION: No acute cardiopulmonary disease/process. [facility], , 09/13/2024 4:47 PM
[2024-09-13 16:51] LABS: ALT 22 U/L (4-49); AST 23 U/L (17-59); African American GFR (CKD) 89 (>60 ml/min/1.73 sqM); Albumin 4.4 g/dL (3.5-5.0); Alkaline Phosphatase 162 U/L (38-126); Anion Gap 7 mmol/L; Blood Urea Nitrogen 32 mg/dL (9-20); Calcium 9.3 mg/dL (8.4-10.2); Carbon Dioxide 23 mmol/L (22-30); Chloride 103 mmol/L (98-107); Glucose 122 mg/dL (74-99); Magnesium 2.1 mg/dL (1.6-2.3); Non-African American GFR(CKD) 77 (>60 ml/min/1.73 sqM); Potassium 4.2 mmol/L (3.5-5.1); Sodium 133 mmol/L (137-145); Total Bilirubin 0.8 mg/dL (0.2-1.3); Total Protein 6.7 g/dL (6.3-8.2)
[2024-09-13 17:03] LABS: Partial Thromboplastin Time 23.5 sec (22.0-30.0); Prothrombin Time 10.9 sec (10.0-12.5)
--- NOTE | 2024-09-13 17:20 | ED ---
General Adult HPI - General Chief complaint: Chest Pain Stated complaint: Chest pain Time Seen by Provider: 09/13/24 16:10 Source: patient, EMS, RN notes reviewed, old records reviewed Mode of arrival: EMS Limitations: no limitations - History of Present Illness Initial comments: 69-year-old male presents for evaluation of chest pain. Pain is worse with movement, worse with deep inspiration. Patient had undergone cardiopulmonary resuscitation within the last 2 weeks and had undergone heart catheterization, echo and cardiology consultation. He was thought to have chest pain related to CPR at the time of discharge. No diaphoresis. No vomiting. Heart catheterization did not show any blockages requiring stenting - Related Data Home Medications Medication Instructions Recorded Confirmed Nicotine 21Mg/24Hr Patch [Habitrol] 1 patch TRANSDERM DAILY 04/10/24 09/13/24 Metoprolol Tartrate [Lopressor] 12.5 mg PO DAILY 05/24/24 09/13/24 Nitroglycerin Sl Tabs [Nitrostat] 0.4 mg SL Q5M PRN 05/24/24 09/13/24 Tamsulosin [Flomax] 0.4 mg PO DAILY 08/16/24 09/13/24 Vitamin D3(Unknown Dose) 1 tab PO DAILY 08/16/24 09/13/24 Amiodarone [Cordarone] See Taper PO DAILY 08/31/24 09/13/24 Previous Rx's Medication Instructions Recorded Aspirin 81 mg PO DAILY tab 04/12/24 Atorvastatin [Lipitor] 40 mg PO DAILY #90 tab 04/12/24 Clopidogrel [Plavix] 75 mg PO DAILY #90 tab 04/12/24 Isosorbide Mononitrate ER [Imdur] 60 mg PO DAILY #30 tab 08/22/24 amLODIPine [Norvasc] 5 mg PO DAILY #30 tab 08/22/24 Pantoprazole [Protonix] 40 mg PO BID #60 tab 09/04/24 lisinopriL [Zestril] 40 mg PO DAILY #30 tab 09/04/24 Allergies Allergy/AdvReac Type Severity Reaction Status Date / Time No Known Allergies Allergy Verified 09/13/24 17:19 Review of Systems ROS Statement: Those systems with pertinent positive or pertinent negative responses have been documented in the HPI. ROS Other: All systems not noted in ROS Statement are negative. 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 , pt thinks he had heart cath with balloon dilation. Past Anesthesia/Blood Transfusion Reactions: No Reported Reaction Date of Last Stent Placement:: unknown Type of Cardiac Device: Unknown Device Placement Date:: not sure Past Psychological History: No Psychological Hx Reported Smoking Status: Former smoker Past Alcohol Use History: None Reported Past Drug Use History: None Reported - Past Family History Mother Family Medical History: Cancer, Diabetes Mellitus Father Family Medical History: Cancer, Diabetes Mellitus General Exam Limitations: no limitations General appearance: alert, in no apparent distress Head exam: Present: atraumatic, normocephalic Eye exam: Present: normal appearance, PERRL ENT exam: Present: normal exam Neck exam: Present: normal inspection. Absent: tenderness, meningismus Respiratory exam: Present: wheezes, chest wall tenderness. Absent: respiratory distress Cardiovascular Exam: Present: regular rate, normal rhythm GI/Abdominal exam: Present: soft. Absent: distended, tenderness, guarding Extremities exam: Present: normal inspection, normal capillary refill Neurological exam: Present: alert, oriented X3, CN II-XII intact. Absent: motor sensory deficit Psychiatric exam: Present: normal affect, normal mood Skin exam: Present: warm, dry, intact. 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 sent in by a medical professional or institution (, PA, RETAINING ROOM CUTTER, urgent care, hospital, or assisted...) When possible be specific @ -No Did you speak to anyone other than the patient for history (EMS, parent, family, police, friend...)? What history was obtained from this source @ -No Did you review nursing and triage notes (agree or disagree)? Why? @ -I reviewed and agree with nursing and triage notes Were old charts reviewed (outside hosp., previous admission, EMS record, old EKG, old radiological studies, urgent care reports/EKG's, assisted records)? Report findings @ -No old charts were reviewed Differential Diagnosis (chest pain, altered mental status, abdominal pain women, abdominal pain men, vaginal bleeding, weakness, fever, dyspnea, syncope, headache, dizziness, GI bleed, back pain, seizure, CVA, palpatations, mental health, musculoskeletal)? @ -Not applicable EKG interpreted by me (3pts min.). @ -Sinus rhythm rate of 61 HI interval 151, QRS duration 130, QTc [address] segment elevation X-rays interpreted by me (1pt min.). @Chest x-ray negative for acute cardiopulmonary findings CT interpreted by me (1pt min.). @ -None done U/S interpreted by me (1pt. min.). @ -None done What testing was considered but not performed or refused? (CT, X-rays, U/S, labs)? Why? @ -None What meds were considered but not given or refused? Why? @ -None Did you discuss the management of the patient with other professionals (professionals i.e. , PA, RETAINING ROOM CUTTER, lab, RT, psych nurse, social problems specialist, chef saucier, teacher, security flex officer, case hardener)? Give summary @ -No Was smoking cessation discussed for >3mins.? @ -No Was critical care preformed (if so, how long)? @ -No Were there social determinants of health that impacted care today? How? (Homelessness, low income, unemployed, alcoholism, drug addiction, transportation, low edu. Level, literacy, decrease access to med. care, fdc, rehab)? @ -No Was there de-escalation of care discussed even if they declined (Discuss DNR or withdrawal of care, Hospice)? DNR status @ -No What co-morbidities impacted this encounter? (DM, HTN, Smoking, COPD, CAD, Cancer, CVA, ARF, Chemo, Hep., AIDS, mental health diagnosis, sleep apnea, morbid obesity)? @ -[Recent cardiac arrest Was patient admitted / discharged? Hospital course, mention meds given and route, prescriptions, significant lab abnormalities, going to OR and other pertinent info. @ -69-year-old male with chest pain. Pain by history and exam does seem like chest wall pain. EKG is sinus without ischemic changes. Laboratory testing unremarkable including troponin. This will be repeated at the 3-hour mirna. Chest x-ray is negative for acute cardiopulmonary findings. Patient has significant debility, may require rehabilitation. Admitted to [facility], case discussed with Dr. Hilario Undiagnosed new problem with uncertain prognosis? @ -No Drug Therapy requiring intensive monitoring for toxicity (Heparin, Nitro, Insulin, Cardizem)? @ -No Were any procedures done? @ -No Diagnosis/symptom? @ -Chest wall pain, debility Acute, or Chronic, or Acute on Chronic? @Acute Uncomplicated (without systemic symptoms) or Complicated (systemic symptoms)? @ -Default Side effects of treatment? @ -No Exacerbation, Progression, or Severe Exacerbation? @ -No Poses a threat to life or bodily function? How? (Chest pain, [place], [place], pneumonia, PE, COPD, DKA, ARF, appy, cholecystitis, CVA, Diverticulitis, Homicidal, Suicidal, threat to staff... and all critical care pts) @ -No - Lab Data Result diagrams: 09/13/24 16:26 09/13/24 16:26 Lab Results 09/13/24 09/13/24 09/13/24 Range/Units 16:26 16:26 16:26 WBC 7.9 (3.8-10.6) k/uL RBC 4.26 L (4.30-5.90) m/uL Hgb 12.7 L (13.0-17.5) gm/dL Hct 39.2 (39.0-53.0) % MCV 92.0 (80.0-100.0) fL MCH 29.9 (25.0-35.0) pg MCHC 32.4 (31.0-37.0) g/dL RDW 13.9 (11.5-15.5) % Plt Count 304 (150-450) k/uL MPV 7.1 Neutrophils % 75 % Lymphocytes % 13 % Monocytes % 7 % Eosinophils % 3 % Basophils % 1 % Neutrophils # 5.9 (1.3-7.7) k/uL Lymphocytes # 1.0 (1.0-4.8) k/uL Monocytes # 0.6 (0-1.0) k/uL Eosinophils # 0.2 (0-0.7) k/uL Basophils # 0.0 (0-0.2) k/uL PT 10.9 (10.0-12.5) sec INR 1.0 (<1.2) APTT 23.5 (22.0-30.0) sec Sodium 133 L (137-145) mmol/L Potassium 4.2 (3.5-5.1) mmol/L Chloride 103 (98-107) mmol/L Carbon Dioxide 23 (22-30) mmol/L Anion Gap 7 mmol/L BUN 32 H (9-20) mg/dL Creatinine 1.01 (0.66-1.25) mg/dL Est GFR (CKD-EPI)AfAm 89 (>60 ml/min/1.73 sqM) Est GFR (CKD-EPI)NonAf 77 (>60 ml/min/1.73 sqM) Glucose 122 H (74-99) mg/dL Calcium 9.3 (8.4-10.2) mg/dL Magnesium 2.1 (1.6-2.3) mg/dL Total Bilirubin 0.8 (0.2-1.3) mg/dL AST 23 (17-59) U/L ALT 22 (4-49) U/L Alkaline Phosphatase 162 H (38-126) U/L Troponin I (0.000-0.034) ng/mL Total Protein 6.7 (6.3-8.2) g/dL Albumin 4.4 (3.5-5.0) g/dL 09/13/24 Range/Units 16:26 WBC (3.8-10.6) k/uL RBC (4.30-5.90) m/uL Hgb (13.0-17.5) gm/dL Hct (39.0-53.0) % MCV (80.0-100.0) fL MCH (25.0-35.0) pg MCHC (31.0-37.0) g/dL RDW (11.5-15.5) % Plt Count (150-450) k/uL MPV Neutrophils % % Lymphocytes % % Monocytes % % Eosinophils % % Basophils % % Neutrophils # (1.3-7.7) k/uL Lymphocytes # (1.0-4.8) k/uL Monocytes # (0-1.0) k/uL Eosinophils # (0-0.7) k/uL Basophils # (0-0.2) k/uL PT (10.0-12.5) sec INR (<1.2) APTT (22.0-30.0) sec Sodium (137-145) mmol/L Potassium (3.5-5.1) mmol/L Chloride (98-107) mmol/L Carbon Dioxide (22-30) mmol/L Anion Gap mmol/L BUN (9-20) mg/dL Creatinine (0.66-1.25) mg/dL Est GFR (CKD-EPI)AfAm (>60 ml/min/1.73 sqM) Est GFR (CKD-EPI)NonAf (>60 ml/min/1.73 sqM) Glucose (74-99) mg/dL Calcium (8.4-10.2) mg/dL Magnesium (1.6-2.3) mg/dL Total Bilirubin (0.2-1.3) mg/dL AST (17-59) U/L ALT (4-49) U/L Alkaline Phosphatase (38-126) U/L Troponin I <0.012 (0.000-0.034) ng/mL Total Protein (6.3-8.2) g/dL Albumin (3.5-5.0) g/dL Disposition Clinical Impression: Chest pain, Debility, unspecified Disposition: ADMITTED IP TO THIS HOSP Condition: Stable Is patient prescribed a controlled substance at d/c from ED?: No Referrals: Deonte Devi MD [Primary Care Provider] - 1-2 days Time of Disposition: 17:53
[2024-09-13] MEDS ORDERED: NALOXONE 0.4 MG/ML 1 ML VIAL IV PRN (17:49)
[2024-09-13] MEDS: ASPIRIN 325 MG TAB PO STA (17:56)
[2024-09-13] MEDS: KETOROLAC 15 MG/ML 1 ML VIAL IVP STA (17:58)
[2024-09-14] MEDS: HYDROmorphone 0.5 MG/0.5 ML SYRINGE IVP PRN (05:04)
[2024-09-14] MEDS ORDERED: NITROGLYCERIN SL TABS 0.4 MG TAB SUBLINGUAL PRN (11:28)
[2024-09-14] MEDS: PANTOPRAZOLE 40 MG TABLET PO SCH (16:49)
[2024-09-15] MEDS: NICOTINE 21MG/24HR PATCH TRANSDERM SCH (07:48)
[2024-09-15] MEDS: ASPIRIN 81 MG PO SCH (07:49)
[2024-09-15] MEDS: ISOSORBIDE MONONITRATE ER 60 MG TAB.ER.24H PO SCH (07:49)
[2024-09-15] MEDS: AMIODARONE 200 MG TAB PO SCH (07:49)
[2024-09-15] MEDS: TAMSULOSIN 0.4 MG CAP.ER.24H PO SCH (07:49)
[2024-09-15] MEDS: CLOPIDOGREL 75 MG TAB PO SCH (07:49)
[2024-09-15] MEDS: lisinopriL 20 MG TAB PO SCH (07:49)
[2024-09-15] MEDS: amLODIPine 5 MG TAB PO SCH (07:49)
[2024-09-15] MEDS: ATORVASTATIN 40 MG TAB PO SCH (07:49)
[2024-09-15] MEDS: METOPROLOL TARTRATE 12.5 MG TAB PO SCH (07:49)
[2024-09-15] MEDS: ONDANSETRON 4 MG/2 ML VIAL IVP PRN (11:31)
--- NOTE | 2024-09-15 21:37 | HP ---
HISTORY AND PHYSICAL CHIEF COMPLAINT: Chest pain. HISTORY OF PRESENT ILLNESS: This gentleman is back in again with chest pain. He has had recent infarction with cardiac cath revealing no significant coronary artery issues and it was thought that this either was takotsubo event or vasospastic events. However, he has been in and out of the hospital several times since with chest pain, which now seems to be chest wall. He did have an episode of ventricular tachycardia and received close chest compressions, but this pain is not consistent with that and it is not getting better. He came back to the emergency room. REVIEW OF SYSTEMS: Otherwise unremarkable. He has had no fever, chills, cough, hemoptysis, etc. Past medical history, family history, personal and social histories are all otherwise unremarkable and unchanged. PHYSICAL EXAMINATION: VITAL SIGNS: Normal. HEAD, EARS, EYES, NOSE, MOUTH, AND THROAT: Unremarkable. CHEST: Clear. CARDIAC: Normal. The chest wall is very tender throughout the entire chest. There is no redness, swelling, deformity, etc. ABDOMEN: Soft, nontender. EXTREMITIES: Normal. NEUROLOGICAL: Intact. IMPRESSION: He is admitted to the hospital with the diagnosis of unexplained anterior chest wall pain. PLAN: 1. Bedrest. 2. Analgesics. 3. Consider how to move forward to manage his pain. MMODL / IJN: [id number] /
[2024-09-15] MEDS: ACETAMINOPHEN TAB 325 MG TAB PO PRN (22:12)
--- NOTE | 2024-09-16 05:23 | PN ---
PROGRESS NOTE DATE OF SERVICE: 09/14/2024 CHIEF COMPLAINT: Chest pain. HISTORY OF PRESENT ILLNESS: This gentleman continues to have chest pain. He is in and out of the hospital all the time. This does not appear to be cardiac now. He describes it as being anterior. PHYSICAL EXAMINATION: VITAL SIGNS: Normal. CHEST: Clear. CARDIAC: Normal. He professes to have generalized exquisite tenderness throughout the anterior chest wall. IMPRESSION: Anterior chest wall pain, etiology unknown. PLAN: 1. Analgesics. 2. Consider how to manage this patient and his pain. MMODL / IJN: [id number] /
--- NOTE | 2024-09-16 10:37 | P.CRDCN ---
History of Present Illness Consult date: 09/16/24 History of present illness: HISTORY OF PRESENTING ILLNESS 69-year-old male past medical history of hypertension dyslipidemia mild CAD. He initially got admitted in late July with [id number] cardiac arrest. Telemetry strip was not available to review however it appeared to be ventricular tachycardia as per the EMS report. During that time he received chest compressions. He had a heart catheterization done for ST changes which showed only minimal CAD with no concerns of any obstruction. REVIEW OF SYSTEMS 14 point review of system is negative except what is mentioned above in HPI. PHYSICAL EXAMINATION Vital signs reviewed. Head: Normocephalic. Eyes: Sclerae nonicteric. Neck: Brisk carotid upstroke, no jugular venous distention. Lungs: Clear to auscultation. Heart: tender sternum Regular rate and rhythm, S1-S2, no S3, no murmur or rub. Abdomen: Soft nontender, positive bowel sounds. Extremities: No edema, intact distal pulses. Neuro: Alert, oritented, no focal deficits. Detailed neuro exam was not performed. ASSESSMENT Musculoskeletal chest pain because of chest compressions Prolonged QTc Bradycardia Prior history of hypertension, currently hypotensive Dyslipidemia Mild nonobstructive CAD Prior reported mild cardiomyopathy with apical hypokinesia. PLAN I am reviewing his ECGs and it shows that he does have tendency of having prolonged QTc with deep T wave inversions in the past. It seems like this is getting exacerbated with bradycardia. Because of his concerns of ventricular tachycardia was started on a beta-solitario and amiodarone. Because of his bradycardia and QTc prolongation, I will discontinue beta-solitario and amiodar one. Avoid any QTc prolonging medication. Consider outpatient ICD evaluation Previous echo was reported that his EF was 40 to 45% with apical hypokinesia. Last limited echo from early August showed preserved EF. Would recommend repeating an echocardiogram with [facility] on outpatient basis to see what his actual EF and if there is any actual apical wall motion abnormality which would explain his QTc prolongation and deep T wave inversions. I would discontinue his Plavix. Continue Lipitor and aspirin. Discontinue his Imdur as this chest pain is not related to coronary artery disease and but related to sternal fracture. Start lidocaine patch. Continue amlodipine 2.5 mg daily. Reduce dose of lisinopril to 10 mg daily Pieter Cabral MD, FACC, RPVI Thank you for allowing [facility] to participate in this patient's care. Feel free to reach out in case of any followup questions. Past Medical History Past Medical History: Coronary Artery Disease (CAD), COPD, GERD/Reflux, Hypertension, Myocardial Infarction ([place]), Neurologic Disorder Additional Past Medical History / Comment(s): some memory problems., states urine stream slow and has occasional burning., friend- Nicole Jones states she is his patient advocate and she helps him with medications-putting them in daily pill box.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 Last Myocardial Infarction Date:: unknown History of Any Multi-Drug Resistant Organisms: None Reported Past Surgical History: Heart Catheterization, Orthopedic Surgery, Pacemaker Additional Past Surgical History / Comment(s): finger surgeries from work related accidents. , pt thinks he had heart cath with balloon dilation. Past Anesthesia/Blood Transfusion Reactions: No Reported Reaction Date of Last Stent Placement:: unknown Type of Cardiac Device: Unknown Device Placement Date:: not sure Past Psychological History: No Psychological Hx Reported Smoking Status: Former smoker Past Alcohol Use History: None Reported Additional Past Alcohol Use History / Comment(s): quit smoking 2 months ago., hx of 1 1/2 to 2 ppd - cigarettes and cigars. Past Drug Use History: None Reported - Past Family History Mother Family Medical History: Cancer, Diabetes Mellitus Father Family Medical History: Cancer, Diabetes Mellitus Medications and Allergies Home Medications Medication Instructions Recorded Confirmed Type Nicotine 21Mg/24Hr Patch [Habitrol] 1 patch TRANSDERM DAILY 04/10/24 09/13/24 History Aspirin 81 mg PO DAILY tab 04/12/24 09/13/24 Rx Atorvastatin [Lipitor] 40 mg PO DAILY #90 tab 04/12/24 09/13/24 Rx Clopidogrel [Plavix] 75 mg PO DAILY #90 tab 04/12/24 09/13/24 Rx Metoprolol Tartrate [Lopressor] 12.5 mg PO DAILY 05/24/24 09/13/24 History Nitroglycerin Sl Tabs [Nitrostat] 0.4 mg SL Q5M PRN 05/24/24 09/13/24 History Tamsulosin [Flomax] 0.4 mg PO DAILY 08/16/24 09/13/24 History Vitamin D3(Unknown Dose) 1 tab PO DAILY 08/16/24 09/13/24 History Isosorbide Mononitrate ER [Imdur] 60 mg PO DAILY #30 tab 08/22/24 09/13/24 Rx amLODIPine [Norvasc] 5 mg PO DAILY #30 tab 08/22/24 09/13/24 Rx Amiodarone [Cordarone] See Taper PO DAILY 08/31/24 09/13/24 History Pantoprazole [Protonix] 40 mg PO BID #60 tab 09/04/24 09/13/24 Rx lisinopriL [Zestril] 40 mg PO DAILY #30 tab 09/04/24 09/13/24 Rx Allergies Allergy/AdvReac Type Severity Reaction Status Date / Time No Known Allergies Allergy Verified 09/13/24 17:19 Physical Exam Vitals: Vital Signs Temp Pulse Resp BP BP Pulse Ox 09/16/24 08:21 93 L 09/16/24 08:00 47 L 09/16/24 07:10 98.0 F 47 L 18 95/59 94 L 09/16/24 01:51 98.2 F 53 L 18 92/59 97 09/15/24 22:11 99/61 09/15/24 19:49 98.3 F 80 18 100 09/15/24 13:04 97.9 F 50 L 20 118/58 97 Intake and Output 09/15/24 09/16/24 09/16/24 22:59 06:59 14:59 Intake Total 118 Output Total 290 Balance 118 -290 Intake: Oral 118 Output: Urine 290 Other: Voiding Method Toilet Urinal # Voids 1 2 Results 09/13/24 16:26 09/13/24 16:26 Current Medications Generic Name Dose Route Start Last Admin Trade Name Freq PRN Reason Stop Dose Admin Acetaminophen 650 mg 09/13/24 17:49 09/16/24 06:06 Acetaminophen Tab 325 Mg Tab PO 650 mg Q6HR PRN Administration Mild Pain or Fever > 100.5 Amlodipine Besylate 5 mg 09/15/24 09:00 09/16/24 10:15 Amlodipine 5 Mg Tab PO Not Given DAILY FRANTZ Aspirin 81 mg 09/15/24 09:00 09/16/24 08:56 Aspirin 81 Mg PO 81 mg DAILY FRANTZ Administration Atorvastatin Calcium 40 mg 09/15/24 09:00 09/16/24 08:56 Atorvastatin 40 Mg Tab PO 40 mg DAILY [facility] Administration Hydromorphone HCl 0.5 mg 09/13/24 17:49 09/15/24 16:01 Hydromorphone 0.5 Mg/0.5 Ml Syringe IVP 0.5 mg Q3HR PRN Administration Moderate Pain (Scale 4 to 6) Lidocaine 1 patch 09/16/24 11:00 Lidocaine 4% Patch TOPICAL DAILY [facility] Protocol Lisinopril 40 mg 09/15/24 09:00 09/16/24 10:15 Lisinopril 20 Mg Tab PO Not Given DAILY FR[facility]Z Naloxone HCl 0.2 mg 09/13/24 17:49 Naloxone 0.4 Mg/Ml 1 Ml Vial IV Q2M PRN Opioid Reversal Nicotine 1 patch 09/15/24 09:00 09/16/24 08:56 Nicotine 21mg/24hr Patch TRANSDERM 1 patch DAILY [facility] Administration Nitroglycerin 0.4 mg 09/14/24 11:28 Nitroglycerin Sl Tabs 0.4 Mg Tab SUBLINGUAL Q5M PRN Chest Pain Ondansetron HCl 4 mg 09/15/24 11:24 09/15/24 11:31 Ondansetron 4 Mg/2 Ml Vial IVP 4 mg Q6HR PRN Administration Nausea And Vomiting Pantoprazole Sodium 40 mg 09/14/24 17:30 09/16/24 06:01 Pantoprazole 40 Mg Tablet PO 40 mg AC-BID FRANTZ Administration Tamsulosin HCl 0.4 mg 09/15/24 09:00 09/16/24 08:57 Tamsulosin 0.4 Mg Cap.Er.24h PO 0.4 mg DAILY FRANTZ Administration Intake and Output 09/15/24 09/16/24 09/16/24 22:59 06:59 14:59 Intake Total 118 Output Total 290 Balance 118 -290 Intake: Oral 118 Output: Urine 290 Other: Voiding Method Toilet Urinal # Voids 1 2 09/13/24 16:26 09/13/24 16:26
[2024-09-16] MEDS: LIDOCAINE 4% PATCH TOPICAL SCH (11:31)
[2024-09-16] MEDS ORDERED: ALBUTEROL NEBULIZED 2.5 MG/3 ML INHALATION PRN (12:43)
--- NOTE | 2024-09-16 12:48 | P.PN ---
Subjective Progress Note Date: 09/16/24 Is a pleasant 69-year-old male with medical history significant for nonobstructive coronary artery disease, hypertension, hyperlipidemia and a recent cardiac arrest for V. tach. Patient is been having issues with bradycardia is currently wearing an event monitor from the cardiology office. He has been followed by Dr. Devi during this hospital stay however Dr. Ximena Plasencia is his PCP and for this reason was transferred over to our service. Patient initially came into the hospital chest pain this is felt to be musculoskeletal in nature from his recent CPR from the cardiac arrest. He is having worsening chest discomfort with cough and he is quite congested on exam today. Cardiology has adjusted his medications due to the bradycardia. He has been taken off of the metoprolol as well as amiodarone. Patient does report living by himself and having difficulty preparing meals and having difficulty ambulating. He is currently pending physical therapy evaluation however he will likely require subacute rehab on discharge and this would not be able to be completed until Wednesday. Review of Systems Constitutional: Denied any fatigue denied any fever. Cardio vascular: denied any chest pain, palpitations Gastrointestinal: denied any nausea, vomiting, diarrhea Pulmonary: Denied any shortness of breath cough Neurologic denied any new focal deficits All inpatient medications were reviewed and appropriate changes in these medications as dictated in the interval history and assessment and plan. PHYSICAL EXAMINATION: GENERAL: The patient is alert and oriented x3, not in any acute distress. Well developed, well nourished. HEENT: Pupils are round and equally reacting to light. EOMI. No scleral icterus. No conjunctival pallor. Normocephalic, atraumatic. No pharyngeal erythema. No thyromegaly. CARDIOVASCULAR: S1 and S2 present. No murmurs, rubs, or gallops. PULMONARY: Chest is clear to auscultation, no wheezing or crackles. ABDOMEN: Soft, nontender, nondistended, normoactive bowel sounds. No palpable organomegaly. MUSCULOSKELETAL: No joint swelling or deformity. EXTREMITIES: No cyanosis, clubbing, or pedal edema. NEUROLOGICAL: Gross neurological examination did not reveal any focal deficits. SKIN: No rashes. Assessment and plan Chest pain musculoskeletal in nature secondary to recent cardiac arrest and CPR History of V. 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 Gastroesophageal reflux disease Former nicotine use GI prophylaxis DVT prophylaxis Full code Plan Patient has a congested cough with decreased oxygen saturations suspect he has a mild COPD exacerbation we will start this patient on oral burst as well as start this patient on Symbicort and DuoNebs. He is reporting some shortness of breath. Chest x-ray is on repeated today. Cardiology consultation in place some concerns with the QT prolongation amiodarone has been discontinued due to the bradycardia as well patient may need a defibrillator and pending further recommendations from cardiology. Continue with supportive care for the chest discomfort as this is suspected from CPR from his recent cardiac arresst Lidocaine patch has been added PT OT consultation currently pending patient is diffusely weak and per reports feels debilitated and unable to return home to his prior level of functionality he has been difficulty with preparing meals and light housekeeping. Social work is following patient would likely benefit from subacute r ehabilitation this cannot be arranged until Wednesday is currently Wednesday and we are still pending a PT evaluation. Repeat blood work in the morning. The impression and plan of care has been dictated by Lucille Lowery Nurse Practitioner as directed. Dr. Tej MD I have performed a history and physical examination and medical decision making of this patient, discussed the same with the dictator, and agree with the dictators assessment and plan as written, documented as a scribe. Based on total visit time, I have performed more than 50% of this visit. Objective - Vital Signs Vital signs: Vital Signs Temp 98.0 F 09/16/24 07:10 Pulse 47 L 09/16/24 08:00 Resp 18 09/16/24 07:10 BP 95/59 09/16/24 07:10 Pulse Ox 93 L 09/16/24 08:21 FiO2 Intake & Output 09/15/24 09/16/24 09/16/24 18:59 06:59 18:59 Intake Total 354 Output Total 550 290 Balance -196 -290 Intake: Oral 354 Output: Urine 550 290 Other: Voiding Method Toilet Toilet Urinal Urinal # Voids 2 2 - Labs CBC & Chem 7: 09/13/24 16:26 09/13/24 16:26 Assessment and Plan Time with Patient: Less than 30
--- NOTE | 2024-09-16 13:46 | XR ---
EXAMINATION TYPE: XR chest 2V DATE OF EXAM: 09/16/2024 CLINICAL HISTORY: shortness of breath, congestion TECHNIQUE: Frontal and lateral views of the chest are obtained. COMPARISON: 09/13/2024 FINDINGS: Hyperinflation and COPD. There is no focal air space opacity, pleural effusion, or pneumot horax seen. The cardiac silhouette size is within normal limits. The osseous structures are intact . IMPRESSION: No acute cardiopulmonary process. [facility], , 09/16/2024 1:43 PM
[2024-09-16] MEDS: predniSONE 20 MG TAB PO SCH (13:48)
[2024-09-16] MEDS: IPRATROPIUM-ALBUTEROL 3 ML NEB INHALATION SCH (15:23)
[2024-09-16] MEDS: SODIUM CHLORIDE 0.9% 500 ML 500 ML IV ONE (15:39)
[2024-09-16] MEDS: SYMBICORT 80-4.5 MCG INHALER INHALATION SCH (20:08)
[2024-09-17 07:38] LABS: Basophils % (A) 0 %; Eosinophils % (A) 0 %; HCT 36.4 % (39.0-53.0); HGB 11.8 gm/dL (13.0-17.5); Lymphocytes # (A) 0.7 k/uL (1.0-4.8); Lymphocytes % (A) 7 %; MCH 29.6 pg (25.0-35.0); MCHC 32.5 g/dL (31.0-37.0); MCV 91.2 fL (80.0-100.0); Mean Platelet Volume 7.9; Monocytes # (A) 0.5 k/uL (0-1.0); Monocytes % (A) 4 %; Neutrophils # (A) 9.1 k/uL (1.3-7.7); Neutrophils % (A) 88 %; Platelet Count 259 k/uL (150-450); RDW 14.2 % (11.5-15.5); WBC 10.3 k/uL (3.8-10.6)
--- NOTE | 2024-09-17 07:56 | P.PN ---
Subjective Progress Note Date: 09/17/24 HISTORY OF PRESENTING ILLNESS 69-year-old male past medical history of hypertension dyslipidemia mild CAD. He initially got admitted in late July with [id number] cardiac arrest. Telemetry strip was not available to review however it appeared to be ventricular tachycardia as per the EMS report. During that time he received chest compressions. He had a heart catheterization done for ST changes which showed only minimal CAD with no concerns of any obstruction. Progress note September 17 BP 113/65, heart rate 55 bpm still reports substernal chest tenderness. Symptoms better with lidocaine patch. He is wearing a [employer] heart monitor sticker pad on chest however the monitor is not in the sticker pad. Concern is that he might have possibly lost his [employer] heart monitor. PHYSICAL EXAMINATION Vital signs reviewed. Head: Normocephalic. Eyes: Sclerae nonicteric. Neck: Brisk carotid upstroke, no jugular venous distention. Lungs: Clear to auscultation. Heart: tender sternum Regular rate and rhythm, S1-S2, no S3, no murmur or rub. Abdomen: Soft nontender, positive bowel sounds. Extremities: No edema, intact distal pulses. Neuro: Alert, oritented, no focal deficits. Detailed neuro exam was not performed. ASSESSMENT Musculoskeletal chest pain because of chest compressions Prolonged QTc Bradycardia Prior history of hypertension, currently hypotensive Dyslipidemia Mild nonobstructive CAD Prior reported mild cardiomyopathy with apical hypokinesia. PLAN Repeat ECG to monitor QTc. I am reviewing his ECGs and it shows that he does have tendency of having prolonged QTc with deep T wave inversions in the past. It seems like this is getting exacerbated with bradycardia. Because of his concerns of ventricular tachycardia was started on a beta-solitario and amiodarone. Because of his bradycardia and QTc prolongation, I will discontinue beta-solitario and amiodarone. Avoid any QTc prolonging medication. Consider outpatient ICD evaluation Previous echo was reported that his EF was 40 to 45% with apical hypokinesia. Last limited echo from early August showed preserved EF. Would recommend repeating an echocardiogram with [facility] on outpatient basis to see what his actual EF and if there is any actual apical wall motion abnormality which would explain his QTc prolongation and deep T wave inversions. I would discontinue his Plavix. Continue Lipitor and aspirin. Discontinue his Imdur as this chest pain is not related to coronary artery disease and but related to sternal fracture. Start lidocaine patch. Continue amlodipine 2.5 mg daily. Reduce dose of lisinopril to 10 mg daily Discharge disposition and social work consult Objective - Vital Signs Vital signs: Vital Signs Temp 97.7 F 09/17/24 06:35 Pulse 54 L 09/17/24 06:35 Resp 16 09/17/24 00:33 BP 113/65 09/17/24 06:35 Pulse Ox 96 09/17/24 06:35 FiO2 Intake & Output 09/16/24 09/17/24 09/17/24 18:59 06:59 18:59 Intake Total 118 840 Output Total 150 200 Balance -32 640 Intake: Oral 118 840 Output: Urine 150 200 Other: Voiding Method Urinal # Voids 1 3 # Bowel Movements 1 - Labs CBC & Chem 7: 09/17/24 07:12 09/13/24 16:26 Labs: Abnormal Lab Results - Last 24 Hours (Table) 09/17/24 Range/Units 07:12 RBC 4.00 L (4.30-5.90) m/uL Hgb 11.8 L (13.0-17.5) gm/dL Hct 36.4 L (39.0-53.0) % Neutrophils # 9.1 H (1.3-7.7) k/uL Lymphocytes # 0.7 L (1.0-4.8) k/uL
[2024-09-17 08:00] LABS: African American GFR (CKD) 79 (>60 ml/min/1.73 sqM); Anion Gap 5 mmol/L; Blood Urea Nitrogen 42 mg/dL (9-20); Calcium 9.3 mg/dL (8.4-10.2); Carbon Dioxide 24 mmol/L (22-30); Chloride 103 mmol/L (98-107); Glucose 123 mg/dL (74-99); Magnesium 1.9 mg/dL (1.6-2.3); Non-African American GFR(CKD) 69 (>60 ml/min/1.73 sqM); Potassium 4.7 mmol/L (3.5-5.1); Sodium 132 mmol/L (137-145)
[2024-09-17] MEDS: lisinopriL 10 MG TAB PO SCH (09:32)
[2024-09-17] MEDS: amLODIPine 2.5 MG TAB PO SCH (10:23)
[2024-09-17] MEDS: SODIUM CHLORIDE 0.9% 1,000 ML IV SCH (11:00)
[2024-09-17] MEDS: KETOROLAC 15 MG/ML 1 ML VIAL IVP SCH (11:00)
--- NOTE | 2024-09-17 12:06 | P.PN ---
Subjective Progress Note Date: 09/17/24 Is a pleasant 69-year-old male with medical history significant for nonobstructive coronary artery disease, hypertension, hyperlipidemia and a recent cardiac arrest for V. tach. Patient is been having issues with bradycardia is currently wearing an event monitor from the cardiology office. He has been followed by Dr. Devi during this hospital stay however Dr. Ximena Plasencia is his PCP and for this reason was transferred over to our service. Patient initially came into the hospital chest pain this is felt to be musculoskeletal in nature from his recent CPR from the cardiac arrest. He is having worsening chest discomfort with cough and he is quite congested on exam today. Cardiology has adjusted his medications due to the bradycardia. He has been taken off of the metoprolol as well as amiodarone. Patient does report living by himself and having difficulty preparing meals and having difficulty ambulating. He is currently pending physical therapy evaluation however he will likely require subacute rehab on discharge and this would not be able to be completed until Wednesday. 05/17/2024 Patient evaluated in follow-up he continues to report significant chest discomfort reproducible appears to be musculoskeletal again secondary to the recent CPR. We will add IV Toradol for this patient. Continues on Symbicort, DuoNebs and oral prednisone for mild COPD exacerbation and is wheezing is significantly improved today. He is still pending PT OT evaluation. Review of Systems Constitutional: Denied any fatigue denied any fever. Cardio vascular: denied any chest pain, palpitations Gastrointestinal: denied any nausea, vomiting, diarrhea Pulmonary: Denied any shortness of breath cough Neurologic denied any new focal deficits All inpatient medications were reviewed and appropriate changes in these medications as dictated in the interval history and assessment and plan. PHYSICAL EXAMINATION: GENERAL: The patient is alert and oriented x3, not in any acute distress. Well developed, well nourished. HEENT: Pupils are round and equally reacting to light. EOMI. No scleral icterus. No conjunctival pallor. Normocephalic, atraumatic. No pharyngeal erythema. No thyromegaly. CARDIOVASCULAR: S1 and S2 present. No murmurs, rubs, or gallops. PULMONARY scattered rhonchi throughout ABDOMEN: Soft, nontender, nondistended, normoactive bowel sounds. No palpable organomegaly. MUSCULOSKELETAL: No joint swelling or deformity. EXTREMITIES: No cyanosis, clubbing, or pedal edema. NEUROLOGICAL: Gross neurological examination did not reveal any focal deficits. SKIN: No rashes. Assessment and plan Chest pain musculoskeletal in nature secondary to recent cardiac arrest and CPR History of V. 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 Gastroesophageal reflux disease Former nicotine use GI prophylaxis DVT prophylaxis Full code Plan Patient has a congested cough with decreased oxygen saturations suspect he has a mild COPD exacerbation we will start this patient on oral burst as well as start this patient on Symbicort and DuoNebs. He is reporting some shortness of breath. Cardiology consultation in place some concerns with the QT prolongation amiodarone has been discontinued due to the bradycardia as well patient may need a defibrillator and pending further recommendations from cardiology. Continue with supportive care for the chest discomfort as this is suspected from CPR from his recent cardiac arresst Lidocaine patch has been added will also add IV Toradol and oral [place] PT OT consultation currently pending patient is diffusely weak and per reports feels debilitated and unable to return home to his prior level of functionality he has been difficulty with preparing meals and light housekeeping. Social work is following patient would likely benefit from subacute rehabilitation this cannot be arranged until Wednesday is currently Wednesday and we are still pending a PT evaluation. Repeat blood work in the morning. The impression and plan of care has been dictated by Lucille Lowery, Nurse Practitioner as directed. Dr. Tej MD I have performed a history and physical examination and medical decision making of this patient, discussed the same with the dictator, and agree with the dictators assessment and plan as written, documented as a scribe. Based on total visit time, I have performed more than 50% of this visit. Objective - Vital Signs Vital signs: Vital Signs Temp 97.7 F 09/17/24 06:35 Pulse 80 09/17/24 11:40 Resp 16 09/17/24 00:33 BP 113/65 09/17/24 06:35 Pulse Ox 96 09/17/24 06:35 FiO2 Intake & Output 09/16/24 09/17/24 09/17/24 18:59 06:59 18:59 Intake Total 118 840 240 Output Total 150 200 275 Balance -32 640 -35 Intake: Oral 118 840 240 Output: Urine 150 200 275 Other: Voiding Method Urinal # Voids 1 3 # Bowel Movements 1 - Labs CBC & Chem 7: 09/17/24 07:12 09/17/24 07:12 Labs: Abnormal Lab Results - Last 24 Hours (Table) 09/17/24 09/17/24 Range/Units 07:12 07:12 RBC 4.00 L (4.30-5.90) m/uL Hgb 11.8 L (13.0-17.5) gm/dL Hct 36.4 L (39.0-53.0) % Neutrophils # 9.1 H (1.3-7.7) k/uL Lymphocytes # 0.7 L (1.0-4.8) k/uL Sodium 132 L (137-145) mmol/L BUN 42 H (9-20) mg/dL Glucose 123 H (74-99) mg/dL Assessment and Plan Time with Patient: Less than 30
[2024-09-18] MEDS: CLOPIDOGREL 75 MG TAB PO SCH (08:13)
[2024-09-18] MEDS: HYDROcodone/APAP 5-325MG 1 EACH TAB PO PRN (08:13)
[2024-09-18] MEDS: lisinopriL 5 MG TAB PO SCH (08:13)
[2024-09-18] MEDS: ISOSORBIDE MONONITRATE ER 30 MG TAB.ER.24H PO SCH (08:13)
[2024-09-18] MEDS: amLODIPine 2.5 MG TAB PO SCH (08:14)
--- NOTE | 2024-09-18 10:16 | P.PN ---
Subjective Progress Note Date: 09/18/24 HISTORY OF PRESENTING ILLNESS 69-year-old male past medical history of hypertension dyslipidemia mild CAD. He initially got admitted in late July with [id number] cardiac arrest. Telemetry strip was not available to review however it appeared to be ventricular tachycardia as per the EMS report. During that time he received chest compressions. He had a heart catheterization done for ST changes which showed only minimal CAD with no concerns of any obstruction. Progress note September 17 BP 113/65, heart rate 55 bpm still reports substernal chest tenderness. Symptoms better with lidocaine patch. He is wearing a [employer] heart monitor sticker pad on chest however the monitor is not in the sticker pad. Concern is that he might have possibly lost his [employer] heart monitor. 09/18/24 Patient seen and examined. He states his breathing is still a little rattle he. He has a little bit of chest pain in the upper mid chest with deep breathing. He states he sometimes has some other chest pain with activity. Blood pressure 136/84, heart rate 61, pulse ox 95% on room air. PHYSICAL EXAMINATION Vital signs reviewed. Head: Normocephalic. Eyes: Sclerae nonicteric. Neck: Brisk carotid upstroke, no jugular venous distention. Lungs: Clear to auscultation. Heart: tender sternum Regular rate and rhythm, S1-S2, no S3, no murmur or rub. Abdomen: Soft nontender, positive bowel sounds. Extremities: No edema, intact distal pulses. Neuro: Alert, oritented, no focal deficits. Detailed neuro exam was not performed. ASSESSMENT Musculoskeletal chest pain because of chest compressions Prolonged QTc Bradycardia Prior history of hypertension, currently hypotensive Dyslipidemia Mild nonobstructive CAD Prior reported mild cardiomyopathy with apical hypokinesia. PLAN Continue telemetry monitoring Resume patient on Plavix and start him on Imdur 30 mg daily Because of his concerns of ventricular tachycardia was started on a beta-solitario and amiodarone. Because of his bradycardia and QTc prolongation, I will discontinue beta-solitario and amiodarone. Avoid any QTc prolonging medication. Consider outpatient ICD evaluation Would recommend repeating an echocardiogram with [facility] on outpatient basis to see what his actual EF and if there is any actual apical wall motion abnormality which would explain his QTc prolongation and deep T wave inversions. Continue Lipitor and aspirin. Continue amlodipine 2.5 mg daily. Reduce dose of lisinopril to 5 mg daily Discharge disposition and social work consult Nurse practitioner note has been reviewed, I agree with documented findings and plan of care. Patient was seen and examined. Objective - Vital Signs Vital signs: Vital Signs Temp 97.8 F 09/18/24 07:00 Pulse 61 09/18/24 07:00 Resp 16 09/18/24 07:00 BP 136/84 09/18/24 07:00 Pulse Ox 95 09/18/24 07:00 FiO2 Intake & Output 09/17/24 09/18/24 09/18/24 18:59 06:59 18:59 Intake Total 476 960 Output Total 1125 200 Balance -649 760 Intake: Oral 476 960 Output: Urine 1125 200 Other: Voiding Method Urinal # Voids 3 # Bowel Movements 1 - Labs CBC & Chem 7: 09/17/24 07:12 09/17/24 07:12 Labs: Abnormal Lab Results - Last 24 Hours (Table) 09/17/24 Range/Units 07:12 Sodium 132 L (137-145) mmol/L BUN 42 H (9-20) mg/dL Glucose 123 H (74-99) mg/dL
--- NOTE | 2024-09-18 10:32 | PN ---
PROGRESS NOTE CHIEF COMPLAINT: Chest pain. HISTORY OF PRESENT ILLNESS: This gentleman is doing well. Apparently he has another primary physician who refers his patients to [facility] and he will be transferred to that service today. ANUP / DEEPTHIN: [id number] /
[2024-09-18 14:23] VITALS: BP 113/69; RESP 16; TEMP 98.5
[2024-09-18 16:02] VITALS: PULSE 86
== END 2024-09-18 17:58 | DRG 564 ==
LOC: EC 16:00 → 6NMEDSUR 17:49 → OBSVTOIN 09-15 14:18
PROVIDERS: ADMIT Hospitalist; ATTEND Hospitalist
DX: S22.20XA Unspecified fracture of sternum, initial encounter for closed fracture (principal); Q04.0 Congenital malformations of corpus callosum; I42.9 Cardiomyopathy, unspecified; I47.20 Ventricular tachycardia, unspecified; J44.1 Chronic obstructive pulmonary disease with (acute) exacerbation; R07.89 Other chest pain; E78.5 Hyperlipidemia, unspecified; K21.9 Gastro-esophageal reflux disease without esophagitis; I10 Essential (primary) hypertension; I95.9 Hypotension, unspecified; I25.10 Atherosclerotic heart disease of native coronary artery without angina pectoris; I25.2 Old myocardial infarction; Z79.02 Long term (current) use of antithrombotics/antiplatelets; Z79.82 Long term (current) use of aspirin
CPT/HCPCS: 36415; 71046; 80048; 80053; 83735; 84484; 85025; 85610; 85730; 93005; 94640; 94760; 96374; 99285

== ENCOUNTER 2024-09-21 12:36 | Inpatient (IN) | payer MEDICARE, OTHER ==
--- NOTE | 2024-09-21 12:48 | ED ---
General Adult HPI - General Chief complaint: Shortness of Breath Stated complaint: Chest Pain/LEONOR Time Seen by Provider: 09/21/24 12:39 Source: patient, EMS, RN notes reviewed Mode of arrival: EMS Limitations: no limitations - History of Present Illness Initial comments: Patient is a 69-year-old male present to the emergency department with chest discomfort. Onset of symptoms was just prior to arrival. Patient does have history of recent hospitalization with recent cardiac arrest. Patient states chest discomfort is somewhat severe. Patient states dyspnea is mild. EMS reports that patient had rales and was very short of breath on arrival. Patient was placed on CPAP. - Related Data Home Medications Medication Instructions Recorded Confirmed Nicotine 21Mg/24Hr Patch [Habitrol] 1 patch TRANSDERM DAILY 04/10/24 09/13/24 Nitroglycerin Sl Tabs [Nitrostat] 0.4 mg SL Q5M PRN 05/24/24 09/13/24 Tamsulosin [Flomax] 0.4 mg PO DAILY 08/16/24 09/13/24 Vitamin D3(Unknown Dose) 1 tab PO DAILY 08/16/24 09/13/24 Previous Rx's Medication Instructions Recorded Aspirin 81 mg PO DAILY tab 04/12/24 Atorvastatin [Lipitor] 40 mg PO DAILY #90 tab 04/12/24 Clopidogrel [Plavix] 75 mg PO DAILY #90 tab 04/12/24 Pantoprazole [Protonix] 40 mg PO BID #60 tab 09/04/24 Acetaminophen Tab [Tylenol] 650 mg PO Q6HR PRN tab 09/18/24 Albuterol Inhaler [Ventolin Hfa 2 puff INHALATION Q6H PRN 30 Days 09/18/24 Inhaler] #1 each Budesonide-Formot 160-4.5 Mcg 2 puff INHALATION BID 30 Days 09/18/24 [Symbicort 160-4.5 Mcg Inhaler] #10.2 gm Ipratropium-Albuterol Nebulize 3 ml INHALATION RT-Q4H #100 each 09/18/24 [Duoneb 0.5 mg-3 mg/3 ml Soln] Isosorbide Mononitrate ER [Imdur] 30 mg PO DAILY 30 Days #30 tab 09/18/24 Lidocaine 4% Patch 1 patch TOPICAL DAILY #30 patch 09/18/24 amLODIPine [Norvasc] 2.5 mg PO DAILY #30 tab 09/18/24 lisinopriL [Zestril] 5 mg PO DAILY #30 tab 09/18/24 predniSONE See Taper PO DIRECTED #30 tab 09/18/24 Allergies Allergy/AdvReac Type Severity Reaction Status Date / Time No Known Allergies Allergy Verified 09/21/24 12:43 Review of Systems ROS Statement: Those systems with pertinent positive or pertinent negative responses have been documented in the HPI. ROS Other: All systems not noted in ROS Statement are negative. Constitutional: Denies: fever Eyes: Denies: eye pain Respiratory: Reports: as per HPI, dyspnea Cardiovascular: Reports: as per HPI, chest pain Gastrointestinal: Denies: abdominal pain Musculoskeletal: Denies: back pain Past Medical History Past Medical History: Coronary Artery Disease (CAD), COPD, GERD/Reflux, Hypertension, Myocardial Infarction ([place]), Neurologic Disorder Additional Past Medical History / Comment(s): some memory problems., states urine stream slow and has occasional burning., friend- Nicole Jones states she is his patient advocate and she helps him with medications-putting them in daily pill box.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 Last Myocardial Infarction Date:: unknown History of Any Multi-Drug Resistant Organisms: None Reported Past Surgical History: Heart Catheterization, Orthopedic Surgery, Pacemaker Additional Past Surgical History / Comment(s): finger surgeries from work related accidents. , pt thinks he had heart cath with balloon dilation. Past Anesthesia/Blood Transfusion Reactions: No Reported Reaction Date of Last Stent Placement:: unknown Type of Cardiac Device: Unknown Device Placement Date:: not sure Past Psychological History: No Psychological Hx Reported Smoking Status: Former smoker Past Alcohol Use History: None Reported Past Drug Use History: None Reported - Past Family History Mother Family Medical History: Cancer, Diabetes Mellitus Father Family Medical History: Cancer, Diabetes Mellitus General Exam Limitations: no limitations General appearance: alert Head exam: Present: normocephalic Eye exam: Present: normal appearance Neck exam: Present: normal inspection Respiratory exam: Present: rales Cardiovascular Exam: Present: regular rate, normal rhythm GI/Abdominal exam: Present: soft. Absent: tenderness Extremities exam: Present: normal inspection. Absent: pedal edema, calf tenderness Neurological exam: Present: alert Psychiatric exam: Present: normal affect, normal mood Skin exam: Present: normal color Course Vital Signs 09/21/24 09/21/24 09/21/24 12:37 12:45 12:54 Temperature 97.6 F Pulse Rate 88 82 Respiratory 22 24 19 Rate Blood Pressure 159/85 O2 Sat by Pulse 96 98 Oximetry Fraction of Inspired Oxygen (FIO2) 09/21/24 09/21/24 12:55 13:15 Temperature Pulse Rate 85 Respiratory 19 Rate Blood Pressure 157/81 O2 Sat by Pulse 96 Oximetry Fraction of 40 Inspired Oxygen (FIO2) - Reevaluation(s) Reevaluation #1: 09/21/24 13:04 Cardiology has been paged 09/21/24 13:21 Case was discussed with Dr. Roy who does not feel patient needs to be activated to Spool Worker. He is familiar with this patient and will come evaluate EKG Findings - EKG Results: EKG: interpreted by RHONDA (Q wave V1 through V4 with some borderline ST change. Multiple previous EKGs reviewed.), sinus rhythm, normal axis Medical Decision Making - Medical Decision Making Was pt. sent in by a medical professional or institution (, PA, BLOOD COORDINATOR, urgent care, hospital, or long-term...) When possible be specific @ -No Did you speak to anyone other than the patient for history (EMS, parent, family, police, friend...)? What history was obtained from this source @ -EMS provides history of patient presentation as well as patient's past medical history Did you review nursing and triage notes (agree or disagree)? Why? @ -I reviewed and agree with nursing and triage notes Were old charts reviewed (outside hosp., previous admission, EMS record, old EKG, old radiological studies, urgent care reports/EKG's, long-term records)? Report findings @ -Previous admission and heart catheterization reviewed as well as multiple previous EKGs Differential Diagnosis (chest pain, altered mental status, abdominal pain women, abdominal pain men, vaginal bleeding, weakness, fever, dyspnea, syncope, headache, dizziness, GI bleed, back pain, seizure, CVA, palpatations, mental health, musculoskeletal)? @ -Differential Chest Pain: Stable Angina, Unstable Angina, STEMI, NSTEMI Aortic Dissection, Pneumothorax, Musculoskeletal, Esophageal Spasm GERD, Cholecystitis, Pancreatitis, Zoster, this is not meant to be an all-inclusive list. EKG interpreted by me (3pts min.). @ -As above X-rays interpreted by me (1pt min.). @ -X-ray shows no acute process CT interpreted by me (1pt min.). @ -None done U/S interpreted by me (1pt. min.). @ -None done What testing was considered but not performed or refused? (CT, X-rays, U/S, labs)? Why? @ -None What meds were considered but not given or refused? Why? @ -None Did you discuss the management of the patient with other professionals (professionals i.e. DrTyson, PA, BLOOD COORDINATOR, lab, RT, psych nurse, social work therapist, electromatic typist, teacher, juvenile correctional officer, case packer and sealer)? Give summary @ -Case was discussed with Dr. Castellon, see above who did evaluate patient. He will recommend admission with heparinization. Also discussed with [facility] who will admit covering Dr. Irizarry. I did confirm this with patient and he states his primary care physician is Dr. Irizarry, not Dr. Devi Was smoking cessation discussed for >3mins.? @ -No Was critical care preformed (if so, how long)? @ -32 minutes critical care time Were there social determinants of health that impacted care today? How? (Homelessness, low income, unemployed, alcoholism, drug addiction, transportation, low edu. Level, literacy, decrease access to med. care, usp, rehab)? @ -No Was there de-escalation of care discussed even if they declined (Discuss DNR or withdrawal of care, Hospice)? DNR status @ -No What co-morbidities impacted this encounter? (DM, HTN, Smoking, COPD, CAD, Cancer, CVA, ARF, Chemo, Hep., AIDS, mental health diagnosis, sleep apnea, morbid obesity)? @ -History of cardiac disease Was patient admitted / discharged? Hospital course, mention meds given and route, prescriptions, significant lab abnormalities, going to OR and other pertinent info. @ -Patient presents with chest discomfort and dyspnea. Patient significantly improved with 2 nitroglycerin. Patient will be admitted and heparinized. Admission orders written. Patient updated. Undiagnosed new problem with uncertain prognosis? @ -No Drug Therapy requiring intensive monitoring for toxicity (Heparin, Nitro, Insulin, Cardizem)? @ -Heparin drip Were any procedures done? @ -No Diagnosis/symptom? @ -Non-ST elevation myocardial infarction Acute, or Chronic, or Acute on Chronic? @ -Acute Uncomplicated (without systemic symptoms) or Complicated (systemic symptoms)? @ -Default Side effects of treatment? @ -No Exacerbation, Progression, or Severe Exacerbation? @ -No Poses a threat to life or bodily function? How? (Chest pain, [place], [place], pneumonia, PE, COPD, DKA, ARF, appy, cholecystitis, CVA, Diverticulitis, Homicidal, Suicidal, threat to staff... and all critical care pts) @ -To cardiac function - Lab Data Result diagrams: 09/21/24 12:51 09/21/24 12:51 Lab Results 09/21/24 09/21/24 09/21/24 Range/Units 12:51 12:51 12:51 WBC 10.3 (3.8-10.6) k/uL RBC 4.91 (4.30-5.90) m/uL Hgb 14.6 (13.0-17.5) gm/dL Hct 46.4 (39.0-53.0) % MCV 94.4 (80.0-100.0) fL MCH 29.8 (25.0-35.0) pg MCHC 31.6 (31.0-37.0) g/dL RDW 14.1 (11.5-15.5) % Plt Count 319 (150-450) k/uL MPV 7.2 Neutrophils % 91 % Lymphocytes % 5 % Monocytes % 4 % Eosinophils % 0 % Basophils % 0 % Neutrophils # 9.4 H (1.3-7.7) k/uL Lymphocytes # 0.5 L (1.0-4.8) k/uL Monocytes # 0.4 (0-1.0) k/uL Eosinophils # 0.0 (0-0.7) k/uL Basophils # 0.0 (0-0.2) k/uL Sodium 138 (137-145) mmol/L Potassium 4.6 (3.5-5.1) mmol/L Chloride 102 (98-107) mmol/L Carbon Dioxide 27 (22-30) mmol/L Anion Gap 9 mmol/L BUN 31 H (9-20) mg/dL Creatinine 1.02 (0.66-1.25) mg/dL Est GFR (CKD-EPI)AfAm 88 (>60 ml/min/1.73 sqM) Est GFR (CKD-EPI)NonAf 76 (>60 ml/min/1.73 sqM) Glucose 251 H (74-99) mg/dL Calcium 9.8 (8.4-10.2) mg/dL Magnesium 2.0 (1.6-2.3) mg/dL Total Bilirubin 0.7 (0.2-1.3) mg/dL AST 36 (17-59) U/L ALT 31 (4-49) U/L Alkaline Phosphatase 337 H (38-126) U/L Troponin I 1.350 H* (0.000-0.034) ng/mL NT-Pro-B Natriuret Pep 3900 pg/mL Total Protein 7.6 (6.3-8.2) g/dL Albumin 4.8 (3.5-5.0) g/dL Critical Care Time Critical Care Time: Yes Disposition Clinical Impression: Acute non-ST elevation myocardial infarction (NSTEMI) Disposition: ADMITTED IP TO THIS [facility] Condition: Serious Is patient prescribed a controlled substance at d/c from ED?: No Referrals: Lillie Richards MD [Primary Care Provider] - 1-2 days Time of Disposition: 14:01
[2024-09-21] MEDS: ASPIRIN 81 MG PO STA (12:56)
[2024-09-21] MEDS: NITROGLYCERIN SL TABS 0.4 MG TAB SUBLINGUAL STA ×3 (12:57→14:19)
[2024-09-21 13:02] LABS: Basophils % (A) 0 %; Eosinophils % (A) 0 %; HCT 46.4 % (39.0-53.0); HGB 14.6 gm/dL (13.0-17.5); Lymphocytes # (A) 0.5 k/uL (1.0-4.8); Lymphocytes % (A) 5 %; MCH 29.8 pg (25.0-35.0); MCHC 31.6 g/dL (31.0-37.0); MCV 94.4 fL (80.0-100.0); Mean Platelet Volume 7.2; Monocytes # (A) 0.4 k/uL (0-1.0); Monocytes % (A) 4 %; Neutrophils # (A) 9.4 k/uL (1.3-7.7); Neutrophils % (A) 91 %; Platelet Count 319 k/uL (150-450); RBC 4.91 m/uL (4.30-5.90); RDW 14.1 % (11.5-15.5); WBC 10.3 k/uL (3.8-10.6)
--- NOTE | 2024-09-21 13:14 | XR ---
EXAMINATION TYPE: XR chest 1V portable DATE OF EXAM: 09/21/2024 1:02 PM COMPARISON: Chest radiographs from 09/15/2024 CLINICAL INDICATION: Male, 69 years old with history of chest pain; [facility] TECHNIQUE: XR chest 1V portable Frontal view of the chest. FINDINGS: Lungs/Pleura: There is no evidence of pleural effusion, focal consolidation, or pneumothorax. Pulmonary vascularity: Unremarkable. Heart/mediastinum: Cardiomediastinal silhouette is unremarkable. Atherosclerotic calcifications are seen in the aorta. Musculoskeletal: No acute osseous pathology. IMPRESSION: No acute cardiopulmonary disease/process. [facility], , 09/21/2024 1:12 PM
[2024-09-21 13:16] LABS: ALT 31 U/L (4-49); African American GFR (CKD) 88 (>60 ml/min/1.73 sqM); Albumin 4.8 g/dL (3.5-5.0); Anion Gap 9 mmol/L; Blood Urea Nitrogen 31 mg/dL (9-20); Calcium 9.8 mg/dL (8.4-10.2); Carbon Dioxide 27 mmol/L (22-30); Chloride 102 mmol/L (98-107); Glucose 251 mg/dL (74-99); Non-African American GFR(CKD) 76 (>60 ml/min/1.73 sqM); Sodium 138 mmol/L (137-145); Total Bilirubin 0.7 mg/dL (0.2-1.3); Total Protein 7.6 g/dL (6.3-8.2)
[2024-09-21 13:19] LABS: AST 36 U/L (17-59); Alkaline Phosphatase 337 U/L (38-126); Potassium 4.6 mmol/L (3.5-5.1)
[2024-09-21 13:21] LABS: NT-Pro-B-Type Natriuretic Pept 3900 pg/mL
[2024-09-21] MEDS ORDERED: NITROGLYCERIN SL TABS 0.4 MG TAB SUBLINGUAL PRN (14:03)
[2024-09-21] MEDS: HEPARIN SODIUM 1,000 UN/ML (10ML VL) IV ONE (14:11)
[2024-09-21] MEDS: HEPARIN SOD,PORK IN 0.45% NACL 25,000 UNIT in 0.45% NACL 1 250ML.BAG IV SCH (14:14)
[2024-09-21] MEDS: NITROGLYCERIN OINT 1 INCH/GM PACKET TOPICAL SCH ×2 (14:18→19:19)
--- NOTE | 2024-09-21 14:33 | P.CRDCN ---
History of Present Illness Consult date: 09/21/24 History of present illness: History of Present Illness: The patient is a 69-year-old male with prior history of smoking, history of hypertension, hyperlipidemia and CAD who presented with symptoms of chest discomfort. He was just discharged from the hospital. He had multiple admission recently with episodes of chest discomfort and has underwent coronary angiography most recently on August 17 when he was found to have mild disease in the LAD proximally and mid with no obstructive disease in the left circumflex and RCA. In March 2024 he had cardiac catheterization because of an episode of non-STEMI and at that time was found to have vasospastic disease in the mid LAD. According to him he was sitting when he had the episode of chest discomfort, with severe. He was dyspneic. At the time of my evaluation his pain has resolved after nitroglycerin sublingually. He had mild troponin elevation. On prior admission he had dynamic T wave changes anteriorly. There was a questionable episode of ventricular tachycardia during prior admission on the field with cardioversion although no rhythm strips were available. His left ventricular systolic function has been normal. According to him he has not been smoking since his last discharge. Medications: As outpatient lisinopril 5 mg daily, amlodipine 2.5 mg daily, Plavix 75 mg daily, Lipitor 40 mg daily, Flomax, isosorbide mononitrate 30 mg daily, aspirin, Ventolin Review of Systems: Respiratory: He has a history of dyspnea on exertion and prior history of smoking GI: No nausea or vomiting . No history of peptic ulcer disease. No recent GI bleed. : No hematuria or dysuria. Nervous System: No stroke or seizure. Physical Examination: 69-year-old male, alert, oriented on BiPAP,Blood pressure 157/80, Heart rate 85 Head: Skull deformity postsurgery Eyes: Sclerae nonicteric. Neck: Good carotid upstroke, no bruit, no jugular venous distention. Lungs: Clear to auscultation. Heart: Regular rate and rhythm, S1-S2, no S3, no rub. Systolic ejection murmur. Abdomen: Soft nontender, positive bowel sounds no organomegaly. Extremities: No edema, intact distal pulses. Labs: Hemoglobin 14.6, potassium 4.6, BUN 31, creatinine 1.02. Troponin 1.35 with NT proBNP of 3900. Chest x-ray with no acute changes EKG: Sinus mechanism borderline intraventricular conduction delay with QS anteriorly Impression: 1. Episode of chest discomfort with evidence to suggest non-STEMI with prior history of vasospastic disease, post coronary angiography in July 2020 for 2. History of hypertension 3. Prior history of smoking 4. History of hyperlipidemia Plan: 1. IV heparin 2. Resume nitrate, calcium channel solitario, aspirin and Plavix 3. Start beta-solitario 4. Obtain a limited echo 5. Give 1 dose of diuretics 6. Depending on his progress further recommendations will be made, at this time I see no indication to proceed with emergent coronary angiography. 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 Last Myocardial Infarction Date:: unknown History of Any Multi-Drug Resistant Organisms: None Reported Past Surgical History: Heart Catheterization, Orthopedic Surgery, Pacemaker Additional Past Surgical History / Comment(s): finger surgeries from work related accidents. , pt thinks he had heart cath with balloon dilation. Past Anesthesia/Blood Transfusion Reactions: No Reported Reaction Date of Last Stent Placement:: unknown Type of Cardiac Device: Unknown Device Placement Date:: not sure Past Psychological History: No Psychological Hx Reported Smoking Status: Former smoker Past Alcohol Use History: None Reported Past Drug Use History: None Reported - Past Family History Mother Family Medical History: Cancer, Diabetes Mellitus Father Family Medical History: Cancer, Diabetes Mellitus Medications and Allergies Home Medications Medication Instructions Recorded Confirmed Type Nicotine 21Mg/24Hr Patch [Habitrol] 1 patch TRANSDERM DAILY 04/10/24 09/13/24 History Aspirin 81 mg PO DAILY tab 04/12/24 09/13/24 Rx Atorvastatin [Lipitor] 40 mg PO DAILY #90 tab 04/12/24 09/13/24 Rx Clopidogrel [Plavix] 75 mg PO DAILY #90 tab 04/12/24 09/13/24 Rx Nitroglycerin Sl Tabs [Nitrostat] 0.4 mg SL Q5M PRN 05/24/24 09/13/24 History Tamsulosin [Flomax] 0.4 mg PO DAILY 08/16/24 09/13/24 History Vitamin D3(Unknown Dose) 1 tab PO DAILY 08/16/24 09/13/24 History Pantoprazole [Protonix] 40 mg PO BID #60 tab 09/04/24 09/13/24 Rx Acetaminophen Tab [Tylenol] 650 mg PO Q6HR PRN tab 09/18/24 Rx Albuterol Inhaler [Ventolin Hfa 2 puff INHALATION Q6H PRN 30 Days 09/18/24 Rx Inhaler] #1 each Budesonide-Formot 160-4.5 Mcg 2 puff INHALATION BID 30 Days 09/18/24 Rx [Symbicort 160-4.5 Mcg Inhaler] #10.2 gm Ipratropium-Albuterol Nebulize 3 ml INHALATION RT-Q4H #100 each 09/18/24 Rx [Duoneb 0.5 mg-3 mg/3 ml Soln] Isosorbide Mononitrate ER [Imdur] 30 mg PO DAILY 30 Days #30 tab 09/18/24 Rx Lidocaine 4% Patch 1 patch TOPICAL DAILY #30 patch 09/18/24 Rx amLODIPine [Norvasc] 2.5 mg PO DAILY #30 tab 09/18/24 Rx lisinopriL [Zestril] 5 mg PO DAILY #30 tab 09/18/24 Rx predniSONE See Taper PO DIRECTED #30 tab 09/18/24 Rx Allergies Allergy/AdvReac Type Severity Reaction Status Date / Time No Known Allergies Allergy Verified 09/21/24 12:43 Physical Exam Vitals: Vital Signs Temp Pulse Resp BP Pulse Ox FiO2 09/21/24 13:15 85 19 157/81 96 09/21/24 12:55 40 09/21/24 12:54 82 19 159/85 98 09/21/24 12:45 24 09/21/24 12:37 97.6 F 88 22 96 Intake and Output 09/20/24 09/21/24 09/21/24 22:59 06:59 14:59 Other: Weight 52.163 kg Results 09/21/24 12:51 09/21/24 12:51 Cardiac Enzymes 09/21/24 09/21/24 Range/Units 12:51 12:51 AST 36 (17-59) U/L Troponin I 1.350 H* (0.000-0.034) ng/mL CBC 09/21/24 Range/Units 12:51 WBC 10.3 (3.8-10.6) k/uL RBC 4.91 (4.30-5.90) m/uL Hgb 14.6 (13.0-17.5) gm/dL Hct 46.4 (39.0-53.0) % Plt Count 319 (150-450) k/uL Comprehensive Metabolic Panel 09/21/24 Range/Units 12:51 Sodium 138 (137-145) mmol/L Potassium 4.6 (3.5-5.1) mmol/L Chloride 102 (98-107) mmol/L Carbon Dioxide 27 (22-30) mmol/L BUN 31 H (9-20) mg/dL Creatinine 1.02 (0.66-1.25) mg/dL Glucose 251 H (74-99) mg/dL Calcium 9.8 (8.4-10.2) mg/dL AST 36 (17-59) U/L ALT 31 (4-49) U/L Alkaline Phosphatase 337 H (38-126) U/L Total Protein 7.6 (6.3-8.2) g/dL Albumin 4.8 (3.5-5.0) g/dL Current Medications Generic Name Dose Route Start Last Admin Trade Name Freq PRN Reason Stop Dose Admin Amlodipine Besylate 5 mg 09/21/24 14:30 Amlodipine 2.5 Mg Tab PO DAILY [facility] Aspirin 81 mg 09/22/24 09:00 Aspirin 325 Mg Tab PO DAILY [facility] Atorvastatin Calcium 40 mg 09/22/24 09:00 Atorvastatin 40 Mg Tab PO DAILY [facility] Clopidogrel Bisulfate 75 mg 09/21/24 14:30 Clopidogrel 75 Mg Tab PO DAILY [facility] Heparin Sodium (Porcine) 0 unit 09/21/24 13:35 Heparin Sodium 1,000 Un/Ml (10ml Vl) IV PER PROTOCOL PRN Low PTT Protocol Heparin Sodium/Sodium Chloride 250 mls @ 6.26 mls/hr 09/21/24 13:45 09/21/24 14:14 25,000 unit/ Sodium Chloride IV 12 units/kg/hr .Q24H FRANTZ 6.26 mls/hr Administration Protocol 12 UNITS/KG/HR Lisinopril 5 mg 09/21/24 14:30 Lisinopril 5 Mg Tab PO DAILY [facility] Metoprolol Tartrate 25 mg 09/21/24 21:00 Metoprolol Tartrate 25 Mg Tab PO BID [facility] Nitroglycerin 0.4 mg 09/21/24 14:03 Nitroglycerin Sl Tabs 0.4 Mg Tab SUBLINGUAL Q5M PRN Chest Pain Nitroglycerin 1 inch 09/21/24 18:00 Nitroglycerin Oint 1 Inch/Gm Packet TOPICAL Q6HR [facility] Intake and Output 09/20/24 09/21/24 09/21/24 22:59 06:59 14:59 Other: Weight 52.163 kg Patient Weight 09/22/24 06:59 Weight 52.163 kg 09/21/24 12:51 09/21/24 12:51
[2024-09-21] MEDS: amLODIPine 5 MG TAB PO SCH (14:42)
[2024-09-21] MEDS: CLOPIDOGREL 75 MG TAB PO SCH (14:42)
[2024-09-21 14:43] LABS: INR 1.1 (<1.2); Partial Thromboplastin Time 60.6 sec (22.0-30.0); Prothrombin Time 11.5 sec (10.0-12.5)
[2024-09-21] MEDS: FUROSEMIDE 10 MG/ML 2 ML VIAL IV ONE (16:53)
[2024-09-21] MEDS: lisinopriL 5 MG TAB PO SCH (16:53)
[2024-09-21] MEDS: METOPROLOL TARTRATE 25 MG TAB PO SCH (19:57)
[2024-09-21] MEDS: predniSONE 20 MG TAB PO SCH (20:04)
--- NOTE | 2024-09-21 20:05 | P.HPIM ---
History of Present Illness This is a pleasant 69 years old male with past medical history of COPD and multiple medical problems and coronary artery disease. Patient switched his PCP recently from Dr. Devi to Dr. Bueno Presents because of severe chest pain since this morning about 10/10 in the middle of his chest with no radiation felt like achy with no precipitating relieving factors Also patient complaining from some dyspnea on coughing with some phlegm. No specific GI or urinary symptoms. No headache dizziness or weakness He is non-smoker currently, no alcohol or illicit drugs He has history of COPD and follow-up with Dr. Lunsford in the outpatient setting Vitals are stable, afebrile labs were unremarkable: CBC, BMP, LFT, INR Troponin significantly elevated at baseline at 1.3 and 1.1 proBNP 3900 EKG shows sinus rhythm at [address]-T changes Chest x-ray showing no acute cardiopulmonary process but looks hyperinflated Echocardiogram is pending Patient started on heparin drip Also continued on aspirin and Plavix Review of Systems Review of systems CONSTITUTIONAL: No fever, no malaise, no fatigue. HEENT: No recent visual problems or hearing problems. Denied any sore throat. CARDIOVASCULAR: No orthopnea, PND, no palpitations, no syncope. PULMONARY: No chest wall tenderness, no hemoptysis. GASTROINTESTINAL: No diarrhea, no nausea, no vomiting, no abdominal pain. Normoactive bowel sounds. NEUROLOGICAL: No headaches, no weakness, no numbness. HEMATOLOGICAL: Denies any bleeding or petechiae. GENITOURINARY: Denies any burning micturition, frequency, or urgency. MUSCULOSKELETAL/RHEUMATOLOGICAL: Denies any joint pain, swelling, or any muscle pain. ENDOCRINE: Denies any polyuria or polydipsia. 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 Last Myocardial Infarction Date:: unknown History of Any Multi-Drug Resistant Organisms: None Reported Past Surgical History: Heart Catheterization, Orthopedic Surgery, Pacemaker Additional Past Surgical History / Comment(s): finger surgeries from work related accidents. , pt thinks he had heart cath with balloon dilation. Past Anesthesia/Blood Transfusion Reactions: No Reported Reaction Date of Last Stent Placement:: unknown Type of Cardiac Device: Unknown Device Placement Date:: not sure Smoking Status: Former smoker - Past Family History Mother Family Medical History: Cancer, Diabetes Mellitus Father Family Medical History: Cancer, Diabetes Mellitus Medications and Allergies Home Medications Medication Instructions Recorded Confirmed Type Nicotine 21Mg/24Hr Patch [Habitrol] 1 patch TRANSDERM DAILY 04/10/24 09/21/24 History Aspirin 81 mg PO DAILY tab 04/12/24 09/21/24 Rx Atorvastatin [Lipitor] 40 mg PO DAILY #90 tab 04/12/24 09/21/24 Rx Clopidogrel [Plavix] 75 mg PO DAILY #90 tab 04/12/24 09/21/24 Rx Nitroglycerin Sl Tabs [Nitrostat] 0.4 mg SL Q5M PRN 05/24/24 09/21/24 History Tamsulosin [Flomax] 0.4 mg PO DAILY 08/16/24 09/21/24 History Vitamin D3(Unknown Dose) 1 tab PO DAILY 08/16/24 09/21/24 History Pantoprazole [Protonix] 40 mg PO BID #60 tab 09/04/24 09/21/24 Rx Ipratropium-Albuterol Nebulize 3 ml INHALATION RT-Q4H #100 each 09/18/24 09/21/24 Rx [Duoneb 0.5 mg-3 mg/3 ml Soln] Isosorbide Mononitrate ER [Imdur] 30 mg PO DAILY 30 Days #30 tab 09/18/24 09/21/24 Rx amLODIPine [Norvasc] 2.5 mg PO DAILY #30 tab 09/18/24 09/21/24 Rx lisinopriL [Zestril] 5 mg PO DAILY #30 tab 09/18/24 09/21/24 Rx predniSONE See Taper PO DIRECTED #30 tab 09/18/24 09/21/24 Rx Albuterol Inhaler [Ventolin Hfa 2 puff INHALATION RT-Q6H PRN 09/21/24 09/21/24 History Inhaler] Budesonide-Formot 160-4.5 Mcg 2 puff INHALATION RT-BID 09/21/24 09/21/24 History [Symbicort 160-4.5 Mcg Inhaler] Allergies Allergy/AdvReac Type Severity Reaction Status Date / Time No Known Allergies Allergy Verified 09/21/24 14:34 Physical Exam Vitals: Vital Signs Temp Pulse Pulse Resp BP BP Pulse Ox 09/21/24 17:30 73 19 156/79 97 09/21/24 16:58 97.6 F 60 18 139/78 100 09/21/24 14:49 98 09/21/24 14:40 63 18 130/78 100 09/21/24 13:15 85 19 157/81 96 09/21/24 12:55 09/21/24 12:54 82 19 159/85 98 09/21/24 12:45 24 09/21/24 12:37 97.6 F 88 22 96 FiO2 09/21/24 17:30 09/21/24 16:58 09/21/24 14:49 09/21/24 14:40 09/21/24 13:15 09/21/24 12:55 40 09/21/24 12:54 09/21/24 12:45 09/21/24 12:37 Intake and Output 09/21/24 09/21/24 09/21/24 06:59 14:59 22:59 Intake Total 360 Balance 360 Intake: Oral 360 Other: Weight 52.163 kg 52.163 kg GENERAL: The patient is alert and oriented x3, not in any acute distress. Well developed, well nourished. HEENT: Pupils are round and equally reacting to light. EOMI. No scleral icterus. No conjunctival pallor. Normocephalic, atraumatic. No pharyngeal erythema. No thyromegaly. CARDIOVASCULAR: S1 and S2 present. No murmurs, rubs, or gallops. -PULMONARY: Chest is clear to auscultation, bilateral scattered wheezing , no crackles. ABDOMEN: Soft, nontender, nondistended, normoactive bowel sounds. No palpable organomegaly. MUSCULOSKELETAL: No joint swelling or deformity. EXTREMITIES: No cyanosis, clubbing, or pedal edema. NEUROLOGICAL: Gross neurological examination did not reveal any focal deficits. SKIN: No rashes. no petechiae. Results CBC & Chem 7: 09/21/24 12:51 09/21/24 12:51 Labs: Abnormal Lab Results - Last 24 Hours (Table) 09/21/24 09/21/24 09/21/24 Range/Units 12:51 12:51 12:51 Neutrophils # 9.4 H (1.3-7.7) k/uL Lymphocytes # 0.5 L (1.0-4.8) k/uL APTT (22.0-30.0) sec BUN 31 H (9-20) mg/dL Glucose 251 H (74-99) mg/dL Alkaline Phosphatase 337 H (38-126) U/L Troponin I 1.350 H* (0.000-0.034) ng/mL 09/21/24 09/21/24 Range/Units 14:25 16:07 Neutrophils # (1.3-7.7) k/uL Lymphocytes # (1.0-4.8) k/uL APTT 60.6 H (22.0-30.0) sec BUN (9-20) mg/dL Glucose (74-99) mg/dL Alkaline Phosphatase (38-126) U/L Troponin I 1.130 H* (0.000-0.034) ng/mL Thrombosis Risk Factor Assmnt - Choose All That Apply Any of the Below Risk Factors Present?: Yes Each Factor Represents 1 point: Obesity (BMI >25) Other Risk Factors: Yes Each Risk Factor Represents 2 Points: Age 61-74 years Other congenital or acquired thrombophilia - If yes, enter type in comment: No Thrombosis Risk Factor Assessment Total Risk Factor Score: 3 Thrombosis Risk Factor Assessment Level: Moderate Risk Assessment and Plan Assessment: Chest pain with elevated troponin suspicious for non-STEMI Acute COPD exacerbation History of GERD Hypertension Coronary artery disease Pulmonary problem Plan: Continue with heparin drip Continue with aspirin and Plavix Check echocardiogram Continue with metoprolol and DALE inhibitor Cardiology consult Add prednisone Add updraft Labs and medication were reviewed.. Continue same treatment. Continue with symptomatic treatment. Resume home medication. Monitor labs and vitals. DVT and GI prophylaxis. Further recommendations as per clinical course of the patient DVT prophylaxis: heparin GI Prophylaxis: Pepcid Prognosis is guarded
[2024-09-21 20:19] LABS: Glucose,Whole Blood 135 mg/dL (70-110)
[2024-09-22] MEDS: HEPARIN SODIUM 1,000 UN/ML (10ML VL) IV PRN (00:23)
[2024-09-22 06:11] LABS: Glucose,Whole Blood 131 mg/dL (70-110)
[2024-09-22 06:36] LABS: African American GFR (CKD) 90 (>60 ml/min/1.73 sqM); Anion Gap 5 mmol/L; Blood Urea Nitrogen 29 mg/dL (9-20); Calcium 9.1 mg/dL (8.4-10.2); Carbon Dioxide 31 mmol/L (22-30); Chloride 100 mmol/L (98-107); Glucose 149 mg/dL (74-99); Non-African American GFR(CKD) 78 (>60 ml/min/1.73 sqM); Potassium 4.2 mmol/L (3.5-5.1); Sodium 136 mmol/L (137-145)
[2024-09-22 06:38] LABS: Partial Thromboplastin Time 60.7 sec (22.0-30.0); Prothrombin Time 11.1 sec (10.0-12.5)
[2024-09-22 07:31] LABS: Basophils % (A) 0 %; Eosinophils % (A) 0 %; HGB 12.6 gm/dL (13.0-17.5); Lymphocytes # (A) 0.6 k/uL (1.0-4.8); Lymphocytes % (A) 5 %; MCH 30.1 pg (25.0-35.0); MCHC 32.2 g/dL (31.0-37.0); MCV 93.3 fL (80.0-100.0); Mean Platelet Volume 7.6; Monocytes # (A) 0.6 k/uL (0-1.0); Monocytes % (A) 5 %; Neutrophils # (A) 9.8 k/uL (1.3-7.7); Neutrophils % (A) 89 %; Platelet Count 259 k/uL (150-450); RBC 4.18 m/uL (4.30-5.90); RDW 14.3 % (11.5-15.5); WBC 11.1 k/uL (3.8-10.6)
[2024-09-22] MEDS: ASPIRIN 81 MG PO SCH (08:59)
[2024-09-22] MEDS: ATORVASTATIN 40 MG TAB PO SCH (08:59)
[2024-09-22] MEDS ORDERED: ASPIRIN 325 MG TAB PO SCH (09:00)
[2024-09-22] MEDS: MORPHINE SULFATE 4 MG/ML SYRINGE IVP STA (10:17)
[2024-09-22] MEDS: FUROSEMIDE 10 MG/ML 2 ML VIAL IV STA (10:17)
[2024-09-22 10:20] LABS: Chol/HDL Ratio 1.49 Ratio; LDL Cholesterol,Calculated 40.6 mg/dL (0.0-131.0); VLDL Calculation 8.36 mg/dL (5.00-40.00)
--- NOTE | 2024-09-22 10:21 | P.PN ---
Subjective This is a pleasant 69 years old male with past medical history of COPD and multiple medical problems and coronary artery disease. Patient switched his PCP recently from Dr. Devi to Dr. Bueno Presents because of severe chest pain since this morning about 10/10 in the middle of his chest with no radiation felt like achy with no precipitating r elieving factors Also patient complaining from some dyspnea on coughing with some phlegm. No specific GI or urinary symptoms. No headache dizziness or weakness He is non-smoker currently, no alcohol or illicit drugs He has history of COPD and follow-up with Dr. Lunsford in the outpatient setting Vitals are stable, afebrile labs were unremarkable: CBC, BMP, LFT, INR Troponin significantly elevated at baseline at 1.3 and 1.1 proBNP 3900 EKG shows sinus rhythm at [address]-T changes Chest x-ray showing no acute cardiopulmonary process but looks hyperinflated Echocardiogram is pending Patient started on heparin drip Also continued on aspirin and Plavix 09/22 Patient has having slightly worse breathing difficulty this morning, he got one- time dose of IV Lasix 20 mg after that when I saw him he is feeling better However he still having wheezing. And while he doing down he developed muscle spasm in the front of his chest and it was hurting him, one-time dose of morphine ordered for him. Currently he is saturating 98% on 3 L oxygen via nasal cannula. Heart rate around 55. Blood pressure is acceptable He remains on heparin drip and prednisone. He remains on aspirin and Plavix. WBC is 11.1 Rest of labs reviewed Echocardiogram still pending Review of systems CONSTITUTIONAL: No fever, no malaise, no fatigue. HEENT: No recent visual problems or hearing problems. Denied any sore throat. CARDIOVASCULAR: No orthopnea, PND, no palpitations, no syncope. GENITOURINARY: Denies any burning micturition, frequency, or urgency. MUSCULOSKELETAL/RHEUMATOLOGICAL: Denies any joint pain, swelling, or any muscle pain. ENDOCRINE: Denies any polyuria or polydipsia. Active Medications Generic Name Dose Route Start Last Admin Trade Name Freq PRN Reason Stop Dose Admin Albuterol/Ipratropium 3 ml 09/21/24 19:59 Ipratropium-Albuterol 3 Ml Neb INHALATION RT-QID PRN Shortness Of Breath Or Wheezing Amlodipine Besylate 5 mg 09/21/24 14:30 09/22/24 08:58 Amlodipine 5 Mg Tab PO 5 mg DAILY [facility] Administration Aspirin 81 mg 09/22/24 09:00 09/22/24 08:59 Aspirin 81 Mg PO 81 mg DAILY [facility] Administration Atorvastatin Calcium 40 mg 09/22/24 09:00 09/22/24 08:59 Atorvastatin 40 Mg Tab PO 40 mg DAILY [facility] Administration Clopidogrel Bisulfate 75 mg 09/21/24 14:30 09/22/24 08:58 Clopidogrel 75 Mg Tab PO 75 mg DAILY [facility] Administration Heparin Sodium (Porcine) 0 unit 09/21/24 13:35 09/22/24 00:23 Heparin Sodium 1,000 Un/Ml (10ml Vl) IV 2,600 unit PER PROTOCOL PRN Administration Low PTT Protocol Heparin Sodium/Sodium Chloride 250 mls @ 6.26 mls/hr 09/21/24 13:45 09/22/24 00:41 25,000 unit/ Sodium Chloride IV 15 units/kg/hr .Q24H [facility] 7.824 mls/hr Titration Protocol 12 UNITS/KG/HR Lisinopril 5 mg 09/21/24 14:30 09/22/24 08:58 Lisinopril 5 Mg Tab PO 5 mg DAILY [facility]Z Administration Metoprolol Tartrate 25 mg 09/21/24 21:00 09/22/24 08:59 Metoprolol Tartrate 25 Mg Tab PO 25 mg BID [facility] Administration Nitroglycerin 0.4 mg 09/21/24 14:03 Nitroglycerin Sl Tabs 0.4 Mg Tab SUBLINGUAL Q5M PRN Chest Pain Nitroglycerin 1 inch 09/21/24 18:00 09/22/24 04:53 Nitroglycerin Oint 1 Inch/Gm Packet TOPICAL 1 inch Q6HR [facility]Z Administration Prednisone 40 mg 09/21/24 20:00 09/22/24 08:58 Prednisone 20 Mg Tab PO 09/26/24 19:59 40 mg DAILY [facility]ANTZ Administration Objective - Vital Signs Vital signs: Vital Signs Temp 98.7 F 09/22/24 08:00 Pulse 51 L 09/22/24 08:00 Resp 16 09/22/24 08:00 BP 122/74 09/22/24 08:00 Pulse Ox 98 09/22/24 09:37 FiO2 40 09/21/24 12:55 Intake & Output 09/21/24 09/22/24 09/22/24 18:59 06:59 18:59 Intake Total 360 75.417 118 Output Total 500 Balance 360 -424.583 118 Weight 52.163 kg 67.9 kg Intake: IV 10 Invasive Line 3 10 Intake, IV Titration 65.417 Amount Heparin Sod,Pork in 0.45% 65.417 NaCl 25,000 unit In 0.45 % NaCl 1 250ml.bag @ 12 UNITS/KG/HR 6.26 mls/hr IV .Q24H [facility] Rx#: [id number] Oral 360 118 Output: Urine 500 Other: Voiding Method Toilet Urinal # Voids 6 - Exam GENERAL: The patient is alert and oriented x3, not in any acute distress. Well developed, well nourished. HEENT: Pupils are round and equally reacting to light. EOMI. No scleral icterus. No conjunctival pallor. Normocephalic, atraumatic. No pharyngeal erythema. No thyromegaly. -CARDIOVASCULAR: S1 and S2 present. No murmurs, rubs, or gallops. Anterior chest wall tenderness -PULMONARY: Chest is clear to auscultation, bilateral scattered wheezing wheezing , no crackles. ABDOMEN: Soft, nontender, nondistended, normoactive bowel sounds. No palpable organomegaly. MUSCULOSKELETAL: No joint swelling or deformity. EXTREMITIES: No cyanosis, clubbing, or pedal edema. NEUROLOGICAL: Gross neurological examination did not reveal any focal deficits. SKIN: No rashes. no petechiae. - Labs CBC & Chem 7: 09/22/24 05:29 09/22/24 05:29 Labs: Abnormal Lab Results - Last 24 Hours (Table) 09/21/24 09/21/24 09/21/24 Range/Units 12:51 12:51 12:51 WBC (3.8-10.6) k/uL RBC (4.30-5.90) m/uL Hgb (13.0-17.5) gm/dL Neutrophils # 9.4 H (1.3-7.7) k/uL Lymphocytes # 0.5 L (1.0-4.8) k/uL APTT (22.0-30.0) sec Sodium (137-145) mmol/L Carbon Dioxide (22-30) mmol/L BUN 31 H (9-20) mg/dL Glucose 251 H (74-99) mg/dL POC Glucose (mg/dL) (70-110) mg/dL Alkaline Phosphatase 337 H (38-126) U/L Troponin I 1.350 H* (0.000-0.034) ng/mL 09/21/24 09/21/24 09/21/24 Range/Units 14:25 16:07 19:26 WBC (3.8-10.6) k/uL RBC (4.30-5.90) m/uL Hgb (13.0-17.5) gm/dL Neutrophils # (1.3-7.7) k/uL Lymphocytes # (1.0-4.8) k/uL APTT 60.6 H (22.0-30.0) sec Sodium (137-145) mmol/L Carbon Dioxide (22-30) mmol/L BUN (9-20) mg/dL Glucose (74-99) mg/dL POC Glucose (mg/dL) (70-110) mg/dL Alkaline Phosphatase (38-126) U/L Troponin I 1.130 H* 1.230 H* (0.000-0.034) ng/mL 09/21/24 09/22/24 09/22/24 Range/Units 20:18 05:29 05:29 WBC 11.1 H (3.8-10.6) k/uL RBC 4.18 L (4.30-5.90) m/uL Hgb 12.6 L (13.0-17.5) gm/dL Neutrophils # 9.8 H (1.3-7.7) k/uL Lymphocytes # 0.6 L (1.0-4.8) k/uL APTT (22.0-30.0) sec Sodium 136 L (137-145) mmol/L Carbon Dioxide 31 H (22-30) mmol/L BUN 29 H (9-20) mg/dL Glucose 149 H (74-99) mg/dL POC Glucose (mg/dL) 135 H (70-110) mg/dL Alkaline Phosphatase (38-126) U/L Troponin I (0.000-0.034) ng/mL 09/22/24 09/22/24 Range/Units 05:29 06:10 WBC (3.8-10.6) k/uL RBC (4.30-5.90) m/uL Hgb (13.0-17.5) gm/dL Neutrophils # (1.3-7.7) k/uL Lymphocytes # (1.0-4.8) k/uL APTT 60.7 H (22.0-30.0) sec Sodium (137-145) mmol/L Carbon Dioxide (22-30) mmol/L BUN (9-20) mg/dL Glucose (74-99) mg/dL POC Glucose (mg/dL) 131 H (70-110) mg/dL Alkaline Phosphatase (38-126) U/L Troponin I (0.000-0.034) ng/mL Assessment and Plan Assessment: Chest pain with elevated troponin suspicious for non-STEMI Acute COPD exacerbation History of GERD Hypertension Coronary artery disease Pulmonary problem Plan: Continue with heparin drip Continue with aspirin and Plavix Check echocardiogram Continue with metoprolol and DALE inhibitor Pain management Cardiology consult Continue with prednisone Add updraft Labs and medication were reviewed.. Continue same treatment. Continue with symptomatic treatment. Resume home medication. Monitor labs and vitals. DVT and GI prophylaxis. Further recommendations as per clinical course of the patient DVT prophylaxis: heparin GI Prophylaxis: Pepcid Prognosis is guarded
[2024-09-22 11:49] LABS: Glucose,Whole Blood 121 mg/dL (70-110)
--- NOTE | 2024-09-22 13:47 | P.PN ---
Subjective HISTORY OF PRESENT ILLNESS: The patient is a 69-year-old male with prior history of smoking, history of hypertension, hyperlipidemia and CAD who presented with symptoms of chest discomfort. He was just discharged from the hospital. He had multiple admission recently with episodes of chest discomfort and has underwent coronary angiography most recently on August 17 when he was found to have mild disease in the LAD proximally and mid with no obstructive disease in the left circumflex and RCA. In March 2024 he had cardiac catheterization because of an episode of non-STEMI and at that time was found to have vasospastic disease in the mid LAD. According to him he was sitting when he had the episode of chest discomfort, with severe. He was dyspneic. At the time of my evaluation his pain has resolved after nitroglycerin sublingually. He had mild troponin elevation. On prior admission he had dynamic T wave changes anteriorly. There was a questionable episode of ventricular tachycardia during prior admission on the field with cardioversion although no rhythm strips were available. His left ventricular systolic function has been normal. According to him he has not been smoking since his last discharge. Medications: As outpatient lisinopril 5 mg daily, amlodipine 2.5 mg daily, Plavix 75 mg daily, Lipitor 40 mg daily, Flomax, isosorbide mononitrate 30 mg daily, aspirin, Ventolin 09/22/2024 Patient examined this morning at the bedside. Patient reports having shortness of breath and chest pain this morning. However, he has just gotten back from ambulating to the bathroom. He currently rates his chest pain 5/10. He also reports that his shortness of breath feels worse than yesterday. He remains on IV heparin. 2D echo remains pending. Telemetry reveals sinus bradycardia. Blood pressure stable at 122/74. PHYSICAL EXAM: VITAL SIGNS: Reviewed. GENERAL: Well-developed in no acute distress. NECK: Supple. No JVD or thyromegaly LUNGS: Respirations even and unlabored. Lungs essentially clear to auscultation bilaterally. Patient with upper respiratory congestion during evaluation. HEART: Regular rate and rhythm. S1 and S2 heard. Systolic murmur noted. EXTREMITIES: Normal range of motion. No clubbing or cyanosis. Peripheral pulses intact. No lower extremity edema ASSESSMENT: Non-STEMI Mild nonobstructive CAD of LAD, per cath 07/2024 History of vasospastic disease of mid LAD, March 2024 Hypertension Hyperlipidemia Former nicotine dependence PLAN: Obtain EKG 2D echo ordered. Await results. Give one-time dose of IV Lasix 20 mg Continue IV heparin Continue additional cardiac medications Patient may continue with heart healthy diet, then clear liquid breakfast in a.m., then NPO to follow Possible cardiac catheterization to be performed tomorrow by Dr. Roy Further recommendations pending patient course Nurse practitioner note has been reviewed by physician. Signing provider agrees with the documented findings, assessment, and plan of care documented by MECHANICAL INSPECTOR as a scribe. Objective - Vital Signs Vital signs: Vital Signs Temp 98.7 F 09/22/24 08:00 Pulse 54 L 09/22/24 11:57 Resp 16 09/22/24 11:57 BP 153/88 09/22/24 11:57 Pulse Ox 99 09/22/24 11:57 FiO2 40 09/21/24 12:55 Intake & Output 09/21/24 09/22/24 09/22/24 18:59 06:59 18:59 Intake Total 360 75.417 246 Output Total 500 800 Balance 360 -424.583 -554 Weight 52.163 kg 67.9 kg Intake: IV 10 10 Invasive Line 3 10 10 Intake, IV Titration 65.417 Amount Heparin Sod,Pork in 0.45% 65.417 NaCl 25,000 unit In 0.45 % NaCl 1 250ml.bag @ 12 UNITS/KG/HR 6.26 mls/hr IV .Q24H [facility] Rx#: [id number] Oral 360 236 Output: Urine 500 800 Other: Voiding Method Toilet Toilet Urinal Urinal # Voids 6 4 - Labs CBC & Chem 7: 09/22/24 05:29 09/22/24 05:29 Labs: Abnormal Lab Results - Last 24 Hours (Table) 09/21/24 09/21/24 09/21/24 Range/Units 14:25 16:07 19:26 WBC (3.8-10.6) k/uL RBC (4.30-5.90) m/uL Hgb (13.0-17.5) gm/dL Neutrophils # (1.3-7.7) k/uL Lymphocytes # (1.0-4.8) k/uL APTT 60.6 H (22.0-30.0) sec Sodium (137-145) mmol/L Carbon Dioxide (22-30) mmol/L BUN (9-20) mg/dL Glucose (74-99) mg/dL POC Glucose (mg/dL) (70-110) mg/dL Troponin I 1.130 H* 1.230 H* (0.000-0.034) ng/mL HDL Cholesterol (40.00-60.00) mg/dL 09/21/24 09/22/24 09/22/24 Range/Units 20:18 05: 05:29 WBC (3.8-10.6) k/uL RBC (4.30-5.90) m/uL Hgb (13.0-17.5) gm/dL Neutrophils # (1.3-7.7) k/uL Lymphocytes # (1.0-4.8) k/uL APTT (22.0-30.0) sec Sodium 136 L (137-145) mmol/L Carbon Dioxide 31 H (22-30) mmol/L BUN 29 H (9-20) mg/dL Glucose 149 H (74-99) mg/dL POC Glucose (mg/dL) 135 H (70-110) mg/dL Troponin I (0.000-0.034) ng/mL HDL Cholesterol 100.00 H (40.00-60.00) mg/dL 09/22/24 09/22/24 09/22/24 Range/Units 05: 05:29 06:10 WBC 11.1 H (3.8-10.6) k/uL RBC 4.18 L (4.30-5.90) m/uL Hgb 12.6 L (13.0-17.5) gm/dL Neutrophils # 9.8 H (1.3-7.7) k/uL Lymphocytes # 0.6 L (1.0-4.8) k/uL APTT 60.7 H (22.0-30.0) sec Sodium (137-145) mmol/L Carbon Dioxide (22-30) mmol/L BUN (9-20) mg/dL Glucose (74-99) mg/dL POC Glucose (mg/dL) 131 H (70-110) mg/dL Troponin I (0.000-0.034) ng/mL HDL Cholesterol (40.00-60.00) mg/dL 09/22/24 Range/Units 11:47 WBC (3.8-10.6) k/uL RBC (4.30-5.90) m/uL Hgb (13.0-17.5) gm/dL Neutrophils # (1.3-7.7) k/uL Lymphocytes # (1.0-4.8) k/uL APTT (22.0-30.0) sec Sodium (137-145) mmol/L Carbon Dioxide (22-30) mmol/L BUN (9-20) mg/dL Glucose (74-99) mg/dL POC Glucose (mg/dL) 121 H (70-110) mg/dL Troponin I (0.000-0.034) ng/mL HDL Cholesterol (40.00-60.00) mg/dL
--- NOTE | 2024-09-22 15:12 | CA ---
Transthoracic Echo Report Name: Vignesh Preston Age: 69 Gender: M : 1955 Exam Date: 09/22/2024 07:49 Exam Location: [facility] Ht (in): 67 Wt (lb): 115 Ordering Physician: Zay Roy MD ([id number]) Attending/Referring Phys: Pneumatic Riveter Tiffany Trimble RDCS Procedure CPT: Indications: CAD Cardiac Hx: asthma, smoker Technical Quality: Fair Contrast 1: Total Dose (mL): Contrast 2: Total Dose (mL): MEASUREMENTS (Male / Female) Normal Values 2D ECHO LV Diastolic Diameter PLAX 4.6 cm 4.2 - 5.9 / 3.9 - 5.3 cm LV Systolic Diameter PLAX 2.7 cm IVS Diastolic Thickness 0.8 cm 0.6 - 1.0 / 0.6 - 0.9 cm LVPW Diastolic Thickness 1.1 cm 0.6 - 1.0 / 0.6 - 0.9 cm LV Relative Wall Thickness 0.4 RV Internal Dim ED PLAX 3.3 cm LA Systolic Diameter LX 3.1 cm 3.0 - 4.0 / 2.7 - 3.8 cm LV Diastolic Volume MOD 4C 113.1 cm??? LV Systolic Volume MOD 4C 42.7 cm??? LV Ejection Fraction MOD 4C 62.2 % LV Cardiac Index MOD 4C 2303.6 cm???/min???m??? LV Diastolic Length 4C 8.5 cm LV Systolic Length 4C 6.9 cm LV Diastolic Volume MOD 2C 79.9 cm??? LV Systolic Volume MOD 2C 40.3 cm??? LV Ejection Fraction MOD 2C 49.6 % LV Cardiac Index MOD 2C 1295.8 cm???/min???m??? LV Diastolic Length 2C 8.5 cm LV Systolic Length 2C 7.4 cm M-MODE Aortic Root Diameter MM 3.0 cm AV Cusp Separation MM 2.0 cm DOPPLER AV Peak Velocity 179.3 cm/s AV Peak Gradient 12.9 mmHg MV Area PHT 2.6 cm??? Mitral E Point Velocity 77.2 cm/s Mitral A Point Velocity 37.8 cm/s Mitral E to A Ratio 2.0 MV Deceleration Time 293.6 ms TR Peak Velocity 268.9 cm/s TR Peak Gradient 28.9 mmHg Right Ventricular Systolic Press 36.0 mmHg FINDINGS Left Ventricle Left ventricular ejection fraction is estimated at 50-55 %. Left ventricular cavity size normal. Left ventricular wall thickness normal. Apical hypokinesis Right Ventricle Mild right ventricular dilatation. Mild pulmonary hypertension. Right Atrium Normal right atrial size. No right atrial thrombus or mass seen. Left Atrium Normal left atrial size. No left atrial thrombus or mass present. Mitral Valve Structurally normal mitral valve. Mitral annular calcification. Mild mitral regurgitation. Aortic Valve Trileaflet aortic valve. No aortic valve stenosis or regurgitation. Tricuspid Valve Structurally normal tricuspid valve. Mild tricuspid regurgitation. Pulmonic Valve Pulmonic valve not well visualized. No pulmonic regurgitation. Pericardium No pericardial or pleural effusion. Aorta Normal size aortic root and proximal ascending aorta. CONCLUSIONS 1. Left ventricular systolic function borderline normal with segmental wall motion abnormality 2. Mild mitral and tricuspid regurgitation Previewed by: Dr. Zay Roy MD (Electronically Signed) Final Date: 22 September 2024 15:11
[2024-09-22 16:38] LABS: Glucose,Whole Blood 185 mg/dL (70-110)
[2024-09-22 19:56] LABS: Glucose,Whole Blood 163 mg/dL (70-110)
[2024-09-23] MEDS: MORPHINE SULFATE 2 MG/ML SYRINGE IVP PRN (03:02)
[2024-09-23 06:19] LABS: Glucose,Whole Blood 102 mg/dL (70-110)
[2024-09-23] MEDS ORDERED: HEPARIN SODIUM,PORCINE 10,000 UNIT in SODIUM CHLORIDE 0.9% 1,000 ML IRRIGATION PRN (07:00)
[2024-09-23] MEDS ORDERED: HEPARIN SODIUM,PORCINE (1 ML) 2,500 UNIT in SODIUM CHLORIDE 0.9% 250 ML IRRIGATION PRN (07:00)
[2024-09-23 07:26] LABS: African American GFR (CKD) 85 (>60 ml/min/1.73 sqM); Anion Gap 3 mmol/L; Blood Urea Nitrogen 39 mg/dL (9-20); Calcium 9.3 mg/dL (8.4-10.2); Carbon Dioxide 29 mmol/L (22-30); Chloride 100 mmol/L (98-107); Glucose 103 mg/dL (74-99); Non-African American GFR(CKD) 74 (>60 ml/min/1.73 sqM); Sodium 132 mmol/L (137-145)
[2024-09-23] MEDS ORDERED: ALPRAZolam 0.25 MG TAB PO PRN (11:03)
[2024-09-23] MEDS ORDERED: ALPRAZolam 0.5 MG TAB PO PRN (11:03)
[2024-09-23] MEDS: ATORVASTATIN 40 MG TAB PO STA (11:30)
[2024-09-23] MEDS: ASPIRIN 81 MG PO STA (11:30)
[2024-09-23] MEDS: SODIUM CHLORIDE 0.9% 1,000 ML in EMPTY BAG 1 BAG IV SCH (11:31)
[2024-09-23 11:37] LABS: Glucose,Whole Blood 120 mg/dL (70-110)
[2024-09-23] MEDS: IV FLUID CONTINUATION 700 ML IV ONE (12:18)
[2024-09-23] MEDS: fentaNYL (PF) 50 MCG/ML 2 ML AMP IVP ONE (12:59)
[2024-09-23] MEDS: LIDOCAINE 1% INJ 10MG/ML (20 ML MDV) SQ ONE (13:02)
[2024-09-23] MEDS: VERAPAMIL SYRINGE (5 MG/10 ML) INTRAARTER ONE ×2 (13:04→13:17)
[2024-09-23] MEDS: IOPAMIDOL-370 100ML BTL INJ ONE ×2 (13:37)
[2024-09-23] MEDS ORDERED: RX INFO: IV CONTRAST WAS GIVEN 1 EACH MISC MISCELLANE PRN (14:02)
--- NOTE | 2024-09-23 14:12 | P.CARDCATH ---
Date of Procedure: 09/23/24 Description of Procedure: Cardiac Catheterization: The patient is a 69-year-old male with history of hyperlipidemia, prior history of smoking who has a prior history of vasospastic disease in the mid LAD by coronary angiography in March and July 2024 who presented with worsening symptoms, EKG changes and mild troponin elevation. Recommendations were made regarding cardiac catheterization, the risks and the complications were discussed with the patient who is in full understanding and agreement. Procedure Description: Patient was brought to photonic laboratory technician in fasting semi-sedated state after receiving Fentanyl and Benadryl achieiving moderate conscious sedated state. Using Xylocaine Anesthesia and modified Seldinger technique, a 6-Ethiopian sheath was introduced in the left radial artery . Subsequently, selective coronary angiography was performed using a 5-Ethiopian 4 bend right Theresa catheter and 6 Ethiopian LBU 3.75 guiding catheter. Multiple views of the coronary artery including hemiaxial views were obtained. Using the 6 Ethiopian L BU guiding catheter and after cannulating the left main and Omni Doppler flow wire was introduced in the LAD and IFR was measured at 0.91. The 5 Ethiopian pigtail catheter was used to cross the aortic valve and LVEDP was calculated. Following that, catheter and sheath were removed. Hemostasis was obtained with deployment of vascular band . There was no immediate complication. Patient was returned to room in stable condition. Of note, the patient received a total of 4500 units of intravenous heparin as well as intra-arterial verapamil. Findings: Left main: This is a short size vessel, bifurcating into LAD and left circumflex, left main has no obstructive disease LAD: This is a large size vessel, reaching to the apex, giving rise to 2 diagonal branch. On the initial pictures there is a 95% stenosis in the mid LAD prior to the takeoff of the second diagonal branch the vessel beyond that is small in caliber, After giving intracoronary nitroglycerin the vessel caliber improved and the lesion almost resolved completely with EMERITA III flow distally with no evidence of significant obstructive disease. Left circumflex: This is a large dominant vessel bifurcating distally to PDA and PLV, giving rise to a moderately sized obtuse marginal branch proximally, the left circumflex has no obstructive disease RCA: This is a small nondominant vessel that has no evidence of obstructive disease Left Ventriculogram: Not performed Hemodynamics: There was no gradient across aortic valve, LVEDP was 20-25 mmHg Conclusion: 1. Severe vasospastic disease involving the mid LAD, resolved with intracoronary nitroglycerin with normal IFR 2. No obstructive disease in the left circumflex and RCA 3. Left dominance 4. Elevated LVEDP Recommendations: The patient had findings consistent with vasospastic disease. I will maximize his treatment and depending on his progress further recommendations will be made. The findings and the recommendations were discussed with the patient and the family and they were in full understanding and agreement. Duration of sedation is 47 minutes.
[2024-09-23 16:10] LABS: Glucose,Whole Blood 218 mg/dL (70-110)
[2024-09-23] MEDS: SODIUM CHLORIDE 0.9% 1,000 ML IV SCH (16:10)
[2024-09-23] MEDS: ISOSORBIDE MONONITRATE ER 60 MG TAB.ER.24H PO SCH (19:42)
[2024-09-23 20:03] LABS: Glucose,Whole Blood 162 mg/dL (70-110)
--- NOTE | 2024-09-23 20:22 | P.PN ---
Subjective This is a pleasant 69 years old male with past medical history of COPD and multiple medical problems and coronary artery disease. Patient switched his PCP recently from Dr. Devi to Dr. Bueno Presents because of severe chest pain since this morning about 10/10 in the middle of his chest with no radiation felt like achy with no precipitating r elieving factors Also patient complaining from some dyspnea on coughing with some phlegm. No specific GI or urinary symptoms. No headache dizziness or weakness He is non-smoker currently, no alcohol or illicit drugs He has history of COPD and follow-up with Dr. Lunsford in the outpatient setting Vitals are stable, afebrile labs were unremarkable: CBC, BMP, LFT, INR Troponin significantly elevated at baseline at 1.3 and 1.1 proBNP 3900 EKG shows sinus rhythm at [address]-T changes Chest x-ray showing no acute cardiopulmonary process but looks hyperinflated Echocardiogram is pending Patient started on heparin drip Also continued on aspirin and Plavix 09/22 Patient has having slightly worse breathing difficulty this morning, he got one- time dose of IV Lasix 20 mg after that when I saw him he is feeling better However he still having wheezing. And while he doing down he developed muscle spasm in the front of his chest and it was hurting him, one-time dose of morphine ordered for him. Currently he is saturating 98% on 3 L oxygen via nasal cannula. Heart rate around 55. Blood pressure is acceptable He remains on heparin drip and prednisone. He remains on aspirin and Plavix. WBC is 11.1 Rest of labs reviewed Echocardiogram still pending 09/23 Patient underwent left heart catheterization showing vasospastic disease involving the mid LAD. Heparin drip was discontinued. He is continued on home dose of aspirin and Plavix. Also patient has extensive wheezing and he kept on oral prednisone 40 mg. Will add breathing treatment and inhaled steroids Objective - Vital Signs Vital signs: Vital Signs Temp 97.8 F 09/23/24 09:00 Pulse 49 L 09/23/24 14:46 Resp 18 09/23/24 14:46 BP 131/84 09/23/24 14:46 Pulse Ox 94 L 09/23/24 14:46 FiO2 40 09/21/24 12:55 Intake & Output 09/22/24 09/23/24 09/23/24 18:59 06:59 18:59 Intake Total 906 417.654 295.453 Output Total 760 498 5210 Balance 106 217.654 -704.547 Weight 68.7 kg Intake: IV 20 20 200 Invasive Line 3 20 20 Intake, IV Titration 157.654 95.453 Amount Heparin Sod,Pork in 0.45% 157.654 95.453 NaCl 25,000 unit In 0.45 % NaCl 1 250ml.bag @ 12 UNITS/KG/HR 6.26 mls/hr IV .Q24H [facility] Rx#: [id number] Oral 886 240 Output: Urine 296 598 6349 Other: Voiding Method Toilet Toilet Toilet Urinal Urinal Urinal # Voids 4 2 - Exam GENERAL: The patient is alert and oriented x3, not in any acute distress. Well developed, well nourished. HEENT: Pupils are round and equally reacting to light. EOMI. No scleral icterus. No conjunctival pallor. Normocephalic, atraumatic. No pharyngeal erythema. No thyromegaly. -CARDIOVASCULAR: S1 and S2 present. No murmurs, rubs, or gallops. Anterior travis st wall tenderness -PULMONARY: Chest is clear to auscultation, bilateral scattered wheezing wheezing , no crackles. ABDOMEN: Soft, nontender, nondistended, normoactive bowel sounds. No palpable organomegaly. MUSCULOSKELETAL: No joint swelling or deformity. EXTREMITIES: No cyanosis, clubbing, or pedal edema. NEUROLOGICAL: Gross neurological examination did not reveal any focal deficits. SKIN: No rashes. no petechiae. - Labs CBC & Chem 7: 09/22/24 05:29 09/23/24 06:37 Labs: Abnormal Lab Results - Last 24 Hours (Table) 09/22/24 09/22/24 09/23/24 Range/Units 16:37 19:55 06:37 APTT (22.0-30.0) sec Sodium 132 L (137-145) mmol/L BUN 39 H (9-20) mg/dL Glucose 103 H (74-99) mg/dL POC Glucose (mg/dL) 185 H 163 H (70-110) mg/dL 09/23/24 09/23/24 Range/Units 06:37 11:36 APTT 42.5 H (22.0-30.0) sec Sodium (137-145) mmol/L BUN (9-20) mg/dL Glucose (74-99) mg/dL POC Glucose (mg/dL) 120 H (70-110) mg/dL Assessment and Plan Assessment: Chest pain with elevated troponin suspicious for non-STEMI Acute COPD exacerbation History of GERD Hypertension Coronary artery disease Pulmonary problem Plan: heparin drip stopped Continue with aspirin and Plavix Cardiology consult did cardiac cath which shows a vasospasm of the LAD Continue with prednisone Add updraft Labs and medication were reviewed.. Continue same treatment. Continue with symptomatic treatment. Resume home medication. Monitor labs and vitals. DVT and GI prophylaxis. Further recommendations as per clinical course of the patient DVT prophylaxis: heparin GI Prophylaxis: Pepcid Prognosis is guarded
[2024-09-23] MEDS ORDERED: METOPROLOL TARTRATE 12.5 MG TAB PO SCH (21:00)
[2024-09-23] MEDS: SYMBICORT 160-4.5 MCG INHALER INHALATION SCH (21:07)
[2024-09-24] MEDS: NITROGLYCERIN SL TABS 0.4 MG TAB SUBLINGUAL PRN (03:00)
[2024-09-24 06:12] LABS: Glucose,Whole Blood 93 mg/dL (70-110)
[2024-09-24 08:15] LABS: Basophils % (A) 0 %; Eosinophils # (A) 0.4 k/uL (0-0.7); Eosinophils % (A) 4 %; HCT 40.8 % (39.0-53.0); HGB 13.3 gm/dL (13.0-17.5); Lymphocytes # (A) 1.7 k/uL (1.0-4.8); Lymphocytes % (A) 16 %; MCH 30.1 pg (25.0-35.0); MCHC 32.5 g/dL (31.0-37.0); MCV 92.5 fL (80.0-100.0); Mean Platelet Volume 7.4; Monocytes # (A) 1.1 k/uL (0-1.0); Monocytes % (A) 10 %; Neutrophils # (A) 7.7 k/uL (1.3-7.7); Neutrophils % (A) 69 %; Platelet Count 276 k/uL (150-450); RBC 4.41 m/uL (4.30-5.90); RDW 14.2 % (11.5-15.5); WBC 11.1 k/uL (3.8-10.6)
[2024-09-24] MEDS: IPRATROPIUM-ALBUTEROL 3 ML NEB INHALATION PRN (08:15)
[2024-09-24 08:31] LABS: African American GFR (CKD) >90 (>60 ml/min/1.73 sqM); Anion Gap 2 mmol/L; Blood Urea Nitrogen 27 mg/dL (9-20); Calcium 9.1 mg/dL (8.4-10.2); Carbon Dioxide 33 mmol/L (22-30); Chloride 98 mmol/L (98-107); Glucose 81 mg/dL (74-99); Non-African American GFR(CKD) 81 (>60 ml/min/1.73 sqM); Potassium 4.5 mmol/L (3.5-5.1); Sodium 133 mmol/L (137-145)
--- NOTE | 2024-09-24 11:28 | P.PN ---
Subjective HISTORY OF PRESENT ILLNESS: The patient is a 69-year-old male with prior history of smoking, history of hypertension, hyperlipidemia and CAD who presented with symptoms of chest discomfort. He was just discharged from the hospital. He had multiple admission recently with episodes of chest discomfort and has underwent coronary angiography most recently on August 17 when he was found to have mild disease in the LAD proximally and mid with no obstructive disease in the left circumflex and RCA. In March 2024 he had cardiac catheterization because of an episode of non-STEMI and at that time was found to have vasospastic disease in the mid LAD. According to him he was sitting when he had the episode of chest discomfort, with severe. He was dyspneic. At the time of my evaluation his pain has resolved after nitroglycerin sublingually. He had mild troponin elevation. On prior admission he had dynamic T wave changes anteriorly. There was a questionable episode of ventricular tachycardia during prior admission on the field with cardioversion although no rhythm strips were available. His left ventricular systolic function has been normal. According to him he has not been smoking since his last discharge. Medications: As outpatient lisinopril 5 mg daily, amlodipine 2.5 mg daily, Plavix 75 mg daily, Lipitor 40 mg daily, Flomax, isosorbide mononitrate 30 mg daily, aspirin, Ventolin 09/22/2024 Patient examined this morning at the bedside. Patient reports having shortness of breath and chest pain this morning. However, he has just gotten back from ambulating to the bathroom. He currently rates his chest pain 5/10. He also reports that his shortness of breath feels worse than yesterday. He remains on IV heparin. 2D echo remains pending. Telemetry reveals sinus bradycardia. Blood pressure stable at 122/74. 09/24/2024 Patient is status post cardiac catheterization yesterday with Dr. Roy revealing severe vasospastic disease involving the mid LAD, resolved with intracoronary nitro with normal IFR. No obstructive disease in circumflex or RCA. Patient examined this morning the bedside. Left radial cath site with pulse present. No hematoma noted. Patient states he is feeling well this morning. He denies any chest pain or pressure. He denies any shortness of breath. Vital signs are stable. Echocardiogram completed revealing ejection fraction 50 to 55%, apical hypokinesis, mild pulmonary hypertension, mild mitral regurgitation, and mild tricuspid regurgitation. PHYSICAL EXAM: VITAL SIGNS: Reviewed. GENERAL: Well-developed in no acute distress. NECK: Supple. No JVD or thyromegaly LUNGS: Respirations even and unlabored. Lungs essentially clear to auscultation bilaterally. Patient with upper respiratory congestion during evaluation. HEART: Regular rate and rhythm. S1 and S2 heard. Systolic murmur noted. EXTREMITIES: Normal range of motion. No clubbing or cyanosis. Peripheral pulses intact. No lower extremity edema ASSESSMENT: Non-STEMI status post cardiac catheterization revealing severe vasospastic disease involving the mid LAD, resolved with intracoronary nitro with normal IFR Mild nonobstructive CAD of LAD, per cath 07/2024 History of vasospastic disease of mid LAD, March 2024 Hypertension Hyperlipidemia Former nicotine dependence PLAN: Patient's metoprolol discontinued yesterday Patient's Imdur increased to 60 mg twice a day Continue additional cardiac medications Anticipate discharge home tomorrow if patient remains stable. Further recommendations pending patient course Nurse practitioner note has been reviewed by physician. Signing provider agrees with the documented findings, assessment, and plan of care documented by ACCOUNT ASSISTANT as a scribe. Objective - Vital Signs Vital signs: Vital Signs Temp 98.4 F 09/24/24 08:46 Pulse 52 L 09/24/24 08:46 Resp 16 09/24/24 08:46 BP 116/64 09/24/24 08:46 Pulse Ox 98 09/24/24 08:46 FiO2 40 09/21/24 12:55 Intake & Output 09/23/24 09/24/24 09/24/24 18:59 06:59 18:59 Intake Total 415.453 10 Output Total 1200 600 Balance -784.547 -600 10 Weight 68.7 kg Intake: IV 200 10 Invasive Line 3 10 Intake, IV Titration 95.453 Amount Heparin Sod,Pork in 0.45% 95.453 NaCl 25,000 unit In 0.45 % NaCl 1 250ml.bag @ 12 UNITS/KG/HR 6.26 mls/hr IV .Q24H [facility] Rx#: [id number] Oral 120 Output: Urine 1200 600 Other: Voiding Method Toilet Toilet Toilet Urinal Urinal Urinal # Voids 1 - Labs CBC & Chem 7: 09/24/24 07:30 09/24/24 07:30 Labs: Abnormal Lab Results - Last 24 Hours (Table) 09/23/24 09/23/24 09/23/24 Range/Units 11:36 16:05 20:02 WBC (3.8-10.6) k/uL Monocytes # (0-1.0) k/uL Sodium (137-145) mmol/L Carbon Dioxide (22-30) mmol/L BUN (9-20) mg/dL POC Glucose (mg/dL) 120 H 218 H 162 H (70-110) mg/dL 09/24/24 09/24/24 Range/Units 07:30 07:30 WBC 11.1 H (3.8-10.6) k/uL Monocytes # 1.1 H (0-1.0) k/uL Sodium 133 L (137-145) mmol/L Carbon Dioxide 33 H (22-30) mmol/L BUN 27 H (9-20) mg/dL POC Glucose (mg/dL) (70-110) mg/dL
[2024-09-24 11:47] LABS: Glucose,Whole Blood 168 mg/dL (70-110)
[2024-09-24 16:26] LABS: Glucose,Whole Blood 208 mg/dL (70-110)
[2024-09-24 20:00] LABS: Glucose,Whole Blood 166 mg/dL (70-110)
--- NOTE | 2024-09-25 04:39 | P.PN ---
Subjective This is a pleasant 69 years old male with past medical history of COPD and multiple medical problems and coronary artery disease. Patient switched his PCP recently from Dr. Devi to Dr. Bueno Presents because of severe chest pain since this morning about 10/10 in the middle of his chest with no radiation felt like achy with no precipitating r elieving factors Also patient complaining from some dyspnea on coughing with some phlegm. No specific GI or urinary symptoms. No headache dizziness or weakness He is non-smoker currently, no alcohol or illicit drugs He has history of COPD and follow-up with Dr. Lunsford in the outpatient setting Vitals are stable, afebrile labs were unremarkable: CBC, BMP, LFT, INR Troponin significantly elevated at baseline at 1.3 and 1.1 proBNP 3900 EKG shows sinus rhythm at [address]-T changes Chest x-ray showing no acute cardiopulmonary process but looks hyperinflated Echocardiogram is pending Patient started on heparin drip Also continued on aspirin and Plavix 09/22 Patient has having slightly worse breathing difficulty this morning, he got one- time dose of IV Lasix 20 mg after that when I saw him he is feeling better However he still having wheezing. And while he doing down he developed muscle spasm in the front of his chest and it was hurting him, one-time dose of morphine ordered for him. Currently he is saturating 98% on 3 L oxygen via nasal cannula. Heart rate around 55. Blood pressure is acceptable He remains on heparin drip and prednisone. He remains on aspirin and Plavix. WBC is 11.1 Rest of labs reviewed Echocardiogram still pending 09/23 Patient underwent left heart catheterization showing vasospastic disease involving the mid LAD. Heparin drip was discontinued. He is continued on home dose of aspirin and Plavix. Also patient has extensive wheezing and he kept on oral prednisone 40 mg. Will add breathing treatment and inhaled steroids 09/24 Patient has been having intermittent chest pain, LHC showing lots of spasmodic coronary artery Currently this morning. Tolerable chest pain. Patient was updated with the cardiac cath results. He is agreeable with the plan Continue with the current cardiac medication per maintenance director. He is on Imdur dose to be increased by maintenance director He is wheezing significantly improved. Patient currently on prednisone 40 mg which can be tapered down upon discharge every 3 days Objective - Vital Signs Vital signs: Vital Signs Temp 98.4 F 09/24/24 08:46 Pulse 55 L 09/24/24 11:52 Resp 16 09/24/24 11:52 BP 111/56 09/24/24 11:52 Pulse Ox 98 09/24/24 11:52 FiO2 40 09/21/24 12:55 Intake & Output 09/23/24 09/24/24 09/24/24 18:59 06:59 18:59 Intake Total 415.453 550 Output Total 1200 600 400 Balance -784.547 -600 150 Weight 68.7 kg Intake: IV 200 10 Invasive Line 3 10 Intake, IV Titration 95.453 Amount Heparin Sod,Pork in 0.45% 95.453 NaCl 25,000 unit In 0.45 % NaCl 1 250ml.bag @ 12 UNITS/KG/HR 6.26 mls/hr IV .Q24H [facility] Rx#: [id number] Oral 120 540 Output: Urine 1200 600 400 Other: Voiding Method Toilet Toilet Toilet Urinal Urinal Urinal # Voids 1 - Exam GENERAL: The patient is alert and oriented x3, not in any acute distress. Well developed, well nourished. HEENT: Pupils are round and equally reacting to light. EOMI. No scleral icterus. No conjunctival pallor. Normocephalic, atraumatic. No pharyngeal erythema. No thyromegaly. -CARDIOVASCULAR: S1 and S2 present. No murmurs, rubs, or gallops. Anterior chest wall tenderness -PULMONARY: Chest is clear to auscultation, bilateral scattered wheezing wheezing , no crackles. ABDOMEN: Soft, nontender, nondistended, normoactive bowel sounds. No palpable organomegaly. MUSCULOSKELETAL: No joint swelling or deformity. EXTREMITIES: No cyanosis, clubbing, or pedal edema. NEUROLOGICAL: Gross neurological examination did not reveal any focal deficits. SKIN: No rashes. no petechiae. - Labs CBC & Chem 7: 09/24/24 07:30 09/24/24 07:30 Labs: Abnormal Lab Results - Last 24 Hours (Table) 09/23/24 09/23/24 09/24/24 Range/Units 16:05 20:02 07:30 WBC (3.8-10.6) k/uL Monocytes # (0-1.0) k/uL Sodium 133 L (137-145) mmol/L Carbon Dioxide 33 H (22-30) mmol/L BUN 27 H (9-20) mg/dL POC Glucose (mg/dL) 218 H 162 H (70-110) mg/dL 09/24/24 09/24/24 Range/Units 07:30 11:46 WBC 11.1 H (3.8-10.6) k/uL Monocytes # 1.1 H (0-1.0) k/uL Sodium (137-145) mmol/L Carbon Dioxide (22-30) mmol/L BUN (9-20) mg/dL POC Glucose (mg/dL) 168 H (70-110) mg/dL Assessment and Plan Assessment: Chest pain with elevated troponin suspicious for non-STEMI. Cardiac cath on SCD to vasospasm of the coronary artery Acute COPD exacerbation History of GERD Hypertension Coronary artery disease Pulmonary problem Plan: Continue with aspirin and Plavix Cardiology consult did cardiac cath which shows a vasospasm of the LAD Continue with prednisone. Taper upon discharge every 3 days Add updraft Labs and medication were reviewed.. Continue same treatment. Continue with symptomatic treatment. Resume home medication. Monitor labs and vitals. DVT and GI prophylaxis. Further recommendations as per clinical course of the patient DVT prophylaxis: heparin GI Prophylaxis: Pepcid Prognosis is guarded
[2024-09-25 06:26] LABS: Glucose,Whole Blood 103 mg/dL (70-110)
[2024-09-25 07:35] LABS: African American GFR (CKD) 86 (>60 ml/min/1.73 sqM); Anion Gap 1 mmol/L; Blood Urea Nitrogen 29 mg/dL (9-20); Calcium 8.8 mg/dL (8.4-10.2); Carbon Dioxide 32 mmol/L (22-30); Chloride 99 mmol/L (98-107); Glucose 99 mg/dL (74-99); Non-African American GFR(CKD) 74 (>60 ml/min/1.73 sqM); Potassium 4.2 mmol/L (3.5-5.1); Sodium 132 mmol/L (137-145)
[2024-09-25 11:17] LABS: Glucose,Whole Blood 126 mg/dL (70-110)
--- NOTE | 2024-09-25 11:55 | P.PN ---
Subjective Progress Note Date: 09/25/24 HISTORY OF PRESENT ILLNESS: The patient is a 69-year-old male with prior history of smoking, history of hypertension, hyperlipidemia and CAD who presented with symptoms of chest discomfort. He was just discharged from the hospital. He had multiple admission recently with episodes of chest discomfort and has underwent coronary angiography most recently on August 17 when he was found to have mild disease in the LAD proximally and mid with no obstructive disease in the left circumflex and RCA. In March 2024 he had cardiac catheterization because of an episode of non-STEMI and at that time was found to have vasospastic disease in the mid LAD. According to him he was sitting when he had the episode of chest discomfort, with severe. He was dyspneic. At the time of my evaluation his pain has re solved after nitroglycerin sublingually. He had mild troponin elevation. On prior admission he had dynamic T wave changes anteriorly. There was a questionable episode of ventricular tachycardia during prior admission on the field with cardioversion although no rhythm strips were available. His left ventricular systolic function has been normal. According to him he has not been smoking since his last discharge. Medications: As outpatient lisinopril 5 mg daily, amlodipine 2.5 mg daily, Plavix 75 mg daily, Lipitor 40 mg daily, Flomax, isosorbide mononitrate 30 mg daily, aspirin, Ventolin 09/22/2024 Patient examined this morning at the bedside. Patient reports having shortness of breath and chest pain this morning. However, he has just gotten back from ambulating to the bathroom. He currently rates his chest pain 5/10. He also reports that his shortness of breath feels worse than yesterday. He remains on IV heparin. 2D echo remains pending. Telemetry reveals sinus bradycardia. Blood pressure stable at 122/74. 09/24/2024 Patient is status post cardiac catheterization yesterday with Dr. Roy revealing severe vasospastic disease involving the mid LAD, resolved with intracoronary nitro with normal IFR. No obstructive disease in circumflex or RCA. Patient examined this morning the bedside. Left radial cath site with pulse present. No hematoma noted. Patient states he is feeling well this morning. He denies any chest pain or pressure. He denies any shortness of b reath. Vital signs are stable. Echocardiogram completed revealing ejection fraction 50 to 55%, apical hypokinesis, mild pulmonary hypertension, mild mitral regurgitation, and mild tricuspid regurgitation. 09/25/24 Patient seen and examined. He states he is feeling okay but not ready to go home today. Blood pressure 124/61, heart rate in the 50s, pulse ox 98% on 2 L nasal cannula. Sodium 132, BUN 29 creatinine 1.04, potassium 4.2. PHYSICAL EXAM: VITAL SIGNS: Reviewed. GENERAL: Well-developed in no acute distress. NECK: Supple. No JVD or thyromegaly LUNGS: Respirations even and unlabored. Lungs essentially clear to auscultation bilaterally. Patient with upper respiratory congestion during evaluation. HEART: Regular rate and rhythm. S1 and S2 heard. Systolic murmur noted. EXTREMITIES: Normal range of motion. No clubbing or cyanosis. Peripheral pulses intact. No lower extremity edema ASSESSMENT: Non-STEMI status post cardiac catheterization revealing severe vasospastic dise ase involving the mid LAD, resolved with intracoronary nitro with normal IFR Mild nonobstructive CAD of LAD, per cath 07/2024 History of vasospastic disease of mid LAD, March 2024 Hypertension Hyperlipidemia Former nicotine dependence PLAN: Patient's metoprolol discontinued due to bradycardia Patient's Imdur increased to 60 mg twice a day Continue additional cardiac medications: Amlodipine 5 mg daily, aspirin, Plavix, lisinopril Patient appears to be stable for discharge may follow-up in the office with Dr. Roy in 1 week. Further recommendations pending patient course Nurse practitioner note has been reviewed by physician. Signing provider agrees with the documented findings, assessment, and plan of care documented by LITHOGRAPH PRESS OPERATOR TINWARE as a scribe. Objective - Vital Signs Vital signs: Vital Signs Temp 97.9 F 09/25/24 08:15 Pulse 60 09/25/24 09:30 Resp 16 09/25/24 08:15 BP 124/61 09/25/24 08:15 Pulse Ox 98 09/25/24 09:18 FiO2 40 09/21/24 12:55 Intake & Output 09/24/24 09/25/24 09/25/24 18:59 06:59 18:59 Intake Total 678 260 180 Output Total 400 900 Balance 278 260 -720 Weight 69.2 kg Intake: IV 20 20 Invasive Line 3 20 20 Oral 658 240 180 Output: Urine 400 900 Other: Voiding Method Toilet Toilet Urinal Urinal # Voids 2 - Labs CBC & Chem 7: 09/24/24 07:30 09/25/24 06:52 Labs: Abnormal Lab Results - Last 24 Hours (Table) 09/24/24 09/24/24 09/24/24 Range/Units 11:46 16:24 19:59 Sodium (137-145) mmol/L Carbon Dioxide (22-30) mmol/L BUN (9-20) mg/dL POC Glucose (mg/dL) 168 H 208 H 166 H (70-110) mg/dL 09/25/24 09/25/24 Range/Units 06:52 11:16 Sodium 132 L (137-145) mmol/L Carbon Dioxide 32 H (22-30) mmol/L BUN 29 H (9-20) mg/dL POC Glucose (mg/dL) 126 H (70-110) mg/dL
[2024-09-25] MEDS ORDERED: IPRATROPIUM-ALBUTEROL 3 ML NEB INHALATION PRN (13:55)
--- NOTE | 2024-09-25 14:05 | P.PN ---
Subjective Progress Note Date: 09/25/24 This is a pleasant 69 years old male with past medical history of COPD and multiple medical problems and coronary artery disease. Patient switched his PCP recently from Dr. Devi to Dr. Bueno Presents because of severe chest pain since this morning about 10/10 in the middle of his chest with no radiation felt like achy with no precipitating relieving factors Also patient complaining from some dyspnea on coughing with some phlegm. No specific GI or urinary symptoms. No headache dizziness or weakness He is non-smoker currently, no alcohol or illicit drugs He has history of COPD and follow-up with Dr. Lunsford in the outpatient setting Vitals are stable, afebrile labs were unremarkable: CBC, BMP, LFT, INR Troponin significantly elevated at baseline at 1.3 and 1.1 proBNP 3900 EKG shows sinus rhythm at [address]-T changes Chest x-ray showing no acute cardiopulmonary process but looks hyperinflated Echocardiogram is pending Patient started on heparin drip Also continued on aspirin and Plavix 09/22 Patient has having slightly worse breathing difficulty this morning, he got one- time dose of IV Lasix 20 mg after that when I saw him he is feeling better However he still having wheezing. And while he doing down he developed muscle spasm in the front of his chest and it was hurting him, one-time dose of morphine ordered for him. Currently he is saturating 98% on 3 L oxygen via nasal cannula. Heart rate around 55. Blood pressure is acceptable He remains on heparin drip and prednisone. He remains on aspirin and Plavix. WBC is 11.1 Rest of labs reviewed Echocardiogram still pending 09/23 Patient underwent left heart catheterization showing vasospastic disease involving the mid LAD. Heparin drip was discontinued. He is continued on home dose of aspirin and Plavix. Also patient has extensive wheezing and he kept on oral prednisone 40 mg. Will add breathing treatment and inhaled steroids 09/24 Patient has been having intermittent chest pain, LHC showing lots of spasmodic coronary artery Currently this morning. Tolerable chest pain. Patient was updated with the cardiac cath results. He is agreeable with the plan Continue with the current cardiac medication per executive vice president business development. He is on Imdur dose to be increased by executive vice president business development He is wheezing significantly improved. Patient currently on prednisone 40 mg which can be tapered down upon discharge every 3 days 09/25/2024 Patient is seen in follow-up with cardiology following and patient is maintained on as needed breathing treatments along with oral steroids. Patient continues to sound congested with crackles noted at the bases and will give a dose of IV Lasix. Patient to continue on breathing treatments and also supplemental oxygen and encouraged to increase activity as tolerated. Patient being evaluated by cardiology and will need outpatient follow-up. Beta-solitario held due to bradycardia. Review of systems: Constitutional: No reports of fatigue, fever, or chills Cardiovascular: No reports of chest pain or palpitations Respiratory: reports of shortness of breath with congestion GI: No reports of nausea, vomiting, or diarrhea : No reports of dysuria or retention Neurovascular: No reports of weakness or numbness All medications have been reviewed Physical exam: GENERAL: The patient is alert and oriented x3, not in any acute distress. Well developed, well nourished. Thin built HEENT: Pupils are round and equally reacting to light. EOMI. No scleral icterus. No conjunctival pallor. Normocephalic, atraumatic. No pharyngeal erythema. No thyromegaly. CARDIOVASCULAR: S1 and S2 present. No murmurs, rubs, or gallops. Anterior chest wall tenderness PULMONARY: Chest is clear to auscultation, bilateral scattered wheezing wheezing , bronchial congestion and some faint crackles noted at the bases. ABDOMEN: Soft, nontender, nondistended, normoactive bowel sounds. No palpable organomegaly. MUSCULOSKELETAL: No joint swelling or deformity. EXTREMITIES: No cyanosis, clubbing, or pedal edema. NEUROLOGICAL: Gross neurological examination did not reveal any focal deficits. SKIN: No rashes. no petechiae. Assessment: Chest pain with elevated troponin suspicious for non-STEMI. Cardiac cath on SCD to vasospasm of the coronary artery Acute COPD exacerbation History of GERD Hypertension Coronary artery disease GI prophylaxis DVT prophylaxis Full code Plan: Continue with aspirin and Plavix. Cardiology evaluated the patient status post cardiac catheterization showing a vasospasm of the LAD and continuing on current meds. Beta-solitario discontinued Continue with DuoNebs and will make scheduled as well as as needed. Continue prednisone and will continue a prednisone taper on discharge Encouraged increased activity as tolerated. Will have PT/OT therapy evaluate the patient Possible discharge planning in the next 24 hours The impression and plan of care has been dictated by Laine Daniels, Nurse Practitioner as directed. Dr. Honey MD I have performed a history and examination and MDM of this patient, discussed the same with the dictator, and agree with the dictator's assessment and plan as written ,documented as a scribe. Based on total visit time, I have performed more than 50% of the visit. Objective - Vital Signs Vital signs: Vital Signs Temp 98.3 F 09/25/24 04:00 Pulse 51 L 09/25/24 04:00 Resp 16 09/25/24 04:00 BP 121/70 09/25/24 04:00 Pulse Ox 98 09/25/24 04:00 FiO2 40 09/21/24 12:55 Intake & Output 09/24/24 09/25/24 09/25/24 18:59 06:59 18:59 Intake Total 678 260 180 Output Total 400 900 Balance 278 260 -720 Weight 69.2 kg Intake: IV 20 20 Invasive Line 3 20 20 Oral 658 240 180 Output: Urine 400 900 Other: Voiding Method Toilet Toilet Urinal Urinal # Voids 2 - Labs CBC & Chem 7: 09/24/24 07:30 09/25/24 06:52 Labs: Abnormal Lab Results - Last 24 Hours (Table) 09/24/24 09/24/24 09/24/24 Range/Units 11:46 16:24 19:59 Sodium (137-145) mmol/L Carbon Dioxide (22-30) mmol/L BUN (9-20) mg/dL POC Glucose (mg/dL) 168 H 208 H 166 H (70-110) mg/dL 09/25/24 Range/Units 06:52 Sodium 132 L (137-145) mmol/L Carbon Dioxide 32 H (22-30) mmol/L BUN 29 H (9-20) mg/dL POC Glucose (mg/dL) (70-110) mg/dL
[2024-09-25] MEDS: FUROSEMIDE 10 MG/ML 2 ML VIAL IV ONE (14:14)
[2024-09-25] MEDS: IPRATROPIUM-ALBUTEROL 3 ML NEB INHALATION SCH (16:01)
[2024-09-25 16:27] LABS: Glucose,Whole Blood 261 mg/dL (70-110)
[2024-09-25 19:58] LABS: Glucose,Whole Blood 254 mg/dL (70-110)
[2024-09-26 06:21] LABS: Glucose,Whole Blood 107 mg/dL (70-110)
[2024-09-26 08:54] VITALS: TEMP 98.7
--- NOTE | 2024-09-26 11:19 | P.PN ---
Subjective Progress Note Date: 09/26/24 HISTORY OF PRESENT ILLNESS: The patient is a 69-year-old male with prior history of smoking, history of hypertension, hyperlipidemia and CAD who presented with symptoms of chest discomfort. He was just discharged from the hospital. He had multiple admission recently with episodes of chest discomfort and has underwent coronary angiography most recently on August 17 when he was found to have mild disease in the LAD proximally and mid with no obstructive disease in the left circumflex and RCA. In March 2024 he had cardiac catheterization because of an episode of non-STEMI and at that time was found to have vasospastic disease in the mid LAD. According to him he was sitting when he had the episode of chest discomfort, with severe. He was dyspneic. At the time of my evaluation his pain has re solved after nitroglycerin sublingually. He had mild troponin elevation. On prior admission he had dynamic T wave changes anteriorly. There was a questionable episode of ventricular tachycardia during prior admission on the field with cardioversion although no rhythm strips were available. His left ventricular systolic function has been normal. According to him he has not been smoking since his last discharge. Medications: As outpatient lisinopril 5 mg daily, amlodipine 2.5 mg daily, Plavix 75 mg daily, Lipitor 40 mg daily, Flomax, isosorbide mononitrate 30 mg daily, aspirin, Ventolin 09/22/2024 Patient examined this morning at the bedside. Patient reports having shortness of breath and chest pain this morning. However, he has just gotten back from ambulating to the bathroom. He currently rates his chest pain 5/10. He also reports that his shortness of breath feels worse than yesterday. He remains on IV heparin. 2D echo remains pending. Telemetry reveals sinus bradycardia. Blood pressure stable at 122/74. 09/24/2024 Patient is status post cardiac catheterization yesterday with Dr. Roy revealing severe vasospastic disease involving the mid LAD, resolved with intracoronary nitro with normal IFR. No obstructive disease in circumflex or RCA. Patient examined this morning the bedside. Left radial cath site with pulse present. No hematoma noted. Patient states he is feeling well this morning. He denies any chest pain or pressure. He denies any shortness of b reath. Vital signs are stable. Echocardiogram completed revealing ejection fraction 50 to 55%, apical hypokinesis, mild pulmonary hypertension, mild mitral regurgitation, and mild tricuspid regurgitation. 09/25/24 Patient seen and examined. He states he is feeling okay but not ready to go home today. Blood pressure 124/61, heart rate in the 50s, pulse ox 98% on 2 L nasal cannula. Sodium 132, BUN 29 creatinine 1.04, potassium 4.2. 09/26/2024 Patient seen and examined. He states he is feeling better today and is anxious to go home. Blood pressure 132/73, heart rate 58, pulse ox 98% on room air. EKG sinus rhythm incomplete right bundle branch block. PHYSICAL EXAM: VITAL SIGNS: Reviewed. GENERAL: Well-developed in no acute distress. NECK: Supple. No JVD or thyromegaly LUNGS: Respirations even and unlabored. Lungs essentially clear to auscultation bilaterally. Patient with upper respiratory congestion during evaluation. HEART: Regular rate and rhythm. S1 and S2 heard. Systolic murmur noted. EXTREMITIES: Normal range of motion. No clubbing or cyanosis. Peripheral pulses intact. No lower extremity edema ASSESSMENT: Non-STEMI status post cardiac catheterization revealing severe vasospastic disease involving the mid LAD, resolved with intracoronary nitro with normal IFR Mild nonobstructive CAD of LAD, per cath 07/2024 History of vasospastic disease of mid LAD, March 2024 Hypertension Hyperlipidemia Former nicotine dependence PLAN: Patient's metoprolol discontinued due to bradycardia Patient's Imdur increased to 60 mg twice a day Continue additional cardiac medications: Amlodipine 5 mg daily, aspirin, Plavix, lisinopril Patient is cleared for discharge and may follow-up in the office with Dr. Roy in 1 week. Nurse practitioner note has been reviewed by physician. Signing provider agrees with the documented findings, assessment, and plan of care documented by CONCRETE PAVER as a scribe. Objective - Vital Signs Vital signs: Vital Signs Temp 98.7 F 09/26/24 08:53 Pulse 58 L 09/26/24 08:53 Resp 18 09/26/24 08:53 BP 132/73 09/26/24 08:53 Pulse Ox 98 09/26/24 08:53 FiO2 40 09/21/24 12:55 Intake & Output 09/25/24 09/26/24 09/26/24 18:59 06:59 18:59 Intake Total 540 240 Output Total 900 1050 Balance -360 -810 Weight 68.8 kg Intake: Oral 540 240 Output: Urine 900 1050 Other: Voiding Method Toilet Urinal - Labs CBC & Chem 7: 09/24/24 07:30 09/25/24 06:52 Labs: Abnormal Lab Results - Last 24 Hours (Table) 09/25/24 09/25/24 09/25/24 Range/Units 11:16 16:25 19:56 POC Glucose (mg/dL) 126 H 261 H 254 H (70-110) mg/dL
[2024-09-26 11:47] LABS: Glucose,Whole Blood 96 mg/dL (70-110)
[2024-09-26 14:05] VITALS: BP 121/67; PULSE 60; RESP 16
== END 2024-09-26 15:10 | disposition home health service (06) | DRG 280 ==
LOC: EC 12:36 → 3SCARD 14:04
PROVIDERS: ADMIT Internal Medicine; ATTEND Internal Medicine
PROC: 5A09357 Assistance with Respiratory Ventilation, Less than 24 Consecutive Hours, Continuous Positive Airway Pressure (ICD-10-PCS; principal; 2024-09-21)
PROC: B2111ZZ Fluoroscopy of Multiple Coronary Arteries using Low Osmolar Contrast (ICD-10-PCS; 2024-09-23)
PROC: 4A023N7 Measurement of Cardiac Sampling and Pressure, Left Heart, Percutaneous Approach (ICD-10-PCS; 2024-09-23 12:30)
DX: I21.4 Non-ST elevation (NSTEMI) myocardial infarction (principal); Q04.0 Congenital malformations of corpus callosum; J44.1 Chronic obstructive pulmonary disease with (acute) exacerbation; I27.20 Pulmonary hypertension, unspecified; I10 Essential (primary) hypertension; I25.10 Atherosclerotic heart disease of native coronary artery without angina pectoris; E78.5 Hyperlipidemia, unspecified; M62.838 Other muscle spasm; R00.1 Bradycardia, unspecified; I08.1 Rheumatic disorders of both mitral and tricuspid valves; R41.3 Other amnesia; Z87.891 Personal history of nicotine dependence; Z95.0 Presence of cardiac pacemaker; I25.2 Old myocardial infarction; Z79.51 Long term (current) use of inhaled steroids; Z79.899 Other long term (current) drug therapy; Z79.02 Long term (current) use of antithrombotics/antiplatelets; Z79.82 Long term (current) use of aspirin; Z86.74 Personal history of sudden cardiac arrest
CPT/HCPCS: 36415; 71045; 80048; 80053; 80061; 83735; 83880; 84484; 85025; 85610; 85730; 93306; 93458; 93799; 94640; 94660; 94760; 96365; 96366; 96375; 99291

== ENCOUNTER 2025-04-25 12:03 | Observation (INO) | payer MEDICARE, OTHER ==
[2025-04-25 12:23] LABS: Basophils # (A) 0.06 10*3/uL (0.00-0.10); Basophils % (A) 0.8 %; Eosinophils # (A) 0.20 10*3/uL (0.04-0.35); Eosinophils % (A) 2.5 %; HCT 43.2 % (39.6-50.0); HGB 14.8 g/dL (13.0-17.0); Lymphocytes # (A) 1.05 10*3/uL (0.90-5.00); Lymphocytes % (A) 13.2 %; MCH 31.2 pg (27.0-32.0); MCHC 34.3 g/dL (32.0-37.0); MCV 91.1 fL (80.0-97.0); Monocytes # (A) 0.83 10*3/uL (0.20-1.00); Monocytes % (A) 10.4 %; Neutrophils # (A) 5.80 10*3/uL (1.80-7.70); Neutrophils % (A) 72.6 %; Platelet Count 244 10*3/uL (140-440); RBC 4.74 10*6/uL (4.40-5.60); RDW 13.8 % (11.5-14.5); WBC 7.98 10*3/uL (4.50-10.00)
[2025-04-25 12:47] LABS: ALT 21 U/L (4-49); AST 27 U/L (17-59); African American GFR (CKD) >90 (>60 ml/min/1.73 sqM); Albumin 4.9 g/dL (3.5-5.0); Alkaline Phosphatase 102 U/L (38-126); Anion Gap 12 mmol/L; Blood Urea Nitrogen 27 mg/dL (9-20); Calcium 10.4 mg/dL (8.4-10.2); Carbon Dioxide 28 mmol/L (22-30); Chloride 97 mmol/L (98-107); Glucose 111 mg/dL (74-99); Magnesium 2.0 mg/dL (1.6-2.3); Non-African American GFR(CKD) 89 (>60 ml/min/1.73 sqM); Potassium 4.7 mmol/L (3.5-5.1); Sodium 137 mmol/L (137-145); Total Protein 7.4 g/dL (6.3-8.2)
--- NOTE | 2025-04-25 13:04 | XR ---
EXAMINATION TYPE: XR chest 2V DATE OF EXAM: 04/25/2025 12:57 PM COMPARISON: Multiple radiographs, with the most recent on 09/21/2024 TECHNIQUE: XR chest 2V Frontal and lateral views of the chest. CLINICAL INDICATION:Male, 69 years old with history of Chest Pain; FINDINGS: Lungs/Pleura: There is flattening of the diaphragm with increased lucency of the lungs. No evidence o f pneumothorax, pleural effusion or focal consolidation. Pulmonary vascularity: Unremarkable. Heart/mediastinum: Cardiomediastinal silhouette is unremarkable. Atherosclerotic calcifications are seen in the aorta. Musculoskeletal: No acute osseous pathology. IMPRESSION: 1. No acute cardiopulmonary disease process. 2. COPD changes. [facility], , 04/25/2025 1:02 PM
--- NOTE | 2025-04-25 13:23 | ED ---
General Adult HPI - General Chief complaint: Chest Pain Stated complaint: chest pain, numbness Time Seen by Provider: 04/25/25 12:20 Source: patient, RN notes reviewed Mode of arrival: ambulatory Limitations: no limitations - History of Present Illness Initial comments: 69-year-old male with a history of CAD, hypertension and PA presenting to the emergency room with complaints of intermittent chest pain over the past 3 days. Patient dates that the pain will start in the middle of his chest radiate up into his neck and into his head that is a sharp type of sensation. He states that he will feel mildly short of breath when this happens as well. He denies peripheral edema, fevers, chills, cough, abdominal pain, nausea or vomiting. Endorses exertional dyspnea. - Related Data Home Medications Medication Instructions Recorded Confirmed Nitroglycerin Sl Tabs [Nitrostat] 0.4 mg SL Q5M PRN 05/24/24 04/25/25 Tamsulosin [Flomax] 0.4 mg PO DAILY 08/16/24 04/25/25 Albuterol Inhaler [Ventolin Hfa 2 puff INHALATION RT-Q6H PRN 09/21/24 04/25/25 Inhaler] Famotidine [Pepcid] 20 mg PO DAILY 04/25/25 04/25/25 amLODIPine [Norvasc] 2.5 mg PO DAILY 04/25/25 04/25/25 hydroCHLOROthiazide [Hydrodiuril] 25 mg PO DAILY 04/25/25 04/25/25 Previous Rx's Medication Instructions Recorded Aspirin 81 mg PO DAILY tab 04/12/24 Atorvastatin [Lipitor] 40 mg PO DAILY #90 tab 04/12/24 Clopidogrel [Plavix] 75 mg PO DAILY #90 tab 04/12/24 Pantoprazole [Protonix] 40 mg PO BID #60 tab 09/04/24 lisinopriL [Zestril] 5 mg PO DAILY #30 tab 09/18/24 Isosorbide Mononitrate ER [Imdur] 60 mg PO BID #60 tab 09/26/24 Allergies Allergy/AdvReac Type Severity Reaction Status Date / Time No Known Allergies Allergy Verified 04/25/25 16:00 Review of Systems ROS Statement: Those systems with pertinent positive or pertinent negative responses have been documented in the HPI. ROS Other: All systems not noted in ROS Statement are negative. 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 Last Myocardial Infarction Date:: unknown History of Any Multi-Drug Resistant Organisms: None Reported Past Surgical History: Heart Catheterization, Orthopedic Surgery, Pacemaker Additional Past Surgical History / Comment(s): finger surgeries from work related accidents. , pt thinks he had heart cath with balloon dilation. Past Anesthesia/Blood Transfusion Reactions: No Reported Reaction Date of Last Stent Placement:: unknown Type of Cardiac Device: Unknown Device Placement Date:: not sure Past Psychological History: Depression Smoking Status: Former smoker Past Alcohol Use History: None Reported Past Drug Use History: None Reported - Past Family History Mother Family Medical History: Cancer, Diabetes Mellitus Father Family Medical History: Cancer, Diabetes Mellitus General Exam Limitations: no limitations Respiratory exam: Present: normal lung sounds bilaterally. Absent: respiratory distress, wheezes, rales, rhonchi, stridor Cardiovascular Exam: Present: regular rate, normal rhythm, normal heart sounds. Absent: systolic murmur, diastolic murmur, rubs, gallop, clicks GI/Abdominal exam: Present: soft, normal bowel sounds. Absent: distended, tenderness, guarding, rebound, rigid Extremities exam: Present: normal inspection, full ROM, normal capillary refill. Absent: tenderness, pedal edema, joint swelling, calf tenderness Back exam: Present: normal inspection Course Vital Signs 04/25/25 04/25/25 04/25/25 12:05 13:09 15:00 Temperature 98.1 F Pulse Rate 61 60 53 L Respiratory 22 16 18 Rate Blood Pressure 126/65 123/84 122/73 O2 Sat by Pulse 97 97 98 Oximetry 04/25/25 04/25/25 16:00 17:00 Temperature Pulse Rate 56 L 57 L Respiratory 16 16 Rate Blood Pressure 114/73 132/88 O2 Sat by Pulse 97 97 Oximetry Medical Decision Making - Medical Decision Making Was pt. sent in by a medical professional or institution ([facility], [facility], urgent care, hospital, or senior care...) When possible be specific @ -No Did you speak to anyone other than the patient for history (EMS, parent, family, police, friend...)? What history was obtained from this source @ -No Did you review nursing and triage notes (agree or disagree)? Why? @ -I reviewed and agree with nursing and triage notes Were old charts reviewed (outside hosp., previous admission, EMS record, old EKG, old radiological studies, urgent care reports/EKG's, senior care records)? Report findings @ -No old charts were reviewed Differential Diagnosis (chest pain, altered mental status, abdominal pain women, abdominal pain men, vaginal bleeding, weakness, fever, dyspnea, syncope, headache, dizziness, GI bleed, back pain, seizure, CVA, palpatations, mental he alth, musculoskeletal)? @ -Differential Chest Pain: Stable Angina, Unstable Angina, STEMI, NSTEMI Aortic Dissection, Pneumothorax, Musculoskeletal, Esophageal Spasm GERD, Cholecystitis, Pancreatitis, Zoster, this is not meant to be an all-inclusive list. EKG interpreted by me (3pts min.). @ -Completed at 1210 sinus rhythm with a right bundle branch block, ventricular rate of 68, LA interval 162, QRS 170, QT 402, QTc 419. X-rays interpreted by me (1pt min.). @ -None done CT interpreted by me (1pt min.). @ -None done U/S interpreted by me (1pt. min.). @ -None done What testing was considered but not performed or refused? (CT, X-rays, U/S, labs)? Why? @ -None What meds were considered but not given or refused? Why? @ -None Did you discuss the management of the patient with other professionals (professionals i.e. [facility], [facility], lab, RT, psych nurse, social science teacher, security professional, teacher, fisheries technical officer, rehabilitation caseworker)? Give summary @ -I spoke with Laine, from [facility], who has agreed to admit the patient for cardiac obs. Was smoking cessation discussed for >3mins.? @ -No Was critical care preformed (if so, how long)? @ -No Were there social determinants of health that impacted care today? How? (Homelessness, low income, unemployed, alcoholism, drug addiction, transportat ion, low edu. Level, literacy, decrease access to med. care, fdc, rehab)? @ -No Was there de-escalation of care discussed even if they declined (Discuss DNR or withdrawal of care, Hospice)? DNR status @ -No What co-morbidities impacted this encounter? (DM, HTN, Smoking, COPD, CAD, Cancer, CVA, ARF, Chemo, Hep., AIDS, mental health diagnosis, sleep apnea, morbid obesity)? @ -None Was patient admitted / discharged? Hospital course, mention meds given and route, prescriptions, significant lab abnormalities, going to OR and other pertinent info. @ -admitted. 69-year-old male presenting with chest pain and headache. Overall patient is well-appearing no signs distress. His initial vitals are stable. Patient states that he is having a headache at this time and is denying active chest pain. EKG is in sinus rhythm. Patient read with dose of morphine for pain relief. Initial laboratory testing including CBC, CMP, troponin is unremarkable. Chest x-ray reveals no acute process. Patient will be admitted to internal medicine with cardiology consult for cardiac observation. Case discussed with Dr. Nielsen Undiagnosed new problem with uncertain prognosis? @ -No Drug Therapy requiring intensive monitoring for toxicity (Heparin, Nitro, Insulin, Cardizem)? @ -No Were any procedures done? @ -No Diagnosis/symptom? @ -Chest pain, headache Acute, or Chronic, or Acute on Chronic? @ -Acute Uncomplicated (without systemic symptoms) or Complicated (systemic symptoms)? @ -Complicated Side effects of treatment? @ -No Exacerbation, Progression, or Severe Exacerbation? @ -No Poses a threat to life or bodily function? How? (Chest pain, USA, PA, pneumonia, PE, COPD, DKA, ARF, appy, cholecystitis, CVA, Diverticulitis, Homicidal, Suicidal, threat to staff... and all critical care pts) @ -No - Lab Data Result diagrams: 04/25/25 12:18 04/25/25 12:18 Lab Results 04/25/25 04/25/25 04/25/25 Range/Units 12:18 12:18 12:18 WBC 7.98 (4.50-10.00) 10*3/uL RBC 4.74 (4.40-5.60) 10*6/uL Hgb 14.8 (13.0-17.0) g/dL Hct 43.2 (39.6-50.0) % MCV 91.1 (80.0-97.0) fL MCH 31.2 (27.0-32.0) pg MCHC 34.3 (32.0-37.0) g/dL Plt Count 244 (140-440) 10*3/uL MPV 9.5 (9.5-12.2) fL Immature Gran % (Auto) 0.5 % Neutrophils % 72.6 % Lymphocytes % 13.2 % Monocytes % 10.4 % Eosinophils % 2.5 % Basophils % 0.8 % Immature Gran # 0.04 (0.00-0.04) 10*3/uL Neutrophils # 5.80 (1.80-7.70) 10*3/uL Lymphocytes # 1.05 (0.90-5.00) 10*3/uL Monocytes # 0.83 (0.20-1.00) 10*3/uL Eosinophils # 0.20 (0.04-0.35) 10*3/uL Basophils # 0.06 (0.00-0.10) 10*3/uL PT (10.0-12.5) sec INR (<1.2) APTT (22.0-30.0) sec Sodium 137 (137-145) mmol/L Potassium 4.7 (3.5-5.1) mmol/L Chloride 97 L (98-107) mmol/L Carbon Dioxide 28 (22-30) mmol/L Anion Gap 12 mmol/L BUN 27 H (9-20) mg/dL Creatinine 0.89 (0.66-1.25) mg/dL Est GFR (CKD-EPI)AfAm >90 (>60 ml/min/1.73 sqM) Est GFR (CKD-EPI)NonAf 89 (>60 ml/min/1.73 sqM) Glucose 111 H (74-99) mg/dL Calcium 10.4 H (8.4-10.2) mg/dL Magnesium 2.0 (1.6-2.3) mg/dL Total Bilirubin 1.2 (0.2-1.3) mg/dL AST 27 (17-59) U/L ALT 21 (4-49) U/L Alkaline Phosphatase 102 (38-126) U/L Troponin I 0.012 (0.000-0.034) ng/mL Total Protein 7.4 (6.3-8.2) g/dL Albumin 4.9 (3.5-5.0) g/dL 04/25/25 Range/Units 13:41 WBC (4.50-10.00) 10*3/uL RBC (4.40-5.60) 10*6/uL Hgb (13.0-17.0) g/dL Hct (39.6-50.0) % MCV (80.0-97.0) fL MCH (27.0-32.0) pg MCHC (32.0-37.0) g/dL Plt Count (140-440) 10*3/uL MPV (9.5-12.2) fL Immature Gran % (Auto) % Neutrophils % % Lymphocytes % % Monocytes % % Eosinophils % % Basophils % % Immature Gran # (0.00-0.04) 10*3/uL Neutrophils # (1.80-7.70) 10*3/uL Lymphocytes # (0.90-5.00) 10*3/uL Monocytes # (0.20-1.00) 10*3/uL Eosinophils # (0.04-0.35) 10*3/uL Basophils # (0.00-0.10) 10*3/uL PT 11.0 (10.0-12.5) sec INR 1.0 (<1.2) APTT 25.6 (22.0-30.0) sec Sodium (137-145) mmol/L Potassium (3.5-5.1) mmol/L Chloride (98-107) mmol/L Carbon Dioxide (22-30) mmol/L Anion Gap mmol/L BUN (9-20) mg/dL Creatinine (0.66-1.25) mg/dL Est GFR (CKD-EPI)AfAm (>60 ml/min/1.73 sqM) Est GFR (CKD-EPI)NonAf (>60 ml/min/1.73 sqM) Glucose (74-99) mg/dL Calcium (8.4-10.2) mg/dL Magnesium (1.6-2.3) mg/dL Total Bilirubin (0.2-1.3) mg/dL AST (17-59) U/L ALT (4-49) U/L Alkaline Phosphatase (38-126) U/L Troponin I (0.000-0.034) ng/mL Total Protein (6.3-8.2) g/dL Albumin (3.5-5.0) g/dL Disposition Clinical Impression: Chest pain Disposition: ADMITTED IP TO THIS [facility] Condition: Stable Decision to Admit Reason: Admit from EC Decision Date: 04/25/25 Decision Time: 17:30
[2025-04-25] MEDS: MORPHINE SULFATE 4 MG/ML SYRINGE IVP STA (13:27)
[2025-04-25 14:02] LABS: INR 1.0 (<1.2); Partial Thromboplastin Time 25.6 sec (22.0-30.0); Prothrombin Time 11.0 sec (10.0-12.5)
[2025-04-25] MEDS ORDERED: NALOXONE 0.4 MG/ML 1 ML VIAL IV PRN (14:25)
[2025-04-25] MEDS ORDERED: MORPHINE SULFATE 4 MG/ML SYRINGE IV PRN (14:25)
[2025-04-25] MEDS ORDERED: ONDANSETRON 4 MG/2 ML VIAL IVP PRN (14:25)
[2025-04-25] MEDS ORDERED: HYDROmorphone 0.5 MG/0.5 ML SYRINGE IVP PRN (16:56)
[2025-04-25] MEDS ORDERED: HYDROcodone/APAP 5-325MG 1 EACH TAB PO PRN (16:56)
[2025-04-25] MEDS: SYMBICORT 160-4.5 MCG INHALER INHALATION SCH (17:27)
[2025-04-25] MEDS: IPRATROPIUM-ALBUTEROL 3 ML NEB INHALATION SCH (17:27)
--- NOTE | 2025-04-25 17:44 | HP ---
HISTORY AND PHYSICAL CHIEF COMPLAINT: Chest pain, shortness of breath, cough. HISTORY OF PRESENT ILLNESS: This 69-year-old gentleman with a past medical history of multiple medical problems including COPD, CAD, was complaining of chest pain, which was felt in the anterior part of chest, which is increasing with exertion and respirations. The patient also had some shortness of breath and cough and sputum also. There is no history of fever, rigors, chills. PAST MEDICAL HISTORY: History of CAD, COPD, GERD. Rest of the history and chart is also reviewed. HOME MEDICATIONS: Reviewed include nitroglycerin. Dose and rest of medications reviewed. ALLERGIES: None. FAMILY HISTORY: History of diabetes and cancer. SOCIAL HISTORY: Previous history of smoking. REVIEW OF SYSTEMS: A 14-point review of systems negative except as mentioned earlier. PHYSICAL EXAMINATION: VITAL SIGNS: Pulse is 53, blood pressure 120/70, respirations 18. HEENT: Conjunctivae normal. NECK: No JVD. CARDIOVASCULAR: S1, S2. RESPIRATIONS: Bilateral scattered rhonchi and expiratory wheezing and harsh breathing in the posterior parts. LEGS: No edema NERVOUS SYSTEM: No focal deficits. LABORATORY DATA: Reviewed. Calcium is 10.4. The EKG shows nonspecific ST-T changes. The chest x-ray which I reviewed personally showed increased bronchovascular markings. ASSESSMENT: 1. Chest pain, possible unstable angina. 2. Chronic obstructive pulmonary disease acute exacerbation with acute purulent tracheobronchitis. 3. History of coronary artery disease. 4. Gastroesophageal reflux disease. 5. Hypertension. 6. History of myocardial infarction. RECOMMENDATIONS: This 69-year-old gentleman presented with multiple complex medical issues. We will monitor the patient closely. I would recommend symptomatic treatment, Cardiology, Pulmonology consultations, rule out myocardial infarction. Resume the home medications once they are confirmed. Bronchodilators, steroids. Also recommend empiric antibiotics. Prognosis guarded. Further recommendations to follow. MMODL / IJN: [id number] /
[2025-04-25] MEDS: methylPREDNISolone SOD SUCCI 125 MG/2 ML VIAL IV SCH (18:02)
[2025-04-25] MEDS: PANTOPRAZOLE 40 MG TABLET PO SCH (21:11)
[2025-04-25] MEDS: ISOSORBIDE MONONITRATE ER 60 MG TAB.ER.24H PO SCH (21:11)
[2025-04-25] MEDS: ACETAMINOPHEN TAB 325 MG TAB PO PRN (21:14)
[2025-04-25] MEDS: cefTRIAXone IN SWFI 1,000 MG/10 ML SYRINGE IVP STA (22:48)
[2025-04-26] MEDS: amLODIPine 2.5 MG TAB PO SCH (08:22)
[2025-04-26] MEDS: FAMOTIDINE 20 MG TAB PO SCH (08:22)
[2025-04-26] MEDS: hydroCHLOROthiazide 25 MG TAB PO SCH (08:22)
[2025-04-26] MEDS: ASPIRIN 81 MG PO SCH (08:22)
[2025-04-26] MEDS: CLOPIDOGREL 75 MG TAB PO SCH (08:22)
[2025-04-26] MEDS: ATORVASTATIN 40 MG TAB PO SCH (08:22)
[2025-04-26] MEDS: TAMSULOSIN 0.4 MG CAP.ER.24H PO SCH (08:22)
[2025-04-26 12:01] LABS: Basophils # (A) 0.01 X 10*3/uL (0.00-0.10); Basophils % (A) 0.2 %; Eosinophils # (A) 0 X 10*3/uL (0.04-0.35); Eosinophils % (A) 0 %; HCT 43.8 % (39.6-50.0); HGB 14.7 g/dL (13.0-17.0); Immature Grans, Automated 0.60 %; Lymphocytes # (A) 0.62 X 10*3/uL (0.90-5.00); Lymphocytes % (A) 9.8 %; MCH 30.6 pg (27.0-32.0); MCHC 33.6 g/dL (32.0-37.0); MCV 91.3 FL (80.0-97.0); Monocytes # (A) 0.11 X 10*3/uL (0.20-1.00); Monocytes % (A) 1.7 %; NRBC Per 100 WBC 0 X 10*3/uL (0.00-0.01); Neutrophils # (A) 5.52 X 10*3/uL (1.80-7.70); Neutrophils % (A) 87.7 %; Platelet Count 250 X 10*3/uL (140-440); RBC 4.80 X 10*6/uL (4.40-5.60); RDW 13.7 % (11.5-14.5); WBC 6.30 X 10*3/uL (4.50-10.00)
[2025-04-26 12:31] LABS: Bilirubin,Urine Negative (Negative); Blood,Urine Negative (Negative); Color,Urine Light Yellow; Glucose,Urine (UA) 4+ (Negative); Ketones,Urine Trace (Negative); Leukocyte Esterase,Urine Negative (Negative); Nitrite,Urine Negative (Negative); PH, Urine 5.5 (5.0-8.0); Protein,Urine Negative (Negative); Specific Gravity,Urine 1.025 (1.001-1.035); Urobilinogen,Urine <2.0 mg/dL (<2.0)
--- NOTE | 2025-04-26 12:34 | P.CRDCN ---
History of Present Illness History of present illness: HISTORY OF PRESENT ILLNESS: This is a 69-year-old male with a past medical history significant for vasospastic disease of the coronaries, hypertension, and hyperlipidemia. Patient follows in the office with Dr. Roy. We have been asked to see the patient in consultation for chest pain. Patient examined at the bedside. Patient states he was having some chest discomfort yesterday in the middle of his chest. He denied any radiation of the pain. Denied any shortness of breath. Patient states he is feeling well this morning and has not had any further episodes of chest pain. DIAGNOSTICS: - EKG reveals sinus mechanism with no signs of acute ischemia. - Chest xray negative for acute process. COPD changes. - Laboratory data: Troponin negative x 3 - Most recent echocardiogram obtained in August 2024 revealing EF 52% with apical hypokinesis - Cardiac catheterization history: August 2024 revealing mild CAD in the mid LAD with severe vasospastic disease that resolved with intracoronary nitro REVIEW OF SYSTEMS: At the time of my exam: CONSTITUTIONAL: Denies fever or chills. HEENT: Denies blurred vision, vision changes, or eye pain. Denies hemoptysis CARDIOVASCULAR: Denies chest pain. Denies orthopnea. Denies PND. Denies palpitations RESPIRATORY: Denies shortness of breath. GASTROINTESTINAL: Denies abdominal pain. Denies nausea or vomiting. HEMATOLOGIC: Denies bleeding disorders. GENITOURINARY: Denies any blood in urine. SKIN: Denies pruitis. Denies rash. PHYSICAL EXAM: VITAL SIGNS: Reviewed. GENERAL: Well-developed in no acute distress. HEENT: Head is normocephalic. Pupils are equal, round. Sclerae anicteric. Mucous membranes of the mouth are moist. Neck supple. No JVD or thyromegaly LUNGS: Respirations even and unlabored. Lungs essentially clear to auscultation bilaterally. HEART: Regular rate and rhythm. S1 and S2 heard. ABDOMEN: Soft. Nondistended. Nontender. EXTREMITIES: Normal range of motion. No clubbing or cyanosis. Peripheral pulses intact. No lower extremity edema NEUROLOGIC: Awake and alert. Oriented x 3. ASSESSMENT: Chest pain, troponin negative x 3 History of vasospastic disease of the coronary arteries Hypertension Hyperlipidemia PLAN: An acute coronary event has been ruled out Resume home cardiac medications Patient is stable for discharge home today from a cardiac standpoint Patient to follow-up in the office with Dr. Roy Nurse practitioner note has been reviewed by physician. Signing provider agrees with the documented findings, assessment, and plan of care documented by REFINERY OPERATOR COKING as a scribe. 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 Last Myocardial Infarction Date:: unknown History of Any Multi-Drug Resistant Organisms: None Reported Past Surgical History: Heart Catheterization, Orthopedic Surgery, Pacemaker Additional Past Surgical History / Comment(s): finger surgeries from work related accidents. , pt thinks he had heart cath with balloon dilation. Past Anesthesia/Blood Transfusion Reactions: No Reported Reaction Date of Last Stent Placement:: unknown Type of Cardiac Device: Unknown Device Placement Date:: not sure Past Psychological History: Depression Smoking Status: Former smoker Past Alcohol Use History: None Reported Additional Past Alcohol Use History / Comment(s): quit smoking 2 months ago., hx of 1 1/2 to 2 ppd - cigarettes and cigars. Past Drug Use History: None Reported - Past Family History Mother Family Medical History: Cancer, Diabetes Mellitus Father Family Medical History: Cancer, Diabetes Mellitus Medications and Allergies Home Medications Medication Instructions Recorded Confirmed Type Aspirin 81 mg PO DAILY tab 04/12/24 04/25/25 Rx Atorvastatin [Lipitor] 40 mg PO DAILY #90 tab 04/12/24 04/25/25 Rx Clopidogrel [Plavix] 75 mg PO DAILY #90 tab 04/12/24 04/25/25 Rx Nitroglycerin Sl Tabs [Nitrostat] 0.4 mg SL Q5M PRN 05/24/24 04/25/25 History Tamsulosin [Flomax] 0.4 mg PO DAILY 08/16/24 04/25/25 History Pantoprazole [Protonix] 40 mg PO BID #60 tab 09/04/24 04/25/25 Rx lisinopriL [Zestril] 5 mg PO DAILY #30 tab 09/18/24 04/25/25 Rx Albuterol Inhaler [Ventolin Hfa 2 puff INHALATION RT-Q6H PRN 09/21/24 04/25/25 History Inhaler] Isosorbide Mononitrate ER [Imdur] 60 mg PO BID #60 tab 09/26/24 04/25/25 Rx Famotidine [Pepcid] 20 mg PO DAILY 04/25/25 04/25/25 History amLODIPine [Norvasc] 2.5 mg PO DAILY 04/25/25 04/25/25 History hydroCHLOROthiazide [Hydrodiuril] 25 mg PO DAILY 04/25/25 04/25/25 History Acetaminophen Tab [Tylenol] 650 mg PO Q6HR PRN tab 04/26/25 Rx Budesonide-Formot 160-4.5 Mcg 2 puff INHALATION RT-BID #1 each 04/26/25 Rx [Symbicort 160-4.5 Mcg Inhaler] cefuroxime axetiL [Ceftin] 500 mg PO BID 5 Days #10 tab 04/26/25 Rx predniSONE See Taper PO DIRECTED #30 tab 04/26/25 Rx Allergies Allergy/AdvReac Type Severity Reaction Status Date / Time No Known Allergies Allergy Verified 04/25/25 16:00 Physical Exam Vitals: Vital Signs Temp Pulse Pulse Pulse Resp BP BP 04/26/25 11:28 76 04/26/25 11:17 72 04/26/25 07:00 98.1 F 68 18 114/69 04/26/25 06:28 74 18 04/26/25 06:22 71 18 04/26/25 04:00 97.7 F 69 17 126/55 04/26/25 02:00 66 18 102/63 04/25/25 22:59 65 04/25/25 22:52 60 132/83 04/25/25 22:50 60 04/25/25 19:40 59 L 16 115/73 04/25/25 18:04 55 L 16 111/67 04/25/25 17:00 57 L 16 132/88 04/25/25 16:00 56 L 16 114/73 04/25/25 15:00 53 L 18 122/73 04/25/25 13:09 60 16 123/84 Pulse Ox 04/26/25 11:28 04/26/25 11:17 04/26/25 07:00 96 04/26/25 06:28 04/26/25 06:22 04/26/25 04:00 98 04/26/25 02:00 92 L 04/25/25 22:59 04/25/25 22:52 04/25/25 22:50 04/25/25 19:40 91 L 04/25/25 18:04 94 L 04/25/25 17:00 97 04/25/25 16:00 97 04/25/25 15:00 98 04/25/25 13:09 97 Intake and Output 04/25/25 04/26/25 04/26/25 22:59 06:59 14:59 Other: Voiding Method Toilet Urinal # Voids 2 1 Weight 49.895 kg Results 04/26/25 06:38 04/25/25 12:18 Cardiac Enzymes 04/25/25 04/25/25 04/25/25 Range/Units 12:18 12:18 14:37 AST 27 (17-59) U/L Troponin I 0.012 <0.012 (0.000-0.034) ng/mL 04/25/25 Range/Units 17:31 AST (17-59) U/L Troponin I <0.012 (0.000-0.034) ng/mL Coagulation 04/25/25 Range/Units 13:41 PT 11.0 (10.0-12.5) sec APTT 25.6 (22.0-30.0) sec CBC 04/25/25 04/26/25 Range/Units 12:18 06:38 WBC 7.98 6.30 (4.50-10.00) 10*3/uL RBC 4.74 4.80 (4.40-5.60) 10*6/uL Hgb 14.8 14.7 (13.0-17.0) g/dL Hct 43.2 43.8 (39.6-50.0) % Plt Count 244 250 (140-440) 10*3/uL Comprehensive Metabolic Panel 04/25/25 Range/Units 12:18 Sodium 137 (137-145) mmol/L Potassium 4.7 (3.5-5.1) mmol/L Chloride 97 L (98-107) mmol/L Carbon Dioxide 28 (22-30) mmol/L BUN 27 H (9-20) mg/dL Creatinine 0.89 (0.66-1.25) mg/dL Glucose 111 H (74-99) mg/dL Calcium 10.4 H (8.4-10.2) mg/dL AST 27 (17-59) U/L ALT 21 (4-49) U/L Alkaline Phosphatase 102 (38-126) U/L Total Protein 7.4 (6.3-8.2) g/dL Albumin 4.9 (3.5-5.0) g/dL Current Medications Generic Name Dose Route Start Last Admin Trade Name Freq PRN Reason Stop Dose Admin Acetaminophen 650 mg 04/25/25 14:25 04/25/25 21:14 Acetaminophen Tab 325 Mg Tab PO 650 mg Q6HR PRN Administration Mild Pain or Fever > 100.5 Hydrocodone Bitart/Acetaminophen 1 each 04/25/25 16:56 Hydrocodone/Apap 5-325mg 1 Each Tab PO Q6HR PRN Pain Albuterol/Ipratropium 3 ml 04/25/25 17:30 04/26/25 11:15 Ipratropium-Albuterol 3 Ml Neb INHALATION 3 ml RT-QID FRANTZ Administration Amlodipine Besylate 2.5 mg 04/26/25 09:00 04/26/25 08:22 Amlodipine 2.5 Mg Tab PO 2.5 mg DAILY FRANTZ Administration Aspirin 81 mg 04/26/25 09:00 04/26/25 08:22 Aspirin 81 Mg PO 81 mg DAILY FRANTZ Administration Atorvastatin Calcium 40 mg 04/26/25 09:00 04/26/25 08:22 Atorvastatin 40 Mg Tab PO 40 mg DAILY FRANTZ Administration Budesonide/Formoterol Fumarate 2 puff 04/25/25 16:56 04/26/25 06:22 Symbicort 160-4.5 Mcg Inhaler INHALATION 2 puff RT-BID FRANTZ Administration Clopidogrel Bisulfate 75 mg 04/26/25 09:00 04/26/25 08:22 Clopidogrel 75 Mg Tab PO 75 mg DAILY FRANTZ Administration Famotidine 20 mg 04/26/25 09:00 04/26/25 08:22 Famotidine 20 Mg Tab PO 20 mg DAILY FRANTZ Administration Hydrochlorothiazide 25 mg 04/26/25 09:00 04/26/25 08:22 Hydrochlorothiazide 25 Mg Tab PO 25 mg DAILY FRANTZ Administration Hydromorphone HCl 0.5 mg 04/25/25 16:56 Hydromorphone 0.5 Mg/0.5 Ml Syringe IVP Q6HR PRN Severe Pain (Scale 7 to 10) Ceftriaxone Sodium 1 gm/ 50 mls @ 100 mls/hr 04/25/25 18:00 04/25/25 18:04 Sodium Chloride IVPB 100 mls/hr Q24H FRANTZ Administration Protocol Isosorbide Mononitrate 60 mg 04/25/25 21:00 04/26/25 08:22 Isosorbide Mononitrate Er 60 Mg Tab.Er.24h PO 60 mg BID FRANTZ Administration Lisinopril 5 mg 04/26/25 09:00 04/26/25 08:22 Lisinopril 5 Mg Tab PO 5 mg DAILY FRANTZ Administration Methylprednisolone Sodium Succinate 60 mg 04/25/25 18:00 04/26/25 06:08 Methylprednisolone Sod Succi 125 Mg/2 Ml Vial IV 60 mg Q6HR FRANTZ Administration Naloxone HCl 0.2 mg 04/25/25 14:25 Naloxone 0.4 Mg/Ml 1 Ml Vial IV Q2M PRN Opioid Reversal Ondansetron HCl 4 mg 04/25/25 14:25 Ondansetron 4 Mg/2 Ml Vial IVP Q8HR PRN Nausea And Vomiting Pantoprazole Sodium 40 mg 04/25/25 21:00 04/26/25 08:22 Pantoprazole 40 Mg Tablet PO 40 mg BID FRANTZ Administration Tamsulosin HCl 0.4 mg 04/26/25 09:00 04/26/25 08:22 Tamsulosin 0.4 Mg Cap.Er.24h PO 0.4 mg DAILY FRANTZ Administration Intake and Output 04/25/25 04/26/25 04/26/25 22:59 06:59 14:59 Other: Voiding Method Toilet Urinal # Voids 2 1 Weight 49.895 kg 04/26/25 06:38 04/25/25 12:18
[2025-04-26 13:36] VITALS: BMI 17.2
[2025-04-26 13:44] LABS: ALT 22 U/L (10-49); AST 28 U/L (14-35); Albumin 4.5 g/dL (3.8-4.9); Albumin/Globulin Ratio 1.96 Ratio (1.60-3.17); Alkaline Phosphatase 90 U/L (41-126); Anion Gap 15.60 mmol/L (4.00-12.00); BUN/Creat Ratio 23.27 Ratio (12.00-20.00); Blood Urea Nitrogen 25.6 mg/dL (9.0-27.0); Calcium 9.5 mg/dL (8.7-10.3); Carbon Dioxide 19.4 mmol/L (21.6-31.8); Chloride 97 mmol/L (96-109); Globulin 2.3 g/dL (1.6-3.3); Glucose 156 mg/dL (70-110); Potassium 4.6 mmol/L (3.5-5.5); Sodium 132 mmol/L (135-145); Total Protein 6.8 g/dL (6.2-8.2)
[2025-04-26 14:55] VITALS: BP 104/66; RESP 17; TEMP 98.6
[2025-04-26 15:29] VITALS: PULSE 76
--- NOTE | 2025-04-28 11:27 | P.DS ---
Providers Date of admission: 04/25/25 14:00 Expected date of discharge: 04/26/25 Attending physician: Alonzo Nelson MD Consults: 04/25/25 14:25 Consult Physician Routine Consulting Provider: [facility] Consult Reason/Comments: chest pain Do you want consulting provider notified?: Yes, Notify in am [facility] Course: Final diagnosis Chest pain, likely unstable angina, ACS. COPD, acute exacerbation with acute purulent tracheobronchitis History of coronary artery disease GERD Hypertension History of myocardial infarction GI prophylaxis DVT prophylaxis Full code Discharge disposition Patient is being discharged in a stable condition with guarded prognosis to home. Patient will follow-up with Dr. Ximena Plasencia in the outpatient setting upon discharge. Patient is to continue with breathing treatments and a quick prednisone taper and outpatient follow-up with pulmonary as scheduled. Patient to follow-up with cardiology outpatient. Total time taken is greater than 35 minutes. Hospital course This is a 69-year-old male who was recently admitted with chest pain and some shortness of breath being closely monitored. Patient evaluated by cardiology and ACS ruled out recommending to continue with current medications and outpatient follow-up. Patient also noted to have shortness of breath with history of COPD, likely acute exacerbation showing some improvements with IV steroids and breathing treatments. Patient will be continued on a quick prednisone taper and recommend close outpatient follow-up with primary care provider as well as pulmonary. Would recommend outpatient follow-up with urology also regarding his chronic morbidities. Currently no reports of chest pain, no worsening shortness of breath, or palpitations. Patient is afebrile. No reports of nausea or vomiting and patient is tolerating diet. Patient will be discharged home today. Guarded prognosis and high risk for readmission given significant comorbidities. Physical exam: Gen: This is a 69-year-old male who is awake, alert and oriented x 3, well- developed, elderly appearing, cachectic HEENT: Head is atraumatic, normocephalic. Pupils equal, round. Sclerae is anicteric. NECK: Supple. No JVD. No lymphadenopathy. No thyromegaly. LUNGS: Diminished breath sounds bilaterally with a few expiratory wheezes and coarse rhonchi. No intercostal retractions. HEART: S1, S2 are muffled ABDOMEN: Soft. Bowel sounds are present. No masses. No tenderness. EXTREMITIES: No pedal edema. No calf tenderness. NEUROLOGICAL: Patient is awake, alert and oriented x3. Cranial nerves 2 through 12 are grossly intact. Please refer to medication reconciliation sheet for a list of medications. The impression and plan of care has been dictated by Laine Daniels, Nurse Practitioner as directed. Dr. Luis Angel MD I have performed a history and examination and MDM of this patient, discussed the same with the dictator, and agree with the dictator's assessment and plan as written ,documented as a scribe. Based on total visit time, I have performed more than 50% of the visit. Patient Condition at Discharge: Stable Plan - Discharge Summary New Discharge Prescriptions: New cefuroxime axetiL [Ceftin] 500 mg PO BID 5 Days #10 tab predniSONE See Taper PO DIRECTED #30 tab Budesonide-Formot 160-4.5 Mcg [Symbicort 160-4.5 Mcg Inhaler] 2 puff INHALATION RT-BID #1 each Acetaminophen Tab [Tylenol] 650 mg PO Q6HR PRN tab PRN Reason: Mild Pain Or Fever > 100.5 Continue Clopidogrel [Plavix] 75 mg PO DAILY #90 tab Tamsulosin [Flomax] 0.4 mg PO DAILY lisinopriL [Zestril] 5 mg PO DAILY #30 tab Famotidine [Pepcid] 20 mg PO DAILY hydroCHLOROthiazide [Hydrodiuril] 25 mg PO DAILY Aspirin 81 mg PO DAILY tab Atorvastatin [Lipitor] 40 mg PO DAILY #90 tab Nitroglycerin Sl Tabs [Nitrostat] 0.4 mg SL Q5M PRN PRN Reason: Chest Pain Pantoprazole [Protonix] 40 mg PO BID #60 tab Albuterol Inhaler [Ventolin Hfa Inhaler] 2 puff INHALATION RT-Q6H PRN PRN Reason: Shortness Of Breath Isosorbide Mononitrate ER [Imdur] 60 mg PO BID #60 tab amLODIPine [Norvasc] 2.5 mg PO DAILY Discharge Medication List Aspirin 81 mg PO DAILY tab 04/12/24 [Rx] Atorvastatin [Lipitor] 40 mg PO DAILY #90 tab 04/12/24 [Rx] Clopidogrel [Plavix] 75 mg PO DAILY #90 tab 04/12/24 [Rx] Nitroglycerin Sl Tabs [Nitrostat] 0.4 mg SL Q5M PRN 05/24/24 [History] Tamsulosin [Flomax] 0.4 mg PO DAILY 08/16/24 [History] Pantoprazole [Protonix] 40 mg PO BID #60 tab 09/04/24 [Rx] lisinopriL [Zestril] 5 mg PO DAILY #30 tab 09/18/24 [Rx] Albuterol Inhaler [Ventolin Hfa Inhaler] 2 puff INHALATION RT-Q6H PRN 09/21/24 [History] Isosorbide Mononitrate ER [Imdur] 60 mg PO BID #60 tab 09/26/24 [Rx] Famotidine [Pepcid] 20 mg PO DAILY 04/25/25 [History] amLODIPine [Norvasc] 2.5 mg PO DAILY 04/25/25 [History] hydroCHLOROthiazide [Hydrodiuril] 25 mg PO DAILY 04/25/25 [History] Acetaminophen Tab [Tylenol] 650 mg PO Q6HR PRN tab 04/26/25 [Rx] Budesonide-Formot 160-4.5 Mcg [Symbicort 160-4.5 Mcg Inhaler] 2 puff INHALATION RT-BID #1 each 04/26/25 [Rx] cefuroxime axetiL [Ceftin] 500 mg PO BID 5 Days #10 tab 04/26/25 [Rx] predniSONE See Taper PO DIRECTED #30 tab 04/26/25 [Rx] Follow up Appointment(s)/Referral(s): Zay Roy MD [STAFF PHYSICIAN] - 05/01/25 3:30 pm Baron Shaver MD [STAFF PHYSICIAN] - 2 Weeks (Please obtain referral from Primary Care for Urology.) Lillie Richards MD [Primary Care Provider] - 1-2 days [facility] Visiting Nurse, [NON-STAFF] - As Needed (Start of Care April 30, 2025) Activity/Diet/Wound Care/Special Instructions: Activity in the limited until follow-up Follow-up with primary care provider outpatient Follow-up with cardiology outpatient Follow-up with urology outpatient Continue taking medications as prescribed Continue with inhalers Discharge Disposition: HOME SELF-CARE
== END 2025-04-26 15:37 | disposition home or self-care (01) ==
LOC: EC 12:03 → 6NMEDSUR 14:00
PROVIDERS: ADMIT Internal Medicine; ATTEND Internal Medicine
DX: R07.89 Other chest pain (principal); J44.1 Chronic obstructive pulmonary disease with (acute) exacerbation; J44.0 Chronic obstructive pulmonary disease with (acute) lower respiratory infection; J20.9 Acute bronchitis, unspecified; I25.10 Atherosclerotic heart disease of native coronary artery without angina pectoris; I10 Essential (primary) hypertension; K21.9 Gastro-esophageal reflux disease without esophagitis; E78.5 Hyperlipidemia, unspecified; M54.2 Cervicalgia; R51.9 Headache, unspecified; I25.2 Old myocardial infarction; Z79.02 Long term (current) use of antithrombotics/antiplatelets; Z79.82 Long term (current) use of aspirin; Z79.899 Other long term (current) drug therapy; Z87.891 Personal history of nicotine dependence
CPT/HCPCS: 96376 ×2; 96365; 96375; 99285; 36415; 94640 ×2; 93005; 80053 ×2; 83735; 84484; 85025 ×2; 85610; 85730; 81003; 71046; G0378 ×2; J2270; J0696; J2919 ×2